=== PATIENT | female | born 1955 | race Caucasian/White ===

== ENCOUNTER 2019-02-07 12:50 | Emergency (ER) | payer OTHER, BC ==
--- OUTSIDE RECORDS SUMMARY | 2019-02-07 12:54 | XMS REPORT | Clinical Summary ---
:1955 Author Organization [facility] Address [address] [place] [address] Care Team Providers Name Role Phone Unavailable Primary Care Provider Unavailable Allergies No Known Allergies Medications Not on file Active Problems Not on file Social History Tobacco Use Types Packs/Day Years Used Date Never Assessed Sex Assigned at Date Recorded Not on file Job Start Date Occupation Industry Not on file Not on file Not on file Travel History Travel Start Travel End No recent travel history available. Last Filed Vital Signs Not on file Plan of Treatment Not on file Results Not on fileafter 02/06/2018 Insurance Payer Benefit Plan / Subscriber ID Type Phone Address Group BLUE CROSS/BLUE BCBS PPO POS EPO xxxxxxxxxxxx PPO [phone] [address] [place] [address]
--- OUTSIDE RECORDS SUMMARY | 2019-02-07 12:54 | XMS REPORT | Clinical Summary ---
:[address] 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 Last Filed Vital Signs Not on file Plan of Treatment Date Type Specialty Care Team Description 03/21/2019 Office Visit Orthopedic Surgery Davi Sharma PA [address] [place] [address] Health Maintenance Due Date Last Done Comments BREAST CANCER SCREENING 2003 COLONOSCOPY SCREENING 2003 SHINGLES VACCINES (#1) 2003 65+ PNEUMOCOCCAL VACCINE (1 of 2 - PCV13) 2018 INFLUENZA VACCINE 02/20/2019 Procedures Procedure Name Priority Date/Time Associated Diagnosis Comments ESTIMATED GFR Routine 10/28/2018 9:22 Results for this AM CDT procedure are in the results section. AMYLASE LEVEL Routine 10/28/2018 9:22 Diarrhea of presumed Results for this AM CDT infectious origin procedure are in Abdominal pain, the results generalized section. COMPREHENSIVE METABOLIC Routine 10/28/2018 9:22 Diarrhea of presumed Results for this PANEL AM CDT infectious origin procedure are in Abdominal pain, the results generalized section. HC COMPLETE BLD COUNT Routine 10/28/2018 9:22 Diarrhea of presumed Results for this W/AUTO DIFF AM CDT infectious origin procedure are in Abdominal pain, the results generalized section. LIPASE LEVEL Routine 10/28/2018 9:22 Diarrhea of presumed Results for this AM CDT infectious origin procedure are in Abdominal pain, the results generalized section. SURGICAL PATHOLOGY Routine 09/11/2018 5:06 Results for this REQUEST PM [employer] procedure are in the results section. GASTROINTESTINAL PANEL Routine 07/31/2018 1:19 Diarrhea, Results for this PM [employer] unspecified type procedure are in the results section. FECAL FAT, QUALITATIVE Routine 07/31/2018 1:18 Diarrhea, Results for this PM [employer] unspecified type procedure are in the results section. PANCREATIC ELASTASE, Routine 07/31/2018 1:18 Diarrhea, Results for this FECAL PM [employer] unspecified type procedure are in the results section. CALPROTECTIN, STOOL Routine 07/31/2018 1:18 Diarrhea, Results for this PM [employer] unspecified type procedure are in the results section. IMMUNOGLOBULIN A Routine 07/30/2018 4:35 Food protein induced Results for this PM [employer] enterocolitis procedure are in syndrome (FPIES) the results Frequent bowel section. movements Diarrhea of presumed infectious origin TISSUE TRANSGLUTAMINASE Routine 07/30/2018 4:35 Food protein induced Results for this AB, IGA PM [employer] enterocolitis procedure are in syndrome (FPIES) the results Frequent bowel section. movements Diarrhea of presumed infectious origin SEDIMENTATION RATE Routine 07/30/2018 4:35 Food protein induced Results for this PM [employer] enterocolitis procedure are in syndrome (FPIES) the results Frequent bowel section. movements Diarrhea of presumed infectious origin C-REACTIVE PROTEIN Routine 07/30/2018 4:35 Food protein induced Results for this PM [employer] enterocolitis procedure are in syndrome (FPIES) the results Frequent bowel section. movements Diarrhea of presumed infectious origin after 02/06/2018 Results Estimated GFR (10/28/2018 9:22 AM CDT) Estimated GFR 89 mL/min/1.73 [facility] Comment: m2 HOSPITAL CatergoryUnitsInterpretation G1 >=90 Normal or high G2 60-89Mildly decreased [id number] to moderately decreased G3y16-09Iyzotyokvh to severely decreased G4 15-29Severely decreased G5 <15Kidney failure The eGFR was calculated using the Chronic Kidney Disease Epidemiology Collaboration (CKD-EPI) equation. Interpretation is based on recommendations of the National Kidney Foundation-Kidney Disease Outcomes Quality Initiative (NKF-KDOQI) published in 2014. Specimen Plasma specimen Performing Organization Address City/State/Zipcode Phone Number [facility] DEPARTMENT OF PATHOLOGY AND [address] [place] [address] GENOMIC MEDICINE [facility] [address] [place] [address] CBC with platelet and differential (10/28/2018 9:22 AM CDT) WBC 4.21 (L) 4.50 - 11.00 [facility] k/uL [facility] RBC 4.36 4.20 - 5.50 [facility] m/[facility] HGB 12.8 12.0 - 16.0 [facility] HCT 40.1 37.0 - 47.0 % [facility] MCV 92.0 82.0 - 100.0 [facility] MCH 29.4 27.0 - 34.0 pg [facility] MCHC 31.9 31.0 - 37.0 [facility] RDW - SD 47.3 37.0 - 55.0 [facility] MPV 10.6 8.8 - 13.2 [facility] Platelet count 186 150 - 400 k/uL [facility] Nucleated RBC 0.00 /100 WBC [facility] Neutrophils 52.2 39.0 - 69.0 % [facility] Lymphocytes 34.7 25.0 - 45.0 % [facility] Monocytes 9.5 0.0 - 10.0 % [facility] Eosinophils 2.1 0.0 - 5.0 % [facility] Basophils 1.0 0.0 - 1.0 % [facility] Immature granulocytes 0.5Comment: 0.0 - 1.0 % [facility] "Immature HOSPITAL granulocytes" (promyelocytes , myelocytes, metamyelocytes ) Specimen Blood Performing Organization Address City/[facility] Phone Number [facility] DEPARTMENT OF PATHOLOGY AND [address] [place] [phone] [place] [phone] Lipase level (10/28/2018 9:22 AM CDT) Lipase 27 13 - 60 U/L [facility] Specimen Plasma specimen Performing Organization Address City/[facility] Phone Number [facility] DEPARTMENT OF PATHOLOGY AND [address] [place] [address] [address] Amylase level (10/28/2018 9:22 AM CDT) Amylase 44 28 - 100 U/L [facility] Specimen Plasma specimen Performing Organization Address [facility] Phone Number [facility] DEPARTMENT OF PATHOLOGY AND [address] [place] [phone] Comprehensive metabolic panel (10/28/2018 9:22 AM CDT) Sodium 140 135 - 148 [facility] mEq/L [facility] Potassium 4.2 3.5 - 5.0 [facility] mEq/L [facility] Chloride 102 98 - 112 mEq/L [facility] CO2 25 24 - 31 mEq/L [facility] Anion gap 13@ANIO 7 - 15 mEq/L [facility] BUN 16 8 - 23 mg/dL [facility] Creatinine 0.71 0.50 - 0.90 [facility] mg/dL HOSPITAL Glucose 94 65 - 99 mg/dL [facility] Calcium 9.4 8.8 - 10.2 [facility] mg/dL HOSPITAL Protein 7.3 6.3 - 8.3 g/dL [facility] Comment: HOSPITAL 4.6-7.0 g/dL 1 week 4.4-7.6 g/dL 7 months-1year5.1-7.3 g/dL 1-2 years5.6-7.5 g/dL >3 years6.0-8.0 g/dL 18-150 6.3-8.3 g/dL Albumin 4.2 3.5 - 5.0 g/dL [facility] A/G ratio 1.4 0.7 - 3.8 [facility] Alkaline phosphatase 60 35 - 104 U/L [facility] AST 24 10 - 35 U/L [facility] ALT 21 5 - 50 U/L [facility] Total bilirubin 0.6 0.0 - 1.2 [facility] mg/dL HOSPITAL Specimen Plasma specimen Performing Organization Address City/[facility] Phone Number [facility] DEPARTMENT OF PATHOLOGY AND [address] [place] [address] Surgical pathology request (09/11/2018 5:06 PM [employer]) [facility] DEPARTMENT OF PATHOLOGY AND GENOMIC MEDICINE Surgical pathology See link below [facility] DEPARTMENT OF report for PDF Lab PATHOLOGY AND Report GENOMIC MEDICINE Result status This is Final [facility] DEPARTMENT OF Report for PATHOLOGY AND [id number] GENOMIC MEDICINE Specimen Performing Organization Address [facility] Phone Number [facility] DEPARTMENT OF PATHOLOGY AND [address] [place] [address] MEDICINE Gastrointestinal panel (07/31/2018 1:19 PM [employer]) Gastrointestinal panel Negative for all pathogens tested: [facility] Negative for Salmonella [facility] Negative for Campylobacter [facility] Negative for Diarrheagenic E coli/Shigella Negative for Shiga-like toxin-producing E coli Negative for Plesiomonas shigelloides Negative for Yersinia enterocolitica Negative for Vibrio species Negative for Clostridium difficile (Toxin A/B) Negative for Cryptosporidium Negative for Giardia lamblia Negative for Cyclospora cayeteanensis Negative for Entamoeba histolytica Negative for Adenovirus F 40/41 Negative for Astrovirus Negative for Norovirus GI/GII Negative for Rotavirus A Negative for Sapovirus Negative for Clostridium difficile toxin Negative for E coli 0157 This real-time PCR assay detects the presence of nucleic acids (RNA or DNA) for the gastrointestinal pathogens listed. A result of "Not-detected" does not exclude the possibility of the presence of one or more pathogens at concentrations less than the detectable limits of the assay. Comment: Specimen Information Specimen Source: Stool Specimen Site: Nonpreserved Specimen Stool - Nonpreserved Performing Organization Address City/[facility] Phone Number [facility] DEPARTMENT OF PATHOLOGY AND [address] [place] [address] [address] [place] [address] Pancreatic elastase, fecal (07/31/2018 1:18 PM [employer]) Pancreatic >500 >=201 ug/g [facility] elastase Comment: REFERENCE INTERVAL: Pancreatic Elastase, Fecal by KATERINE Greater than 200 ug/g ........ Normal 100-200 ug/g ................. Moderate to mild pancreatic insufficiency Less than 100 ug/g ........... Severe exocrine pancreatic insufficiency Reference range does not apply for infants less than one month old. Performed by Wil[facility] Axon, [address] [place] [id number] www.[email or web address], Julio César Bose MD - Lab. Director Specimen Serum Performing Organization Address [facility] Phone Number [facility] [address] [place] [address] [facility] [address] [place] [address] Calprotectin, stool (07/31/2018 1:18 PM [employer]) Pathologist [facility] Calprotectin, <16 <=50 ug/g [facility] stool Comment: INTERPRETIVE INFORMATION: Calprotectin, Fecal 50 ug/g or less: Normal 51-120 ug/g: Borderline elevated, test should be re-evaluated in 4-6 weeks. 121 ug/g or greater: Abnormal Performed by Wilshire Axon, [address] [place] [address] [id number] [email or web address], Julio César Bose MD - Lab. Director Specimen Serum Performing Organization Address City/[facility] Phone Number [facility] [address] [place] [address] [facility] [address] [place] [address] Fecal fat, qualitative (07/31/2018 1:18 PM [employer]) Pathologist [facility] Fecal fat, neutral Normal Normal [facility] Fecal fat, split Normal Normal [facility] Comment: INTERPRETIVE INFORMATION: Fecal Fat Qualitative Neutral fats include the monoglycerides, diglycerides, and triglycerides while split fats are the free fatty acids that are liberated from them. Impaired synthesis or secretion of pancreatic enzymes or bile may cause an increase in neutral fats while an increase in split fats suggests impaired absorption of nutrients. Performed by Wilshire Axon, [address] [place] [phone] www[email or web address], Julio César Bose MD - Lab. Director Specimen Serum Performing Organization Address [facility] Phone Number [facility] [address] [place] [address] [facility] [address] [place] [phone] Tissue transglutaminase Ab, IgA (07/30/2018 4:35 PM [employer]) Tissue 1 0 - 3 U/mL [facility] transglutaminase Ab, Comment: LAB IgA INTERPRETIVE INFORMATION: Tissue Transglutaminase (tTG) Antibody, IgA 3 U/mL or less: Negative 4-10 U/mL: Weak Positive 11 U/mL or greater: Positive Presence of the tissue transglutaminase (tTG) IgA antibody is associated with glutensensitive enteropathies such as celiac disease and dermatitis herpetiformis. tTG IgA antibody concentrations greater than 40 U/mL usually correlate with results of duodenal biopsies consistent with a diagnosis of celiac disease. For antibody concentrations greater or equal to 4 U/mL but less than or equal to 40 U/mL, additional testing for endomysial (SHELBY) IgA concentrations may improve the positive predictive value for disease. Performed by Wilshire Axon, [address] [place] [phone] www[email or web address], Julio César Bose MD - Lab. Director Specimen Serum Performing Organization Address [facility] Phone Number [facility] [address] [place] [address] [facility] [address] [place] [address] Sedimentation rate (07/30/2018 4:35 PM [employer]) Sedimentation rate 7 0 - 20 mm/hr [facility] Specimen Blood Performing Organization Address City/[facility]/Zipcode Phone Number [facility] DEPARTMENT OF PATHOLOGY AND [address] [place] [address] GENOMIC MEDICINE [address] [address] C-reactive protein (07/30/2018 4:35 PM [employer]) Pathologist [facility] CRP <0.30 0.00 - 0.50 mg/dL [facility] Specimen Plasma specimen Performing Organization Address City/State/Zipcode Phone Number [facility] DEPARTMENT OF PATHOLOGY AND [address] [place] [address] [address] Immunoglobulin A (07/30/2018 4:35 PM [employer]) IgA 112 70 - 400 mg/dL [facility] Specimen Plasma specimen Performing Organization Address City/[facility] Phone Number [facility] DEPARTMENT OF PATHOLOGY AND [address] [place] [address] [address] after 02/06/2018 Insurance Payer Benefit Plan / Subscriber ID Effective Dates Phone Address Type Group MEDICARE MEDICARE PART A xxxxxxxxxxx 2018-Present [place], [place] Medicare AND B BCBS BCBS CHOICE xxxxxxxxxxxx 2018-Present PPO PPO/[employer] PPO Advance Directives Patient has advance care planning documents on file. For more information, please contact:[address] [address]
[2019-02-07] MEDS ORDERED: NA CHLORIDE 0.9% 1,000 ML ONE (13:50)
[2019-02-07] MEDS ORDERED: DICYCLOMINE HCL 10 MG CAP ONE (13:50)
[2019-02-07] MEDS ORDERED: ONDANSETRON 4 MG/2 ML VIAL ONE (13:50)
[2019-02-07] MEDS ORDERED: ACETAMINOPHEN 500 MG TAB ONE (13:50)
[2019-02-07 13:59] LABS: Absolute Lymphocytes (CBC) 0.6 K/uL (0.7-4.9); Basophils % 0.2 % (0-1.3); Eosinophils % 0.6 % (0-4.4); Hematocrit 37.8 % (36.0-45.0); Lymphocytes % 11.6 % (15.3-44.8); MPV 8.9 fL (7.6-11.3); Monocytes % 7.1 % (3.3-12.3); RBC Red Blood Cell Count 4.22 M/uL (3.86-4.86)
[2019-02-07 14:17] LABS: Albumin 4.1 g/dL (3.4-5.0); Bilirubin Direct 0.3 mg/dL (0-0.2); Bilirubin Total 1.6 mg/dL (0.2-1.0); Potassium 3.6 mmol/L (3.5-5.1); Protein, Total 7.5 g/dL (6.4-8.2)
--- NOTE | 2019-02-07 15:24 | ER ---
Nurse's Notes [facility] Name: Marina Castro Age: 63 yrs Sex: Female : 1955 Arrival Date: 02/07/2019 Time: 12:53 Bed 27 Private MD: Cooper Friedman C Diagnosis: Nausea and vomiting;Diarrhea, unspecified Presentation: 02/07 13:15 Presenting complaint: Patient states: headache, nausea, vomiting that began yesterday. aa5 Reports diarrhea today. Transition of care: patient was not received from another setting of care. Onset of symptoms was January 2019. Risk Assessment: Do you want to hurt yourself or someone else? Patient reports no desire to harm self or others. Initial Sepsis Screen: Does the patient meet any 2 criteria? No. Patient's initial sepsis screen is negative. Does the patient have a suspected source of infection? No. Patient's initial sepsis screen is negative. Care prior to arrival: None. 13:15 Method Of Arrival: Ambulatory aa5 13:15 Acuity: LUIS 3 aa5 Historical: - Allergies: 13:16 No Known Allergies; aa5 - PMHx: 13:16 Hypertension; aa5 - PSHx: 13:16 aortic valve replacement; Knee surgery; aa5 - Immunization history:: Adult Immunizations unknown. - Social history:: Smoking status: Patient/guardian denies using tobacco. - Ebola Screening: : No symptoms or risks identified at this time. Screenin:25 Abuse screen: Denies threats or abuse. Denies injuries from another. Nutritional ca1 screening: No deficits noted. Tuberculosis screening: No symptoms or risk factors identified. Fall Risk IV access (20 points). Assessment: 13:25 General: Appears in no apparent distress. comfortable, Behavior is calm, cooperative, ca1 appropriate for age. Pain: Complains of pain in left upper quadrant Pain does not radiate. Pain currently is 6 out of 10 on a pain scale. Neuro: Level of Consciousness is awake, alert, obeys commands, Oriented to person, place, time, situation, Appropriate for age Reports headache. Cardiovascular: Heart tones S1 S2 present Capillary refill < 3 seconds Patient's skin is warm and dry. Respiratory: Airway is patent Respiratory effort is even, unlabored, Respiratory pattern is regular, symmetrical, Breath sounds are clear bilaterally. GI: Abdomen is round non-distended, Bowel sounds present X 4 quads. Abd is soft and non tender X 4 quads. Reports nausea, vomiting, since yesterday. : No deficits noted. No signs and/or symptoms were reported regarding the genitourinary system. EENT: No deficits noted. No signs and/or symptoms were reported regarding the EENT system. Derm: Skin is intact, is healthy with good turgor, Skin is pink, warm \T\ dry. Musculoskeletal: Circulation, motion, and sensation intact. Capillary refill < 3 seconds, Range of motion: intact in all extremities. 14:31 Reassessment: Patient appears in no apparent distress at this time. Patient and/or ca1 family updated on plan of care and expected duration. Pain level reassessed. Patient is alert, oriented x 3, equal unlabored respirations, skin warm/dry/pink. 15:35 Reassessment: Patient appears in no apparent distress at this time. Patient is alert, ca1 oriented x 3, equal unlabored respirations, skin warm/dry/pink. Patient states feeling better. Vital Signs: 13:16 BP 138 / 73; Pulse 80; Resp 16 S; Temp 98.4(TE); Pulse Ox 97% on R/A; Weight 86.18 kg aa5 (R); Height 5 ft. 7 in. (170.18 cm) (R); Pain 8/10; 14:09 BP 129 / 66; Pulse 64; Resp 18 S; Pulse Ox 99% on R/A; ca1 14:31 BP 120 / 66; Pulse 61; Resp 17 S; Temp 98(O); Pulse Ox 96% on R/A; Pain 2/10; ca1 15:35 BP 124 / 67; Pulse 68; Resp 17 S; Temp 98.4(O); Pulse Ox 100% on R/A; ca1 13:16 Body Mass Index 29.76 (86.18 kg, 170.18 cm) aa5 ED Course: 12:53 Patient arrived in ED. dp 12:53 Cooper Friedman MD is Private Physician. dp 13:16 Triage completed. aa5 13:16 Arm band placed on. aa5 13:22 Maryam Melchor FNP-C [facility]. kb 13:22 Maciel Leung MD is Attending Physician. kb 13:25 Agustina Ryan, RN is Primary Nurse. ca1 13:25 Patient has correct armband on for positive identification. Placed in gown. Bed in low ca1 position. Call light in reach. Side rails up X 1. Pulse ox on. NIBP on. Warm blanket given. 13:47 No provider procedures requiring assistance completed. Inserted saline lock: 22 gauge ca1 in right antecubital area, using aseptic technique. Blood collected. 15:36 IV discontinued, intact, bleeding controlled, No redness/swelling at site. Pressure ca1 dressing applied. Administered Medications: 13:40 Drug: Bentyl 20 mg Route: PO; ca1 14:34 Follow up: Response: No adverse reaction; Pain is decreased ca1 13:40 Drug: Tylenol 1000 mg Route: PO; ca1 14:34 Follow up: Response: No adverse reaction; Pain is decreased ca1 13:47 Drug: NS 0.9% 1000 ml Route: IV; Rate: 1000 ml; Site: right antecubital; ca1 14:34 Follow up: IV Status: Completed infusion ca1 13:50 Drug: Zofran 4 mg Route: IVP; Site: right antecubital; ca1 14:34 Follow up: Response: No adverse reaction; Nausea is decreased ca1 Outcome: 15:24 Discharge ordered by . carina 15:36 Discharged to home ambulatory, with family. ca1 15:36 Condition: stable 15:36 Discharge instructions given to patient, Instructed on discharge instructions, follow up and referral plans. medication usage, Demonstrated understanding of instructions, follow-up care, medications, Prescriptions given X 2. 15:41 Patient left the ED. ca1 Signatures: Maryam Melchor FNP-C FNP-Vale Ely RN RN aa5 Agustina Ryan, RN RN ca1 Tuan Galicia
--- NOTE | 2019-02-07 15:25 | EDPHYS ---
Physician Documentation [facility] Name: Marina Castro Age: 63 yrs Sex: Female : 1955 Arrival Date: 02/07/2019 Time: 12:53 Bed 27 Private MD: Cooper Friedman C ED Physician Maciel Leung HPI: 02/07 15:19 This 63 yrs old Female presents to ER via Ambulatory with complaints of kb Nausea/Vomiting, Headache. 15:19 The patient presents to the emergency department with nausea, vomiting, diarrhea, kb abdominal pain. Onset: The symptoms/episode began/occurred last night. Possible causes: unknown. The symptoms are aggravated by nothing. The symptoms are alleviated by nothing. Associated signs and symptoms: Pertinent positives: abdominal pain, diarrhea, nausea, vomiting. Severity of symptoms: At their worst the symptoms were moderate in the emergency department the symptoms are unchanged. The patient has not experienced similar symptoms in the past. The patient has not recently seen a physician. Pt reports she ate a salad yesterday with some chicken that didn't taste quite right, then was moving boxes in a hot warehouse where she got overheated. Was cooking dinner and started having abd pain so she put it away and went to bed. States she got up approx 6 times to vomit throughout the night then had diarrhea this morning. Has not been able to keep anything down since lunch yesterday.. Historical: - Allergies: 13:16 No Known Allergies; aa5 - PMHx: 13:16 Hypertension; aa5 - PSHx: 13:16 aortic valve replacement; Knee surgery; aa5 - Immunization history:: Adult Immunizations unknown. - Social history:: Smoking status: Patient/guardian denies using tobacco. - Ebola Screening: : No symptoms or risks identified at this time. ROS: 14:02 Constitutional: Negative for fever, chills, and weight loss, ENT: Negative for injury, kb pain, and discharge, Neck: Negative for injury, pain, and swelling, Cardiovascular: Negative for chest pain, palpitations, and edema, Respiratory: Negative for shortness of breath, cough, wheezing, and pleuritic chest pain, Back: Negative for injury and pain, : Negative for injury, bleeding, discharge, and swelling, MS/Extremity: Negative for injury and deformity, Skin: Negative for injury, rash, and discoloration. 14:02 Abdomen/GI: Positive for abdominal pain, nausea, vomiting, and diarrhea. 14:02 Neuro: Positive for headache. Exam: 14:02 Constitutional: This is a well developed, well nourished patient who is awake, alert, kb and in no acute distress. Head/Face: Normocephalic, atraumatic. Neck: Trachea midline, no thyromegaly or masses palpated, and no cervical lymphadenopathy. Supple, full range of motion without nuchal rigidity, or vertebral point tenderness. No Meningismus. Chest/axilla: Normal chest wall appearance and motion. Nontender with no deformity. No lesions are appreciated. Cardiovascular: Regular rate and rhythm with a normal S1 and S2. No gallops, murmurs, or rubs. Normal PMI, no JVD. No pulse deficits. Respiratory: Lungs have equal breath sounds bilaterally, clear to auscultation and percussion. No rales, rhonchi or wheezes noted. No increased work of breathing, no retractions or nasal flaring. Abdomen/GI: Soft, non-tender, with normal bowel sounds. No distension or tympany. No guarding or rebound. No evidence of tenderness throughout. Back: No spinal tenderness. No costovertebral tenderness. Full range of motion. Skin: Warm, dry with normal turgor. Normal color with no rashes, no lesions, and no evidence of cellulitis. MS/ Extremity: Pulses equal, no cyanosis. Neurovascular intact. Full, normal range of motion. Neuro: Awake and alert, GCS 15, oriented to person, place, time, and situation. Cranial nerves II-XII grossly intact. Motor strength 5/5 in all extremities. Sensory grossly intact. Cerebellar exam normal. Normal gait. Vital Signs: 13:16 BP 138 / 73; Pulse 80; Resp 16 S; Temp 98.4(TE); Pulse Ox 97% on R/A; Weight 86.18 kg aa5 (R); Height 5 ft. 7 in. (170.18 cm) (R); Pain 8/10; 14:09 BP 129 / 66; Pulse 64; Resp 18 S; Pulse Ox 99% on R/A; ca1 14:31 BP 120 / 66; Pulse 61; Resp 17 S; Temp 98(O); Pulse Ox 96% on R/A; Pain 2/10; ca1 15:35 BP 124 / 67; Pulse 68; Resp 17 S; Temp 98.4(O); Pulse Ox 100% on R/A; ca1 13:16 Body Mass Index 29.76 (86.18 kg, 170.18 cm) aa5 MDM: 13:23 Patient medically screened. kb 14:02 Data reviewed: vital signs, nurses notes. Data interpreted: Pulse oximetry: on room air kb is 97 %. Interpretation: normal. 15:18 Counseling: I had a detailed discussion with the patient and/or guardian regarding: the kb historical points, exam findings, and any diagnostic results supporting the discharge/admit diagnosis, lab results, the need for outpatient follow up, a family practitioner, to return to the emergency department if symptoms worsen or persist or if there are any questions or concerns that arise at home. ED course: Pt tolerating PO intake. States she feels better after treatment. 02/07 13:30 Order name: Basic Metabolic Panel; Complete Time: 14:22 kb 02/07 13:30 Order name: CBC with Diff; Complete Time: 14:22 kb 02/07 13:30 Order name: Hepatic Function; Complete Time: 14:22 kb 02/07 13:30 Order name: Lipase; Complete Time: 14:22 kb 02/07 13:30 Order name: IV Saline Lock; Complete Time: 13:53 kb 02/07 13:30 Order name: Labs collected and sent; Complete Time: 13:53 kb Administered Medications: 13:40 Drug: Bentyl 20 mg Route: PO; ca1 14:34 Follow up: Response: No adverse reaction; Pain is decreased ca1 13:40 Drug: Tylenol 1000 mg Route: PO; ca1 14:34 Follow up: Response: No adverse reaction; Pain is decreased ca1 13:47 Drug: NS 0.9% 1000 ml Route: IV; Rate: 1000 ml; Site: right antecubital; ca1 14:34 Follow up: IV Status: Completed infusion ca1 13:50 Drug: Zofran 4 mg Route: IVP; Site: right antecubital; ca1 14:34 Follow up: Response: No adverse reaction; Nausea is decreased ca1 Disposition: 02/07/19 15:24 Discharged to Home. Impression: Nausea and vomiting, Diarrhea, unspecified. - Condition is Stable. - Discharge Instructions: Food Choices to Help Relieve Diarrhea, Adult, Nausea and Vomiting, Adult, [id number], Diarrhea, Adult, [id number]. - Prescriptions for Bentyl 20 mg Oral Tablet - take 1 tablet by ORAL route every 6 hours As needed; 20 tablet. Zofran 4 mg Oral Tablet - take 1 tablet by ORAL route every 6 hours As needed; 20 tablet. - Medication Reconciliation Form, Thank You Letter, Antibiotic Education, Prescription Opioid Use form. - Follow up: Emergency Department; When: As needed; Reason: Worsening of condition. Follow up: Private Physician; When: 2 - 3 days; Reason: Recheck today's complaints, Continuance of care, Re-evaluation by your physician. Addendum: 02/08/2019 18:44 Co-signature as Attending Physician, Maciel Leung MD. g s Signatures: Dispatcher [employer] EDMS Maryam Melchor, SENIOR GIS ANALYST-C SENIOR GIS ANALYST-Vale Ely RN RN aa5 Maciel Leung MD MD [facility], Agustina RN RN ca1 Corrections: (The following items were deleted from the chart) 02/07 15:41 15:24 02/07/2019 15:24 Discharged to Home. Impression: Nausea and vomiting; Diarrhea, ca1 unspecified. Condition is Stable. Forms are Medication Reconciliation Form, Thank You Letter, Antibiotic Education, Prescription Opioid Use. Follow up: Emergency Department; When: As needed; Reason: Worsening of condition. Follow up: Private Physician; When: 2 - 3 days; Reason: Recheck today's complaints, Continuance of care, Re-evaluation by your physician. kb
[2019-02-07 16:44] VITALS: BP 124/67; TEMP 98.4; O2SAT 100
== END 2019-02-07 15:41 | disposition home or self-care (01) ==
LOC: ER 12:50
DX: R19.7 Diarrhea, unspecified (principal); I10 Essential (primary) hypertension; Z95.2 Presence of prosthetic heart valve
CPT/HCPCS: 96361; 85025; 80048; 36415; 80076; 83690; 96374; 99284; J7030; J2405

== ENCOUNTER 2020-01-28 05:58 | Emergency (ER) | payer OTHER, BC ==
--- OUTSIDE RECORDS SUMMARY | 2020-01-28 06:00 | XMS REPORT | Continuity of Care Document ---
:1955 Author Organization [facility] t Address [address] [place] [address] Care Team Providers Name Role Phone Fifi NAVA, Сергей Lopez Primary Care Physician DR DAV Attending Clinician Unavailable Zachary SYKES Attending Clinician DR DAV Admitting Clinician Unavailable Payers Payer Name Policy Policy Number Effective Expiration Source Type Date Date MEDICAREMEDICARE PART xxxxxxxxxxx 2018 Jack jenifer A AND 00:00:00 [place] [place] [place] xxxxxxxxxxxx 2018 [place] PPO/FEDERAL EMPL 00:00:00 Method[employer] t PPOxxxxxxxxxxxx/08/11 18-PresentPPO Problems This patient has no known problems. Allergies, Adverse Reactions, Alerts This patient has no known allergies or adverse reactions. Family History Family Member Diagnosis Comments Start Date Stop Date Source Natural brother Heart disease [place] [facility] Natural father Cancer [facility] Natural father Stroke [facility] Natural mother Blood Clots [facility] Natural mother Cancer [facility] Natural mother Heart disease Tristin Montesinos Social History Social Habit Start Date Stop Date Quantity Comments Source Sex Assigned At [facility] Cigarettes smoked 2019-03-21 2019-03-21 Tristin Montesinos current (pack per 00:00:00 00:00:00 day) - Reported Cigarette 2019-03-21 2019-03-21 Tristin De La Garza ist pack-years 00:00:00 00:00:00 Alcohol intake 2019-03-21 2019-03-21 Current drinker [place] [facility] 00:00:00 00:00:00 of alcohol (finding) History of tobacco 2004-07-23 Current smoker Jack burgess [facility]iness use 00:00:00 Smoking Status Start Date Stop Date Source Former smoker 2019-03-21 00:00:00 2019-03-21 00:00:00 [facility] Medications Ordered Filled Start Stop Current Ordering Indication Dosage Frequency Signature Comments Components Source Medication Medication Date Date Medication? Clinician (SIG) Name Name diclofenac 2018- Yes Apply 1-2 Jack burgess (VOLTAREN) 8-30 grams to Metho di 1 % gel 00:00: affected st 00 area 3-4 times daily. Procedures Procedure Date / Time Performed Performing Clinician Sourc e XR FOOT 3+ VW LEFT 2019-03-21 11:23:52 Davi Sharma ethjeanne Plan of Care Planned Activity Planned Date Details Comments Source Future Scheduled 2020-02-21 INFLUENZA VACCINE [facility] Test 00:00:00 [code = INFLUENZA VACCINE] Future Scheduled 2018 65+ PNEUMOCOCCAL [facility] Test 00:00:00 VACCINE (1 of 2 - PCV13) [code = 65+ PNEUMOCOCCAL VACCINE (1 of 2 - PCV13)] Future Scheduled 2003 BREAST CANCER [facility] thodist Test 00:00:00 SCREENING [code = BREAST CANCER SCREENING] Future Scheduled 2003 COLONOSCOPY SCREENING Jack burgess [facility] Test 00:00:00 [code = COLONOSCOPY SCREENING] Future Scheduled 2003 SHINGLES VACCINES (#1) [facility] Test 00:00:00 [code = SHINGLES VACCINES (#1)] Results Test Description Test Time Test Comments Results Result Sourc e Comments XR FOREARM 2 VIEWS 2020-01-03 Exam: Right XR ELBOW 09:41:05 MIN 3 VIEWS, XR FOREARM 2 VIEWSHISTORY: PainCOMPARISON: None available.FINDINGS:Christ renny:No acute displaced fracture.Osseous alignment is within normal limits.Joints:The joint spaces are well-maintained.Soft tissues:The soft tissues appear unremarkable.IMPRESSI ON:No acute radiographic abnormality.This final report was electronically signed by Dr Blank Schaefer MD01/03/2020 9:34 AMDictated By: Merle SKINNER: 01/03/2020 09:34 XR ELBOW MIN 3 2020-01-03 Exam: Right XR ELBOW VIEWS 09:40:57 MIN 3 VIEWS, XR FOREARM 2 VIEWSHISTORY: PainCOMPARISON: None available.FINDINGS:Christ renny:No acute displaced fracture.Osseous alignment is within normal limits.Joints:The joint spaces are well-maintained.Soft tissues:The soft tissues appear unremarkable.IMPRESSI ON:No acute radiographic abnormality.This final report was electronically signed by Dr Blank Schaefer MD01/03/2020 9:34 AMDictated By: Merle SKINNER: 01/03/2020 09:34
--- OUTSIDE RECORDS SUMMARY | 2020-01-28 06:00 | XMS REPORT | Clinical Summary ---
:1955 Author Organization [facility] Address [address] [place] [address] Care Team Providers Name Role Phone Unavailable [...] Not on file Results Not on fileafter 01/27/2019 Insurance Payer Benefit Plan / Subscriber ID Type Phone Address Group BLUE CROSS/BLUE BCBS PPO POS EPO xxxxxxxxxxxx PPO [phone] [id number] [place] [address]
--- OUTSIDE RECORDS SUMMARY | 2020-01-28 06:00 | XMS REPORT | Clinical Summary ---
:1955 Author Organization [facility] Address [address] [place] [id number] Care Team Providers Name Role Phone Jessica Calix MD Primary Care Provider Allergies No Known Allergies Medications Medication Sig Dispensed Refills Start Date End Date Status diclofenac (VOLTAREN) Apply 1-2 grams to 500 g 0 9 Active 1 % gel affected area 3-4 times daily. Active Problems Not on file Encounters Date Type Specialty Care Team Description 03/21/2019 Office Visit Orthopedic Surgery Davi Sharma PA Left foot pain (Primary Dx); Arthritis of fo ot, left; Strain of left foot, sequela after 01/27/2019 Family History Medical History Relation Name Comments Heart disease Brother Santhosh Castro Cancer Father Shell Castro Stroke Father Shell Castro Blood Clots Mother Sandra Castro Cancer Mother Sandra Castro Heart disease Mother Sandra Castro Relation Name Status Comments Brother Santhosh Castro Father Shell Castro Mother Sandra Castro Social History Tobacco Use Types Packs/Day Years Used Date Former Smoker Cigarettes 1 20 Quit: 07/23/19 05 Smokeless Tobacco: Never Used Alcohol Use Drinks/Week oz/Week Comments Yes 6 Standard drinks or equivalent 6.0 Sex Assigned at Date Recorded Not on file Job Start Date Occupation Industry Not on file Not on file Not on file Travel History Travel Start Travel End No recent travel history available. Last Filed Vital Signs Not on file Plan of Treatment Health Maintenance Due Date Last Done Comments BREAST CANCER SCREENING 2003 COLONOSCOPY SCREENING 2003 SHINGLES VACCINES (#1) 2003 65+ PNEUMOCOCCAL VACCINE (1 of 2 - PCV13) 2018 INFLUENZA VACCINE 02/21/2020 Procedures Procedure Name Priority Date/Time Associated Diagnosis Comme nts XR FOOT 3+ VW LEFT Routine 03/21/2019 11:23 AM Left foot pain Results for this CDT procedure are i n the results section. after 01/27/2019 Results XR Foot 3+ Vw Left (03/21/2019 11:23 AM CDT) Specimen Narrative Performed At This result has an attachment that is no t available. 3 views of the left foot done weightbearing today shows previous hindfoot [facility] fusion. [address] along the lateral hin dfoot. There is some forefoot abduction more so present on the left and rig ht. There is arthritic joint changes noted along the navicular cune iform. There is a bit of flattening along the longitudinal arch but over all good preservation. Some mild flexion contracture of the l john toes 2 and 3 on the left with a little bit of arthritic joint change a long the interphalangeal joints. No acute bony change or frac ture is appreciated. Soft tissue appears unremarkable. Performing Organization Address City/State/Zipcode Phone Number [facility] [address] [place] [address] after 01/27/2019 Insurance Payer Benefit Plan / Subscriber ID Effective Dates Phone Addre ss Type Group MEDICARE MEDICARE PART A xxxxxxxxxxx 2018-Present [facility] [place] [place] Medicare AND B BCBS BCBS CHOICE xxxxxxxxxxxx 2018-Present PPO PPO/FEDERAL EMPL PPO Advance Directives For more information, please contact: [phone] Type Date Recorded Patient Shipping And Receiving Explanati on Advance Directives, Living Will and Medical Power of Physician Ophthalmologist
[2020-01-28] MEDS ORDERED: FENTANYL CITR 100 MCG/2 ML ONE ×2 (06:36→07:58)
[2020-01-28] MEDS ORDERED: NA CHLORIDE 0.9% 1,000 ML ONE (06:37)
--- NOTE | 2020-01-28 06:46 | ER ---
Nurse's Notes [facility] Name: Marina Castro Age: 64 yrs Sex: Female : 1955 Arrival Date: 01/28/2020 Time: 06:00 Bed 5 Private MD: Diagnosis: Fall on same level from slipping, tripping and stumbling with subsequent striking against other object;Anterior subluxation of right humerus;lateral humeral head fracture Presentation: 01/27 06:11 Chief complaint: Patient states: Patient had a fall from standing position. Patient ao report to be on blood thinner and denies LOC. Patient landed onto her right side and now C/O pain on the right side. Coronavirus screen: Proceed with normal triage. Ebola Screen: Patient negative for fever greater than or equal to 101.5 degrees Fahrenheit, and additional compatible Ebola Virus Disease symptoms Patient denies exposure to infectious person. Patient denies travel to an Ebola-affected area in the 21 days before illness onset. Initial Sepsis Screen: Does the patient meet any 2 criteria? No. Patient's initial sepsis screen is negative. Does the patient have a suspected source of infection? No. Patient's initial sepsis screen is negative. Risk Assessment: Do you want to hurt yourself or someone else? Patient reports no desire to harm self or others. Onset of symptoms was January 28, 2020 at 05:30. 06:11 Method Of Arrival: Ambulatory ao 06:11 Acuity: LUIS 3 ao 06:21 Care prior to arrival: Mechanism of Injury: Fall from standing position. Trauma event ao details: Injury occurred in the [facility]. Trauma Activation: Physician: ED Physician; Name: Samuel; Notified At: ; Arrived At: Physician: General Surgeon; Name: ; Notified At: ; Arrived At: Physician: Radiology; Name: ; Notified At: ; Arrived At: Physician: Respiratory; Name: ; Notified At: ; Arrived At: Physician: Lab; Name: ; Notified At: ; Arrived At: Historical: - Allergies: 06:15 No Known Allergies; ao - Home Meds: 06:15 carvedilol Oral [Active]; Coumadin Oral [Active]; escitalopram oxalate Oral [Active]; ao Celebrex Oral [Active]; - PMHx: 06:15 Hypertension; ao - PSHx: 06:15 None; ao - Immunization history:: Adult Immunizations unknown. - Social history:: Smoking status: Patient denies any tobacco usage or history of. Patient uses alcohol, occasionally. Patient/guardian denies using street drugs, IV drugs. - Immunization history: Last tetanus immunization: unknown. Screenin:14 Abuse screen: Denies threats or abuse. Nutritional screening: No deficits noted. ea Tuberculosis screening: No symptoms or risk factors identified. 06:17 Fall Risk None identified. ao Primary Survey: 06:05 NO uncontrolled hemorrhage observed. A: The patient is alert. Airway: patent. ao Breathing/Chest: Respiratory pattern: regular, Respiratory effort: spontaneous, unlabored, Chest inspection: symmetrical rise and fall of the chest. Circulation: Cardiac rhythm: sinus rhythm Heart tones present. Disability Alert. Exposure/Environment:. 06:21 Reassessment Airway Airway Patent Breathing/Chest Respiratory pattern Regular ao Circulation Heart rhythm Sinus rhythm Disability Alert. Assessment: 06:19 General: Appears in no apparent distress. uncomfortable, Behavior is calm, cooperative, ao appropriate for age. Pain: Complains of pain in Right shoulder. Neuro: Level of Consciousness is awake, alert, obeys commands, Oriented to person, place, time, situation, Appropriate for age. Cardiovascular: Capillary refill < 3 seconds Patient's skin is warm and dry. Respiratory: Airway is patent Respiratory effort is even, unlabored, Respiratory pattern is regular, symmetrical. GI: Abdomen is non-distended. : No signs and/or symptoms were reported regarding the genitourinary system. EENT: No signs and/or symptoms were reported regarding the EENT system. Derm: Skin is pink, warm \T\ dry. normal, Skin temperature is warm. Derm: Bruising that is dark purple, on Right shoulder. Musculoskeletal: Circulation, motion, and sensation intact. Range of motion: intact in all extremities. 07:40 Reassessment: Patient appears in no apparent distress at this time. Patient and/or em family updated on plan of care and expected duration. Pain level reassessed. Patient is alert, oriented x 3, equal unlabored respirations, skin warm/dry/pink. Vital Signs: 06:14 BP 136 / 75; Pulse 87; Resp 16; Temp 98.6; Pulse Ox 99% ; ea Pia Coma Score: 06:17 Eye Response: spontaneous(4). Verbal Response: oriented(5). Motor Response: obeys ao commands(6). Total: 15. Trauma Score (Adult): 06:17 Eye Response: spontaneous(1); Verbal Response: oriented(1); Motor Response: obeys ao commands(2); Systolic BP: > 89 mm Hg(4); Respiratory Rate: 10 to 29 per min(4); Pia Score: 15; Trauma Score: 12 ED Course: 06:00 Patient arrived in ED. ds1 06:09 [facility] Morris [facility]C [facility] snw 06:09 Chris Baker MD is Attending Physician. snw 06:14 Triage completed. ao 06:15 Arm band placed on left wrist. Patient placed in an exam room, on a stretcher, on ao oxygen, on pulse oximetry, Patient notified of wait time. 06:18 Patient maintains SpO2 saturation greater than 95% on room air. Thermoregulation: warm ao blanket given to patient. 06:21 Patient has correct armband on for positive identification. shift boss on. Pulse ao ox on. NIBP on. 06:37 Shoulder Right (2 View) XRAY In Process Unspecified. EDMS 06:42 Nader Perez MD is Referral Physician. snw 06:46 Inserted saline lock: 20 gauge in left antecubital area, using aseptic technique. Blood ao collected. 07:00 Jc Charles, RN is Primary Nurse. ao 08:01 No provider procedures requiring assistance completed. IV discontinued, intact, em bleeding controlled, No redness/swelling at site. Pressure dressing applied. Administered Medications: 06:40 Drug: NS 0.9% 1000 ml Route: IV; Rate: 75 ml/hr; Site: left antecubital; ao 08:00 Follow up: IV Status: Order to discontinue infusion; IV Intake: 500ml em 06:45 Drug: fentaNYL (PF) 50 mcg Route: IVP; Site: left antecubital; ao 07:07 Follow up: Response: No adverse reaction; RASS: Alert and Calm (0) ao 07:55 Drug: fentaNYL (PF) 25 mcg Route: IVP; Site: left antecubital; em 08:00 Follow up: Response: Medication administered at discharge. em Intake: 08:00 IV: 500ml; Total: 500ml. em Output: 08:02 Urine: 0ml; Total: 0ml. em Outcome: 06:45 Discharge ordered by . mary jane 08:01 Discharged to home ambulatory. em 08:01 Condition: good 08:01 Discharge instructions given to patient, Instructed on discharge instructions, follow up and referral plans. no drinking with medication, no driving heavy equipment, medication usage, Demonstrated understanding of instructions, follow-up care, medications, Prescriptions given X 2. 08:02 Patient's length of stay was not longer than 2 hours. em 08:02 Patient left the ED. em Signatures: Dispatcher [employer] EDMS Jessica Morris, MANAGER POOL-C MANAGER POOL-Csnw Ke Deluca, RN RN Dora Karimi ds1 Jc Charles, RN Silke Arroyo RN RN adenike
--- NOTE | 2020-01-28 06:46 | EDPHYS ---
Physician Documentation [facility] Name: Marina Castro Age: 64 yrs Sex: Female : 1955 Arrival Date: 01/28/2020 Time: 06:00 Bed 5 Private MD: ED Physician Chris Baker HPI: 01/27 06:39 This 64 yrs old Female presents to ER via Ambulatory with complaints of Fall snw Injury, Arm Pain. 06:39 Details of fall: The patient fell from an upright position, while walking. Onset: The snw symptoms/episode began/occurred suddenly, just prior to arrival. Associated injuries: The patient sustained right shoulder, contusion, decreased range of motion, painful injury. Severity of symptoms: At their worst the symptoms were moderate, severe. The patient has not experienced similar symptoms in the past. It is unknown whether or not the patient has recently seen a physician. 06:41 no LOC. snw Historical: - Allergies: 06:15 No Known Allergies; ao - Home Meds: 06:15 carvedilol Oral [Active]; Coumadin Oral [Active]; escitalopram oxalate Oral [Active]; ao Celebrex Oral [Active]; - PMHx: 06:15 Hypertension; ao - PSHx: 06:15 None; ao - Immunization history:: Adult Immunizations unknown. - Social history:: Smoking status: Patient denies any tobacco usage or history of. Patient uses alcohol, occasionally. Patient/guardian denies using street drugs, IV drugs. - Immunization history: Last tetanus immunization: unknown. ROS: 06:37 Constitutional: Negative for fever, chills, and weight loss, Eyes: Negative for injury, snw pain, redness, and discharge, ENT: Negative for injury, pain, and discharge, Neck: Negative for injury, pain, and swelling, Cardiovascular: Negative for chest pain, palpitations, and edema, Respiratory: Negative for shortness of breath, cough, wheezing, and pleuritic chest pain, Abdomen/GI: Negative for abdominal pain, nausea, vomiting, diarrhea, and constipation, Back: Negative for injury and pain, : Negative for injury, bleeding, discharge, and swelling, Skin: Negative for injury, rash, and discoloration, Neuro: Negative for headache, weakness, numbness, tingling, and seizure, Psych: Negative for depression, anxiety, suicide ideation, homicidal ideation, and hallucinations. 06:37 MS/extremity: Positive for injury or acute deformity, decreased range of motion, pain, tenderness, of the right shoulder. Exam: 06:35 Constitutional: This is a well developed, well nourished patient who is awake, alert, snw and in no acute distress. Head/Face: Normocephalic, atraumatic. Eyes: Pupils equal round and reactive to light, extra-ocular motions intact. Lids and lashes normal. Conjunctiva and sclera are non-icteric and not injected. Cornea within normal limits. Periorbital areas with no swelling, redness, or edema. ENT: Nares patent. No nasal discharge, no septal abnormalities noted. Tympanic membranes are normal and external auditory canals are clear. Oropharynx with no redness, swelling, or masses, exudates, or evidence of obstruction, uvula midline. Mucous membranes moist. Neck: Trachea midline, no thyromegaly or masses palpated, and no cervical lymphadenopathy. Supple, full range of motion without nuchal rigidity, or vertebral point tenderness. No Meningismus. Chest/axilla: Normal chest wall appearance and motion. Nontender with no deformity. No lesions are appreciated. 06:35 Respiratory: Lungs have equal breath sounds bilaterally, clear to auscultation and percussion. No rales, rhonchi or wheezes noted. No increased work of breathing, no retractions or nasal flaring. Abdomen/GI: Soft, non-tender, with normal bowel sounds. No distension or tympany. No guarding or rebound. No evidence of tenderness throughout. Back: No spinal tenderness. No costovertebral tenderness. Full range of motion. Skin: Warm, dry with normal turgor. Normal color with no rashes, no lesions, and no evidence of cellulitis. Neuro: Awake and alert, GCS 15, oriented to person, place, time, and situation. Cranial nerves II-XII grossly intact. Motor strength 5/5 in all extremities. Sensory grossly intact. Cerebellar exam normal. Normal gait. Psych: Awake, alert, with orientation to person, place and time. Behavior, mood, and affect are within normal limits. 06:35 Cardiovascular: Rate: normal, Rhythm: regular, Pulses: Pulses are 4+ in right brachial artery, left brachial artery, left carotid pulse and right carotid pulse. Heart sounds: murmur, Edema: is not appreciated, artificial heart valve. 06:35 Musculoskeletal/extremity: ROM: limited active range of motion, in the right shoulder, limited passive range of motion, in the anterior aspect of right shoulder, Circulation is intact in all extremities. Sensation intact. Vital Signs: 06:14 BP 136 / 75; Pulse 87; Resp 16; Temp 98.6; Pulse Ox 99% ; ea Capron Coma Score: 06:17 Eye Response: spontaneous(4). Verbal Response: oriented(5). Motor Response: obeys ao commands(6). Total: 15. Trauma Score (Adult): 06:17 Eye Response: spontaneous(1); Verbal Response: oriented(1); Motor Response: obeys ao commands(2); Systolic BP: > 89 mm Hg(4); Respiratory Rate: 10 to 29 per min(4); Capron Score: 15; Trauma Score: 12 MDM: 06:10 Patient medically screened. snw 07:11 Data reviewed: vital signs, nurses notes. Data interpreted: Pulse oximetry: on room air snw is 99 %. Interpretation: normal. Counseling: I had a detailed discussion with the patient and/or guardian regarding: the historical points, exam findings, and any diagnostic results supporting the discharge/admit diagnosis, lab results, radiology results, the need for outpatient follow up, to return to the emergency department if symptoms worsen or persist or if there are any questions or concerns that arise at home. Response to treatment: the patient's symptoms have markedly improved after treatment. Special discussion: I have referred the patient to see his PCP for further evaluation of high blood pressure. Based on the history and exam findings, there is no indication for further emergent testing or inpatient evaluation. I discussed with the patient/guardian the need to see the orthopedic surgeon for further evaluation of the symptoms. I discussed with the patient/guardian the need to see the primary care provider for further evaluation of the symptoms. ED course: pt able to range right shoulder. 01/27 06:14 Order name: PT-INR snw 01/27 06:14 Order name: Ptt, Activated; Complete Time: 07:11 snw 01/27 06:13 Order name: Shoulder Right (2 View) XRAY snw 01/27 06:14 Order name: CBC with Diff; Complete Time: 07:11 snw 01/27 06:14 Order name: Chem 7; Complete Time: 07:11 snw 01/27 06:15 Order name: Protime (+INR); Complete Time: 07:11 EDMS 01/27 06:22 Order name: NPO; Complete Time: 06:23 snw 01/27 06:45 Order name: Sling; Complete Time: 07:59 snw 01/27 06:45 Order name: Ice pack; Complete Time: 07:07 snw Administered Medications: 06:40 Drug: NS 0.9% 1000 ml Route: IV; Rate: 75 ml/hr; Site: left antecubital; ao 08:00 Follow up: IV Status: Order to discontinue infusion; IV Intake: 500ml em 06:45 Drug: fentaNYL (PF) 50 mcg Route: IVP; Site: left antecubital; ao 07:07 Follow up: Response: No adverse reaction; RASS: Alert and Calm (0) ao 07:55 Drug: fentaNYL (PF) 25 mcg Route: IVP; Site: left antecubital; em 08:00 Follow up: Response: Medication administered at discharge. em Disposition: 01/28/20 06:45 Discharged to Home. Impression: Fall on same level from slipping, tripping and stumbling with subsequent striking against other object, Anterior subluxation of right humerus, lateral humeral head fracture. - Condition is Stable. - Discharge Instructions: Fall Prevention in the Home, Humerus Fracture Treated With Immobilization, RICE for Routine Care of Injuries, Shoulder Sprain, How to Use a Sling. - Prescriptions for Ultram 50 mg Oral Tablet - take 1 tablet by ORAL route every 6 hours As needed; 12 tablet. orphenadrine citrate 100 mg Oral Tablet Sustained Release - take 1 tablet by ORAL route 2 times per day As needed; 20 tablet. - Medication Reconciliation Form, Thank You Letter, Antibiotic Education, Prescription Opioid Use form. - Follow up: Emergency Department; When: As needed; Reason: Worsening of condition. Follow up: Nader Perez MD; When: 2 - 3 days; Reason: If symptoms return, Recheck today's complaints, Continuance of care. Addendum: 02/02/2020 16:39 Co-signature as Attending Physician, Chris Baker MD I agree with the assessment and t w4 plan of care. Signatures: Dispatcher [employer] EDJessica Feliz, MACHINE CARTON MARKER-C MACHINE CARTON MARKER-Csnw Ke Deluca, RN RN Jc Cui RN RN Chris Fletcher MD MD tw4 Corrections: (The following items were deleted from the chart) 01/27 06:39 06:35 Musculoskeletal/extremity: ROM: limited active range of motion, limited passive snw range of motion, in the anterior aspect of left shoulder, Circulation is intact in all extremities. Sensation intact. snw 08:02 06:45 01/28/2020 06:45 Discharged to Home. Impression: Fall on same level from em slipping, tripping and stumbling with subsequent striking against other object; Anterior subluxation of right humerus; lateral humeral head fracture. Condition is Stable. Forms are Medication Reconciliation Form, Thank You Letter, Antibiotic Education, Prescription Opioid Use. Follow up: Emergency Department; When: As needed; Reason: Worsening of condition. Follow up: Nader Perez; When: 2 - 3 days; Reason: If symptoms return, Recheck today's complaints, Continuance of care. snw
[2020-01-28 06:51] LABS: Absolute Lymphocytes (CBC) 1.4 K/uL (0.7-4.9); Basophils % 0.8 % (0-1.3); Hematocrit 40.7 % (36.0-45.0); Lymphocytes % 28.9 % (15.3-44.8); MPV 9.1 fL (7.6-11.3)
[2020-01-28 07:00] LABS: Protime INR 2.36
[2020-01-28 07:04] LABS: Potassium 4.1 mmol/L (3.5-5.1)
[2020-01-28 08:15] VITALS: BP 136/75; TEMP 98.6; O2SAT 99
--- NOTE | 2020-01-28 08:21 | RAD REPORT ---
EXAM DESCRIPTION: RAD - Shoulder Right 2 View - 01/28/2020 6:37 am CLINICAL HISTORY: Right shoulder pain FINDINGS: Avulsion fracture greater tubercle right humerus. No dislocation seen.
== END 2020-01-28 08:02 | disposition home or self-care (01) ==
LOC: ER 05:58
DX: S42.301A Unspecified fracture of shaft of humerus, right arm, initial encounter for closed fracture (principal); W01.10XA Fall on same level from slipping, tripping and stumbling with subsequent striking against unspecified object, initial encounter; Y93.01 Activity, walking, marching and hiking; Y92.9 Unspecified place or not applicable; I10 Essential (primary) hypertension
CPT/HCPCS: 96361; 85025; 80048; 36415; 85610; 85730; 73030; 96374; 99285; J3010 ×2; J7030; G0390

== ENCOUNTER 2021-11-06 10:03 | Emergency (ER) | payer OTHER, BC ==
--- OUTSIDE RECORDS SUMMARY | 2021-11-06 10:07 | XMS REPORT | Continuity of Care Document ---
:1955 Author Organization [facility] t Address [address] [place] [address] Care Team Providers Name Role Phone Sebastian Friedman Primary Care Physician SERA Attending Clinician Unavailable Litzy Kirby Attending Clinician Unavailable Charlie Nguyen Attending Clinician Unavailable Charlie Dominguez Attending Clinician Unavailable EBRAHIM Attending Clinician Unavailable Nurse, [facility] Attending Clinician Unavailable Only, Db Test Attending Clinician Unavailable Leanna POLL WATCHER Attending Clinician LEANNA Attending Clinician Unavailable Agustin RN, T Attending Clinician Unavailable Only, Test Attending Clinician Unavailable Humberto NAVA, Cooper Attending Clinician Cooper OSBORNE Attending Clinician Unavailable Doctor Unassigned, Name Attending Clinician Unavailable Tony Friedman Attending Clinician Unavailable Taba Attending Clinician Unavailable Francois Gonzalez DO Attending Clinician Lab, Fam Pob I Attending Clinician Unavailable Anene POLL WATCHER Attending Clinician ANENE Attending Clinician Unavailable Brianna OBRIEN Attending Clinician Unavailable Brianna Obrien MD Attending Clinician Nadeen RENEE S Attending Clinician Wendy SENIOR Attending Clinician Unavailable DR DAV Attending Clinician Unavailable Litzy Kirby Admitting Clin[facility] Admitting Clinician Unavailable Charlie Nguyen Admitting Clinician Unavailable Physician, Primary or Family Admitting Clinician UnavailTony Zelaya Admitting Clinician Unavailable DR DAV Admitting Clinician Unavailable Payers Payer Name Policy Type Policy Number Effective Date Expiration Date Wendy luke MEDICARE PART A AND [id number] 2018 B 00:00:00 MEDICARE PART A \T\ [id number] 2018 B 00:00:00 [employer] TRADITIONAL [id number] 2018 00:00:00 Problems This patient has no known problems. Allergies, Adverse Reactions, Alerts Allergy Allergy Status Severity Reaction(s) Onset Inactive Treating Comm ents Source Name Type Date Date Clinician No Known DA Active U [facility]02 Clear s 00:00: [place] 00 [facility] No Known DA Active U [facility] 3-18 [place] Allergie 00:00: d s 00 [facility] No Known DA Active U [facility] 3-18 [place] Allergie 00:00: d s 00 [facility] No Known DA Active [facility] 7[facility]11 [place] [facility] No Known DA Active [facility] 7[facility]11 [place] [facility] 00:[facility]: [facility] No Known DA Active [facility] (LUF/LI V/SA) NO KNOWN Drug Active Univers ALLERGIE Class ity of S [facility] Family History Family Member Diagnosis Comments Start Date Stop Date Source Natural brother Heart disease [facility] father Cancer [facility] Natural father Stroke [facility] mother Blood Clots [facility] mother Cancer [facility] Natural mother Heart disease [facility] Social History Social Habit Start Date Stop Date Quantity Comments Source Exposure to Not sure [facility] SARS-CoV-2 (event) Alcohol intake 2021-10-10 2021-10-10 Current drinker [facility] 00:00:00 00:00:00 of alcohol (finding) Tobacco use and 2021-10-10 2021-10-10 Smokeless tobacco [facility] exposure 00:00:00 00:00:00 non-user Cigarettes smoked 2019-03-21 2019-03-[address] current (pack per 00:00:00 00:00:00 Hospita l day) - Reported Cigarette 2019-03-21 2019-03-21 Religion pack-years 00:00:00 00:00:00 Hospital History of tobacco 2004-07-23 Cigarette Smoker Religion use 00:00:00 Hospital Sex Assigned At [birth year] [facility] 00:00:00 00:00:00 Smoking Status Start Date Stop Date Source Ex-smoker 2021-10-10 00:00:00 2021-10-10 [facility]:00 [facility] Medic[facility] Ordered Filled Start Stop Current Ordering Indication Dosage Frequency Signature Comments Components Source Medication Medication Date Date Medication? Clinician (SIG) Name Name lidocaine 2021- No [id number] 1mL U T (Xylocaine) 10-10 Health 1 % 21:07: 21:07 injection 1 45 :00 mL methylPREDN 2021- No [id number] 80mg [facility] ISolone 10-10 Health acetate 21:07: 21:07 (DEPO-Medro 45 :00 l) injection 80 mg methylPREDN 2021- No [id number] 80mg 80 mg, [facility] ISolone 10-10 Intra-zohreh Healt h acetate 21:07: 21:07 cular, (DEPO-Medro 45 :00 Once PRN l) Procedure, injection Starting 80 mg on Sun10/10/21 at 1607, For 1 dose lidocaine 2021- No [id number] 1mL 1 mL, UT (Xylocaine) 10-10 Injection, H ealth 1 % 21:07: 21:07 Once PRN injection 1 45 :00 Procedure, mL Starting on Sun10/10/21 at 1607, For 1 dose warfarin Yes QD 1 (one) [facility] (Coumadin) 3-21 time each Heal th 10 MG 14:34: day. tablet 32 valACYclovi 0 Yes valacyclov UT r (Valtrex) 3- ir 500 mg Hea lth 500 MG 14:34: tablet tablet 32 rivaroxaban Yes Xarelto 20 UT (Xarelto) 3-21 mg tablet Healt h 20 MG 14:34: tablet 32 warfarin 2020-07 Yes [facility] (Coumadin) 2-27 Health 10 MG 00:00: tablet 00 rosuvastati 2020-07 Yes 10mg Take 10 mg UT n (Crestor) 0-01 by mouth 1 He alth 10 MG 00:00: (one) time tablet 00 each day in the evening. traMADol 50 2020-0 Yes 4647 1 by mouth Univers mg tablet 7-13 every 4-6 ity o f 00:00: hours as [place] 00 needed for Medical pain Branch Indication s: acute pain, humerus fracture traMADol 50 2020-0 Yes 4647 1 by mouth Univers mg tablet 7-13 every 4-6 ity o f 00:00: hours as [place] 00 needed for Medical pain Branch Indication s: acute pain, humerus fracture traMADol 50 2020-0 Yes 4647 1 by mouth Univers mg tablet 7-13 every 4-6 ity o f 00:00: hours as [place] 00 needed for Medical pain Branch Indication s: acute pain, humerus fracture traMADol 50 2020-0 Yes 4647 1 by mouth Univers mg tablet 7-13 every 4-6 ity o f 00:00: hours as [place] 00 needed for Medical pain Branch Indication s: acute pain, humerus fracture traMADol 50 2020-0 Yes 4647 1 by mouth Univers mg tablet 7-13 every 4-6 ity o f 00:00: hours as [place] 00 needed for Medical pain Branch Indication s: acute pain, humerus fracture traMADol 50 2020-0 Yes 4647 1 by mouth Univers mg tablet 7-13 every 4-6 ity o f 00:00: hours as [place] 00 needed for Medical pain Branch Indication s: acute pain, humerus fracture traMADol 50 2020-0 Yes 4647 1 by mouth Univers mg tablet 7-13 every 4-6 ity o f 00:00: hours as [place] 00 needed for Medical pain Branch Indication s: acute pain, humerus fracture traMADol 50 2020-0 Yes 4647 1 by mouth Univers mg tablet 7-13 every 4-6 ity o f 00:00: hours as [place] 00 needed for Medical pain Branch Indication s: acute pain, humerus fracture traMADol 50 2020-0 Yes 4647 1 by mouth Univers mg tablet 7-13 every 4-6 ity o f 00:00: hours as [place] 00 needed for Medical pain Branch Indication s: acute pain, humerus fracture traMADol 50 2020-0 Yes 4647 1 by mouth Univers mg tablet 7-13 every 4-6 ity o f 00:00: hours as needed for Medical pain Branch Indication s: acute pain, humerus fracture traMADol 50 2020-0 Yes 4647 1 by mouth Univers mg tablet 7-13 every 4-6 ity o f 00:00: hours as needed for Medical pain Branch Indication s: acute pain, humerus fracture traMADol 50 2020-0 Yes 4647 1 by mouth Univers mg tablet 7-13 every 4-6 ity o f 00:00: hours as needed for Medical pain Branch Indication s: acute pain, humerus fracture traMADol 50 2020-0 Yes 4647 1 by mouth Univers mg tablet 7-13 every 4-6 ity o f 00:00: hours as needed for Medical pain Branch Indication s: acute pain, humerus fracture predniSONE 2020-0 Yes Univers 10 mg 7-07 ity of tablet 00:00: [place] [facility] predniSONE 2020-0 Yes Univers 10 mg 7-07 ity of tablet 00:00: [place] [facility] predniSONE 2020-0 Yes Univers 10 mg 7-07 ity of tablet 00:00: [place] [facility] predniSONE 2020-0 Yes Univers 10 mg 7-07 ity of tablet 00:00: [place] [facility] predniSONE 2020-0 Yes Univers 10 mg 7-07 ity of tablet 00:00: [place] [facility] predniSONE 2020-0 Yes Univers 10 mg 7-07 ity of tablet 00:00: [place] [facility] predniSONE 2020-0 Yes Univers 10 mg 7-07 ity of tablet 00:00: Medical Branch predniSONE 2020-0 Yes Univers 10 mg 7-07 ity of tablet 00:00: [place] [facility] predniSONE 2020-0 Yes Univers 10 mg 7-07 ity of tablet 00:00: [place] [facility] predniSONE 2020-0 Yes Univers 10 mg 7-07 ity of tablet 00:00: [place] 00 Medical Branch predniSONE 2020-0 Yes Univers 10 mg 7-07 ity of tablet 00:00: 00 Medical Branch predniSONE 2020-0 Yes Univers 10 mg 7-07 ity of tablet 00:00: Medical Branch predniSONE 2020-0 Yes Univers 10 mg 7-07 ity of tablet 00:00: [place] 00 Medical Branch predniSONE 2020-0 Yes Univers 10 mg 7-07 ity of tablet 00:00: [place] 00 Medical Branch predniSONE 2020-0 Yes Univers 10 mg 7-07 ity of tablet 00:00: [place] 00 Medical Branch celecoxib 2020-0 Yes 200mg Take 200 Uni vers 200 mg 6-30 mg by ity of capsule 00:00: mouth [place] 00 daily. Medical Branch rosuvastati 2020-0 Yes 10mg Take 10 mg Univers n 10 mg 6-30 by mouth ity of tablet 00:00: every [place] 00 evening. Medical Branch celecoxib 2020-0 Yes 200mg Take 200 Uni vers 200 mg 6-30 mg by ity of capsule 00:00: mouth [place] 00 daily. Medical Branch rosuvastati 2020-0 Yes 10mg Take 10 mg Univers n 10 mg 6-30 by mouth ity of tablet 00:00: every 00 evening. Medical Branch celecoxib 2020-0 Yes 200mg Take 200 Uni vers 200 mg 6-30 mg by ity of capsule 00:00: mouth 00 daily. Medical Branch rosuvastati 2020-0 Yes 10mg Take 10 mg Univers n 10 mg 6-30 by mouth ity of tablet 00:00: every 00 evening. Medical Branch celecoxib 2020-0 Yes 200mg Take 200 Uni vers 200 mg 6-30 mg by ity of capsule 00:00: mouth 00 daily. Medical Branch rosuvastati 2020-0 Yes 10mg Take 10 mg Univers n 10 mg 6-30 by mouth ity of tablet 00:00: every 00 evening. Medical Branch celecoxib 2020-0 Yes 200mg Take 200 Uni vers 200 mg 6-30 mg by ity of capsule 00:00: mouth 00 daily. Medical Branch rosuvastati 2020-0 Yes 10mg Take 10 mg Univers n 10 mg 6-30 by mouth ity of tablet 00:00: every [place] 00 evening. Medical Branch celecoxib 2020-0 Yes 200mg Take 200 Uni vers 200 mg 6-30 mg by ity of capsule 00:00: mouth [place] 00 daily. Medical Branch rosuvastati 2020-0 Yes 10mg Take 10 mg Univers n 10 mg 6-30 by mouth ity of tablet 00:00: every [place] 00 evening. Medical Branch celecoxib 2020-0 Yes 200mg Take 200 Uni vers 200 mg 6-30 mg by ity of capsule 00:00: mouth [place] 00 daily. Medical Branch rosuvastati 2020-0 Yes 10mg Take 10 mg Univers n 10 mg 6-30 by mouth ity of tablet 00:00: every [place] 00 evening. Medical Branch celecoxib 2020-0 Yes 200mg Take 200 Uni vers 200 mg 6-30 mg by ity of capsule 00:00: mouth [place] 00 daily. Medical Branch rosuvastati 2020-0 Yes 10mg Take 10 mg Univers n 10 mg 6-30 by mouth ity of tablet 00:00: every [place] 00 evening. Medical Branch celecoxib 2020-0 Yes 200mg Take 200 Uni vers 200 mg 6-30 mg by ity of capsule 00:00: mouth [place] 00 daily. Medical Branch rosuvastati 2020-0 Yes 10mg Take 10 mg Univers n 10 mg 6-30 by mouth ity of tablet 00:00: every 00 evening. Medical Branch celecoxib 2020-0 Yes 200mg Take 200 Uni vers 200 mg 6-30 mg by ity of capsule 00:00: mouth [place] 00 daily. Medical Branch rosuvastati 2020-0 Yes 10mg Take 10 mg Univers n 10 mg 6-30 by mouth ity of tablet 00:00: every [place] 00 evening. Medical Branch celecoxib 2020-0 Yes 200mg Take 200 Uni vers 200 mg 6-30 mg by ity of capsule 00:00: mouth [place] 00 daily. Medical Branch rosuvastati 2020-0 Yes 10mg Take 10 mg Univers n 10 mg 6-30 by mouth ity of tablet 00:00: every [place] 00 evening. Medical Branch celecoxib 2020-0 Yes 200mg Take 200 Uni vers 200 mg 6-30 mg by ity of capsule 00:00: mouth [place] 00 daily. Medical Branch rosuvastati 2020-0 Yes 10mg Take 10 mg Univers n 10 mg 6-30 by mouth ity of tablet 00:00: every [place] 00 evening. Medical Branch celecoxib 2020-0 Yes 200mg Take 200 Uni vers 200 mg 6-30 mg by ity of capsule 00:00: mouth [place] 00 daily. Medical Branch celecoxib 2020-0 Yes 200mg Take 200 Uni vers 200 mg 6-30 mg by ity of capsule 00:00: mouth [place] 00 daily. Medical Branch rosuvastati 2020-0 Yes 10mg Take 10 mg Univers n 10 mg 6-30 by mouth ity of tablet 00:00: every [place] 00 evening. Medical Branch celecoxib 2020-0 Yes 200mg Take 200 Uni vers 200 mg 6-30 mg by ity of capsule 00:00: mouth [place] 00 daily. Medical Branch rosuvastati 2020-0 Yes 10mg Take 10 mg Univers n 10 mg 6-30 by mouth ity of tablet 00:00: every [place] evening. Medical Branch rosuvastati 2020-0 Yes 10mg Take 10 mg Univers n 10 mg 6-30 by mouth ity of tablet 00:00: every [place] evening. Medical Branch acetaminoph 2020-0 Yes TAKE 1 OR U nivers en-codeine 6-21 2 TABLETS ity of 300-30 mg 00:00: BY [place]OUTH [place] tablet 00 EVERY 4 6 Medical HOURS Branch NEEDED FOR PAIN acetaminoph 2020-0 Yes TAKE 1 OR U nivers en-codeine 6-21 2 TABLETS ity of 300-30 mg 00:00: [place]TH [place] tablet 00 EVERY 4 6 Medical HOURS Branch NEEDED FOR PAIN acetaminoph 2020-0 Yes TAKE 1 OR U nivers en-codeine 6-21 2 TABLETS ity of 300-30 mg 00:00: [place]TH [place] tablet 00 EVERY 4 6 Medical HOURS Branch NEEDED FOR PAIN acetaminoph 2020-0 Yes TAKE 1 OR U nivers en-codeine 6-21 2 TABLETS ity of 300-30 mg 00:00: [place]TH [place] tablet 00 EVERY 4 6 Medical HOURS Branch NEEDED FOR PAIN acetaminoph 2020-0 Yes TAKE 1 OR U nivers en-codeine 6-21 2 TABLETS ity of 300-30 mg 00:00: [place]TH [place] tablet 00 EVERY 4 6 Medical HOURS Branch NEEDED FOR PAIN acetaminoph 2020-0 Yes TAKE 1 OR U nivers en-codeine 6-21 2 TABLETS ity of 300-30 mg 00:00: [place]TH [place] tablet 00 EVERY 4 6 Medical HOURS Branch NEEDED FOR PAIN acetaminoph 2020-0 Yes TAKE 1 OR U nivers en-codeine 6-21 2 TABLETS ity of 300-30 mg 00:00: BY [place]OUTH [place] tablet 00 EVERY 4 6 Medical HOURS Branch NEEDED FOR PAIN acetaminoph 2020-0 Yes TAKE 1 OR U nivers en-codeine 6-21 2 TABLETS ity of 300-30 mg 00:00: BY [place]OUTH [place] tablet 00 EVERY 4 6 Medical HOURS Branch NEEDED FOR PAIN acetaminoph 2020-0 Yes TAKE 1 OR U nivers en-codeine 6-21 2 TABLETS ity of 300-30 mg 00:00: BY [place]OUTH [place] tablet 00 EVERY 4 6 Medical HOURS Branch NEEDED FOR PAIN acetaminoph 2020-0 Yes TAKE 1 OR U nivers en-codeine 6-21 2 TABLETS ity of 300-30 mg 00:00: BY [place]OUTH [place] tablet 00 EVERY 4 6 Medical HOURS Branch NEEDED FOR PAIN acetaminoph 2020-0 Yes TAKE 1 OR U nivers en-codeine 6-21 2 TABLETS ity of 300-30 mg 00:00: BY [place]OUTH [place] tablet 00 EVERY 4 6 Medical HOURS Branch NEEDED FOR PAIN acetaminoph 2020-0 Yes TAKE 1 OR U nivers en-codeine 6-21 2 TABLETS ity of 300-30 mg 00:00: BY MOUTH [place] tablet 00 EVERY 4 6 Medical HOURS Branch NEEDED FOR PAIN acetaminoph 2020-0 Yes TAKE 1 OR U nivers en-codeine 6-21 2 TABLETS ity of 300-30 mg 00:00: BY [place]OUTH [place] tablet 00 EVERY 4 6 Medical HOURS Branch NEEDED FOR PAIN acetaminoph 2020-0 Yes TAKE 1 OR U nivers en-codeine 6-21 2 TABLETS ity of 300-30 mg 00:00: BY [place]OUTH [place] tablet 00 EVERY 4 6 Medical HOURS Branch NEEDED FOR PAIN acetaminoph 2020-0 Yes TAKE 1 OR U nivers en-codeine 6-21 2 TABLETS ity of 300-30 mg 00:00: BY MOUTH [place] tablet 00 EVERY 4 6 Medical HOURS Branch NEEDED FOR PAIN warfarin 10 2020-0 Yes Univer s mg tablet 6-11 ity of 00:00: [place] [facility] warfarin 10 2020-0 Yes Univer s mg tablet 6- ity of 00:00: [place] [facility] warfarin 10 2020-0 Yes Univer s mg tablet 6-11 ity of 00:00: [place] [facility] warfarin 10 2020-0 Yes Univer s mg tablet 6- ity of 00:00: [place] [facility] warfarin 10 2020-0 Yes Univer s mg tablet 6-11 ity of 00:00: [place] [facility] warfarin 10 2020-0 Yes Univer s mg tablet 6- ity of 00:00: [place] [facility] warfarin 10 2020-0 Yes Univer s mg tablet 6- ity of 00:00: [place] 00 Medical Branch warfarin 10 2020-0 Yes Univer s mg tablet 6-11 ity of 00:00: [place] [facility] warfarin 10 2020-0 Yes Univer s mg tablet 6-11 ity of 00:00: [place] 00 Medical Branch warfarin 10 2020-0 Yes Univer s mg tablet 6-11 ity of 00:00: [place] [facility] warfarin 10 2020-0 Yes Univer s mg tablet 6-11 ity of 00:00: [place] [facility] warfarin 10 2020-0 Yes Univer s mg tablet 6-11 ity of 00:00: [place] 00 Medical Branch warfarin 10 2020-0 Yes Univer s mg tablet 6-11 ity of 00:00: [place] [facility] warfarin 10 2020-0 Yes Univer s mg tablet 6-11 ity of 00:00: [place] 00 Medical Branch warfarin 10 2020-0 Yes Univer s mg tablet 6-11 ity of 00:00: [place] [facility] diclofenac 2019-0 Yes Apply 1-2 Me thodi (VOLTAREN) 8-[address] 1 % gel 00:00: affected Hospit a 00 area 3-4 l times daily. Vital Signs Vital Name Observation Time Observation Value Comments Source Body height 2021-10-10 19:33:00 170.2 cm [facility] Body weight 2021-10-10 19:33:00 83.915 kg [facility] BMI 2021-10-10 19:33:00 28.98 kg/m2 [facility] Systolic blood 2020-01-28 20:07:00 141 mm[Hg] [facility] [place] Diastolic blood 2020-01-28 20:07:00 85 [facility]Hg[facility] 2020-01-28 20:07:00 62 /min [facility] Body height 2020-01-28 20:02:00 170.2 cm [facility] Body weight 2020-01-28 20:02:00 77.111 kg [facility] BMI 2020-01-28 20:02:00 26.63 kg/m2 [facility] Systolic blood 2020-01-28 20:07:00 141 mm[Hg] Univer [facility] Diastolic blood 2020-01-28 20:07:00 85 mm[Hg] [facility] Heart rate 2020-01-28 20:07:00 62 /min [facility] Body height 2020-01-28 20:02:00 170.2 cm [facility] Body weight 2020-01-28 20:02:00 77.111 kg [facility] BMI 2020-01-28 20:02:00 26.63 kg/m2 [facility] Procedures Procedure Date / Time Performing Clinician Source Performed [place] ARTHROCENTESIS 2021-10-10 21:07:45 Andrés Bautista [facility] ASPIR&/INJ MAJOR JT/BURSA W/O US ASSIGNMENT OF BENEFITS 2021-07-24 15:16:00 Doctor Unassigned, Un [facility] Plan of Care Planned Activity Planned Date Details Comments Source Future Scheduled 2021-07-13 COVID-19 VACCINE (1) Met [facility] Test 16:26:45 [code = COVID-19 VACCINE (1)] Future Scheduled 2021-07-13 Hepatitis C screening [facility] Test 16:26:45 (procedure) [code = [id number]] Future Scheduled 2021-07-13 BREAST CANCER [facility] Test 16:26:45 SCREENING [code = BREAST CANCER SCREENING] Future Scheduled 2021-07-13 COLONOSCOPY SCREENING [facility] Test 16:26:45 [code = COLONOSCOPY SCREENING] Future Scheduled 2021-07-13 [facility] 16:26:45 [code = SHINGLES VACCINES (#1)] Future Scheduled 2021-07-13 65+ [facility]AL [facility] Test 16:26:45 VACCINE (1 of 1 - PPSV23) [code = 65+ PNEUMOCOCCAL VACCINE (1 of 1 - PPSV23)] Future Scheduled 2021-07-13 INFLUENZA VACCINE [facility] Test 16:26:45 [code = INFLUENZA VACCINE] Encounters Start End Encounter Admission Attending Care Care Encounter Source Date/Time Date/Time Type Type Clinicians Facility Department ID 2021-09-22 Outpatient SERA [facility] [id number] [place] 09:07:57 [facility] 2021-09-19 Inpatient HERI Ramos SURG [id number] [facility] 15:00:00 Maciel [id number] [facility] 2021-08-24 Inpatient MILLY Kirby [facility] [id number] [facility] 09:30:00 Maciel [id number] [facility] 2021-08-19 Outpatient Wendy [facility] [id number] [facility] 14:04:35 Cl 93 [place] [facility] 2021-06-29 Outpatient Wendy [facility] [id number] [facility] 16:17:15 Cl 94 [place] [facility] 2021-06-27 Inpatient MILLY Kirby [facility] [id number] [facility] 07:30:00 Maciel [id number] [facility] 2021-05-25 Inpatient MILLY Kirby [facility] [id number] [facility] 10:00:00 Maciel [id number] [facility] 2020-10-07 Inpatient MILLY Dominguez [facility]G [id number] [facility] 14:30:00 Mufaddal [id number] [facility] 2020-10-06 Inpatient MILLY Dominguez [facility] SURG [id number] [facility] 14:00:00 Mufaddal [id number] [facility] 2020-09-16 Inpatient MILLY Dominguez [facility] RADI [id number] [facility] 11:30:00 Mufaddal [id number] [facility] 2021-11-06 2021-11-06 Outpatient R [facility] [id number] Univers 12:00:00 12:00:[id number] [facility] 2021-11-06 2021-11-06 Outpatient R [facility] [id number] Univers 12:00:00 12:00:00 ity [facility] 2021-11-05 2021-11-05 Outpatient R [facility] [id number] Univers 20:45:00 20:45:00 [id number] ity [facility] 2021-11-05 2021-11-05 Outpatient R SLOANE [facility] [id number] Univers 20:45:00 20:45:[address] [facility] 2021-10-10 2021-10-10 Office VICKY Escalona ORTHO [id number] [place] 14:30:00 16:07:20 Visit Newton SUGAR [id number] He eunice [place] [id number] 2021-09-02 2021-09-02 Telephone Nurse, Shakeel [facility] [id number] Univers 00:00:00 00:00:00 Db Urgent HEALTH [id number] ity of [facility] [id number] Uziel as PADDY?BLEA [id number] [address] MEDICAL OFFICE [facility] 2021-08-24 2021-08-24 Outpatient IMTIAZ KirbyCL LABO [id number] [facility] 15:41:00 15:41:00 Maciel [id number] [facility] 2021-08-17 2021-08-17 Outpatient MILLY Nguyen HERI RADI [id number] [facility] 17:40:00 17:40:00 Cl [id number] [place] [facility] 2021-08-02 2021-08-02 Laboratory Only, Shakeel Db Test [facility] [id number] Univers 20:15:00 20:30:00 Only Mattoe Ram [id number] ity of [facility] [id number] Uziel as PADDY?BLEA [id number] [address] MEDICAL OFFICE [facility] 2021-08-02 2021-08-02 Outpatient R [facility] [id number] Univers 20:15:00 20:15:00 [id number] ity of [facility] 2021-08-02 2021-08-02 Outpatient R LEANNA [facility] [id number] Univers 20:15:00 20:15:00 MATTEO hill o f [facility] 2021-07-25 2021-07-25 Letter MARCOS Velez [id number] Univers 00:00:00 00:00:00 (Out) Alesia GOINS [id number] it y of [facility] [id number] Uziel as [id number] [facility] 019 Branch 2021-07-24 2021-07-24 Outpatient R [facility] [id number] Univers 19:45:00 19:45:00 [id number] ity of [facility] 2021-07-24 2021-07-24 Laboratory Only, Adc Test [facility] 1.2.840. [id number] Univers 08:45:00 09:00:00 Only Jose Rafael Osborne [id number] ity [facility] [id number] [facility] [id number] [facility] 353 Branch 2021-07-24 2021-07-24 Outpatient R HUMBERTO [facility] [id number] Univers 08:45:00 08:45:00 JOSE RAFAEL ity [facility] 2021-07-24 2021-07-24 Orders Doctor RODRÍGUEZ [id number] Univers 00:00:00 00:00:00 Only Unassigned, BRISEIDA [id number] [facility] [id number] Uziel as [id number] [facility] 009 Branch 2021-06-29 2021-06-29 Outpatient MILLY Nguyen, HCATO RADI [id number] [facility] 11:17:00 11:17:00 Cl [id number] [facility] 2021-05-18 2021-05-18 Outpatient Mirta, HCATO SURG [id number] [facility] 10:30:00 10:30:00 Maciel [id number] [facility] 2021-02-23 2021-02-23 Outpatient EL Idalia, HCAPM MERCEDES [id number] [facility] 12:00:00 12:00:00 Sebastian [id number] [facility] 2021-01-25 2021-01-25 Outpatient EL Friedman, HCAPM MERCEDES [id number] [facility] 12:00:00 12:00:00 Sebastian [id number] [facility] 2021-01-05 2021-01-05 Outpatient EL Doug, HCATO RADI [id number] [facility] 06:45:00 06:45:00 Gill [id number] [facility] 2020-12-31 2020-12-31 Travel 1.2.840.1 [id number] [facility] 00:00:00 00:00:00 [id number] 350.1.13.[address] 3.430.2.7 0.2.7.3.698 Ho spita .3.225146 084.8 l .8 2020-12-06 2020-12-06 Travel 1.2.840.1 1.2.339.210 0249 [id number] Methodi 00:00:00 00:00:[address] 3.430.2.7 0.2.7.3.698 Ho spita .3.965506 084.8 l .8 2020-10-12 2020-10-12 Outpatient [facility], [facility] [id number] 2-20 [facility] 09:30:00 09:30:00 Mufaddal [id number] [facility] 2020-10-07 2020-10-07 Outpatient [facility] [id number] 2-20 [facility] 18:13:00 18:13:00 Mufaddal [id number] [facility] 2020-09-27 2020-09-27 [facility] 1.2.840.114 [id number] Univers 00:00:00 00:00:00 Outreach [facility] 350.1.13.10 i ty of Francois CARE 4.2.7.2.686 Uziela s KATERINEON [phone] Wy dical [address] 2020-09-27 2020-09-27 Patient Carlos NDSAMUEL 1.2.840.114 [id number] 27 00:00:00 00:00:00 Outreach Jose A PRIMARY 350.1.13.10 Francois CARE 4.2.7.2.686 PAVILLION [id number] 388 2020-09-23 2020-09-23 Travel 1.2.840.1 1.2.438.813 8301 003307 Methodi 00:00:00 00:00:[address] 3.430.2.7 0.2.7.3.698 Ho spita .3.452796 084.8 l .8 2020-09-08 2020-09-08 Outpatient HERI Dominguez [id number] 2-20 [facility] 07:00:00 07:00:00 Mukassandraddinocencio [id number] [facility] 2020-03-20 2020-03-20 Laboratory Lab, [facility] Fam Pob I [facility] 1.2. 840.114 [id number] Univers 13:38:36 13:58:36 Only [facility] 350.1.13.10 ity of [place] 4.2.7.2.686 Uziel as Professio [phone] Wy dical [address] Office Building [facility] 2020-03-20 2020-03-20 Laboratory Lab, [facility] 1.2.840.114 77 [id number] 13:38:36 13:58:36 Only Fam Pob I Health 350.1.13.10 [place] 4.2.7.2.686 Professio [id number] [place] [address] Office Building [facility] 2020-03-20 2020-03-20 Outpatient [facility] [id number] -[id number] Univers 13:20:00 13:20:00 [id number] ity of [facility] 2020-03-20 2020-03-20 Outpatient R BELIA [facility] [id number] Univers 13:20:00 13:20:00 ESTEBAN ity of [facility] 2020-03-20 2020-03-20 Letter Doctor RODRÍGUEZ 1.2.840.114 [id number] Univers 00:00:00 00:00:00 (Out) Unassigned, BRISEIDA 350.1.13.10 ity of [facility] 4.2.7.2.686 Uziel as [phone] [address] 2020-03-20 2020-03-20 Letter Doctor MARCOS Luna.2.840.114 [id number] 00:00:00 00:00:00 (Out) Unassigned, BRISEIDA 350.1.13.10 [facility] 4.2.7.2.686 [id number] [facility] 2020-03-08 2020-03-08 Outpatient R MICAH [facility] [id number] 8A-20 Univers 16:00:00 16:00:00 LILIA [id number] [facility] 2020-03-08 2020-03-08 Outpatient R MICAH [facility] [id number] Univers 16:00:00 16:00:00 LILIA [facility] 2020-03-01 2020-03-01 [place] [facility] 1.2.840.114 77 [id number] 00:00:00 00:00:00 [facility] 350.1.13.10 Surgical 4.2.7.2.686 Specialti [phone] [address] [place] 2020-03-01 2020-03-01 [facility] 1.2.840.114 77 [id number] 00:00:00 00:00:00 [facility] 350.1.13.10 Surgical 4.2.7.2.686 Specialti [phone] es [address] [place] 2020-03-01 2020-03-01 [place] [facility] 1.2.840.114 77 [id number] [facility] 00:00:00 00:00:00 [facility] 350.1.13.10 it y of Surgical 4.2.7.2.686 Uziel as Specialti [phone] Wy dical es [address] [facility] 2020-03-01 2020-03-01 [place] [facility] 1.2.840.114 77 [id number] Univers 00:00:00 00:00:00 [facility] 350.1.13.10 it y of Surgical 4.2.7.2.686 Uziel as Specialti [id number] Me dical es [address] [facility] 2020-02-20 2020-02-20 [place] [facility] 1.2.840.114 77 [id number] 00:00:00 00:00:00 [facility] 350.1.13.10 Surgical 4.2.7.2.686 Specialti [phone] es [address] [place] 2020-02-20 2020-02-20 [place] [facility] 1.2.840.114 77 [id number] Univers 00:00:00 00:00:00 Lilia L [facility] 350.1.13.10 it y of Surgical 4.2.7.2.686 Uziel as Specialti [phone] Me dical es [address] [facility] 2020-02-04 2020-02-04 Telephone [facility] 1.2.840.114 76 [id number] 00:00:00 00:00:00 [facility] 350.1.13.10 Surgical 4.2.7.2.686 Specialti [phone] es [address] [place] 2020-02-04 2020-02-04 Telephone [facility] 1.2.840.114 76 [id number] [facility] 00:00:00 00:00:00 [facility] 350.1.13.10 it y of Surgical 4.2.7.2.686 Uziel as Specialti [phone] Wy dical es [address] [facility] 2020-02-02 2020-02-02 [place] [facility] 1.2.840.114 76 [id number] 00:00:00 00:00:00 [facility] 350.1.13.10 Surgical 4.2.7.2.686 Specialti [id number] es [address] [place] 2020-02-02 2020-02-02 [place] [facility] 1.2.840.114 76 [id number] [facility] 00:00:00 00:00:00 [facility] 350.1.13.10 it y of Surgical 4.2.7.2.686 Uziel as Specialti [phone] Wy dical es [address] [facility] 2020-01-28 2020-01-28 Office [facility] 1.2.840.114 [id number] 14:49:21 15:36:45 Visit [facility] Forter 350.1.13.10 Surgical 4.2.7.2.686 Specialti [phone] es [address] [place] 2020-01-28 2020-01-28 Office [facility] 1.2.840.[id number] [place] [address] 14:49:21 15:36:45 Visit [facility] 350.1.13.10 it y of Surgical 4.2.7.2.686 Uziel as Specialti [phone] Wy dical es [address] [facility] 2020-01-28 2020-01-28 Outpatient R NADEEN [facility] [id number] Univers 14:45:00 14:45:00 FRANCIS[place] [facility] Results Test Description Test Time Test Comments Results Result Comments Source PROTHROMBIN TIME 2021-08-24 12:51:00 Test Item Value Reference Range Interpretation Comme nts PROTHROMBIN TIME PATIENT (test 20.9 secs 9.7-12.5 H Please note new normal range. code = PTP) INTERNATIONAL NORMAL RATIO 1.87 <2.0 R ECOMMENDED THERAPEUTIC RANGE FOR (test code = INR) ORAL ANTIC OAGULANTTREATMENT: CONDITION INRProp hylaxis of venous thrombosis in 2.0 - 3.0 high-risk medi lisbeth or surgical patientsTreatme nt of venous thrombosis 2.0 - 3.0Prevention o f embolism 2 .0 - 3.0Prevention of recurrent em bolism, or 3.0 - 4.5 pat ients with mechanical pros thetic intravascular v george IS PATIENT ON ANTICOAGULANTS ? YLIST ANTICOAGULANT/ANTI PLT MEDICATION : OtherHas Lab been notified if Patient is on Heparin Drip? NOIf Yes, order CBC, OCCULT BLOOD, PT every other day NTHROMBOPLASTIN TIME [id number] 12:51:00 Test Item Value Reference Range Interpretation Comments PTT ACTIVATED (test 38.5 secs 26.6-34.6 H Please n ote new code = APTT) normal range. IS PATIENT ON ANTICOAGULANTS ? YLIST ANTICOAGULANT/ANTI PLT MEDICATION : OtherHas Lab been notified if Patient is on Heparin Drip? NOIf Yes, order CBC, OCCULT BLOOD, PT every other day N- XR FLUORO [id number] 13:34:00 [facility] Ivone : 1955 Sex: F Patient Name: NIKIA GARCIA Unit No: [id number] EXAMS: CPT CODE: [id number] XR FLUORO [id number] Fluoroscopically guided injection of the right plantar fascia with steroid FINDINGS: After informed consent was obtained a needle was placed in the right plantar fascia with fluoroscopic guidance. Its position was confirmed by obtaining a radiograph. Subsequently 2 mL of Kenalog 40 mg per cc and 2 mL of lidocaine was injected. No immediate complications were encountered. 32 seconds of fluoroscopy time was utilized. IMPRESSION: Technically successful steroid injection of the right plantar fascia at 1334 Reported and signed by: Erick Alcantar M.D. CC: Cl Nguyen MD Technologist: RT Karol.(R) Transcribed D/ (9959) t.OSEASR.[facility] NAME: NIKIA GARCIA [address] [facility] PHYS: Cl Sandra MD : 1955 AGE: 66 SEX: F [place] [address] LOC: Y.PRE PHONE #: [phone] EXAM DATE: 08/17/2021 STATUS: [facility] FAX #: [phone] RAD #: [id number] D/C DTPAGE 1 Signed Report Patient Name: NIKIA GARCIA Unit No: [id number] EXAMS: CPT CODE: [id number] XR FLUORO NDL [id number] <Continued> Orig Print D/T: S: 08/18/2021 (3612) [facility] NAME: NIKIA GARCIA [address] [facility] PHYS: Cl Sandra MD : 1955 AGE: 66 SEX: F [place] [address] LOC: Y.PRE PHONE #: [phone] EXAM DATE: 08/17/2021 STATUS: [facility] FAX #: [phone] RAD #: [id number] D/C DT PAGE 2 Signed Report- XR FLUORO [id number] 13:34:00 [facility] 1955 Sex: F Patient Name: NIKIA GARCIA Unit No: [id number] EXAMS: CPT CODE: [id number] XR FLUORO [id number] Fluoroscopically guided injection of the right plantar fascia with steroid FINDINGS: After informed consent was obtained a needle was placed in the right plantar fascia with fluoroscopic guidance. Its position was confirmed by obtaining a radiograph. Subsequently 2 mL of Kenalog 40 mg per cc and 2 mL of lidocaine was injected. No immediate complications were encountered. 32 seconds of fluoroscopy time was utilized. IMPRESSION: Technically successful steroid injection of the right plantar fascia at 1334 Reported and signed by: Erick Alcantar M.D. CC: Cl Nguyen MD Technologist: Kelley Aguiar, RT.(R) Transcribed D/ (5684) t.OSEASR.[facility] NAME: NIKIA GARCIA [address] [facility] PHYS: Cl Sandra MD : 1955 AGE: 66 SEX: F [place], [place] [address] LOC: Y.RAD PHONE #: [phone] EXAM DATE: 08/17/2021 STATUS: DEP CLI FAX #: [phone] RAD #: [id number] D/C DTPAGE 1 Signed Report Patient Name: NIKIA GARCIA Unit No: [id number] EXAMS: CPT CODE: [id number] XR FLUORO NDL [id number] <Continued> Orig Print D/T: S: 08/18/2021 (1337) [facility] NAME: NIKIA GARCIA [address] [facility] PHYS: Cl Sandra MD : 1955 AGE: 66 SEX: F [place], [place] [address] LOC: Y.RAD PHONE #: [phone] EXAM DATE: 08/17/2021 STATUS: DEP CLI FAX #: [phone] RAD #: [id number] D/C DT PAGE 2 Signed Report- MRI LOW EXT W/O CONT [id number] 16:13:00 [facility] 1955 Sex: F Patient Name: NIKIA GARCIA Unit No: [id number] EXAMS: CPT CODE: [id number] MRI LOW EXT W/O CONT [id number] MRI OF THE LEFT FOOT DIAGNOSIS: Degenerative changes are seen in the talonavicular, naviculocuneiform and 3rd tarsometatarsal joint with cystformation and spur formation. No fractures are seen. COMMENT: Scans were performed in the sagittal, axial and coronal planes utilizing T1, T2 and inversion recovery images. Bony abnormalities are present as noted. No tendon tears are seen. No ligamentous sprains or tears are identified. No masses or fluid collections are seen. at 1613 Reported and signed by: Chandan Duran MD CC: Cl Nguyen MD Technologist: 0 Transcribed D/ (0493) Yomaira.[facility] NAME: NIKIA GARCIA [address] [facility] PHYS: Cl Sandra MD : 1955 AGE: 66 SEX: F [place], [place] [address] LOC: Y.MRI PHONE #: [phone] EXAM DATE: 06/29/2021 STATUS: REG CLI FAX #: [phone] RAD #: [id number] D/C DT PAGE 1 Signed Report Patient Name: NIKIA GARCIA Unit No: [id number] EXAMS: CPT CODE: [id number] [place] L[place] EXT W/[place] [address] <Continued> Orig Print D/T: S: 06/29/2021 (1617) [facility] NAME: NIKIA GARCIA [address] [facility] PHYS: Cl Sandra MD : 1955 AGE: 66 SEX: F [place], [place] [address] LOC: Y.MRI PHONE #: [phone] EXAM DATE: 06/29/2021 STATUS: REG CLI FAX #: [phone] RAD #: [id number] D/C DT PAGE 2 Signed Report- MRI C-SPINE W/O [id number] 08:20:00 [facility] : 1955 Sex: F Patient Name: NIKIA GARCIA Unit No: [id number] EXAMS: CPT CODE: [id number] MRI C-SPINE W/O CONT 18449 MRI OF THE CERVICAL SPINE: DIAGNOSIS: 1.At C2-3, disc desiccation. No central canal or foraminal stenosis. 2. At C3-4, disc desiccation. No central canal stenosis. Moderate left foraminal stenosis right foramen is within normal limits. Mild facet arthropathy. 3. At C4-5, mild disc degeneration. No central canal stenosis. Mild bilateral foraminal stenosis. Moderate left facet arthropathy. 4. At C5-6,mild disc degeneration. Mild disc bulging. No central canal stenosis. Moderate left foraminal and mild to moderate right foraminal stenosis. Mild facet arthropathy. 5. At C6-7, moderate disc degeneration. No central canal stenosis. Moderate left foraminal and mild right foraminal stenosis. 6. At C7-T1, disc desiccation. No central canal or foraminal stenosis. COMMENT: COMPARISON: No prior exams available. Sagittal T1, T2 and STIR and axial T2 and gradient-echo sequences are obtained of the cervical spine. Cervical vertebrae are within normal limits in signal. The findings are as above. at 0820 Reported and signed by: Ivone Campos MD CC: Gill Ruiz Technologist: Kevon Gallardo(Amy) Transcribed D/ (0820) LizetteGVG [facility] NAME: NIKIA GARCIA [address] [place] [address] PHYS: Gill Slaughter MD : 1955 AGE: 65 SEX: F [place] [address] LOC: Y.MRI PHONE #: [phone] DATE: 01/05/2021 STATUS: REG CLI FAX #: [phone] RAD #: [id number] D/C DT PAGE 1 Signed Report Patient Name: NIKIA GARCIA Unit No: [id number] EXAMS: CPT CODE: [id number] MRI C-SPINE W/O CONT 63700 <Continued> Orig Print D/T: S: 01/05/2021 (0823) [facility] NAME: NIKIA GARCIA [address] [place] [address] PHYS: Gill Slaughter MD : 1955 AGE: 65 SEX: F [place], [place] [address] LOC: PRATIK PHONE #: [phone] EXAM DATE: 01/05/2021 STATUS: REG CLI FAX #: [phone] RAD #: [id number] D/C DT PAGE 2 Signed ReportNovel Coronavirus 2018 [id number] 13:05:00 Test Item Value Reference Range Interpretation Comments Novel Coronavirus Negative Negative Positive r esults are 2018 Inhouse (test indicativ e of the presence code = COVNONPUI) ofSARS-CoV -2 RNA, clinical correlation wit h patient historyand othe r diagnostic info rmation is necessary to determinepatien t infection status. Positiv e results do not rule out bacterial infection or co -infection with other viru ses. Negative result s do not preclude SARS-C oV-2 infection andsh ould not be used as the judith e basis for patient managementdecis ions. Negative result s must be combined with otherclinical observations, p atient history, and epidemiological information . Detection of SARS-CoV-2 RNA may be affe cted bysample collec tion methods, storag e conditions, and /or stageof infection. Michelle l RNA mutations, vacc inations, antiviraltherap eutics, antibiotics, chemotherapeuti c orimmunosuppres corinne drugs have not been e valuated for effectson d etection. Results are for the identification of SARS-CoV-2 RNA usingthe Alejandre M2000 Sy stem under the FDA Emergen cy UseAuthorizatio n. The testing is perf ormed by personneltraine d in the procedures for the Alejandre M2000 molecular diagnostic SARS-CoV-2 assa y in vitro. Novel Coronavirus 2018 [id number] 13:04:00 Test Item Value Reference Range Interpretation Comments Novel Coronavirus Negative Negative Positive r esults are 2018 Inhouse (test indicativ e of the presence code = COVNONPUI) ofSARS-CoV -2 RNA, clinical correlation wit h patient historyand othe r diagnostic info rmation is necessary to determinepatien t infection status. Positiv e results do not rule out bacterial infection or co -infection with other viru ses. Negative result s do not preclude SARS-C oV-2 infection andsh ould not be used as the judith e basis for patient managementdecis ions. Negative result s must be combined with otherclinical observations, p atient history, and epidemiological information . Detection of SARS-CoV-2 RNA may be affe cted bysample collec tion methods, storag e conditions, and /or stageof infection. Michelle l RNA mutations, vacc inations, antiviraltherap eutics, antibiotics, chemotherapeuti c orimmunosuppres corinne drugs have not been e valuated for effectson d etection. Results are for the identification of SARS-CoV-2 RNA usingthe [employer] M2000 Sy stem under the FDA Emergen cy UseAuthorizatio n. The testing is perf ormed by personneltraine d in the procedures for the [employer] M2000 molecular diagnostic SARS-CoV-2 assa y in vitro. PROTHROMBIN [id number] 17:05:00 Test Item Value Reference Range Interpretation Comments PROTHROMBIN TIME 34.5 secs 10.1-12.5 H PATIENT (test code = PTP) INTERNATIONAL NORMAL 3.06 <2.0 RECOMME NDED THERAPEUTIC RATIO (test code = RANGE FOR ORAL INR) ANTICOAGULANTTR EATMENT: CONDI TION INRProphylaxis of venous thrombos is in 2.0 - 3.0 high-risk medic al or surgical patientsTreatme nt of venous thrombos is 2.0 - 3.0Prevention o f embolism 2.0 - 3.0Prevention o f recurrent embol ism, or 3.0 - 4. 5 patients with mechanical pros thetic intravascular v george IS PATIENT ON ANTICOAGULANTS ? YLIST ANTICOAGULANT/ANTI PLT MEDICATION : CoumadinHas Lab been notified if Patient is on Heparin Drip? NOTHROMBOPLASTIN TIME [id number] 17:05:00 Test Item Value Reference Range Interpretation Comments PTT ACTIVATED (test 53.6 secs 24.9-37.0 HH VERIFIED BY REPEAT code = APTT) ANALYSIS.CRITIC AL VALUE CALLED TO ENRIQUETA MICHAUD BACK & CONFIRMED? YESB Y F.LAB.AEG 10/07 1705 IS PATIENT ON ANTICOAGULANTS ? YLIST ANTICOAGULANT/ANTI PLT MEDICATION : CoumadinHas Lab been notified if Patient is on Heparin Drip? NOCOMPREHENSIVE METABOLIC [id number] 16:53:00 Test Item Value Reference Range Interpretation Comments SODIUM (test code = 141 mmol/L 136-145 N NA) POTASSIUM (test code = 3.7 mmol/L 3.5-5.1 N K) CHLORIDE (test code = 102.0 mmol/L 98-107 N CL) CARBON DIOXIDE (test 29.5 mmol/L 21-32 N code = CO2) GLUCOSE (test code = 101 mg/dL 70-110 N GLU) BLOOD UREA NITROGEN 22 mg/dL 7-18 H (test code = BUN) GLOMERULAR FILTRATION 96.0 >60 Unit o f measure: RATE (test code = GFR) mL/mi n/1.73 [id number] Range:Healthy Adults >90 mL/min/1.73 m2 For Chronic Kidney Disease: St age II Mild Decrease in GFR 60-90 St age III Moderate Decrease in GFR 30-59 Stage IV Severe Decre ase in GFR 15- 29 Stage V Kidney Failure <15 CREATININE (test code 0.62 mg/dL 0.55-1.30 N = CREAT) TOTAL PROTEIN (test 6.9 g/dL 6.4-8.2 N code = PROT) ALBUMIN (test code = 4.2 g/dL 3.4-5.0 N ALB) GLOBULIN (test code = 2.7 g/dL 2.2-4.2 N GLOB) ALBUMIN/GLOBULIN RATIO 1.6 0.7-2.0 N (test code = A/G) CALCIUM (test code = 8.5 mg/dL 8.2-10.1 N CA) BILIRUBIN TOTAL (test 1.00 mg/dL 0.2-1.00 N code = BILT) SGOT/AST (test code = 25.0 U/L 15-37 N AST) SGPT/ALT (test code = 32.0 U/L 12-78 N Please note new ALT) normal range. ALKALINE PHOSPHATASE 69 U/L 46-116 N TOTAL (test code = ALKP) CBC W/AUTO [id number] 16:39:00 Test Item Value Reference Range Interpretation Comments WHITE BLOOD CELL (test code = WBC) 5.1 K/mm3 5.8-11.0 L RED BLOOD CELL (test code = RBC) 4.38 M/mm3 4.2-5.4 N HEMOGLOBIN (test code = HGB) 12.9 g/dL 12-16 N HEMATOCRIT (test code = HCT) 39.6 % 37-47 N MEAN CELL VOLUME (test code = MCV) 90 fL 80-98 N MEAN CELL HGB (test code = MCH) 29.5 pg 27-34 N MEAN CELL HGB CONCENTRATION (test 32.6 g/dL 30.8-34.1 N code = MCHC) RED CELL DISTRIBUTION WIDTH (test 14.0 % 11-16 N code = RDW) PLT (test code = PLT) 183 K/mm3 130-400 N MEAN PLATELET VOLUME (test code = 11.1 fL 8.9-12.1 N MPV) NEUTROPHIL % (test code = NT%) 53.5 % 45-70 N LYMPHOCYTE % (test code = LY%) 33.3 % 20-40 N MONOCYTE % (test code = MO%) 10.1 % 3-10 H EOSINOPHIL % (test code = EO%) 2.1 % 1-5 N BASOPHIL % (test code = BA%) 0.8 % 0.0-1.1 N NEUTROPHIL # (test code = NT#) 2.74 K/mm3 2.00-7.50 N LYMPHOCYTE # (test code = LY#) 1.71 K/mm3 1.50-4.00 N MONOCYTE # (test code = MO#) 0.52 K/mm3 0.2-0.8 N EOSINOPHIL # (test code = EO#) 0.11 K/mm3 0.04-0.4 N BASOPHIL # (test code = BA#) 0.04 K/mm3 0.02-0.10 N MANUAL DIFF REQUIRED (test code = NO MANUAL DIFF MDIFF) NUCLEATED RED BLOOD CELL (test 0 % 0-0 N code = NRBC) - MRI UP JNT W/O CONT [id number] 11:18:00 [facility] 1955 Sex: F Patient Name: NIKIA GARCIA Unit No: [id number] EXAMS: CPT CODE: [id number] MRI UP JNT W/[place] [address] MRI OF THE RIGHT SHOULDER DIAGNOSIS: 1.Full-thickness laminar longitudinal oblique tear of the posterior supraspinatus and anterior infraspinatus tendons with tendinosis. There is no evidence for tendon retraction or muscular at rophy. 2. Partial-thickness longitudinal split tear of the superior subscapularis tendon without retraction or atrophy. There is partial thickness tearing and medial subluxation of the biceps tendon. COMMENT: COMPARISON: No prior exams available. Scans were performed in the paracoronal, parasagittal and axial planes utilizing T1 , spin density with fat saturation and T2-weighting with and without fat saturation. The rotator cuff is as described. The acromion is horizontal with AC joint degenerative change. There is no evidence for a labral tear. Joint and bursal effusions are present. [id number] Reported and signed by: Chandan Duran MD CC: Yas Dominguez MD Technologist: NAVNEET SCHMIDT RT(R) Transcribed D/ (1118 t.SDR.[facility] NAME: NIKIA GARCIA [address] [facility] PHYS: GOMMU.01 - Yas Dominguez : 1955 AGE: 65 SEX: F [place], [place] [address] LOC: Y.MRI PHONE #:[phone] EXAM DATE: 09/16/2020 STATUS: REG CLI FAX #: [phone] RAD #: [id number] D/C DT PAGE 1 Signed Report Patient Name: NIKIA GARCIA Unit No: [id number] EXAMS: CPT CODE: [id number] MRI [place] JNT W/[place] [address] <Continued> Orig Print D/T: S: 09/16/2020 (1122) [facility] NAME: NIKIA GARCIA [address] [facility] PHYS: EMPERATRIZ - Yas Dominguez : 1955 AGE: 65 SEX: F [place], [place] [address] LOC: Y.MRI PHONE #: [phone] EXAM DATE: 09/16/2020 STATUS: REG CLI FAX #: [phone] RAD #: [id number] D/C DT PAGE 2 Signed ReportXR FOREARM 2 [id number] 09:41:05Exam: Right XR ELBOW MIN 3 VIEWS, XR FOREARM 2 VIEWSHISTORY: PainCOMPARISON: None available.FINDINGS:Bones:No acute displaced fracture.Osseous alignment is within normal limits.Joints:The joint spacesare well-maintained.Soft tissues:The soft tissues appear unremarkable.IMPRESSION:No acute radiographic abnormality.This final report was electronically signed by Dr Blank Schaefer MD:34 AMDictated By: Merle SKINNER: 01/03/2020 09:34XR ELBOW MIN 3 [id number] 09:40:57Exam: Right XR ELBOW MIN 3 VIEWS, XR FOREARM 2 VIEWSHISTORY: PainCOMPARISON: None available.FINDINGS:Bones:No acute displaced fracture.Osseous alignment is within normal limits.Joints:The joint spacesare well-maintained.Soft tissues:The soft tissues appear unremarkable.
--- NOTE | 2021-11-06 12:05 | RAD REPORT ---
EXAM DESCRIPTION: CT - Head Brain Wo Cont - 11/06/2021 11:53 am CLINICAL HISTORY: Headache COMPARISON: None. TECHNIQUE: Computed axial tomography of the head was obtained. IV contrast was not requested. All CT scans are performed using dose optimization technique as appropriate and may include automated exposure control or mA/KV adjustment according to patient size. FINDINGS: An intracranial bleed is not seen . The ventricles are normal in caliber. No significant hypodense areas within the brain No extra-axial fluid collection is noted. Fluid within the sinuses/ mastoids is not seen. IMPRESSION: No acute intracranial abnormality is seen. If patient's symptoms persist MRI of the bra in would be recommended.
--- NOTE | 2021-11-06 12:17 | RAD REPORT ---
EXAM DESCRIPTION: CT - Stone Protocol - 11/06/2021 11:53 am CLINICAL HISTORY: Hematuria COMPARISON: None. TECHNIQUE: Computed axial tomography of the abdomen pelvis was obtained without oral or IV contrast. Lack of IV and oral contrast limits evaluation of solid organs, bowel, and vessels. Coronal reformat daja images were obtained and reviewed. All CT scans are performed using dose optimization technique as appropriate and may include automated exposure control or mA/KV adjustment according to patient size. FINDINGS: A renal calculus is not seen. An ureteral calculus is not noted. A bladder calculus is not present. The liver, spleen, pancreas and adrenals appear grossly normal There is no evidence of diverticulitis. A 5 x 1 centimeter right paraspinal/pleural opacity involves the lower thorax. It is not completely i n the field of view. IMPRESSION: Negative for a genitourinary calculus A 5 x 1 centimeter right paraspinal/pleural opacity involves the lower thorax. This is favored to be a chronic process such as scarring. An acute inflammatory/ infectious/neoplastic process is considere d less likely. This should be correlated clinically and with appropriate lab values. If the patient h as symptoms to suggest spinal pathology then MRI with contrast would be recommended. If not then a fo llowup CT chest in 4 weeks would be recommended to assess stability
[2021-11-06 12:45] LABS: Absolute Lymphocytes (CBC) 0.9 K/uL (0.7-4.9); Hematocrit 38.6 % (36.0-45.0); Lymphocytes % 18.7 % (15.3-44.8); MPV 8.1 fL (7.6-11.3); RBC Red Blood Cell Count 4.31 M/uL (3.86-4.86)
[2021-11-06 12:58] LABS: Albumin 3.8 g/dL (3.4-5.0); Potassium 3.6 mmol/L (3.5-5.1); Protein, Total 7.8 g/dL (6.4-8.2); Troponin High Sensitivity 3.5 pg/mL (<58.9)
[2021-11-06 13:02] LABS: Protime INR 1.49
[2021-11-06 13:15] LABS: SARS-COV-2 RT PCR NEGATIVE (NEGATIVE)
--- NOTE | 2021-11-06 13:28 | RAD REPORT ---
EXAM DESCRIPTION: Thang Single View11/06/2021 1:16 pm CLINICAL HISTORY: Chest pain COMPARISON: none FINDINGS: The lungs appear clear of acute infiltrate. The heart is normal size. Postsurgical changes involve the chest. Lower medial opacity right chest is better seen on the CT scan of the same date. Please refer to that report for reference
--- NOTE | 2021-11-06 13:38 | ER ---
Nurse's Notes [facility] Name: Marina Castro Age: 66 yrs Sex: Female : 1955 Arrival Date: 11/06/2021 Time: 10:05 Bed 11 Private MD: Diagnosis: Hematuria, unspecified;Dysuria;half-way (current) use of anticoagulants-INR 1.49;Abnormal findings on diagnostic imaging of other specified body structures-5 X 1 CMRIGHT PARASPINAL/PLEURAL OPACITY, INVOLVES THE LOWER THORAX Presentation: 11/06 10:35 Chief complaint: Patient states: WAGNER, body aches x 3 days. jl7 10:35 Coronavirus screen: At this time, the client does not indicate any symptoms associated jl7 with coronavirus-19. Ebola Screen: No symptoms or risks identified at this time. Initial Sepsis Screen: Does the patient meet any 2 criteria? No. Patient's initial sepsis screen is negative. Does the patient have a suspected source of infection? No. Patient's initial sepsis screen is negative. Risk Assessment: Do you want to hurt yourself or someone else? Patient reports no desire to harm self or others. Onset of symptoms was November 04, 2021. 10:35 Method Of Arrival: Ambulatory jl7 10:35 Acuity: LUIS 3 jl7 Triage Assessment: 10:30 Headache History: The patient has had previous headaches. General: Appears in no jl7 apparent distress. uncomfortable, Behavior is calm, cooperative, appropriate for age. Pain: Denies pain. Pain currently is 0 out of 10 on a pain scale. Neuro: Level of Consciousness is awake, alert, obeys commands, Oriented to person, place, time, situation. Historical: - Allergies: 10:30 No Known Allergies; jl7 - Home Meds: 10:30 Coumadin Oral [Active]; Celebrex Oral [Active]; jl7 - PMHx: 10:30 Hypertension; Arthritis; jl7 - Immunization history:: Client reports receiving the 2nd dose of the Covid vaccine. - Social history:: Smoking status: Patient denies any tobacco usage or history of. Vital Signs: 10:35 BP 130 / 81; Pulse 85; Resp 17; Temp 97.7; Pulse Ox 98% on R/A; Weight 79.38 kg; Height jl7 5 ft. 7 in. (170.18 cm); Pain 0/10; 10:35 Body Mass Index 27.41 (79.38 kg, 170.18 cm) jl7 Pia Coma Score: 11:36 Eye Response: spontaneous(4). Verbal Response: oriented(5). Motor Response: obeys ellis commands(6). Total: 15. ED Course: 10:05 Patient arrived in ED. jj6 10:30 Arm band placed on right wrist. jl7 11:24 Triage completed. jl7 11:26 David Potter NP is PHCP. pm1 11:26 Ward Boyd MD is Attending Physician. pm1 11:55 CT Head Brain wo Cont In Process Unspecified. EDMS 11:55 Stone Protocol In Process Unspecified. EDMS 12:33 Inserted saline lock: 20 gauge in right antecubital area, using aseptic technique. zm 12:33 COVID-19/FLU A+B (Document "Date of Onset" if Symptomatic) Sent. zm 12:33 Strep Sent. zm 12:33 PT-INR Sent. zm 12:33 Lipase Sent. zm 12:33 Troponin High Sensitivity Sent. zm 12:33 Lactate Sent. zm 12:33 Comprehensive Metabolic Panel Sent. zm 12:34 CBC with Diff Sent. zm 13:17 Chest Single View XRAY In Process Unspecified. EDMS 14:02 Wilber Peacock, CARMEN is Primary Nurse. jl7 Administered Medications: 14:10 Drug: Rocephin (cefTRIAXone) 1 grams Route: IV; Rate: per protocol; Site: right jl7 antecubital; 14:10 Drug: Augmentin (Amoxicillin-Clavulanate) 875 mg Route: PO; jl7 Outcome: 13:38 Discharge ordered by MD. corral 15:03 Patient left the ED. em1 Addendum: 11/09/2021 11:02 Addendum: Culture Results: Other faxed chart to dr Harris office. pt was in drs office b d when chart was faxed. Signatures: Dispatcher [employer] EDMS Anne Dugan Corey, MD MD cha Martinez, Eric em1 David Potter, SPA SUPERVISOR SPA SUPERVISOR pm1 Wilber Peacock, CARMEN RN jl7 Tatiana Dow jj6 Nadja Chapman
--- NOTE | 2021-11-06 13:39 | EDPHYS ---
Physician Documentation [facility] Name: Marina Castro Age: 66 yrs Sex: Female : 1955 Arrival Date: 11/06/2021 Time: 10:05 Bed 11 Private MD: DANIEL Physician Ward Boyd HPI: 11/06 11:31 This 66 yrs old Female presents to ER via Ambulatory with complaints of ellis Headache, Body aches, hematuria for 3 days. 11:31 The patient complains of pain to the left occipital area, left base of the skull, right ellis occipital area and right base of the skull. The patient describes the headache as aching. Onset: The symptoms/episode began/occurred 2 day(s) ago. Historical: - Allergies: 10:30 No Known Allergies; jl7 - Home Meds: 10:30 Coumadin Oral [Active]; Celebrex Oral [Active]; jl7 - PMHx: 10:30 Hypertension; Arthritis; jl7 - Immunization history:: Client reports receiving the 2nd dose of the Covid vaccine. - Social history:: Smoking status: Patient denies any tobacco usage or history of. ROS: 11:33 Eyes: Negative for injury, pain, redness, and discharge, ENT: Negative for injury, ellis pain, and discharge, Neck: Negative for injury, pain, and swelling, Cardiovascular: Negative for chest pain, palpitations, and edema, Respiratory: Negative for shortness of breath, cough, wheezing, and pleuritic chest pain, Abdomen/GI: Negative for abdominal pain, nausea, vomiting, diarrhea, and constipation, MS/Extremity: Negative for injury and deformity, Skin: Negative for injury, rash, and discoloration, Psych: Negative for depression, anxiety, suicide ideation, homicidal ideation, and hallucinations, Allergy/Immunology: Negative for hives, rash, and allergies, Endocrine: Negative for neck swelling, polydipsia, polyuria, polyphagia, and marked weight changes, Hematologic/Lymphatic: Negative for swollen nodes, abnormal bleeding, and unusual bruising. 11:33 Constitutional: Positive for fever. 11:33 Back: Positive for decreased range of motion, pain at rest, of the lumbar area, left low back and right low back. 11:33 : Positive for urinary frequency, hematuria. Exam: 11:33 Constitutional: This is a well developed, well nourished patient who is awake, alert, ellis and in no acute distress. Head/Face: Normocephalic, atraumatic. Eyes: Pupils equal round and reactive to light, extra-ocular motions intact. Lids and lashes normal. Conjunctiva and sclera are non-icteric and not injected. Cornea within normal limits. Periorbital areas with no swelling, redness, or edema. ENT: Nares patent. No nasal discharge, no septal abnormalities noted. Tympanic membranes are normal and external auditory canals are clear. Oropharynx with no redness, swelling, or masses, exudates, or evidence of obstruction, uvula midline. Mucous membranes moist. Neck: Trachea midline, no thyromegaly or masses palpated, and no cervical lymphadenopathy. Supple, full range of motion without nuchal rigidity, or vertebral point tenderness. No Meningismus. Chest/axilla: Normal chest wall appearance and motion. Nontender with no deformity. No lesions are appreciated. Cardiovascular: Regular rate and rhythm with a normal S1 and S2. No gallops, murmurs, or rubs. Normal PMI, no JVD. No pulse deficits. Respiratory: Lungs have equal breath sounds bilaterally, clear to auscultation and percussion. No rales, rhonchi or wheezes noted. No increased work of breathing, no retractions or nasal flaring. Abdomen/GI: Soft, non-tender, with normal bowel sounds. No distension or tympany. No guarding or rebound. No evidence of tenderness throughout. Female : Normal external genitalia. Skin: Warm, dry with normal turgor. Normal color with no rashes, no lesions, and no evidence of cellulitis. MS/ Extremity: Pulses equal, no cyanosis. Neurovascular intact. Full, normal range of motion. Neuro: Awake and alert, GCS 15, oriented to person, place, time, and situation. Cranial nerves II-XII grossly intact. Motor strength 5/5 in all extremities. Sensory grossly intact. Cerebellar exam normal. Normal gait. Psych: Awake, alert, with orientation to person, place and time. Behavior, mood, and affect are within normal limits. 11:33 Back: pain, that is mild, ROM is normal, normal spinal alignment noted, CVA tenderness, is absent, vertebral tenderness, is not appreciated, muscle spasm, is not present. Vital Signs: 10:35 BP 130 / 81; Pulse 85; Resp 17; Temp 97.7; Pulse Ox 98% on R/A; Weight 79.38 kg; Height jl7 5 ft. 7 in. (170.18 cm); Pain 0/10; 10:35 Body Mass Index 27.41 (79.38 kg, 170.18 cm) jl7 Ipa Coma Score: 11:36 Eye Response: spontaneous(4). Verbal Response: oriented(5). Motor Response: obeys ellis commands(6). Total: 15. MDM: 11:34 Patient medically screened. pm1 11:36 Differential diagnosis: epidural hematoma, nonspecific abdominal pain, Basilar ellis Pneumonia Fatigue Pyelonephritis Ureterolithiasis hypertensive headache, subarachnoid bleed, temporal arteritis, tension headache, urinary tract infection. Data reviewed: vital signs, nurses notes, lab test result(s), EKG, radiologic studies, CT scan, plain films. Data interpreted: manager monitoring: rate is 85 beats/min, rhythm is atrial fibrillation, Pulse oximetry: on room air is 98 %. Test interpretation: by ED physician or midlevel provider: plain radiologic studies. Counseling: I had a detailed discussion with the patient and/or guardian regarding: the historical points, exam findings, and any diagnostic results supporting the discharge/admit diagnosis, lab results, radiology results. 11/06 11:31 Order name: CBC with Diff; Complete Time: 12:59 [facility] 11/06 11:31 Order name: Comprehensive Metabolic Panel; Complete Time: 12:59 [facility] 11/06 11:31 Order name: Lactate; Complete Time: 12:59 11/06 11:31 Order name: Blood Culture Adult (2) 11/06 11:31 Order name: Urine Culture 11/06 11:31 Order name: Troponin High Sensitivity; Complete Time: 12:59 [facility] 11/06 11:31 Order name: CT Head Brain wo Cont; Complete Time: 12:59 11/06 11:31 Order name: CT Stone Protocol 11/06 11:31 Order name: Lipase; Complete Time: 12:59 [facility] 11/06 11:32 Order name: PT-INR; Complete Time: 13:21 [facility] 11/06 11:33 Order name: Strep; Complete Time: 12:59 pm1 11/06 11:33 Order name: COVID-19/FLU A+B (Document "Date of Onset" if Symptomatic); Complete Time: [facility] 13:21 11/06 12:52 Order name: Throat Culture EDMS 11/06 13:59 Order name: Urine Dipstick-Ancillary EDMS 11/06 11:31 Order name: Urine Dipstick-Ancillary (obtain specimen); Complete Time: 14:02 [facility] 11/06 11:31 Order name: EKG - Nurse/Tech [facility] 11/06 11:36 Order name: Chest Single View XRAY; Complete Time: 13:32 em1 11/06 11:37 Order name: Stone Protocol; Complete Time: 12:59 EDMS Administered Medications: 14:10 Drug: Rocephin (cefTRIAXone) 1 grams Route: IV; Rate: per protocol; Site: right jl7 antecubital; 14:10 Drug: Augmentin (Amoxicillin-Clavulanate) 875 mg Route: PO; jl7 Disposition Summary: 11/06/21 13:38 Discharge Ordered Location: Home ellis Problem: new ellis Symptoms: have improved ellis Condition: Stable ellis Diagnosis - Hematuria, unspecified ellis - Dysuria ellis - half-way (current) use of anticoagulants - INR 1.49 ellis - Abnormal findings on diagnostic imaging of other specified body structures - 5 X 1 ellis CMRIGHT PARASPINAL/PLEURAL OPACITY, INVOLVES THE LOWER THORAX Followup: ellis - With: Private Physician - When: 2 - 3 days - Reason: Recheck today's complaints, Continuance of care, Re-evaluation by your physician Discharge Instructions: - Discharge Summary Sheet ellis - Dysuria ellis - Hematuria, Adult ellis - Warfarin Coagulopathy ellis Forms: - Medication Reconciliation Form ellis - Thank You Letter ellis - Antibiotic Education ellis - Prescription Opioid Use ellis Prescriptions: - Augmentin 875-125 mg Oral Tablet - take 1 tablet by ORAL route every 12 hours for 10 days; 20 tablet; Refills: 0, ellis Product Selection Permitted Signatures: Dispatcher [employer] EDMS Ward Boyd MD MD cha Marinas, Patrick, CLARIFICATION OPERATOR CLARIFICATION OPERATOR pm1 Wilber Peacock, RN RN jl7
[2021-11-06 13:58] LABS: Urine Blood 3+ (Negative); Urine Glucose Negative (Negative); Urine Protein 2+ (Negative); Urine Specific Gravity 1.025 (1.005-1.030)
[2021-11-06] MEDS ORDERED: CEFTRIAXONE 1000 MG/VIAL ONE (14:11)
[2021-11-06] MEDS ORDERED: AMOX/K CLAV 875 MG TAB ONE (14:11)
[2021-11-06 17:10] VITALS: BP 130/81; TEMP 97.7; O2SAT 98
== END 2021-11-06 15:03 | disposition home or self-care (01) ==
LOC: ER 10:03
DX: R31.9 Hematuria, unspecified (principal); R30.0 Dysuria; R93.89 Abnormal findings on diagnostic imaging of other specified body structures; R51.9 Headache, unspecified; Z79.01 Long term (current) use of anticoagulants; Z20.822 Contact with and (suspected) exposure to COVID-19; I10 Essential (primary) hypertension
CPT/HCPCS: 87040 ×2; 87070; 87088; 85025; 87086; 36415; 85610; 87081; 83605; 87077; 87186; 81003; 84484; 83690; 80053; 0240U; 70450; 76377; 74176; 71045; 96374; 99284

== ENCOUNTER 2022-06-27 17:34 | Inpatient (IN) | payer OTHER, BC ==
[2022-06-27 19:27] LABS: SARS-COV-2 RT PCR NEGATIVE (NEGATIVE)
--- OUTSIDE RECORDS SUMMARY | 2022-06-27 20:16 | XMS REPORT | Continuity of Care Document ---
:1955 Author Organization [facility] t Address [address] [place] [address] Care Team Providers Name Role Phone Sebastian Friedman Primary Care Physician FOREST ZAMORA Attending Clinician Unavailable Andrés Bautista APRN Attending Clinician Amy GARCIA Attending Clinician Unavailable FOREST ZAMORA Attending Clinician Unavailable Sebastian Friedman Attending Clinician Unavailable Yadi Desai MA Attending Clinician Unavailable Gregoria San MD Attending Clinician Cl Nguyen Attending Clinician Unavailable ADDIE ANTON Attending Clinician Unavailable [facility] Attending Clinician Unavailable Maciel Kirby Attending Clinician Unavailable Only, Ang Db Test Attending Clinician Unavailable Matteo Hager Attending Clinician MATTEO BROWN Attending Clinician Unavailable Alesia Velez RN Attending Clinician Unavailable Only, Adc Test Attending Clinician Unavailable Jose Rafael Osborne MD Attending Clinician JOSE RAFAEL OSBORNE Attending Clinician Unavailable Doctor Unassigned, [place] Attending Clinician Unavailable Gill Camacho Attending Clinician Unavailable Yas Dominguez Attending Clinician Unavailable Jose A Gonzalez DO Attending Clinician Lab, Adc Fam Pob I Attending Clinician Unavailable Luz MURRAY, Esteban Attending Clinician ESTEBAN ESCOBAR Attending Clinician Unavailable LILIA OBRIEN Attending Clinician Unavailable Lilia Obrien MD Attending Clinician Francisco Rodriguez Attending Clinician FRANCISCO SENIOR Attending Clinician Unavailable DR LV DEMARCO Attending Clinician Unavailable CHONG ERVIN Admitting Clinician Unavailable Sebastian Friedman Admitting Clinician Unavailable Forest Zamora Admitting Clinician KNOW, DOES_NOT Admitting Clinician Unavailable UNDEFINED Admitting Clinician Unavailable Cl Nguyen Admitting Clinician Unavailable Physician, No Primary or Family Admitting Clinician UnavailDR LV Faye Admitting Clinician Unavailable Payers Payer Name Policy Type Policy Number Effective Date Expiration Date S ource MEDICARE PART A AND [id number] 2018 B 00:00:00 MEDICARE PART A \T\ [id number] 2018 B 00:00:00 BCBS TRADITIONAL [id number] 2018 00:00:00 Problems Condition Condition Condition Status Onset Resolution Last Treating Co mments Source Name Details Category Date Date Treatment Clinician Date 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 [facility] 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 [facility] arthroplas arthroplas 00:00: ty, right ty, right 00 Chronic Chronic Disease Active 2021-07 [facility] pain of pain of 1-14 Health right knee right knee 00:00: 00 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 18 He alth itis of itis of 00:00: right knee right knee 00 Unilateral Unilatera Problem 2022-03-29 Memoria primary l primary 07:01:04 l osteoarthr osteoarthr He rmann itis, itis, right knee right knee 2 [facility] Allergies, Adverse Reactions, Alerts Allergy Allergy Status Severity Reaction(s) Onset Inactive Treating Comm ents Source Name Type Date Date Clinician No Known DA Active [facility] [place] [facility] No Known DA Active [facility] 3 [place] [facility]: d s 00 [facility] No Known DA Active [facility] 10-07 [place] Allergie 00:00: d s 00 [facility] No Known DA Active [facility] 01-30 [place] [facility]: [facility] No Known DA Active [facility] 01-30 [place] Allergie 00:[facility]: [facility]ope [facility] NO KNOWN Drug Active Univers ALLERGIE Class ity of S [facility] No Known DA Active [facility] Allerg[facility] (LUF/LI V/SA) Family History Family Member Diagnosis Comments Start Date Stop Date Source Natural brother Heart disease [facility] Natural father Cancer [facility] Natural father Stroke [facility] mother Blood Clots [facility] mother Cancer [facility] mother Heart disease [facility] Social History Social Habit Start Date Stop Date Quantity Comments Source History of tobacco [facility] use Exposure to 2022-06-12 2022-06-22 Yes [facility] SARS-CoV-2 (event) 00:00:00 09:40:00 Tobacco use and 2021-10-10 2021-10-10 Smokeless tobacco [facility] exposure 00:00:00 00:00:00 non-user Cigarettes smoked 2019-03-21 2019-03-21 [facility] current (pack per 00:00:00 00:00:00 Hospita l day) - Reported Cigarette 2019-03-21 2019-03-21 [facility] pack-[facility] 00:[facility]00 00:00:00 Hospital Alcohol intake 2019-03-21 2019-03-21 Current drinker [facility] 00:00:00 00:00:00 [facility] (finding) Sex [birth year] At [birth year] [facility] 00:00:00 00:00:00 Hospital Smoking Status Start Date Stop Date Source Ex-smoker 2021-10-10 00:00:00 2021-10-10 [facility]:00 [facility] Medic[facility] Ordered Filled Start Stop Current Ordering Indication Dosage Frequency Signature Comments Components Source Medication Medication Date Date Medication? Clinician (SIG) Name Name gabapentin 2021-07 Yes 300mg Take 1 [facility] (Neurontin) 1-14 capsule Healt h 300 MG 00:00: (300 mg capsule 00 total) by mouth every night for 14 days. Patient will start postop day #1 gabapentin 2021-07 Yes 300mg Take 1 [facility] (Neurontin) 1-14 capsule Healt h 300 MG 00:00: (300 mg capsule 00 total) by mouth every night for 14 days. Patient will start postop day #1 warfarin Yes QD 1 (one) [facility] (Coumadin) 3-21 time each Heal th 10 MG 14:34: day. tablet 32 valACYclovi Yes valacyclov UT r (Valtrex) 3-21 ir 500 mg Hea lth 500 MG [...] tablet 00 each day in the evening. rosuvastati 2020-07 Yes 10mg Take 10 mg UT n (Crestor) 0-01 by mouth 1 He alth 10 MG 00:00: (one) time tablet 00 each day in the evening. rosuvastati 2020-07 Yes 10mg Take 10 mg UT n (Crestor) 0-01 by mouth 1 He alth 10 MG 00:00: (one) time tablet 00 each day in the evening. traMADol 50 Yes 4647 1 by mouth [facility] mg [...] 4-6 ity o f 00:00: hours as [place] [id number] needed for Medical pain Branch Indication s: acute pain, humerus fracture traMADol 50 2020-0 Yes 4647 1 by mouth [facility] mg tablet 7-13 every 4-6 ity o f 00:00: hours as [place] needed for Medical pain Branch Indication s: acute pain, humerus fracture predniSONE 2020-0 Yes Univers 10 mg 7-07 ity of tablet 00:00: [place] [facility] predniSONE 2020-0 Yes Univers 10 mg 7-07 ity of tablet 00:00: [place] [facility] predniSONE 2020-0 Yes Univers 10 mg 7-07 ity of tablet 00:00: [place] [facility] predniSONE 2020-0 Yes Univers 10 mg 7-07 ity of tablet 00:00: [place] [facility] predniSONE 2020-0 Yes Univers 10 mg 7-07 ity of tablet 00:00: [place] [facility] predniSONE 2020-0 Yes Univers 10 mg 7-07 ity of tablet 00:00: [place] [facility] predniSONE 2020-0 Yes Univers 10 mg 7-07 ity of tablet 00:00: [place] [facility] predniSONE 2020-0 Yes Univers 10 mg 7-07 ity of tablet 00:00: [place] [facility] predniSONE 2020-0 Yes Univers 10 mg 7-07 ity of tablet 00:00: [place] [facility] predniSONE 2020-0 Yes Univers 10 mg 7-07 ity of tablet 00:00: [place] [facility] predniSONE 2020-0 Yes Univers 10 mg 7-07 ity of tablet 00:00: [place] [facility] predniSONE 2020-0 Yes Univers 10 mg 7-07 ity of tablet 00:00: [place] [facility] predniSONE 2020-0 Yes Univers 10 mg 7-07 ity of tablet 00:00: [place] [facility] predniSONE 2020-0 Yes Univers 10 mg 7-07 ity of tablet 00:00: [place] [facility] predniSONE 2020-0 Yes Univers 10 mg 7-07 ity of tablet 00:00: [place] 00 Medical Branch celecoxib 2020-0 Yes 200mg Take 200 Uni vers 200 mg 6-30 mg by ity of capsule 00:00: mouth [place] 00 daily. Medical Branch rosuvastati 2020-0 Yes 10mg Take 10 mg Univers n 10 mg 6-30 by mouth ity of tablet 00:00: every [place] evening. Medical Branch celecoxib 2020-0 Yes 200mg [...] capsule 00:00: mouth 00 daily. Medical Branch celecoxib 2020-0 Yes [...] tablet 00:00: every 00 evening. Medical Branch rosuvastati 2020-0 Yes 10mg Take 10 mg Univers n 10 mg 6-30 by mouth ity of tablet 00:00: every 00 evening. Medical Branch acetaminoph 2020-0 Yes TAKE [...] s mg tablet 6-11 ity of 00:00: [place] [facility] warfarin 10 2020-0 Yes Univer s mg tablet 6-11 ity of 00:00: [place] [facility] warfarin 10 2020-0 Yes Univer s mg tablet 6-11 ity of 00:00: [place] [facility] warfarin 10 2020-0 Yes Univer s mg tablet 6-11 ity of 00:00: [place] [facility] warfarin 10 2020-0 Yes Univer s mg tablet 6-11 ity of 00:00: [place] [facility] warfarin 10 2020-0 Yes Univer s mg tablet 6-11 ity of 00:00: [place] [facility] warfarin 10 2020-0 Yes Univer s mg tablet 6-11 ity of 00:00: [place] [facility] warfarin 10 2020-0 Yes Univer s mg tablet 6-11 ity of 00:00: [place] [facility] warfarin 10 2020-0 Yes Univer s mg tablet 6-11 ity of 00:00: [place] [facility] warfarin 10 2020-0 Yes Univer s mg tablet 6-11 ity of 00:00: [place] [facility] warfarin 10 2020-0 Yes Univer s mg tablet 6-11 ity of 00:00: Medical Branch warfarin 10 2020-0 Yes Univer s mg tablet 6-11 ity of 00:00: [place] [facility] warfarin 10 2020-0 Yes Univer s mg tablet 6-11 ity of 00:00: [place] [facility] warfarin 10 2020-0 Yes Univer s mg tablet 6-11 ity of 00:00: [place] [facility] warfarin 10 2020-0 Yes Univer s mg tablet 6-11 ity of 00:00: [place] [facility] diclofenac 2019-0 Yes Apply 1-2 Me thodi (VOLTAREN) 8-[address] 1 % gel 00:00: affected Hospit a 00 area 3-4 l times daily. diclofenac 2018-0 Yes Apply 1-2 Me thodi (VOLTAREN) 8-[address] 1 % gel 00:00: affected Hospit a 00 area 3-4 l times daily. diclofenac 2018- Yes Apply 1-2 Me thodi (VOLTAREN) 8-[address] 1 % gel 00:00: affected Hospit a 00 area 3-4 l times daily. diclofenac 2018-0 Yes Apply 1-2 Me thodi (VOLTAREN) 8-[address] 1 % gel 00:00: affected Hospit a 00 area 3-4 l times daily. diclofenac 2018-0 Yes Apply 1-2 Me thodi (VOLTAREN) 8-[address] 1 % gel 00:00: affected Hospit a 00 area 3-4 l times daily. diclofenac 2018-0 Yes Apply 1-2 Me thodi (VOLTAREN) 8-[address] 1 % gel 00:00: affected Hospit a 00 area 3-4 l times daily. diclofenac 2018-0 Yes Apply 1-2 Me thodi (VOLTAREN) 8-[address] 1 % gel 00:00: affected Hospit a 00 area 3-4 l times daily. diclofenac 2018-0 Yes Apply 1-2 Me thodi (VOLTAREN) 8-[address] 1 % gel 00:00: affected Hospit a 00 area 3-4 l times daily. diclofenac 2018-0 Yes Apply 1-2 Me thodi (VOLTAREN) 8-[address] 1 % gel 00:00: affected Hospit a 00 area 3-4 l times daily. diclofenac 2018-0 Yes Apply 1-2 Me thodi (VOLTAREN) 8-[address] 1 % gel 00:00: affected Hospit a 00 area 3-4 l times daily. diclofenac 0 Yes Apply 1-2 Me thodi (VOLTAREN) 8-[address] 1 % gel 00:00: affected Hospit a 00 area 3-4 l times daily. diclofenac Yes Apply 1-2 Me thodi (VOLTAREN) 8-[address] 1 % gel 00:00: affected Hospit a 00 area 3-4 l times daily. diclofenac Yes Apply 1-2 Me thodi (VOLTAREN) 8-[address] 1 % gel 00:00: affected Hospit a 00 area 3-4 l times daily. diclofenac Yes Apply 1-2 Me thodi (VOLTAREN) 8-[address] 1 % gel 00:00: affected Hospit a 00 area 3-4 l times daily. diclofenac Yes Apply 1-2 Me thodi (VOLTAREN) 8-[address] 1 % gel 00:00: affected Hospit a 00 area 3-4 l times daily. diclofenac Yes Apply 1-2 Me thodi (VOLTAREN) 8-[address] 1 % gel 00:00: affected Hospit a 00 area 3-4 l times daily. diclofenac 0 Yes Apply 1-2 Me thodi (VOLTAREN) 8-[address] 1 % gel 00:00: affected Hospit a 00 area 3-4 l times daily. Vital Signs Vital Name Observation Time Observation Value Comments Source Systolic blood 2020-01-28 20:07:00 141 mm[facility]Hg[facility] Diastolic blood 2020-01-28 20:07:00 85 mm[Hg] [facility] Heart rate 2020-01-28 20:07:00 62 /min [facility] Body height 2020-01-28 20:02:00 170.2 cm [facility] Body weight 2020-01-28 20:02:00 77.111 kg [facility] BMI 2020-01-28 20:02:00 26.63 kg/m2 [facility] Systolic blood 2020-01-28 20:07:00 141 mm[Hg] [facility] Diastolic blood 2020-01-28 20:07:00 85 mm[Hg] [facility] Heart rate 2020-01-28 20:07:00 62 /min [facility] Body height 2020-01-28 20:02:00 170.2 cm [facility] Body weight 2020-01-28 20:02:00 77.111 kg [facility] BMI 2020-01-28 20:02:00 26.63 kg/m2 [facility] Procedures Procedure Date / Time Performed Performing Clinician Sour e ASSIGNMENT OF BENEFITS 2021-07-24 15:16:00 Doctor Unassigned, No [facility] Plan of Care Planned Activity Planned Date Details Comments Source Future Scheduled 2022-05-30 HEPATITIS B VACCINES Met [facility] Test 17:04:15 (1 of 3 - 3-dose series) [code = HEPATITIS B VACCINES (1 of 3 - 3-dose series)] Future Scheduled 2022-05-30 COVID-19 VACCINE (#1) [facility] Test 17:04:15 [code = COVID-19 VACCINE (#1)] Future Scheduled 2022-05-30 BREAST CANCER [facility] Test 17:04:15 SCREENING [code = BREAST CANCER SCREENING] Future Scheduled 2022-05-30 COLONOSCOPY SCREENING [facility] Test 17:04:15 [code = COLONOSCOPY SCREENING] Future Scheduled 2022-05-30 SHINGLES VACCINES (1 Met [facility] Test 17:04:15 of 2) [code = SHINGLES VACCINES (1 of 2)] Future Scheduled 2022-05-30 65+ [facility]15 VACCINE (1 - PCV) [code = 65+ PNEUMOCOCCAL VACCINE (1 - PCV)] Future Scheduled 2022-05-30 INFLUENZA VACCINE [facility] Test 17:04:15 [code = INFLUENZA VACCINE] Future Scheduled 2022-05-30 HEPATITIS B VACCINES [facility] Test 17:04:15 (1 of 3 - 3-dose series) [code = HEPATITIS B VACCINES (1 of 3 - 3-dose series)] Future Scheduled 2022-05-30 [facility]:04:15 [code = COVID-19 VACCINE (#1)] Future Scheduled 2022-05-30 BREAST CANCER [facility] Test 17:04:15 SCREENING [code = BREAST CANCER SCREENING] Future Scheduled 2022-05-30 COLONOSCOPY SCREENING [facility] Test 17:04:15 [code = COLONOSCOPY SCREENING] Future Scheduled 2022-05-30 SHINGLES VACCINES (1 Met [facility] Test 17:04:15 of 2) [code = SHINGLES VACCINES (1 of 2)] Future Scheduled 2022-05-30 65+ PNEUMOCOCCAL [facility] Test 17:04:15 VACCINE (1 - PCV) [code = 65+ PNEUMOCOCCAL VACCINE (1 - PCV)] Future Scheduled 2022-05-30 INFLUENZA VACCINE Method [facility] Test 17:04:15 [code = INFLUENZA VACCINE] Future Scheduled 2022-05-30 HEPATITIS B VACCINES [facility] Test 17:04:15 (1 of 3 - 3-dose series) [code = HEPATITIS B VACCINES (1 of 3 - 3-dose series)] Future Scheduled 2022-05-30 COVID-19 VACCINE (#1) [facility] Test 17:04:15 [code = COVID-19 VACCINE (#1)] Future Scheduled 2022-05-30 BREAST CANCER [facility] Test 17:04:15 SCREENING [code = BREAST CANCER SCREENING] Future Scheduled 2022-05-30 COLONOSCOPY SCREENING [facility] Test 17:04:15 [code = COLONOSCOPY SCREENING] Future Scheduled 2022-05-30 SHINGLES VACCINES (1 Met [facility] Test 17:04:15 of 2) [code = SHINGLES VACCINES (1 of 2)] Future Scheduled 2022-05-30 65[facility] VACCINE (1 - PCV) [code = 65+ PNEUMOCOCCAL VACCINE (1 - PCV)] Future Scheduled 2022-05-30 INFLUENZA VACCINE [facility] Test 17:04:15 [code = INFLUENZA VACCINE] Future Scheduled 2022-05-30 HEPATITIS B VACCINES [facility] Test 17:04:15 (1 of 3 - 3-dose series) [code = HEPATITIS B VACCINES (1 of 3 - 3-dose series)] Future Scheduled 2022-05-30 COVID-19 VACCINE (#1) [facility] Test 17:04:15 [code = COVID-19 VACCINE (#1)] Future Scheduled 2022-05-30 BREAST CANCER [facility] Test 17:04:15 SCREENING [code = BREAST CANCER SCREENING] Future Scheduled 2022-05-30 COLONOSCOPY SCREENING [facility] Test 17:04:15 [code = COLONOSCOPY SCREENING] Future Scheduled 2022-05-30 SHINGLES VACCINES (1 Met [facility] Test 17:04:15 of 2) [code = SHINGLES VACCINES (1 of 2)] Future Scheduled 2022-05-30 65+ PNEUMOCOCCAL [facility] Test 17:04:15 VACCINE (1 - PCV) [code = 65+ PNEUMOCOCCAL VACCINE (1 - PCV)] Future Scheduled 2022-05-30 INFLUENZA VACCINE Method [facility] Test 17:04:15 [code = INFLUENZA VACCINE] Future Scheduled 2022-05-30 HEPATITIS B VACCINES [facility] Test 17:04:15 (1 of 3 - 3-dose series) [code = HEPATITIS B VACCINES (1 of 3 - 3-dose series)] Future Scheduled 2022-05-30 COVID-19 VACCINE (#1) [facility] Test 17:04:15 [code = COVID-19 VACCINE (#1)] Future Scheduled 2022-05-30 BREAST CANCER [facility] Test 17:04:15 SCREENING [code = BREAST CANCER SCREENING] Future Scheduled 2022-05-30 COLONOSCOPY SCREENING [facility] Test 17:04:15 [code = COLONOSCOPY SCREENING] Future Scheduled 2022-05-30 SHINGLES VACCINES (1 Met [facility] Test 17:04:15 of 2) [code = SHINGLES VACCINES (1 of 2)] Future Scheduled 2022-05-30 65+ [facility] 17:04:15 VACCINE (1 - PCV) [code = 65+ PNEUMOCOCCAL VACCINE (1 - PCV)] Future Scheduled 2022-05-30 INFLUENZA VACCINE Method [facility] Test 17:04:15 [code = INFLUENZA VACCINE] Future Scheduled 2022-05-30 HEPATITIS B VACCINES Met [facility] Test 17:04:15 (1 of 3 - 3-dose series) [code = HEPATITIS B VACCINES (1 of 3 - 3-dose series)] Future Scheduled 2022-05-30 COVID-19 VACCINE (#1) [facility] Test 17:04:15 [code = COVID-19 VACCINE (#1)] Future Scheduled 2022-05-30 BREAST CANCER [facility] Test 17:04:15 SCREENING [code = BREAST CANCER SCREENING] Future Scheduled 2022-05-30 COLONOSCOPY SCREENING [facility] Test 17:04:15 [code = COLONOSCOPY SCREENING] Future Scheduled 2022-05-30 SHINGLES VACCINES (1 Met [facility] Test 17:04:15 of 2) [code = SHINGLES VACCINES (1 of 2)] Future Scheduled 2022-05-30 65+ PNEUMOCOCCAL [facility] Test 17:04:15 VACCINE (1 - PCV) [code = 65+ PNEUMOCOCCAL VACCINE (1 - PCV)] Future Scheduled 2022-05-30 INFLUENZA VACCINE Method [facility] Test 17:04:15 [code = INFLUENZA VACCINE] Future Scheduled 2022-05-30 HEPATITIS B VACCINES [facility] Test 17:04:15 (1 of 3 - 3-dose series) [code = HEPATITIS B VACCINES (1 of 3 - 3-dose series)] Future Scheduled 2022-05-30 COVID-19 VACCINE (#1) [facility] Test 17:04:15 [code = COVID-19 VACCINE (#1)] Future Scheduled 2022-05-30 BREAST CANCER [facility] Test 17:04:15 SCREENING [code = BREAST CANCER SCREENING] Future Scheduled 2022-05-30 COLONOSCOPY SCREENING [facility] Test 17:04:15 [code = COLONOSCOPY SCREENING] Future Scheduled 2022-05-30 SHINGLES VACCINES (1 [facility] Test 17:04:15 of 2) [code = SHINGLES VACCINES (1 of 2)] Future Scheduled 2022-05-30 65+ [facility] 17:04:15 VACCINE (1 - PCV) [code = 65+ PNEUMOCOCCAL VACCINE (1 - PCV)] Future Scheduled 2022-05-30 INFLUENZA VACCINE Method [facility] Test 17:04:15 [code = INFLUENZA VACCINE] Future Scheduled 2022-05-30 HEPATITIS B VACCINES [facility] Test 17:04:15 (1 of 3 - 3-dose series) [code = HEPATITIS B VACCINES (1 of 3 - 3-dose series)] Future Scheduled 2022-05-30 COVID-19 VACCINE (#1) [facility] Test 17:04:15 [code = COVID-19 VACCINE (#1)] Future Scheduled 2022-05-30 BREAST CANCER [facility] Test 17:04:15 SCREENING [code = BREAST CANCER SCREENING] Future Scheduled 2022-05-30 COLONOSCOPY SCREENING [facility] Test 17:04:15 [code = COLONOSCOPY SCREENING] Future Scheduled 2022-05-30 SHINGLES VACCINES (1 [facility] Test 17:04:15 of 2) [code = SHINGLES VACCINES (1 of 2)] Future Scheduled 2022-05-30 65+ PNEUMOCOCCAL [facility] Test 17:04:15 VACCINE (1 - PCV) [code = 65+ PNEUMOCOCCAL VACCINE (1 - PCV)] Future Scheduled 2022-05-30 INFLUENZA VACCINE Method [facility] Test 17:04:15 [code = INFLUENZA VACCINE] Future Scheduled 2022-05-30 HEPATITIS B VACCINES [facility] Test 17:04:15 (1 of 3 - 3-dose series) [code = HEPATITIS B VACCINES (1 of 3 - 3-dose series)] Future Scheduled 2022-05-30 COVID-19 VACCINE (#1) [facility] Test 17:04:15 [code = COVID-19 VACCINE (#1)] Future Scheduled 2022-05-30 BREAST CANCER [facility] Test 17:04:15 SCREENING [code = BREAST CANCER SCREENING] Future Scheduled 2022-05-30 COLONOSCOPY SCREENING [facility] Test 17:04:15 [code = COLONOSCOPY SCREENING] Future Scheduled 2022-05-30 SHINGLES VACCINES (1 Met [facility] Test 17:04:15 of 2) [code = SHINGLES VACCINES (1 of 2)] Future Scheduled 2022-05-30 65+ [facility] 17:04:15 VACCINE (1 - PCV) [code = 65+ PNEUMOCOCCAL VACCINE (1 - PCV)] Future Scheduled 2022-05-30 INFLUENZA VACCINE Method [facility] Test 17:04:15 [code = INFLUENZA VACCINE] Future Scheduled 2022-05-30 HEPATITIS B VACCINES [facility] Test 17:04:15 (1 of 3 - 3-dose series) [code = HEPATITIS B VACCINES (1 of 3 - 3-dose series)] Future Scheduled 2022-05-30 COVID-19 VACCINE (#1) [facility] Test 17:04:15 [code = COVID-19 VACCINE (#1)] Future Scheduled 2022-05-30 BREAST CANCER [facility] Test 17:04:15 SCREENING [code = BREAST CANCER SCREENING] Future Scheduled 2022-05-30 COLONOSCOPY SCREENING [facility] Test 17:04:15 [code = COLONOSCOPY SCREENING] Future Scheduled 2022-05-30 SHINGLES VACCINES (1 Met [facility] Test 17:04:15 of 2) [code = SHINGLES VACCINES (1 of 2)] Future Scheduled 2022-05-30 65+ [facility] 17:04:15 VACCINE (1 - PCV) [code = 65+ PNEUMOCOCCAL VACCINE (1 - PCV)] Future Scheduled 2022-05-30 INFLUENZA VACCINE [facility] Test 17:04:15 [code = INFLUENZA VACCINE] Future Scheduled 2022-05-30 HEPATITIS B VACCINES [facility] Test 17:04:15 (1 of 3 - 3-dose series) [code = HEPATITIS B VACCINES (1 of 3 - 3-dose series)] Future Scheduled 2022-05-30 COVID-19 VACCINE (#1) [facility] Test 17:04:15 [code = COVID-19 VACCINE (#1)] Future Scheduled 2022-05-30 BREAST CANCER [facility] Test 17:04:15 SCREENING [code = BREAST CANCER SCREENING] Future Scheduled 2022-05-30 COLONOSCOPY SCREENING [facility] Test 17:04:15 [code = COLONOSCOPY SCREENING] Future Scheduled 2022-05-30 SHINGLES VACCINES (1 [facility] Test 17:04:15 of 2) [code = SHINGLES VACCINES (1 of 2)] Future Scheduled 2022-05-30 65+ [facility] 17:04:15 VACCINE (1 - PCV) [code = 65+ PNEUMOCOCCAL VACCINE (1 - PCV)] Future Scheduled 2022-05-30 INFLUENZA VACCINE Method [facility] Test 17:04:15 [code = INFLUENZA VACCINE] Future Scheduled 2022-05-30 HEPATITIS B VACCINES Met [facility] Test 17:04:15 (1 of 3 - 3-dose series) [code = HEPATITIS B VACCINES (1 of 3 - 3-dose series)] Future Scheduled 2022-05-30 COVID-19 VACCINE (#1) [facility] Test 17:04:15 [code = COVID-19 VACCINE (#1)] Future Scheduled 2022-05-30 BREAST CANCER [facility] Test 17:04:15 SCREENING [code = BREAST CANCER SCREENING] Future Scheduled 2022-05-30 COLONOSCOPY SCREENING [facility] Test 17:04:15 [code = COLONOSCOPY SCREENING] Future Scheduled 2022-05-30 SHINGLES VACCINES (1 Met [facility] Test 17:04:15 of 2) [code = SHINGLES VACCINES (1 of 2)] Future Scheduled 2022-05-30 65+ [facility] VACCINE (1 - PCV) [code = 65+ PNEUMOCOCCAL VACCINE (1 - PCV)] Future Scheduled 2022-05-30 INFLUENZA VACCINE Method [facility] Test 17:04:15 [code = INFLUENZA VACCINE] Future Scheduled 2022-05-30 HEPATITIS B VACCINES Met [facility] Test 17:04:15 (1 of 3 - 3-dose series) [code = HEPATITIS B VACCINES (1 of 3 - 3-dose series)] Future Scheduled 2022-05-30 COVID-19 VACCINE (#1) [facility] Test 17:04:15 [code = COVID-19 VACCINE (#1)] Future Scheduled 2022-05-30 BREAST CANCER [facility] Test 17:04:15 SCREENING [code = BREAST CANCER SCREENING] Future Scheduled 2022-05-30 COLONOSCOPY SCREENING [facility] Test 17:04:15 [code = COLONOSCOPY SCREENING] Future Scheduled 2022-05-30 SHINGLES VACCINES (1 Met [facility] Test 17:04:15 of 2) [code = SHINGLES VACCINES (1 of 2)] Future Scheduled 2022-05-30 65+ [facility]:04:15 VACCINE (1 - PCV) [code = 65+ PNEUMOCOCCAL VACCINE (1 - PCV)] Future Scheduled 2022-05-30 INFLUENZA VACCINE Method [facility] Test 17:04:15 [code = INFLUENZA VACCINE] Future Scheduled 2022-05-30 HEPATITIS B VACCINES Met [facility] Test 17:04:15 (1 of 3 - 3-dose series) [code = HEPATITIS B VACCINES (1 of 3 - 3-dose series)] Future Scheduled 2022-05-30 COVID-19 VACCINE (#1) [facility] Test 17:04:15 [code = COVID-19 VACCINE (#1)] Future Scheduled 2022-05-30 BREAST CANCER [facility] Test 17:04:15 SCREENING [code = BREAST CANCER SCREENING] Future Scheduled 2022-05-30 COLONOSCOPY SCREENING [facility] Test 17:04:15 [code = COLONOSCOPY SCREENING] Future Scheduled 2022-05-30 SHINGLES VACCINES (1 Met [facility] Test 17:04:15 of 2) [code = SHINGLES VACCINES (1 of 2)] Future Scheduled 2022-05-30 65+ [facility] 17:04:15 VACCINE (1 - PCV) [code = 65+ PNEUMOCOCCAL VACCINE (1 - PCV)] Future Scheduled 2022-05-30 INFLUENZA VACCINE [facility] Test 17:04:15 [code = INFLUENZA VACCINE] Future Scheduled 2022-03-30 HEPATITIS B VACCINES Met [facility] Test 23:57:10 (1 of 3 - 3-dose series) [code = HEPATITIS B VACCINES (1 of 3 - 3-dose series)] Future Scheduled 2022-03-30 COVID-19 VACCINE (#1) [facility] Test 23:57:10 [code = COVID-19 VACCINE (#1)] Future Scheduled 2022-03-30 BREAST CANCER [facility] Test 23:57:10 SCREENING [code = BREAST CANCER SCREENING] Future Scheduled 2022-03-30 COLONOSCOPY SCREENING [facility] Test 23:57:10 [code = COLONOSCOPY SCREENING] Future Scheduled 2022-03-30 SHINGLES VACCINES (1 Met [facility] Test 23:57:10 of 2) [code = SHINGLES VACCINES (1 of 2)] Future Scheduled 2022-03-30 65+ [facility] 23:57:10 VACCINE (1 - PCV) [code = 65+ PNEUMOCOCCAL VACCINE (1 - PCV)] Future Scheduled 2022-03-30 INFLUENZA VACCINE [facility] Test 23:57:10 [code = INFLUENZA VACCINE] Future Scheduled 2021-07-13 COVID-19 VACCINE (1) [facility] Test 16:26:45 [code = COVID-19 VACCINE (1)] Future Scheduled 2021-07-13 Hepatitis C screening [facility] Test 16:26:45 (procedure) [code = [id number]] Future Scheduled 2021-07-13 BREAST CANCER [facility] Test 16:26:45 SCREENING [code = BREAST CANCER SCREENING] Future Scheduled 2021-07-13 COLONOSCOPY SCREENING [facility] Test 16:26:45 [code = COLONOSCOPY SCREENING] Future Scheduled 2021-07-13 SHINGLES [facility]ACCINES (#[facility]) [facility] 16:26:45 [code = SHINGLES VACCINES (#1)] Future Scheduled 2021-07-13 65+ [facility] Test 16:26:45 VACCINE (1 of 1 - PPSV23) [code = 65+ PNEUMOCOCCAL VACCINE (1 of 1 - PPSV23)] Future Scheduled 2021-07-13 INFLUENZA VACCINE [facility] Test 16:26:45 [code = INFLUENZA VACCINE] Future Scheduled COVID-19 VACCINE (1) Met [facility] Test [code = COVID-19 VACCINE (1)] Future Scheduled Hepatitis C screening [facility] Test (procedure) [code = [id number]] Future Scheduled BREAST CANCER [facility] Test SCREENING [code = BREAST CANCER SCREENING] Future Scheduled COLONOSCOPY SCREENING [facility] Test [code = COLONOSCOPY SCREENING] Future Scheduled SHINGLES VACCINES (#1) [facility] Test [code = SHINGLES VACCINES (#1)] Future Scheduled 65+ [facility]UMOCOCCAL [facility] Test VACCINE (1 of 1 - PPSV23) [code = 65+ PNEUMOCOCCAL VACCINE (1 of 1 - PPSV23)] Future Scheduled INFLUENZA VACCINE [facility] Test [code = INFLUENZA VACCINE] Encounters Start End Encounter Admission Attending Care Care Encounter Source Date/Time Date/Time Type Type Clinicians Facility Department ID 2022-06-20 Outpatient [facility] [id number] [place] 15:02:02 [id number] [facility] 2022-06-13 Outpatient [facility] [id number] [place] 13:58:07 [id number] [facility] 2022-06-02 Outpatient [facility] [id number] [place] 14:25:50 [id number] [facility] 2022-05-29 Outpatient [facility] [id number] [place] 07:38:34 [id number] [facility] 2022-05-26 Outpatient [facility] [id number] [place] 09:09:03 [id number] [facility] 2021-09-22 Outpatient SERA [facility] [id number] [place] 09:07:57 [facility] 2022-07-31 2022-07-31 Outpatient ZAMORA, [facility] [id number] [place] 09:15:00 09:15:00 [facility] 2022-06-22 2022-06-22 Outpatient [facility] [id number] [place] 00:00:00 11:18:50 [facility] 2022-06-22 2022-06-22 Office VICKY Bautista ORTHO 1.2.840.114 1 [id number] [place] 10:45:00 11:15:05 Visit Andrés SUGAR 350.1.13.58 He alth [place] 9.2.7.2.686 [id number] 1 2022-06-16 2022-06-21 Inpatient E SOFIE [facility] [id number] [facility] 16:59:00 14:27:00 Amy ALMONTE 2022-06-19 2022-06-19 Outpatient LAKSHMI, [facility] [id number] [place] 10:00:00 10:00:00 [facility] 2022-06-12 2022-06-12 Outpatient SERA, FB [facility] [id number] [facility] 05:18:00 14:00:00 [facility] 2022-06-12 2022-06-12 Outpatient SERA, [facility] [id number] [place] 09:30:00 09:30:00 [facility] 2022-06-05 2022-06-05 Outpatient LAKSHMI, [facility] [id number] [place] 10:00:00 10:30:48 [facility] 2022-04-17 2022-04-17 Outpatient MILLY Friedman, [facility] [id number] [facility] 08:00:00 08:00:00 Sebastian Silva [facility] 2022-03-28 2022-03-29 [facility] [id number] Memoria 14:39:01 04:59:59 r [facility] 2022-03-28 2022-03-29 [facility]patient [facility] [id number] Memoria 14:39:01 04:59:59 r [facility] 2022-03-28 2022-03-28 Outpatient Sera, [id number] 09:39:01 23:59:59 [place] [id number] 2022-03-28 2022-03-28 Outpatient nullFlavo [facility] [id number] Memoria 09:39:01 09:39:01 r ta Wilkinson 2022-03-09 2022-03-09 Office VICKY Zamora [id number] [id number] [place] 14:00:00 14:57:30 Visit Forest SUGAR 350.1.13.58 He alth [place] 9.2.7.2.686 [id number] 1 2021-12-29 2021-12-29 Telephone Lloyd, 1.2.840.1 [id number] Methodi 00:00:00 00:00:[address] 3.430.2.7 Hospit a .3.926496 l .8 2021-12-29 2021-12-29 Telephone MenaGregoria gregorio 1.2.840.1 [id number] Methodi 00:00:00 00:00:[address] 3.430.2.7 Hospit a .3.777252 l .8 2021-12-29 2021-12-29 Telephone Desai, 1.2.840.1 [id number] Methodi 00:00:00 00:00:[address] 3.430.2.7 Hospit a .3.558746 l .8 2021-12-29 2021-12-29 Telephone MenaGregoria gregorio 1.2.840.1 [id number] Methodi 00:00:00 00:00:[address] 3.430.2.7 Hospit a .3.857075 l .8 2021-12-26 2021-12-26 Outpatient IMTIAZ HoTO RADI [id number] [facility] 08:53:00 08:53:00 Cl [facility] 2022-01-20 2021-12-26 Inpatient HERI Ho DAYS [id number] [facility] 13:15:00 08:00:00 Cl 26 [facility] 2021-11-06 2021-11-06 Outpatient R [facility] [id number] Univers 12:00:00 12:00:00 ity [facility] 2021-11-05 2021-11-05 Outpatient R SLOANE [facility] [id number] Univers 20:45:00 20:45:00 ADDIE ity [facility] 2021-10-10 2021-10-10 Office VICKY Zamora [id number] [id number] [place] 14:30:00 16:07:20 Visit Forest SUGAR 350.1.13.58 He alth [place] 9.2.7.2.686 [id number] 1 2021-09-02 2021-09-02 Telephone Nurse, Shakeel [facility] 1.2.840.114 [id number] Univers 00:00:00 00:00:00 Db Urgent HEALTH 350.1.13.10 ity of [facility] 4.2.7.2.686 Uziel as PADDY?BLEA [id number] [address] MEDICAL OFFICE [facility] 2021-08-24 2021-08-24 Outpatient Mirta HCACL LABO [id number] [facility] 15:41:00 15:41:00 Maciel 59 [facility] 2021-08-17 2021-08-17 Outpatient IMTIAZ HoTO RADI [id number] [facility] 17:40:00 17:40:00 Cl 93 [facility] 2021-08-02 2021-08-02 Laboratory Only, Shakeel Db Test [facility] 1.2.8 40.114 [id number] Univers 20:15:00 20:30:00 Only Matteo Brown [facility] 350.1.13.10 ity of [place] 4.2.7.2.686 Uziel as PADDY?BLEA [id number] [address] MEDICAL OFFICE BUILDING 2021-08-02 2021-08-02 Outpatient R KEVIN [facility] [id number] Univers 20:15:00 20:15:00 MATTEO malin f [facility] 2021-07-25 2021-07-25 Letter MARCOS Velez 1.2.840.114 [id number] Univers 00:00:00 00:00:00 (Out) Alesia Austin BRISEIDA 350.1.13.[address] [facility] 4.2.7.2.686 Uziel as [id number] [facility] [address] 2021-07-24 2021-07-24 Laboratory Only, Adc Test [facility] 1.2.840. 114 [id number] Univers 08:45:00 09:00:00 Only Jose Rafael Osborne 350.1.13.10 [place] [id number] [facility] [address] 2021-07-24 2021-07-24 Outpatient R HUMBERTO, [facility] [id number] Univers 08:45:00 08:45:00 JOSE RAFAEL itzoey [facility] 2021-07-24 2021-07-24 Orders Doctor RODRÍGUEZ 1.2.840.114 [id number] Univers 00:00:00 00:00:00 Only Unassigned, BRISEIDA 350.1.13.[address] [place] [facility] 4.2.7.2.686 Uziel as [id number] [facility] [address] 2021-06-29 2021-06-29 Outpatient EL Wendy, HCATO RADI [id number] [facility] 11:17:00 11:17:00 Cl 94 [facility] 2021-08-17 2021-05-18 Inpatient MILLY Kirby, [facility] SURG [id number] [facility] 15:00:00 10:30:00 Maciel 43 [facility] 2021-02-23 2021-02-23 Outpatient EL Idalia, [facility] [id number] [facility] 12:00:00 12:00:00 Sebastian 15 [facility] 2021-01-25 2021-01-25 Outpatient EL Friedman, [facility] [id number] [facility] 12:00:00 12:00:00 Sebastian 31 [facility] 2021-01-05 2021-01-05 Outpatient EL Doug, HCATO RADI [id number] [facility] 06:45:00 06:45:00 Gill 84 [facility] 2020-12-31 2020-12-31 Travel 1.2.840.1 1.2.920.709 [id number] Methodi 00:00:00 00:00:[address] 3.430.2.7 0.2.7.3.698 Ho spita .3.401486 084.8 l .8 2020-12-08 2020-12-08 Inpatient [facility] [id number] [facility] 05:48:58 05:48:58 Mufaddal 64 [facility] 2020-12-06 2020-12-06 Travel 1.2.840.1 1.2.204.413 [id number] Methodi 00:00:00 00:00:[address] 3.430.2.7 0.2.7.3.698 Ho spita .3.591722 084.8 l .8 2020-10-07 2020-10-07 [facility] [id number] [facility] 18:13:00 18:13:00 Mufaddal 57 [facility] 2020-09-27 2020-09-27 Patient Carlos VTSAMUEL 1.2.840.114 [id number] 00:00:00 00:00:00 Outreach Jose A PRIMARY 350.1.13.10 [place] [facility] 4.2.7.2.686 PAVILLION [id number] 388 2020-09-27 2020-09-27 Patient Carlos VTSAMUEL 1.2.840.114 [id number] Univers 00:00:00 00:00:00 Outreach Jose A PRIMARY 350.1.13.10 i ty of [place] [id number] Me dical [address] 2020-09-23 2020-09-23 Travel 1.2.840.1 1.2.016.484 [id number] Methodi 00:00:00 00:00:[address] 3.430.2.7 0.2.7.3.698 Ho spita .3.088684 084.8 l .8 2020-09-06 2020-09-06 Inpatient HERI Mirza HCATO [id number] [facility] 14:18:30 14:18:30 Mufaddal 66 [facility] 2020-03-20 2020-03-20 Laboratory Lab, [facility] 1.2.840.114 [id number] 13:38:36 13:58:36 Only Fam Pob I Health 350.1.13.10 [place] 4.2.7.2.686 Professio [phone] [place] [address] Office Building [facility] 2020-03-20 2020-03-20 Laboratory Lab, [facility] Fam Pob I [facility] 1.2. [id number] [facility] 13:38:36 13:58:36 Only Esteban Escobar Health 350.1.13.10 ity of [place] 4.2.7.2.686 Uziel as Professio [id number] Wy dical [address] Office [facility] 2020-03-20 2020-03-20 Outpatient Amy ESCOBAR [facility] [id number] Univers 13:20:00 13:20:00 ESTEBAN hill [facility] 2020-03-20 2020-03-20 Letter Doctor RODRÍGUEZ 1.2.840.114 [id number] 00:00:00 00:00:00 (Out) Unassigned, BRISEIDA 350.1.13.10 [place] [facility] 4.2.7.2.686 [id number] [facility] 2020-03-20 2020-03-20 Letter Doctor RODRÍGUEZ 1.2.840.114 [id number] Univers 00:00:00 00:00:00 (Out) Unassigned, BRISEIDA 350.1.13.10 ity of [place] [facility] 4.2.7.2.686 Uziel as [id number] [address] 2020-03-08 2020-03-08 [facility] [id number] Univers 16:00:00 16:00:00 LILIA hill [facility] 2020-03-01 2020-03-01 Telephone [facility] 1.2.840.114 [id number] 00:00:00 00:00:00 Lilia [facility] 350.1.13.10 Surgical 4.2.7.2.686 Specialti [id number] es [address] [place] 2020-03-01 2020-03-01 Winder Micah [facility] 1.2.840.114 77 [id number] 00:00:00 00:00:00 [facility] 350.1.13.10 Surgical 4.2.7.2.686 Specialti [id number] es [address] [place] 2020-03-01 2020-03-01 Winder [facility] 1.2.840.114 77 [id number] Univers 00:00:00 00:00:00 [facility] 350.1.13.10 it y of Surgical 4.2.7.2.686 Uziel as Specialti [id number] Wy dical es 198 [facility] 2020-03-01 2020-03-01 Winder [facility] 1.2.840.[id number] [facility] 00:00:00 00:00:00 [facility] 350.1.13.10 it y of Surgical 4.2.7.2.686 Uziel as Specialti [id number] Wy dical es 198 [facility] 2020-02-20 2020-02-20 Winder [facility] 1.2.840.114 77 [id number] 00:00:00 00:00:00 [facility] 350.1.13.10 Surgical 4.2.7.2.686 Specialti [id number] es [address] [place] 2020-02-20 2020-02-20 Winder [facility] 1.2.840.[id number] [facility] 00:00:00 00:00:00 [facility] 350.1.13.10 it y of Surgical 4.2.7.2.686 Uziel as Specialti [id number] Wy dical es 198 [facility] 2020-02-04 2020-02-04 Winder [facility] 1.2.840.114 76 [id number] 00:00:00 00:00:00 [facility] 350.1.13.10 Surgical 4.2.7.2.686 Specialti [phone] es [address] [place] 2020-02-04 2020-02-04 Telephone [facility] 1.2.840.114 [id number] Univers 00:00:00 00:00:00 [facility] 350.1.13.10 it y of Surgical 4.2.7.2.686 Uziel as Specialti [phone] Wy zan es 198 [facility] 2020-02-02 2020-02-02 Telephone [facility] 1.2.840.114 76 [id number] 00:00:00 00:00:00 [facility] 350.1.13.10 Surgical 4.2.7.2.686 Specialti [id number] es Lizette [place] 2020-02-02 2020-02-02 Telephone [facility] 1.2.840.114 76 [id number] Univers 00:00:00 00:00:00 Lilia [facility] 350.1.13.10 it y of Surgical 4.2.7.2.686 Uziel as Specialti [phone] Wy dical es 198 [facility] 2020-01-28 2020-01-28 Office [facility] 1.2.840.114 [id number] 14:49:21 15:36:45 Visit [facility] 350.1.13.10 Surgical 4.2.7.2.686 Specialti [phone] [address] 2020-01-28 2020-01-28 Office [facility] 1.2.840.[id number] [facility] 14:49:21 15:36:45 Visit [facility] 350.1.13.10 it y of Surgical 4.2.7.2.686 Uziel as Specialti [phone] Wy octaviami es 198 [facility] 2020-01-28 2020-01-28 Outpatient [facility] [id number] Univers 14:45:00 14:45:00 FRANCISCO hill [facility] Results Test Description Test Time Test Comments Results Result [facility] e Comments - XR FLUORO NDL 2021-12-26 16:08:00 [facility]: NIKIA GARCIA : 1955 Sex: F Patient Name: NIKIA GARCIA Unit No: [id number] EXAMS: CPT CODE: [id number] XR FLUORO NDL 99760 FLUOROSCOPICALLY GUIDED INJECTION OF THE LEFT NAVICULOCUNEIFORM JOINT WITH STEROID AND LIDOCAINE COMMENT: COMPARISON: No prior exams available. After informed consent was obtained a needle was placed in the naviculocuneiform joint with fluoroscopic guidance. Its position was confirmed by injecting Isovue 300 and obtaining an AP radiograph. 15 seconds of fluoroscopy time was utilized. Subsequently 1mL of Kenalog 40 mg per cc and 0.5mL of 1 percent lidocaine was injected. No immediate complications were encountered. FLUOROSCOPICALLY GUIDED INJECTION OF THE LEFT 3RD TARSAL METATARSAL JOINT WITH STEROID AND LIDOCAINE COMMENT: COMPARISON: No prior exams available. After informed consent was obtained a needle was placed in the tarsal metatarsal joint with fluoroscopic guidance. Its position was confirmed by injecting Isovue 300 and obtaining an AP radiograph. 15 seconds of fluoroscopy time was utilized. Subsequently 1mL of Kenalog 40 mg per cc and 0.5mL of 1 percent lidocaine was injected. No immediate complications were encountered. FLUOROSCOPICALLY GUIDED INJECTION OF THE RIGHT KNEE WITH STEROID AND LIDOCAINE COMMENT: COMPARISON: No prior exams available. After informed consent was obtained a needle was placed in the knee joint with fluoroscopic guidance. Its position was confirmed by injecting Isovue 300 and obtaining an AP radiograph. 20 seconds of fluoroscopy time was utilized. Subsequently 2mL of Kenalog 40 mg per cc and 2mL of 1 percent lidocaine was injected. No immediate complications were encountered. at 1608 Reported and signed by: Chandan Duran MD [facility] NAME: NIKIA GARCIA [id number] [facility] PHYS: Cl Sandra MD : 1955 AGE: 66 SEX: F [place], [place] [address] LOC: Y.RAD PHONE #: [phone] EXAM DATE: 12/26/2021 STATUS: REG CLI FAX #: [phone] RAD #: [id number] D/C DT PAGE 1 Signed Report (CONTINUED) Patient Name: NIKIA GARCIA Unit No: [id number] EXAMS: CPT CODE: [id number] XR FLUORO NDL 55830 (Continued) CC: Cl Nguyen MD Technologist: Kelley Aguiar RT.(R) Transcribed D/ (1608) [email or web address] [facility] NAME: NIKIA GARCIA [address] [facility] PHYS: Cl Sandra MD : 1955 AGE: 66 SEX: F [place] [address] LOC: Y.RAD PHONE #: [phone] EXAM DATE: 12/26/2021 STATUS: REG CLI FAX #: [phone] RAD #: [id number] D/C DT PAGE 2 Signed Report Patient Name: NIKIA GARCIA Unit No: [id number] EXAMS: CPT CODE: [id number] XR FLUORO NDL 24436 (Continued) Orig Print D/T: S: 12/26/2021 (1611) [facility] NAME: NIKIA GARCIA [address] [facility] PHYS: Cl Sandra MD : 1955 AGE: 66 SEX: F [place] [address] LOC: Y.RAD PHONE #: [phone] EXAM DATE: 12/26/2021 STATUS: REG CLI FAX #: [phone] RAD #: [id number] D/C DT PAGE 3 Signed Report PROTHROMBIN TIME 2021-08-24 12:51:00 Test Item Value Reference Range Interpretation Comme nts PROTHROMBIN TIME PATIENT (test 20.9 secs 9.7-12.5 H Please note new normal range. code = PTP) INTERNATIONAL NORMAL RATIO 1.87 <2.0 R ECOMMENDED THERAPEUTIC RANGE FOR (test code = INR) ORAL ANTIC OAGULANTTREATMENT: CONDITION INRPr ophylaxis of venous thrombosis in 2 .0 - 3.0 high-risk medical or surg ical patientsTreatme nt of venous thrombosis 2.0 - 3.0Prevention of embolism 2.0 - 3.0Prevention of recurrent embol ism, or 3.0 - 4.5 patients with m echanical prosthetic intr avascular valves IS PATIENT ON ANTICOAGULANTS ? YLIST ANTICOAGULANT/ANTI PLT MEDICATION : OtherHas Lab been notified if Patient is on Heparin Drip? NOIf Yes, order CBC, OCCULT BLOOD, PT every other day NTHROMBOPLASTIN TIME [id number] 12:51:00 Test Item Value Reference Range Interpretation Comments PTT ACTIVATED (test 38.5 secs 26.6-34.6 H Please n ote new code = APTT) normal range. IS PATIENT ON ANTICOAGULANTS ? YLIST ANTICOAGULANT/ANTI PLT MEDICATION : OtherHas Lab been notified if Patient is on Heparin Drip? NOIf Yes, order CBC, OCCULT BLOOD, PT every other day N- XR FLUORO [id number] 13:34:00 [facility] 1955 Sex: F Patient Name: NIKIA GARCIA Unit No: [id number] EXAMS: CPT CODE: [id number] XR FLUORO NDL 32535 Fluoroscopically guided injection of the right plantar fascia with steroid FINDINGS: After informed consent was obtained a needle was placed in the right plantar fascia with fluoroscopic guidance. Its positionwas confirmed by obtaining a radiograph. Subsequently 2 mL of Kenalog 40 mg per cc and 2 mL of lidocaine was injected. No immediate complications were encountered. 32 seconds of fluoroscopy time was utilized. IMPRESSION: Technically successful steroid injection of the right plantar fascia at 1334 Reported and signed by: Erick Alcantar M.D. CC: Cl Nguyen MD Technologist: RT Karol.(R) Transcribed D/ (0064) LizetteSLJ [facility] NAME: NIKIA GARCIA [address] [facility] PHYS: Cl Sandra MD : 1955 AGE: 66 SEX: F [place] [id number] LOC: Y.PRE PHONE #: [phone] EXAM DATE: 08/17/2021 STATUS: [facility] FAX #: [phone] RAD #: [id number] D/C DT PAGE 1 Signed Report Patient Name: NIKIA GARCIA Unit No: [id number] EXAMS: CPT CODE: [id number] XR FLUORO NDL 75606 (Continued) Orig Print D/T: S: 08/18/2021 (1337) [facility] NAME: NIKIA GARCIA [address] [facility] PHYS: Cl Sandra MD : 1955 AGE: 66 SEX: F [place] [id number] LOC: Y.PRE PHONE #: [phone] EXAM DATE: 08/17/2021 STATUS: [facility] FAX #: [phone] RAD #: [id number] D/C DT PAGE 2 Signed Report- XR FLUORO [id number] 13:34:00 [facility] 1955 Sex: F Patient Name: NIKIA GARCIA Unit No: [id number] EXAMS: CPT CODE: [id number] XR FLUORO NDL 15165 Fluoroscopically guided injection of the right plantar fascia with steroid FINDINGS: After informed consent was obtained a needle was placed in the right plantar fascia with fluoroscopic guidance. Its positionwas confirmed by obtaining a radiograph. Subsequently 2 mL of Kenalog 40 mg per cc and 2 mL of lidocaine was injected. No immediate complications were encountered. 32 seconds of fluoroscopy time was utilized. IMPRESSION: Technically successful steroid injection of the right plantar fascia at 1334 Reported and signed by: Erick Marrero M.D. CC: Cl Nguyen MD Technologist: RT Karol.(R) Transcribed D/ (6079) tDEISIDell [facility] [place] NAME: NIKIA GARCIA [address] [facility] PHYS: Cl Sadnra MD : 1955 AGE: 66 SEX: F [place] [address] LOC: Y.RADPHONE #: [phone] EXAM DATE: 08/17/2021 STATUS: DEP CLI FAX #: [phone] RAD #: [id number] D/C DT PAGE 1 Signed Report Patient Name: NIKIA GARCIA Unit No: [id number] EXAMS: CPT CODE: [id number] FLUORO NDL 36614 (Continued) Orig Print D/T: S: 08/18/2021 (0464) [facility] NAME: NIKIA GARCIA [address] [facility] PHYS: Cl Sandra MD : 1955 AGE: 66 SEX: F [place] [address] LOC: Y.RAD PHONE #: [phone] EXAM DATE: 08/17/2021 STATUS: DEP CLI FAX #: [phone] RAD #: [id number] D/C DT PAGE 2 Signed Report- MRI LOW EXT W/O CONT [id number] 16:13:00 [facility] : 1955 Sex: F Patient Name: NIKIA GARCIA Unit No: [id number] EXAMS: CPT CODE: [id number] MRI L[place] EXT W/[place] [address] MRI OF THE LEFT FOOT DIAGNOSIS: Degenerative changes are seen in the talonavicular, naviculocuneiform and 3rd tarsometatarsal joint with cyst formation and spur formation. No fractures are seen. COMMENT: Scans were performed in the sagittal, axial and coronal planes utilizing T1, T2 and inversion recovery images. Bony abnormalities are present as noted. No tendon tears are seen. No ligamentous sprains or tears are identified. No masses or fluid collections are seen. at 1613 Reported and signed by: Chandan Duran MD CC: Will Nguyen MD Technologist: 0 Transcribed D/ (1613) t.SDR.L [facility] NAME: NIKIA GARCIA [address] PHYS: Cl Sandra MD : 1955 AGE: 66 SEX: F [place], [place] [address] LOC: Y.MRI PHONE #: [phone] EXAM DATE: 06/29/2021 STATUS: REG CLI FAX #: [phone] RAD #: [id number] D/C DT PAGE 1 Signed Report Patient Name: NIKIA GARCIA Unit No: [id number] EXAMS: CPT CODE: [id number] MRI LOW EXT W/[place] [address] (Continued) Orig Print D/T: S: 06/29/2021 (1617) [facility] NAME: NIKIA GARCIA G [address] [facility] [address] PHYS: Cl Sandra MD : 1955 AGE: 66 SEX: F [place], [place] [address] LOC: Y.MRI PHONE #: [phone] EXAM DATE: 06/29/2021 STATUS: REG CLI FAX #: [phone] RAD #: [id number] D/C DT PAGE 2 Signed Report- MRI C-SPINE W/O [id number] 08:20:00 [facility] 1955 Sex: F Patient Name: NIKIA GARCIA Unit No: [id number] EXAMS: CPT CODE: [id number] MRI C-SPINE W/O CONT 22306 MRIOF THE CERVICAL SPINE: DIAGNOSIS: 1. At C2-3, disc desiccation. No central canal or [...] signed by: Ivone Campos MD CC: Gill Camahco MD Technologist: Kevon Gallardo(R) Transcribed D/ (08) LizetteGVG [facility] NAME: NIKIA GARCIA [address] [place] [address] PHYS: Gill Slaughter MD : 1955 AGE: 65 SEX: F [place] [address] LOC: Y.MRI PHONE #: [phone] EXAM DATE: 01/05/2021 STATUS: REG CLI FAX #: [phone] RAD #: [id number] D/C DT PAGE 1 Signed Report Patient Name: NIKIA GARCIA Unit No: [id number] EXAMS: CPT CODE: [id number] MRI C-SPINE W/O CONT 92043 (Continued) Orig Print D/T: S: 01/05/2021 (0823) [facility] NAME: NIKIA GARCIA [address] [place] [address] PHYS: Gill Slaughter MD : 1955 AGE: 65 SEX: F [place] [address] LOC: Y.MRI PHONE #: [phone] EXAM DATE: 01/05/2021 STATUS: REG CLI FAX #: [phone] #: [id number] D/C DT PAGE 2 Signed ReportNovel Coronavirus 2019 [id number] 13:05:00 Test Item Value Reference Range Interpretation Comments Novel Coronavirus Negative Negative Positive r esults are 2019 Inhouse (test indicativ e of the presence [...] n. The testing is perf ormed by camille rudd in the procedures for the Alejandre M2000 molecular diagnostic SARS-CoV-2 assa y in vitro. Novel Coronavirus 2018 [id number] 13:04:00 Test Item Value Reference Range Interpretation Comments Novel Coronavirus Negative Negative Positive r esults are 2019 Inhouse (test indicativ e of the presence [...] for the identification of SARS-CoV-2 RNA usingthe [employer] M2000 Sy stem under the FDA Emergen cy UseAuthorizatio n. The testing is perf ormed by camille rudd in the procedures for the Alejandre M2000 molecular diagnostic SARS-CoV-2 assa y in vitro. PROTHROMBIN [id number] 17:05:00 Test Item Value Reference Range Interpretation Comments PROTHROMBIN TIME 34.5 secs 10.1-12.5 H PATIENT (test code = PTP) INTERNATIONAL NORMAL 3.06 <2.0 RECOMME NDED THERAPEUTIC RATIO (test code = RANGE FOR ORAL INR) ANTICOAGULANTTR EATMENT: CONDITION INRPr ophylaxis of venous throm bosis in 2.0 - 3.0 high- risk medical or surg ical patientsTreatme nt of venous thrombos is 2.0 - 3.0Prevention o f embolism 2.0 - 3.0Prevention o f recurrent embol ism, or 3.0 - 4.5 patie nts with mechanical pros thetic intravascular v george IS PATIENT ON ANTICOAGULANTS ? YLIST ANTICOAGULANT/ANTI PLT MEDICATION : CoumadinHas Lab been notified if Patient is on Heparin Drip? NOTHROMBOPLASTIN TIME [id number] 17:05:00 Test Item Value Reference Range Interpretation Comments PTT ACTIVATED (test 53.6 secs 24.9-37.0 HH VERIFIED BY REPEAT code = APTT) ANALYSIS.CRITIC AL VALUE CALLED TO ENRIQUETA MICHAUD BACK & CONFIRMED? YESB Y F.LAB.AEG 10/07 1705 IS PATIENT ON ANTICOAGULANTS ? YLIST ANTICOAGULANT/ANTI PLT MEDICATION : CoumadinHas Lab been notified if Patient is on Heparin Drip? NOCOMPREHENSIVE METABOLIC [id number] 16:53:00 Test Item Value Reference Range Interpretation [...] RATE (test code = GFR) mL/mi n/1.73 [id number] Range:Healthy Adults >90 mL/min/1.73 m2 For Chronic Kidney Disease: Stage II Mild Decrease i n GFR 60-90 Stage III Moderate Decrea se in GFR 30-59 S tage IV Severe Decre ase in GFR 15-29 St age V Kidney Failur e <15 CREATININE (test code 0.62 mg/dL 0.55-1.30 [...] TOTAL (test code = ALKP) CBC W/AUTO [id number] 16:39:00 Test Item Value Reference Range Interpretation [...] N code = NRBC) - MRI UP [facility] W/O CONT [id number] 11:18:00 [facility] : 1955 Sex: F PatientName: NIKIA GARCIA Unit No: [id number] EXAMS: CPT CODE: [id number] MRI UP [facility] W/[place] [address] MRI OF THE RIGHT SHOULDER DIAGNOSIS: 1. Full-thickness laminar longitudinal oblique tear of the posterior supraspinatus and anterior infraspinatus tendons with tendinosis. There is no evidence for tendon r etraction or muscular atrophy. 2. Partial-thickness longitudinal split tear of the superior subscapularis tendon without retraction or atrophy. There is partial thickness tearing and medial subluxationof the biceps tendon. COMMENT: COMPARISON: No prior exams available. Scans were performed in the paracoronal, parasagittal and axial planes utilizing T1 , spin density with fat saturation and T2-weighting with and without fat saturation. The rotator cuff is as described. The acromion is horizontal with AC joint degenerative change. There is no evidence for a labral tear. Joint and bursal effusions are present. at 1118 Reported and signed by: Chandan Duran MD CC: Yas Dominguez MD Technologist: NAVNEET SCHMIDT RT(R) Transcribed D/ (1118) tDEISIJCL [facility] NAME: NIKIA GARCIA [address] [place] [address] PHYS: GOMMU. - Yas Dominguez : 1955 AGE: 65 SEX: F [place] [address] LOC: Y.MRI PHONE #: [phone] EXAM DATE: 09/16/2020 STATUS: REG CLI FAX #: [phone] RAD #: [id number] D/C DT PAGE 1 Signed Report Patient Name: NIKIA GARCIA Unit No: [id number] EXAMS: CPT CODE: [id number] MRI UP JNT W/[place] [address] (Continued) Orig Print D/T: S: 09/16/2020 (1122) [facility] NAME: NIKIA GARCIA [address] [place] [address] PHYS: GOMMU. - Yas Dominguez : 1955 AGE: 65 SEX: F [place] [address] LOC: Y.MRI PHONE #: [phone] EXAM DATE: 09/16/2020 STATUS: REG CLI FAX #: [phone] RAD #: [id number] D/C DT PAGE 2 Signed ReportXR FOREARM 2 [id number] 09:41:05Exam: Right XR ELBOW MIN 3 VIEWS, XR FOREARM 2 VIEWSHISTORY: PainCOMPARISON: None available.FINDINGS: Bones:No acute displaced fracture.Osseous alignment is within normal limits.Joints:The joint spaces are well-maintained.Soft tissues:The soft tissues appear unremarkable.IMPRESSION:No acute radiographic abnormality.This final report was electronically signed by Dr Blank Schaefer MD01/03/2020 9:34 AMDictated By: Merle SKINNER: 01/03/2020 09:34[facility] TULSAXR ELBOW MIN 3 [id number] 09:40:57Exam: Right XR ELBOW MIN 3 VIEWS, XR FOREARM 2 VIEWSHISTORY: PainCOMPARISON: None available.FINDINGS:Bones:No acute displaced fracture.Osseous alignment is within normal limits.Joints:The joint spaces are well-maintained.Soft tissues:The soft tissues appear unremarkable.
[2022-06-27 21:25] LABS: Absolute Lymphocytes (CBC) 0.7 K/uL (0.7-4.9); Hematocrit 25.4 % (36.0-45.0); Lymphocytes % 18.6 % (15.3-44.8); MCV 86.7 fL (80-100); RBC Red Blood Cell Count 2.93 M/uL (3.86-4.86)
[2022-06-27 21:28] LABS: Protime INR 3.27
[2022-06-27 21:40] VITALS: BMI 26.4
[2022-06-27 21:43] LABS: Albumin 3.6 g/dL (3.4-5.0); Bilirubin Total 1.1 mg/dL (0.2-1.0); Magnesium 1.8 mg/dL (1.8-2.4); Potassium 3.6 mmol/L (3.5-5.1)
[2022-06-27] MEDS ORDERED: POTASSIUM CL SA 10 MEQ TAB PO ONE (21:45)
--- NOTE | 2022-06-27 21:58 | RAD REPORT ---
EXAM DESCRIPTION: Thang Single View06/27/2022 9:49 pm CLINICAL HISTORY: Chest pain COMPARISON: May 2022 FINDINGS: The lungs appear clear of acute infiltrate. The heart is mildly enlarged. Postsurgical changes involve the chest. IMPRESSION: No acute abnormalities displayed
[2022-06-27] MEDS: PIPER TAZO 3.375 GM in NA CHLORIDE 0.9% 100 ML IV SCH (22:12)
[2022-06-27] MEDS: ALBUTEROL 2.5 MG/3 ML NEB SOL NEB SCH (22:15)
[2022-06-27] MEDS ORDERED: OSELTAMIVIR 75 MG CAP PO ONE (22:31)
[2022-06-27] MEDS: HYDROCODONE/APAP 10/325 TAB PO PRN (22:49)
[2022-06-28] MEDS: PIPER TAZO 3.375 GM in NA CHLORIDE 0.9% 100 ML IV SCH ×3 (00:25→16:34)
[2022-06-28] MEDS: HYDROCODONE/APAP 10/325 TAB PO PRN ×3 (04:11→14:00)
[2022-06-28 04:37] LABS: Specific Gravity 1.028 (1.005-1.030); Urine Bilirubin NEGATIVE (Negative); Urine Blood Negative (Negative); Urine Clarity Clear (Clear); Urine Color Yellow (Yellow); Urine Glucose NEGATIVE (Negative); Urine Mucus Slight /HPF (None Seen); Urine Protein TRACE (Negative); Urine RBC <5 /HPF (None Seen); Urine Urobilinogen Normal (Normal)
--- NOTE | 2022-06-28 07:05 | HP ---
Date of Admission: 06/27/2022 Chief Complaint: Fever, cough, congestion. History Of Present Illness: This is a 67-year-old pleasant female patient who had right knee replace ment surgery in [place] on 06/12/2022. Two days later, the patient came home. She started to have f ever after she came home and she was admitted back to hospital in [place] from 06/16/2022 to 06/21/20 because of her fever and anemia. Her hemoglobin was between 6 to 7 and she received 3 units of pa cked red blood transfusion. The patient says that multiple testing were done while she was in the spital to find out why she had fever and some discharge instruction she brought from [facility] shows she had enteritis of terminal ileum. She was given antibiotics while she was in the hospital, but upon discharge, she was not given any antibiotics. The patient was told that she did not have a ny evidence of infection in her right knee where she had recent surgery. She has significant bruisin g in her right leg and swelling of the right knee, but reports that it is getting better over period of time. She denies any blood in the urine. Denies any blood in stool. The patient says that ever since she came home on 06/21/2022, she has been having fever and she takes 2 Tylenol 3 times a day an d still as of this morning, she had low-grade fever between 99 and 100 degree Fahrenheit. She is als o complaining of having some cough, chest congestion, and coughing up yellowish-colored mucus in last few days. She feels tired and short of breath with daily activities. The patient came into office with all these complaints and after she was evaluated, she was admitted to the hospital with concerns about pneumonia after her office evaluation was done today. Arrangements were made for her to be ad mitted to the hospital. Allergies: NO KNOWN ALLERGIES. Medications: Her usual medications at home include losartan/HCTZ 50/12.5 mg 1 tab daily, oxybutynin 10 mg daily, rosuvastatin 10 mg daily in the evening, warfarin 10 mg daily. This is being managed by her face boss. Gabapentin daily. Hydrocodone 10 mg q.6 p.r.n. for pain and methocarbamol and ga bapentin, hydrocodone, methocarbamol, these are new medications upon discharge. Review of Systems: Respiratory: As mentioned above. Constitutional: As mentioned above. Musculoskeletal: As mentioned above. All other systems reviewed and negative. Past Surgical History: Recent right knee replacement surgery on June 12, 2022. Otherwise, she h ad surgery for heart valve replacement in 2013. She had appendectomy in the past, shoulder surgery, knee surgery, foot surgery, breast augmentation, abdominoplasty. Family History: Father , had cerebral aneurysm and colon cancer. Mother had breast cancer, atri al fibrillation, and stroke. Brother with atrial fibrillation. Social History: Prior history of smoking not at present time. Use of alcohol occasional. Past Medical History: Significant for peripheral neuropathy, obstructive sleep apnea, hyperlipidemia , hypertension, overactive bladder, osteoporosis. Physical Examination: Vital Signs: At office, blood pressure 117/66, pulse 71, temperature 97.8, respiratory rate 16, weig ht 169.8 pounds, height 67 inches. General: Awake, alert, oriented, not in distress. HEENT: Head atraumatic, normocephalic. Conjunctivae nonerythematous. Sclerae white. Mouth, no thr ush or edema noted. Ears/Nose, no mass, lesion, discharge noted. Neck: Supple. No JVD, lymph nodes, bruit, thyromegaly noted. Lungs: Presence of rales noted in right lower half of the lung mas. Left side is clear. Not usi ng any accessory muscles of respiration. Heart: Normal heart sounds, no murmur or gallop. Abdomen: Soft, bowel sounds normal. No guarding, rigidity, tenderness, mass, hepatosplenomegaly, dis tention, or bruit noted. Extremities: Patient has ielc-hb-wnvdqbtt swelling of the right knee with contusion around right kne e. Surgical scar is well healed. No evidence of any gapping, discharge, bleeding, or any redness ar ound the surgical site. Skin: No rash, ulcer, cellulitis. Lymphatics: No lymph node enlargement in neck, supraclavicular, infraclavicular region. Neuro: No focal neurological deficit. Chest: Unremarkable. External Genitalia: Deferred. Rectal: Deferred. Laboratory Data: White count 3.9, hemoglobin 8.7, platelets 359. INR 3.27. Sodium 134, potassium 3 .6, chloride 97, bicarb 30, BUN 20, creatinine 0.81, glucose 103, AST 40. Rest of the liver function tests unremarkable. INR 3.27. COVID-19 test negative. RSV negative. Influenza A positive. Influ vianney B negative. Chest x-ray reported as no acute cardiopulmonary changes. Impression: 1.Pneumonia. 2.Influenza A with respiratory manifestation. 3.Anemia due to acute blood loss. 4.Hypertension. 5.Mixed hyperlipidemia. 6.Chronic anticoagulation therapy. 7.Prosthetic heart valve. 8.Peripheral neuropathy. 9.Overactive bladder. 10.Obstructive sleep apnea. Plan: We will go ahead and admit the patient to hospital for further evaluation and management of th is problem. The patient is appropriate for inpatient and is expected to spend 2 midnights in [facility]. For her hypertension, we will continue her antihypertensive medication. For cholesterol, we will continue her statin therapy. She is on chronic anticoagulation with warfarin and we will give her w arfarin dose tomorrow per order. Monitor INR as it is likely to be affected with her illness and use of antibiotic therapy. We will adjust the warfarin dose as it becomes necessary. Even though chest x-ray has not shown any pneumonia clinically, I strongly suspect that she has pneumonia on basis of her symptoms, so empiric antibiotic therapy will be started, which will be Zosyn. Sputum culture and blood culture were ordered. We will follow up on that. I will also get a chest CT scan tomorrow fo r further evaluation. For influenza A, we will start her on Tamiflu 75 mg 2 times a day. Details an d plan of treatment discussed with the patient. I will see her tomorrow morning for followup. AGUILAR/PRAVEEN Voice ID: [id number]
[2022-06-28] MEDS: ALBUTEROL 2.5 MG/3 ML NEB SOL NEB SCH ×3 (08:25→21:10)
[2022-06-28] MEDS ORDERED: WARFARIN SODIUM 5 MG TAB PO SCH (09:00)
[2022-06-28] MEDS: LOSARTAN/HCTZ 50-12.5 PO SCH (09:21)
[2022-06-28] MEDS: OSELTAMIVIR 75 MG CAP PO SCH ×2 (09:22→20:01)
--- NOTE | 2022-06-28 11:49 | RAD REPORT ---
EXAM DESCRIPTION: CT - Thorax Wo Con - 06/28/2022 10:41 am CLINICAL HISTORY: sob COMPARISON: October 2021 TECHNIQUE: Computed axial tomography of the chest was obtained. Contrast was not requested. All CT scans are performed using dose optimization technique as appropriate and may include automated exposure control or mA/KV adjustment according to patient size. FINDINGS: The evaluation of mediastinum, zaynab and vessels is limited secondary to lack of IV contras t administration. Calcified granuloma right lung. Right lung opacities have mostly resolved. A few areas of subsegmenta l atelectasis within the right lower lobe. Left lung is clear No mediastinal or hilar lymphadenopathy is seen. A pleural effusion is not present. No pericardial effusion Transverse diameter proximal aortic arch 3.9 centimeters. Postsurgical changes involve the chest IMPRESSION: A few areas of subsegmental atelectasis right lower lobe
[2022-06-28] MEDS ORDERED: ACETAMINOPHEN 500 MG TAB ONE (17:44)
[2022-06-28] MEDS ORDERED: ACETAMINOPHEN 500 MG TAB PO PRN (17:47)
[2022-06-28] MEDS: ACETAMINOPHEN 500 MG TAB PO PRN (21:40)
[2022-06-28 23:06] VITALS: O2SAT 98
[2022-06-29] MEDS: PIPER TAZO 3.375 GM in NA CHLORIDE 0.9% 100 ML IV SCH ×2 (00:37→08:07)
[2022-06-29] MEDS: ACETAMINOPHEN 500 MG TAB PO PRN ×2 (01:10→06:01)
[2022-06-29 04:47] VITALS: TEMP 98.1
[2022-06-29 05:42] LABS: Absolute Lymphocytes (CBC) 0.7 K/uL (0.7-4.9); Hematocrit 25.3 % (36.0-45.0); Lymphocytes % 33.1 % (15.3-44.8); MCV 86.7 fL (80-100); RBC Red Blood Cell Count 2.92 M/uL (3.86-4.86)
[2022-06-29 05:47] LABS: Protime INR 3.75
[2022-06-29 06:05] LABS: Potassium 4.1 mmol/L (3.5-5.1)
--- NOTE | 2022-06-29 06:56 | PN ---
Date of Progress Note: 06/28/2022 Subjective: The patient was seen this morning for followup. No new complaints or problems reported by the patient except she was complaining of pain in her knee. Objective: Vital Signs: Reviewed. HEENT: Unremarkable. Lungs: Clear to auscultation on the left side and presence of rales in lower half of the right lung, unchanged from yesterday and not using any accessory muscles of respiration. Heart: Sounds normal. Abdomen: Soft. Bowel sounds normal. No guarding, rigidity, or tenderness, distention. Extremities: Right knee exam remains unchanged. Laboratory Data: CAT scan of the chest done today without contrast shows changes of atelectasis in t he right lung base. Impression: 1.Pneumonia. 2.Anemia. 3.Hypertension. 4.Hyperlipidemia. 5.Influenza A. Plan: We will go ahead and continue current antiviral therapy, which is Tamiflu. Continue current a ntibiotic, Zosyn. Even though chest x-ray and CAT scan of the chest have not convincingly showed dorita dence of pneumonia, but clinically the patient's lung findings are consistent with pneumonia and we w ill treat her as if she has pneumonia with current antibiotic therapy. Sputum culture is pending, bl ood culture negative so far. We will see her tomorrow for followup. Depending on her condition tomorrow, we will decide if we can possibly discharge her to go home tomorrow or not. AGUILAR/MODL Voice ID: [id number] Report ID: [id number]
[2022-06-29] MEDS: LOSARTAN/HCTZ 50-12.5 PO SCH (08:05)
[2022-06-29] MEDS: OSELTAMIVIR 75 MG CAP PO SCH (08:07)
[2022-06-29] MEDS: HYDROCODONE/APAP 10/325 TAB PO PRN (08:11)
[2022-06-29 08:12] VITALS: BP 159/75
--- NOTE | 2022-06-30 02:45 | DS ---
Date of Discharge: 06/29/2022 Disposition: Discharged to go home. Physical Examination: HEENT: Unremarkable. Lungs: Bilateral good equal air entry. Clear to auscultation except minimal rales noted in the left lung base, significantly better than before, not using any accessory muscles of respiration. Right lung is clear. Heart: Sounds normal. Abdomen: Soft. Bowel sounds normal. No guarding, rigidity, tenderness, distention. Extremities: No edema on the left leg. Right leg and right knee swelling has remained unchanged. Laboratory Data: Upon admission white count 3.9, hemoglobin 8.7, platelets 359. Today, white count 2.3, hemoglobin 8.5, platelets 307. Upon admission, sodium 134, potassium 3.6, chloride 97, bicarb 3 0, BUN 20, creatinine 0.81, glucose 103. Liver function tests unremarkable. This morning sodium 133 , potassium 4.1, chloride 99, bicarb 30, BUN 11, creatinine 0.61, glucose 109, magnesium . Hospital Course: This is a 67-year-old female patient admitted to hospital with cough, congestion, a nd fever. Please see dictated H and P for more information. The patient was evaluated at office and was admitted to the hospital with pneumonia problem. Chest x-ray did not reveal any definite eviden ce of pneumonia. CAT scan of the chest was done, which showed some right lung atelectasis. The moises ent's clinical picture including physical exam was consistent with pneumonia. She was admitted to [facility], was treated with IV Zosyn. Sputum culture was ordered. Blood culture was done, which wa s negative. Sputum culture is pending. She was also tested positive for influenza A. She was start ed on Tamiflu and IV Zosyn and nebulizer treatment and overall her condition has improved. Today, hector jerry was discharged to go home in stable condition following discharge medication instructions. Final Diagnoses: 1.Pneumonia. 2.Influenza A with respiratory manifestation. 3.Anemia due to acute blood loss. 4.Hypertension. 5.Mixed hyperlipidemia. 6.Chronic anticoagulation therapy. 7.Prosthetic heart valve. 8.Peripheral neuropathy. 9.Overactive bladder. 10.Obstructive sleep apnea. Discharge Medications And Instructions: 1.Continue all prior home medication. 2.New medication includes Tamiflu 75 mg 2 times a day for 3 days and Augmentin 875 mg 2 times a day for 1 week. 3.Follow up at office next week. 4.The patient was advised to follow up with her orthopedic physician for her ongoing complaints of k nee pain and knee swelling since her surgery and she will do so. AGUILAR/MODL Voice ID: [id number] Report ID: [id number]
== END 2022-06-29 09:03 | disposition home or self-care (01) | DRG 194 ==
LOC: 4TH 20:11
PROVIDERS: ADMIT Internal Medicine; ATTEND Internal Medicine
DX: J10.00 Influenza due to other identified influenza virus with unspecified type of pneumonia (principal); D62 Acute posthemorrhagic anemia; I10 Essential (primary) hypertension; E78.2 Mixed hyperlipidemia; G47.33 Obstructive sleep apnea (adult) (pediatric); N32.81 Overactive bladder; G62.9 Polyneuropathy, unspecified; M25.561 Pain in right knee; M79.89 Other specified soft tissue disorders; M81.0 Age-related osteoporosis without current pathological fracture; Z96.651 Presence of right artificial knee joint; Z95.2 Presence of prosthetic heart valve; Z79.01 Long term (current) use of anticoagulants; Z87.891 Personal history of nicotine dependence; Z20.822 Contact with and (suspected) exposure to COVID-19; Z80.0 Family history of malignant neoplasm of digestive organs; Z80.3 Family history of malignant neoplasm of breast; Z82.3 Family history of stroke
CPT/HCPCS: 0241U; 36415; 71045; 71250; 80048; 80053; 81001; 83735; 85025; 85610; 87040; 87070; 87086; 87088; 87205; 94640; J2543; J7613

== ENCOUNTER 2023-06-06 16:37 | Emergency (ER) | payer OTHER, BC ==
--- OUTSIDE RECORDS SUMMARY | 2023-06-06 16:43 | XMS REPORT | Continuity of Care Document ---
:1955 Author Organization [facility] t Address [address] [place] [id number] [place] [id number] Care Team Providers Name Role Phone Sebastian Friedman MD Primary Care Physician FOREST ESCALONA Attending Clinician Unavailable Sebastian Friedman Attending Clinician Unavailable Fifi NAVA, Сергей Lopez Attending Clinician Cl Nguyen Attending Clinician Unavailable Homero Attending Clinician Unavailable ANDRÉS BAUTISTA Attending Clinician Unavailable Amy GARCIA Attending Clinician Unavailable FOREST ESCALONA Attending Clinician Unavailable Yadi Desai MA Attending Clinician Unavailable Gregoria San MD Attending Clinician ADDIE ANTNO Attending Clinician Unavailable Nurse, [facility] Attending Clinician Unavailable Maciel Kirby Attending Clinician Unavailable Only, Shakeel [facility]osta Test Attending Clinician Unavailable Matteo Hager Attending Clinician MATTEO BROWN Attending Clinician Unavailable Agustin MORALES, Alesia Austin Attending Clinician Unavailable Only, Adc Test Attending Clinician Unavailable Jose Rafael Osborne MD Attending Clinician JOSE RAFAEL OSBORNE Attending Clinician Unavailable Doctor Unassigned, [place] Attending Clinician Unavailable Gill Camacho Attending Clinician Unavailable Yas Dominguez Attending Clinician Unavailable Jose A Gonzalez DO Attending Clinician Lab, Adc Fam Pob I Attending Clinician Unavailable Anene DUMPMAN, Esteban Attending Clinician ESTEBAN ESCOBAR Attending Clinician Unavailable LILIA OBRIEN Attending Clinician Unavailable Lilia Obrien MD Attending Clinician Francisco Rodriguez Attending Clinician FRANCISCO SENIOR Attending Clinician Unavailable DR LV DEMARCO Attending Clinician Unavailable Sebastian Friedman Admitting Clinician Unavailable Cl Nguyen Admitting Clinician Unavailable DEBBIE_Eric Admitting Clinician Unavailable CHONG ERVIN Admitting Clinician Unavailable Forest Escalona Admitting Clinician KNOW, DOES_NOT Admitting Clinician Unavailable UNDEFINED Admitting Clinician Unavailable Physician, No Primary or Family Admitting Clinician UnavailDR LV Faye Admitting Clinician Unavailable Payers Payer Name Policy Type Policy Number Effective Date Expiration Date S marly MEDICARE PART A AND [id number] 2013 B 00:00:00 [place] [id number] 2018 [employer] 00:[place]:00 [place] [id number] 2018 (MEDICARE 00:00:00 SUPPLEMENT) MEDICARE PART A \\T\\ [id number] 2018 B 00:00:00 BCBS TRADITIONAL [id number] 2018 00:00:00 Problems Condition Condition Condition Status Onset Resolution Last Treating Co mments Source Name Details Category Date Date Treatment Clinician Date Erosive Erosive Problem Active Sveta osteoarthr Osteoarthr 3 Or ope osis osis 00:00: dic 00 Sports Medicin e Edema of Edema of Disease Active [facility] thigh thigh 3-07 [facility] 00:00: 00 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 [facility] 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 Health arthroplas arthroplas 00:00: ty, right ty, right 00 Chronic Chronic Disease Active 2021-07 [facility] pain of pain of 1-14 Health right knee right knee 00:00: 00 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 8-18 He alth itis of itis of 00:00: right knee right knee 00 Arthritis Arthritis Problem Active Aza bertha of knee of Knee 5-27 Orthope 00:00: dic 00 Sports Medicin e Inflammato Inflammato Problem Active A virgil ry ry 2-21 Orthope polyarthro Polyarthro 00:00: di c aleksandra aleksandra 00 Sports Medicin e Osteoarthr Osteoarthr Problem Active A virgil osis of osis of 2-21 Orthope the the 00:00: dic carpometac Carpometac 00 Sp orts arpal arpal Medicin joint of Joint of e the thumb the Thumb Hypermobil Hypermobil Problem Active A virgil sandovaly ity 2-21 Orth[facility] syndrome Syndrome 00:00: dic 00 Sports Medicin e Vitamin D Vitamin D Problem Active Aza bertha deficiency Deficiency 08-17 Or thope 00:00: dic 00 Sports Medicin e Hyperchole Hyperchole Problem Active A virgil sterolemia sterolemia 1 Or thope 00:00: dic 00 Sports Medicin e Hypertensi Hypertensi Problem Active A virgil ve ve 1-05 Orthope disorder Disorder 00:00: dic 00 Sports Medicin e Osteopenia Osteopenia Problem Active A zalea 1-05 Orthope 00:00: dic 00 Sports Medicin e Postmenopa Postmenopa Problem Active A virgil usal state usal State 1-05 Or thope 00:00: dic 00 Sports Medicin e Arthritis Arthritis Problem Active 2020-07 Aza bertha of left of Left 2-07 Orthope foot Foot 00:00: dic 00 Sports Medicin e Pain in Pain in Problem Active 2020-07 Sveta left foot Left Foot 2-07 Orth ope 00:00: dic 00 Sports Medicin e Plantar Plantar Problem Active 2020-07 Sveta fasciitis Fasciitis 2-07 Orth ope of right of Right 00:00: dic foot Foot 00 Sports Medicin e Localized, Localized, Problem Active 2020-07 A zasumeeta primary Primary 2-06 Orthope osteoarthr Osteoarthr 00:00: di c itis itis 00 Sports Medicin e Finger Finger Problem Active 2020-07 Sveta joint Joint 2-06 Orth[facility] stiff Stiff 00:00: dic 00 Sports Medicin e Mallet Mallet Problem Active 2020-07 Sveta finger Finger 2-06 Orthope 00:00: dic 00 Sports Medicin e Patellofem Patellofem Problem Active A huya oral oral 8- Orthope osteoarthr Osteoarthr 00:00: di c itis itis 00 Sports Medicin e Replacemen Replacemen Problem Active A virgil t of total t of Total 8 Or thope knee joint Knee Joint 00:00: di c 00 Sports Medicin e Impingemen Impingemen Problem Active A virgil t syndrome t Syndrome 3 Or thope of of 00:00: dic shoulder Shoulder 00 Sports region Region Medicin e Glenoid Glenoid Problem Active Sveta labrum Labrum 3-23 Orthope tear Tear 00:00: dic 00 Sports Medicin e Biceps Biceps Problem Active Sveta tendinitis Tendinitis 3-10 Or thope 00:00: dic 00 Sports Medicin e Cervical Cervical Problem Active Azale a radiculopa Radiculopa 2-03 Or thope thy thy 00:00: dic 00 Sports Medicin e Sprain of Sprain of Problem Active Aza bertha shoulder Shoulder 2-03 Orthop e and upper and Upper 00:00: dic arm Arm 00 Sports Medicin e Closed Closed Problem Active Sveta fracture Fracture 8-13 Orthop e of greater of Greater 00:00: di c tuberosity Tuberosity 00 Sp orts of of Medicin proximal Proximal e right Right humerus Humerus Pain of Pain of Problem Active Sveta right Right 8-13 Orthope shoulder Shoulder 00:00: dic joint Joint 00 Sports Medicin e Knee pain Knee Pain Problem Active Dev bertha 5-02 Orthope 00:00: dic 00 Sports Medicin e Peripheral Peripheral Problem Active A virgil vascular Vascular 6-03 Orthop e disease Disease 00:00: dic 00 Sports Medicin e Arthropath Arthropath Problem Active A virgil y y 6-03 Orthope 00:00: dic 00 Sports Medicin e Osteoarthr Osteoarthr Problem Active A virgil itis of itis of 4-16 Orthope knee Knee 00:00: dic 00 Sports Medicin e Total knee Total Knee Problem Active A virgil replacemen Replacemen 7-22 Or thope t t 00:00: dic 00 Sports Medicin e Sleep Sleep Problem Active Sveta apnea Apnea 5-22 Orthope 00:00: dic 00 Sports Medicin e Unilateral Unilatera Problem 2022-03-29 Memoria primary l primary 07:01:04 l osteoarthr osteoarthr He rmann itis, itis, right knee right knee 2 [facility] Allergies, Adverse Reactions, Alerts Allergy Allergy Status Severity Reaction(s) Onset Inactive Treating Comm ents Source Name Type Date Date Clinician No Known DA Active [facility] [place] [facility] No [facility] [place] [facility] No Known DA Active [facility] 10-07 [place] [facility] 00:00: d s 00 [facility] No Known DA Active [facility] 10-07 [place] [facility] 00:[facility]: d s 00 [facility] No Known DA Active [facility] 01-30 [place] [facility]: [facility] No Known DA Active [facility] 01-30 [place] [facility]ie 00:[facility]: [facility] s 00 dic [facility] No Known DA Active [facility] [place] Allergie Memoria s l (LUF/LI V/SA) NO KNOWN Drug Active [facility] ALLERGIE Class ity of [facility] Family History Family Member Diagnosis Comments Start Date Stop Date Source Natural brother Heart disease Method t [facility] Natural father Cancer [facility] Natural father Stroke [facility] Natural mother Blood Clots [facility] Natural mother Cancer [facility] Natural mother Heart disease [facility] Social History Social Habit Start Date Stop Date Quantity Comments Source Gender identity [facility] History of tobacco Current sm[facility] use Sexual orientation [facility] Exposure to 2022-12-01 2022-12-11 Not sure [facility] SARS-CoV-2 (event) 00:00:00 07:47:00 Tobacco use and 2022-07-31 2022-07-31 Smokeless [facility] exposure 00:00:00 00:00:00 tobacco non-user Alcohol Comment 2022-07-31 2022-07-31 When [facility] get off [facility] alth 00:00:00 00:00:00 work, I usually come home and have a drink or Cigarettes smoked 2019-03-21 2019-03-[address] current (pack per 00:00:00 00:00:00 [facility] day) - Reported Cigarette 2019-03-21 2019-03-21 [facility] pack-years 00:00:00 00:00:00 Hospital Alcohol intake 2019-03-21 2019-03-21 Current drinker [facility] 00:00:00 00:00:00 of [facility] (finding) History of Social 2019-03-21 2019-03-[address] function 00:00:00 00:00:00 [facility] Sex Assigned At [birth year] [facility] 00:00:00 [facility]00 [facility] Smoking Status Start Date Stop Date Source Ex-smoker 2022-07-31 00:00:00 2022-07-31 [facility]:00:00 [facility] Medic[facility] Ordered Filled Start Stop Current Ordering Indication Dosage Frequency Signature Comments Components Source Medication Medication Date Date Medication? Clinician (SIG) Name Name traMADol 2022- No [id number] 50mg Q6H Take 1 [facility] (Ultram) 50 5-22 05-30 tablet (50 H ealth MG tablet 00:00: 04:59 mg total) 00 :00 by mouth every 6 (six) hours if needed for moderate pain or severe pain for up to 7 days. warfarin 2023-0 Yes 10mg Take 10 mg UT (Coumadin) 3-07 by mouth. Heal th 10 MG 08:34: Take as tablet 35 directed per After Visit Summary. oxybutynin 2023-0 Yes 10mg QD Take 10 mg U T XL 3-07 by mouth 1 Health (Ditropan-X 08:34: (one) time L) 10 MG 24 35 each day. hr tablet Do not crush, chew, or split. warfarin 2023-0 Yes 10mg Take 10 mg UT (Coumadin) 3-07 by mouth. Heal th 10 MG 08:34: Take as tablet 35 directed per After Visit Summary. oxybutynin 2023-0 Yes 10mg QD Take 10 mg U T XL 3-07 by mouth 1 Health (Ditropan-X 08:34: (one) time L) 10 MG 24 35 each day. hr tablet Do not crush, chew, or split. losartan-hy 2023-0 Yes 1{tbl} QD Take 1 UT droCHLOROth 3-07 tablet by [facility] iazide 08:33: mouth 1 (Hyzaar) 27 (one) time 50-12.5 MG each day. tablet celecoxib 2023-0 Yes 200mg Q.5D Take 200 UT (CeleBREX) 3-07 mg by Health 200 MG 08:33: mouth in capsule 27 the morning and 200 mg in the evening. losartan-hy 2023-0 Yes 1{tbl} QD Take 1 UT droCHLOROth 3-07 tablet by [facility] iazide 08:33: mouth 1 (Hyzaar) 27 (one) time 50-12.5 MG each day. tablet celecoxib 2023-0 Yes 200mg Q.5D Take 200 UT (CeleBREX) 3-07 mg by Health 200 MG 08:33: mouth in capsule 27 the morning and 200 mg in the evening. gabapentin 2023-0 Yes 300mg Take 1 UT (Neurontin) 1-19 capsule Healt h 300 MG 00:00: (300 mg capsule 00 total) by mouth every night for 14 days. gabapentin 2023-0 Yes 300mg Take 1 UT (Neurontin) 1-19 capsule Healt h 300 MG 00:00: (300 mg capsule 00 total) by mouth every night for 14 days. gabapentin Yes 300mg Take 1 UT (Neurontin) 1-19 capsule Healt h 300 MG 00:00: (300 mg capsule 00 total) by mouth every night for 14 days. traMADol 2021-07 No [id number] 50mg Q6H Take 1 U T (Ultram) 50 09-18- tablet (50 H ealth MG tablet 00:00: 05:59 mg total) 00 :00 by mouth every 6 (six) hours if needed for moderate pain or severe pain for up to 7 days. gabapentin 2021-07 Yes 300mg Take 1 UT (Neurontin) 2-06 capsule Healt h 300 MG 00:00: (300 mg capsule 00 total) by mouth every night for 14 days. Patient will start postop day #1 gabapentin 2021-07 Yes 300mg Take 1 UT (Neurontin) 2-06 capsule Healt h 300 MG 00:00: (300 mg capsule 00 total) by mouth every night for 14 days. Patient will start postop day #1 gabapentin 2021-07 Yes 300mg Take 1 UT (Neurontin) 2-06 capsule Healt h 300 MG 00:00: (300 mg capsule 00 total) by mouth every night for 14 days. Patient will start postop day #1 gabapentin 2021-07 Yes 300mg Take 1 UT (Neurontin) 2-06 capsule Healt h 300 MG 00:00: (300 mg capsule 00 total) by mouth every night for 14 days. Patient will start postop day #1 gabapentin 2021-07 Yes 300mg Take 1 UT (Neurontin) 2-06 capsule Healt h 300 MG 00:00: (300 mg capsule 00 total) by mouth every night for 14 days. Patient will start postop day #1 gabapentin 2021-07- No 300mg Take 1 UT (Neurontin) 2-06 -21 capsule Heal th 300 MG 00:00: 05:59 (300 mg capsule 00 :00 total) by mouth every night for 14 [...] Patient will start postop day #1 warfarin 2021-0 Yes QD 1 (one) UT (Coumadin) 3-21 time each Heal th 10 MG 14:34: day. tablet 32 valACYclovi 0 Yes valacyclov UT r (Valtrex) 3-21 ir 500 mg Hea lth 500 MG 14:34: tablet tablet 32 rivaroxaban 0 Yes Xarelto 20 UT (Xarelto) 3-21 mg tablet Healt h 20 MG 14:34: tablet 32 BD BD No BD Sveta Ultra-Fine Ultra-Fine 2-06 Ultra-Fine Orthope Tonja Pen Tonja Pen 00:00: Tonja Pen d ic Needle 32 Needle 32 00 Needle 32 Sports gauge x gauge x gauge x Medici n " Use " Use " Use e needle needle 1 needle subcutaneou subcutaneou subcutaneo sly once a sly once a usly once day with day with a day with Tymlos Tymlos Tymlos BD BD No BD Sveta Ultra-Fine Ultra-Fine 2-06 Ultra-Fine Orthope Tonja Pen Tonja Pen 00:00: Tonja Pen d ic Needle 32 Needle 32 00 Needle 32 Sports gauge x gauge x gauge x Medici n " Use " Use " Use e needle needle 1 needle subcutaneou subcutaneou subcutaneo sly once a sly once a usly once day with day with a day with Tymlos Tymlos Tymlos BD BD No BD Sveta Ultra-Fine Ultra-Fine 2-06 Ultra-Fine Orthope Tonja Pen Tonja Pen 00:00: Tonja Pen d ic Needle 32 Needle 32 00 Needle 32 Sports gauge x gauge x gauge x Medici n " Use " Use " Use e needle needle 1 needle subcutaneou subcutaneou subcutaneo sly once a sly once a usly once day with day with a day with Tymlos Tymlos Tymlos cholecalcif cholecalcif No cholecalci Sveta moises moises 08-17 ferol Orthope (vitamin (vitamin 00:00: (vitamin d ic D3) 1,250 D3) 1,250 00 D3) 1,250 Sports mcg (50,000 mcg (50,000 mcg M edicin unit) unit) (50,000 e capsule capsule unit) Take 1 Take 1 capsule capsule capsule Take 1 once a week once a week capsule for 4 weeks for 4 weeks once a then take then take week for 4 once a once a weeks then month month take once a month cholecalcif cholecalcif No cholecalci Sveta moises moises 08-17 ferol Orthope (vitamin (vitamin 00:00: (vitamin d ic D3) 1,250 D3) 1,250 00 D3) 1,250 Sports mcg (50,000 mcg (50,000 mcg M edicin unit) unit) (50,000 e capsule capsule unit) Take 1 Take 1 capsule capsule capsule Take 1 once a week once a week capsule for 4 weeks for 4 weeks once a then take then take week for 4 once a once a weeks then month month take once a month cholecalcif cholecalcif No cholecalci Sveta moises moises 08-17 ferol Orth[facility] (vitamin (vitamin 00:00: (vitamin d ic D3) 1,250 D3) 1,250 00 D3) 1,250 Sports mcg (50,000 mcg (50,000 mcg M edicin unit) unit) (50,000 e capsule capsule unit) Take 1 Take 1 capsule capsule capsule Take 1 once a week once a week capsule for 4 weeks for 4 weeks once a then take then take week for 4 once a once a weeks then month month take once a month warfarin 2020-07 Yes [facility] (Coumadin) 2-27 Health [...] 10 mg 7-07 ity of tablet 00:00: [place] [facility] predniSONE 2020-0 Yes Univers 10 mg 7-07 ity of tablet 00:00: [place] [facility] predniSONE 2020-0 Yes Univers 10 mg 7-07 ity of tablet 00:00: [place] [facility] predniSONE 2020-0 Yes Univers 10 mg 7-07 ity of tablet 00:00: [place] [facility] predniSONE 2020-0 Yes Univers 10 mg 7-07 ity of tablet 00:00: [place] [facility] predniSONE 2020-0 Yes Univers 10 mg 7-07 ity of tablet 00:00: [place] [facility] predniSONE 2020-0 Yes Univers 10 mg 7-07 ity of tablet 00:00: [place] [facility] predniSONE 2020-0 Yes Univers 10 mg 7-07 ity of tablet 00:00: [place] [facility] predniSONE 2020-0 Yes Univers 10 mg 7-07 ity of tablet 00:00: [place] [facility] predniSONE 2020-0 Yes Univers 10 mg 7-07 ity of tablet 00:00: [place] [facility] predniSONE 2020-0 Yes Univers 10 mg 7-07 ity of tablet 00:00: [place] [facility] predniSONE 2020-0 Yes Univers 10 mg 7-07 ity of tablet 00:00: [place] [facility] predniSONE 2020-0 Yes Univers 10 mg 7-07 ity of tablet 00:00: [place] [facility] predniSONE 2020-0 Yes Univers 10 mg 7-07 ity of tablet 00:00: [place] [facility] predniSONE 2020-0 Yes Univers 10 mg 7-07 ity of tablet 00:00: [place] [facility] celecoxib 2020-0 Yes 200mg Take 200 Uni vers 200 mg 6-30 mg by ity of capsule 00:00: mouth [place] 00 daily. [facility] rosuvastati 2020-0 Yes 10mg Take 10 mg Univers n 10 mg 6-30 by mouth ity of tablet 00:00: every [place] 00 evening. [facility] celecoxib 2020-0 Yes 200mg Take 200 Uni vers 200 mg 6-30 mg by ity of capsule 00:00: mouth [place] 00 daily. [facility] rosuvastati 2020-0 Yes 10mg Take 10 mg Univers n 10 mg 6-30 by mouth ity of tablet 00:00: every [place] 00 evening. [facility] celecoxib 2020-0 Yes [...] mg by ity of capsule 00:00: mouth daily. [facility] Branch rosuvastati 2020-0 Yes 10mg Take 10 mg Univers n 10 mg 6-30 by mouth ity of tablet 00:00: every evening. Medical Branch celecoxib 2020-0 Yes 200mg Take 200 Uni vers 200 mg 6-30 mg by ity of capsule 00:00: mouth daily. Medical Branch celecoxib 2020-0 Yes 200mg Take 200 Uni vers 200 mg 6-30 mg by ity of capsule 00:00: mouth daily. Medical Branch rosuvastati 2020-0 Yes 10mg Take 10 mg Univers n 10 mg 6-30 by mouth ity of tablet 00:00: every evening. Medical Branch celecoxib 2020-0 Yes 200mg Take 200 Uni vers 200 mg 6-30 mg by ity of capsule 00:00: mouth daily. Medical Branch rosuvastati 2020-0 Yes 10mg [...] s mg tablet 6-11 ity of 00:00: [place] [facility] warfarin 10 2020-0 Yes Univer s mg tablet 6-11 ity of 00:00: [place] [facility] warfarin 10 2020-0 Yes Univer s mg tablet 6-11 ity of 00:00: [place] [facility] warfarin 10 2020-0 Yes Univer s mg tablet 6-11 ity of 00:00: [place] [facility] warfarin 10 2020-0 Yes Univer s mg tablet 6-11 ity of 00:00: [place] [facility] warfarin 10 2020-0 Yes Univer s mg tablet 6-11 ity of 00:00: [place] [facility] warfarin 10 2020-0 Yes Univer s mg tablet 6-11 ity of 00:00: [place] [facility] warfarin 10 2020-0 Yes Univer s mg tablet 6-11 ity of 00:00: [place] [facility] warfarin 10 2020-0 Yes Univer s mg tablet 6-11 ity of 00:00: [place] [facility] warfarin 10 2020-0 Yes Univer s mg tablet 6-11 ity of 00:00: [place] [facility] warfarin 10 2020-0 Yes Univer s mg tablet 6-11 ity of 00:00: [place] [facility] warfarin 10 2020-0 Yes Univer s mg tablet 6-11 ity of 00:00: [place] [facility] warfarin 10 2020-0 Yes Univer s mg tablet 6-11 ity of 00:00: [place] [facility] warfarin 10 2020-0 Yes Univer s mg tablet 6-11 ity of 00:00: [place] [facility] warfarin 10 2020-0 Yes Univer s mg tablet 6-11 ity of 00:00: [place] [facility] warfarin 10 2020-0 Yes Univer s mg tablet 6-11 ity of 00:00: [place] [facility] diclofenac 2019-0 Yes Apply 1-2 [...] 00 area 3-4 l times daily. diclofenac 2019-0 Yes Apply 1-2 Me thodi [...] 00 area 3-4 l times daily. diclofenac 2019-0 Yes Apply 1-2 Me thodi (VOLTAREN) 8-[address] 1 % gel 00:00: affected Hospit a 00 area 3-4 l times daily. Relafen 750 Relafen 750 No Relafen Sveta mg tablet mg tablet 3-18 750 mg [facility] hope 00:00: tablet dic 00 Sports Medicin e Relafen 750 Relafen 750 No Relafen Sveta mg tablet mg tablet 3-18 750 mg [facility] 00:00: tablet dic 00 Sports Medicin e Relafen 750 Relafen 750 No Relafen Sveta mg tablet mg tablet 3-18 750 mg [facility] hope 00:00: tablet dic 00 Sports Medicin e methocarbam methocarbam 2013-07 No methocarba Sveta ol 500 mg ol 500 mg 0-13 mol 500 mg Orthope tablet tablet 00:00: tablet dic 00 Sports Medicin e Ambien 10 Ambien 2013-07 No Ambien 10 Sveta mg tablet mg tablet 0-13 mg tablet Orthope 00:00: dic 00 Sports Medicin e methocarbam methocarbam 2013-07 No methocarba Sveta ol 500 mg ol 500 mg 0-13 mol 500 mg Orthope tablet tablet 00:00: tablet dic 00 Sports Medicin e Ambien 10 Ambien 2013-07 No Ambien 10 Sveta mg tablet mg tablet 0-13 mg tablet Orthope 00:00: dic 00 Sports Medicin e methocarbam methocarbam 2013-07 No methocarba Sveta ol 500 mg ol 500 mg 0-13 mol 500 mg Orthope tablet tablet 00:00: tablet dic 00 Sports Medicin e Ambien 10 Ambien 2013-07 No Ambien 10 Sveta mg tablet mg tablet 0-13 mg tablet Orthope 00:00: dic 00 Sports Medicin e duloxetine duloxetine No duloxetine Sveta 30 mg 30 mg 30 mg Orthope capsule,del capsule,del capsule,de dic ayed ayed layed Sports release release release Medici n e enoxaparin enoxaparin No enoxaparin Sveta 80 mg/0.8 80 mg/0.8 80 mg/0.8 Orthope mL mL mL dic subcutaneou subcutaneou subcutaneo Sports s syringe s syringe us syringe Medicin e Forteo 20 Forteo 20 No Forteo 20 Sveta mcg/dose mcg/dose mcg/dose [facility] hope (600 (600 (600 dic mcg/2.4 mL) mcg/2.4 mL) mcg/2.4 Sports subcutaneou subcutaneou mL) M edicin s pen s pen subcutaneo e injector injector us pen Inject 20 Inject 20 injector mcg mcg Inject 20 subcutaneou subcutaneou mcg sly once a sly once a subcutaneo day as day as usly once needed needed a day as needed furosemide furosemide No furosemide Sveta 20 mg 20 mg 20 mg Orthope tablet TAKE tablet TAKE tablet dic 2 TABLETS 2 TABLETS TAKE 2 Spo rts BY MOUTH BY MOUTH TABLETS BY Charlie esposito EVERY DAY X EVERY DAY X MOUTH e 2 DAYS 2 DAYS EVERY DAY X 2 DAYS gabapentin gabapentin No gabapentin Sveta 300 mg 300 mg 300 mg Orthope capsule capsule capsule dic Sports Medicin e hydrocodone hydrocodone No hydrocodon Sveta 10 10 e 10 Orthope mg-acetamin mg-acetamin mg-acetami dic ophen 325 ophen 325 nophen 325 Sports mg tablet mg tablet mg tablet Medicin e hydrocodone hydrocodone No hydrocodon Sveta 5 5 e 5 Orthope mg-acetamin mg-acetamin mg-acetami dic ophen 325 ophen 325 nophen 325 Sports mg tablet mg tablet mg tablet Medicin e losartan 50 losartan 50 No losartan Sveta mg-hydrochl mg-hydrochl 50 O rthope orothiazide orothiazide mg-hydroch dic 12.5 mg 12.5 mg lorothiazi Spo rts tablet TAKE tablet TAKE de 12.5 mg Medicin 1 TABLET 1 TABLET tablet e EVERY DAY EVERY DAY TAKE 1 TABLET EVERY DAY methylpredn methylpredn No methylpred Sveta isolone 4 isolone 4 nisolone 4 Orthope mg tablets mg tablets mg tablets dic in a dose in a dose in a dose Sports pack pack pack Medicin e mirtazapine mirtazapine No mirtazapin Sveta 7.5 mg 7.5 mg e 7.5 mg Orthope tablet tablet tablet dic Sports Medicin e nitrofurant nitrofurant No nitrofuran Sveta oin oin toin Orthope monohydrate monohydrate monohydrat dic /macrocryst /macrocryst e/macrocry Sports als 100 mg als 100 mg stals 100 Medicin capsule capsule mg capsule e omeprazole omeprazole No omeprazole Sveta 20 mg 20 mg 20 mg Orthope capsule,del capsule,del capsule,de dic ayed ayed layed Sports release release release Medici n e oseltamivir oseltamivir No oseltamivi Sveta 75 mg 75 mg r 75 mg Orthope capsule capsule capsule dic Sports Medicin e oxybutynin oxybutynin No oxybutynin Sveta chloride ER chloride ER chloride Orthope 10 mg 10 mg ER 10 mg dic tablet,exte tablet,exte tablet,ext Sports nded nded ended Medicin release 24 release 24 release 24 e hr hr hr Plaquenil Plaquenil No 1 BID Plaquenil Sveta 200 mg 200 mg 200 mg Orthope tablet Take tablet Take tablet dic 1 tablet 1 tablet Take 1 Sport s twice a day twice a day tablet Medicin by oral by oral twice a e route as route as day by directed directed oral route for 90 for 90 as days. days. directed for 90 days. potassium potassium No potassium Sveta chloride ER chloride ER chloride Orthope 20 mEq 20 mEq ER 20 mEq dic tablet,exte tablet,exte tablet,ext Sports nded nded ended Medicin release release release e TAKE 1 TAKE 1 TAKE 1 TABLET BY TABLET BY TABLET BY MOUTH EVERY MOUTH EVERY MOUTH DAY X 4 DAY X 4 EVERY DAY DAYS DAYS X 4 DAYS prednisone prednisone No prednisone Sveta 5 mg tablet 5 mg tablet 5 mg O rthope TAKE 4 TABS TAKE 4 TABS tablet dic X 4 DAYS IN X 4 DAYS IN TAKE 4 Sports THE AM, THE AM, TABS X 4 Medic in TAKE 3 TABS TAKE 3 TABS DAYS IN e X 4 DAYS, X 4 DAYS, THE AM, TAKE 2 TABS TAKE 2 TABS TAKE 3 X 4 DAYS, 1 X 4 DAYS, 1 TABS X 4 TAB X 4 DAY TAB X 4 DAY DAYS, TAKE 2 TABS X 4 DAYS, 1 TAB X 4 DAY rosuvastati rosuvastati No rosuvastat Sveta n 10 mg n 10 mg in 10 mg Ortho pe tablet 1 tablet 1 tablet 1 dic tablet by tablet by tablet by Sports mouth once mouth once mouth once Medicin a day a day a day e sertraline sertraline No sertraline Sveta 25 mg 25 mg 25 mg [facility] tablet tablet tablet dic Sports Medicin e tobramycin tobramycin No tobramycin Sveta 0.3 % eye 0.3 % eye 0.3 % eye [facility] drops drops drops dic Sports Medicin e tramadol 50 tramadol 50 No tramadol Sveta mg tablet mg tablet 50 mg Orth ope tablet dic Sports Medicin e Vitamin C Vitamin C No Vitamin C [facility]eta [facility] dic Sports Medicin e Vitamin D3 Vitamin D3 No Vitamin D3 [facility] Sports Medicin e warfarin 10 warfarin 10 No warfarin Sveta mg tablet 1 mg tablet 1 10 mg [facility] tablet by tablet by tablet 1 d ic mouth once mouth once tablet by Sports a day RX by a day RX by mouth once Medicin other MD other MD a day RX e by other MD zinc 50 mg zinc 50 mg No zinc 50 mg Sveta tablet tablet tablet [facility] dic Sports Medicin e amoxicillin amoxicillin No amoxicilli Sveta [phone] [phone] 875 [facility] mg-potassiu mg-potassiu mg-potassi dic m m Sports clavulanate clavulanate clavulanat Medicin 125 mg 125 mg e 125 mg e tablet TAKE tablet TAKE tablet 1 TABLET BY 1 TABLET BY TAKE 1 MOUTH EVERY MOUTH EVERY TABLET BY 12 HOURS 12 HOURS MOUTH FOR 10 DAYS FOR 10 DAYS EVERY 12 HOURS FOR 10 DAYS azithromyci azithromyci No azithromyc Sveta n 250 mg n 250 mg in 250 mg Or thope tablet tablet tablet dic Sports Medicin e B-12 B-12 No B-12 [facility] Sports Medicin e celecoxib celecoxib No celecoxib Sveta 200 mg 200 mg 200 mg [facility] capsule capsule capsule dic Take 2 by Take 2 by Take 2 by Sports mouth once mouth once mouth once Medicin a day a day a day e ciprofloxac ciprofloxac No ciprofloxa Sveta in 500 mg in 500 mg tad 500 mg [facility] tablet tablet tablet dic Sports Medicin e duloxetine duloxetine No duloxetine Sveta 30 mg 30 mg 30 mg [facility] capsule,del capsule,del capsule,de dic ayed ayed layed Sports release release release Medici n e enoxaparin enoxaparin No enoxaparin Sveta 80 mg/0.8 80 mg/0.8 80 mg/0.8 [facility] mL mL mL dic subcutaneou subcutaneou subcutaneo Sports s syringe s syringe us syringe Medicin e Forteo 20 Forteo 20 No Forteo 20 Sveta mcg/dose mcg/dose mcg/dose Ort hope (600 (600 (600 dic mcg/2.4 mL) mcg/2.4 mL) mcg/2.4 Sports subcutaneou subcutaneou mL) M edicin s pen s pen subcutaneo e injector injector us pen Inject 20 Inject 20 injector mcg mcg Inject 20 subcutaneou subcutaneou mcg sly once a sly once a subcutaneo day as day as usly once needed needed a day as needed furosemide furosemide No furosemide Sveta 20 mg 20 mg 20 mg [facility] tablet TAKE tablet TAKE tablet dic 2 TABLETS 2 TABLETS TAKE 2 Spo rts BY MOUTH BY MOUTH TABLETS BY M edicin EVERY DAY X EVERY DAY X MOUTH e 2 DAYS 2 DAYS EVERY DAY X 2 DAYS gabapentin gabapentin No gabapentin Sveta 300 mg 300 mg 300 mg [facility] capsule capsule capsule dic Sports Medicin e hydrocodone hydrocodone No hydrocodon Sveta 10 10 e 10 [facility] mg-acetamin mg-acetamin mg-acetami dic ophen 325 ophen 325 nophen 325 Sports mg tablet mg tablet mg tablet Medicin e hydrocodone hydrocodone No hydrocodon Sveta 5 5 e 5 [facility] mg-acetamin mg-acetamin mg-acetami dic ophen 325 ophen 325 nophen 325 Sports mg tablet mg tablet mg tablet Medicin e losartan 50 losartan 50 No losartan Sveta mg-hydrochl mg-hydrochl 50 O rthope orothiazide orothiazide mg-hydroch dic 12.5 mg 12.5 mg lorothiazi Spo rts tablet TAKE tablet TAKE de 12.5 mg Medicin 1 TABLET 1 TABLET tablet e EVERY DAY EVERY DAY TAKE 1 TABLET EVERY DAY methylpredn methylpredn No methylpred Sveta isolone 4 isolone 4 nisolone 4 [facility] mg tablets mg tablets mg tablets dic in a dose in a dose in a dose Sports pack pack pack Medicin e mirtazapine mirtazapine No mirtazapin Sveta 7.5 mg 7.5 mg e 7.5 mg [facility] tablet tablet tablet dic Sports Medicin e nitrofurant nitrofurant No nitrofuran Sveta oin oin toin [facility] monohydrate monohydrate monohydrat dic /macrocryst /macrocryst e/macrocry Sports als 100 mg als 100 mg stals 100 Medicin capsule capsule mg capsule e omeprazole omeprazole No omeprazole Sveta 20 mg 20 mg 20 mg [facility] capsule,del capsule,del capsule,de dic ayed ayed layed Sports release release release Medici n e oseltamivir oseltamivir No oseltamivi Sveta 75 mg 75 mg r 75 mg [facility] capsule capsule capsule dic Sports Medicin e oxybutynin oxybutynin No oxybutynin Sveta chloride ER chloride ER chloride [facility] 10 mg 10 mg ER 10 mg dic tablet,exte tablet,exte tablet,ext Sports nded nded ended Medicin release 24 release 24 release 24 e hr hr hr Plaquenil Plaquenil No 1 BID Plaquenil Sveta 200 mg 200 mg 200 mg [facility] tablet Take tablet Take tablet dic 1 tablet 1 tablet Take 1 Sport s twice a day twice a day tablet Medicin by oral by oral twice a e route as route as day by directed directed oral route for 90 for 90 as days. days. directed for 90 days. potassium potassium No potassium Sveta chloride ER chloride ER chloride [facility] 20 mEq 20 mEq ER 20 mEq dic tablet,exte tablet,exte tablet,ext Sports nded nded ended Medicin release release release e TAKE 1 TAKE 1 TAKE 1 TABLET BY TABLET BY TABLET BY MOUTH EVERY MOUTH EVERY MOUTH DAY X 4 DAY X 4 EVERY DAY DAYS DAYS X 4 DAYS prednisone prednisone No prednisone Sveta 5 mg tablet 5 mg tablet 5 mg O rthope TAKE 4 TABS TAKE 4 TABS tablet dic X 4 DAYS IN X 4 DAYS IN TAKE 4 Sports THE AM, THE AM, TABS X 4 Medic in TAKE 3 TABS TAKE 3 TABS DAYS IN e X 4 DAYS, X 4 DAYS, THE AM, TAKE 2 TABS TAKE 2 TABS TAKE 3 X 4 DAYS, 1 X 4 DAYS, 1 TABS X 4 TAB X 4 DAY TAB X 4 DAY DAYS, TAKE 2 TABS X 4 DAYS, 1 TAB X 4 DAY rosuvastati rosuvastati No rosuvastat Sveta n 10 mg n 10 mg in 10 mg Ortho pe tablet 1 tablet 1 tablet 1 dic tablet by tablet by tablet by Sports mouth once mouth once mouth once Medicin a day a day a day e sertraline sertraline No sertraline Sveta 25 mg 25 mg 25 mg [facility] tablet tablet tablet dic Sports Medicin e tobramycin tobramycin No tobramycin Sveta 0.3 % eye 0.3 % eye 0.3 % eye [facility] drops drops drops dic Sports Medicin e tramadol 50 tramadol 50 No tramadol Sveta mg tablet mg tablet 50 mg Orth ope tablet dic Sports Medicin e Vitamin C Vitamin C No Vitamin C [facility] dic Sports Medicin e Vitamin D3 Vitamin D3 No Vitamin D3 [facility]eta [facility] dic Sports Medicin e warfarin 10 warfarin 10 No warfarin Sveta mg tablet 1 mg tablet 1 10 mg [facility] tablet by tablet by tablet 1 d ic mouth once mouth once tablet by Sports a day RX by a day RX by mouth once Medicin other MD other MD a day RX e by other MD zinc 50 mg zinc 50 mg No zinc 50 mg Sveta tablet tablet tablet [facility] dic Sports Medicin e amoxicillin amoxicillin No amoxicilli Sveta [phone] n 875 [facility] mg-potassiu mg-potassiu mg-potassi dic m m Sports clavulanate clavulanate clavulanat Medicin 125 mg 125 mg e 125 mg e tablet TAKE tablet TAKE tablet 1 TABLET BY 1 TABLET BY TAKE 1 MOUTH EVERY MOUTH EVERY TABLET BY 12 HOURS 12 HOURS MOUTH FOR 10 DAYS FOR 10 DAYS EVERY 12 HOURS FOR 10 DAYS azithromyci azithromyci No azithromyc Sveta n 250 mg n 250 mg in 250 mg Or thope tablet tablet tablet dic Sports Medicin e B-12 B-12 No B-12 [facility]eta [facility] dic Sports Medicin e celecoxib celecoxib No celecoxib Sveta 200 mg 200 mg 200 mg [facility] capsule capsule capsule dic Take 2 by Take 2 by Take 2 by Sports mouth once mouth once mouth once Medicin a day a day a day e ciprofloxac ciprofloxac No ciprofloxa Sveta in 500 mg in 500 mg tad 500 mg [facility] tablet tablet tablet dic Sports Medicin e duloxetine duloxetine No duloxetine Sveta 30 mg 30 mg 30 mg [facility] capsule,del capsule,del capsule,de dic ayed ayed layed Sports release release release Medici n e enoxaparin enoxaparin No enoxaparin Sveta 80 mg/0.8 80 mg/0.8 80 mg/0.8 [facility] mL mL mL dic subcutaneou subcutaneou subcutaneo Sports s syringe s syringe us syringe Medicin e Forteo 20 Forteo 20 No Forteo 20 Sveta mcg/dose mcg/dose mcg/dose Ort hope (600 (600 (600 dic mcg/2.4 mL) mcg/2.4 mL) mcg/2.4 Sports subcutaneou subcutaneou mL) M edicin s pen s pen subcutaneo e injector injector us pen Inject 20 Inject 20 injector mcg mcg Inject 20 subcutaneou subcutaneou mcg sly once a sly once a subcutaneo day as day as usly once needed needed a day as needed furosemide furosemide No furosemide Sveta 20 mg 20 mg 20 mg [facility] tablet TAKE tablet TAKE tablet dic 2 TABLETS 2 TABLETS TAKE 2 Spo rts BY MOUTH BY MOUTH TABLETS BY [facility] EVERY DAY X EVERY DAY X MOUTH e 2 DAYS 2 DAYS EVERY DAY X 2 DAYS gabapentin gabapentin No gabapentin Sveta 300 mg 300 mg 300 mg [facility] capsule capsule capsule dic Sports Medicin e hydrocodone hydrocodone No hydrocodon Sveta 10 10 e 10 [facility] mg-acetamin mg-acetamin mg-acetami dic ophen 325 ophen 325 nophen 325 Sports mg tablet mg tablet mg tablet Medicin e hydrocodone hydrocodone No hydrocodon Sveta 5 5 e 5 [facility] mg-acetamin mg-acetamin mg-acetami dic ophen 325 ophen 325 nophen 325 Sports mg tablet mg tablet mg tablet Medicin e losartan 50 losartan 50 No losartan Sveta mg-hydrochl mg-hydrochl 50 O rthope orothiazide orothiazide mg-hydroch dic 12.5 mg 12.5 mg lorothiazi Spo rts tablet TAKE tablet TAKE de 12.5 mg Medicin 1 TABLET 1 TABLET tablet e EVERY DAY EVERY DAY TAKE 1 TABLET EVERY DAY methylpredn methylpredn No methylpred Sveta isolone 4 isolone 4 nisolone 4 [facility] mg tablets mg tablets mg tablets dic in a dose in a dose in a dose Sports pack pack pack Medicin e mirtazapine mirtazapine No mirtazapin Sveta 7.5 mg 7.5 mg e 7.5 mg [facility] tablet tablet tablet dic Sports Medicin e nitrofurant nitrofurant No nitrofuran Sveta oin oin toin [facility] monohydrate monohydrate monohydrat dic /macrocryst /macrocryst e/macrocry Sports als 100 mg als 100 mg stals 100 Medicin capsule capsule mg capsule e omeprazole omeprazole No omeprazole Sveta 20 mg 20 mg 20 mg [facility] capsule,del capsule,del capsule,de dic ayed ayed layed Sports release release release Medici n e oseltamivir oseltamivir No oseltamivi Sveta 75 mg 75 mg r 75 mg [facility] capsule capsule capsule dic Sports Medicin e oxybutynin oxybutynin No oxybutynin Sveta chloride ER chloride ER chloride [facility] 10 mg 10 mg ER 10 mg dic tablet,exte tablet,exte tablet,ext Sports nded nded ended Medicin release 24 release 24 release 24 e hr hr hr Plaquenil Plaquenil No 1 BID Plaquenil Sveta 200 mg 200 mg 200 mg [facility] tablet Take tablet Take tablet dic 1 tablet 1 tablet Take 1 Sport s twice a day twice a day tablet Medicin by oral by oral twice a e route as route as day by directed directed oral route for 90 for 90 as days. days. directed for 90 days. potassium potassium No potassium Sveta chloride ER chloride ER chloride [facility] 20 mEq 20 mEq ER 20 mEq dic tablet,exte tablet,exte tablet,ext Sports nded nded ended Medicin release release release e TAKE 1 TAKE 1 TAKE 1 TABLET BY TABLET BY TABLET BY MOUTH EVERY MOUTH EVERY MOUTH DAY X 4 DAY X 4 EVERY DAY DAYS DAYS X 4 DAYS prednisone prednisone No prednisone Sveta 5 mg tablet 5 mg tablet 5 mg O rthope TAKE 4 TABS TAKE 4 TABS tablet dic X 4 DAYS IN X 4 DAYS IN TAKE 4 Sports THE AM, THE AM, TABS X 4 Medic in TAKE 3 TABS TAKE 3 TABS DAYS IN e X 4 DAYS, X 4 DAYS, THE AM, TAKE 2 TABS TAKE 2 TABS TAKE 3 X 4 DAYS, 1 X 4 DAYS, 1 TABS X 4 TAB X 4 DAY TAB X 4 DAY DAYS, TAKE 2 TABS X 4 DAYS, 1 TAB X 4 DAY rosuvastati rosuvastati No rosuvastat Sveta n 10 mg n 10 mg in 10 mg Ortho pe tablet 1 tablet 1 tablet 1 dic tablet by tablet by tablet by Sports mouth once mouth once mouth once Medicin a day a day a day e sertraline sertraline No sertraline Sveta 25 mg 25 mg 25 mg [facility] tablet tablet tablet dic Sports Medicin e tobramycin tobramycin No tobramycin Sveta 0.3 % eye 0.3 % eye 0.3 % eye [facility] drops drops drops dic Sports Medicin e tramadol 50 tramadol 50 No tramadol Sveta mg tablet mg tablet 50 mg Orth ope tablet dic Sports Medicin e Vitamin C Vitamin C No Vitamin C S[facility] dic Sports Medicin e Vitamin D3 Vitamin D3 No Vitamin D3 S[facility]eta [facility] dic Sports Medicin e warfarin 10 warfarin 10 No warfarin Sveta mg tablet 1 mg tablet 1 10 mg [facility] tablet by tablet by tablet 1 d ic mouth once mouth once tablet by Sports a day RX by a day RX by mouth once Medicin other MD other MD a day RX e by other MD zinc 50 mg zinc 50 mg No zinc 50 mg Sveta tablet tablet tablet [facility] dic Sports Medicin e amoxicillin amoxicillin No amoxicilli Sveta [id number] n 875 [facility] mg-potassiu mg-potassiu mg-potassi dic m m Sports clavulanate clavulanate clavulanat Medicin 125 mg 125 mg e 125 mg e tablet TAKE tablet TAKE tablet 1 TABLET BY 1 TABLET BY TAKE 1 MOUTH EVERY MOUTH EVERY TABLET BY 12 HOURS 12 HOURS MOUTH FOR 10 DAYS FOR 10 DAYS EVERY 12 HOURS FOR 10 DAYS azithromyci azithromyci No azithromyc Sveta n 250 mg n 250 mg in 250 mg Or thope tablet tablet tablet dic Sports Medicin e B-12 B-12 No B-12 Sveta [facility] dic Sports Medicin e celecoxib celecoxib No celecoxib Sveta 200 mg 200 mg 200 mg [facility] capsule capsule capsule dic Take 2 by Take 2 by Take 2 by Sports mouth once mouth once mouth once Medicin a day a day a day e ciprofloxac ciprofloxac No ciprofloxa Sveta in 500 mg in 500 mg tad 500 mg [facility] tablet tablet tablet dic Sports Medicin e Vital Signs Vital Name Observation Time Observation Value Comments Source Height 2022-09-27 00:00:00 67 [in_i] [facility] BMI (Body Mass 2022-09-27 00:00:00 26.8 kg/m2 [facility] Index) Sports Medicine Body Weight 2022-09-27 00:00:00 171.2 [lb_av] [facility] Body height 2022-09-26 14:26:00 [facility] weight 2022-09-26 14:26:00 [facility]576 [facility] BMI 2022-09-26 14:26:00 25.06 kg[facility]m2 [facility] BP Diastolic 2022-09-26 00:00:00 77 mm[Hg] [facility] Height 2022-09-26 00:00:00 67 [in_i] [facility] BMI (Body Mass 2022-09-26 00:00:00 26.8 kg/m2 [facility] Index) Sports Medicine BP Systolic 2022-09-26 00:00:00 137 mm[Hg] [facility] Body Weight 2022-09-26 00:00:00 171.2 [lb_av] [facility] Body height 2022-07-31 15:43:00 [facility] Body weight 2022-07-31 15:43:00 [facility]576 [facility] BMI 2022-07-31 15:43:00 25.06 kg[facility] Systolic blood 2020-01-28 20:07:00 141 mm[Hg] Univer sity [facility] pressure [facility] Diastolic blood 2020-01-28 20:07:00 85 mm[Hg] Unive [facility] pressure [facility] Heart rate 2020-01-28 20:07:00 62 /min [facility] Body height 2020-01-28 20:02:00 170.2 cm [facility] Body weight 2020-01-28 20:02:00 77.111 kg [facility] BMI 2020-01-28 20:02:00 26.63 kg/m2 [facility] Systolic blood 2020-01-28 20:07:00 141 mm[Hg] Rainerer sity [facility] Diastolic blood 2020-01-28 20:07:00 85 mm[Hg] Lois rssergio [facility] Heart rate 2020-01-28 20:07:00 62 /min [facility] Body height 2020-01-28 20:02:00 170.2 cm [facility] Body weight 2020-01-28 20:02:00 77.111 kg [facility] BMI 2020-01-28 20:02:00 26.63 kg/m2 [facility] Procedures Procedure Date / Time Performing Clinician Source Performed CBC WITH PLATELET AND 2023-03-06 21:27:00 Сергей Calix [facility] DIFFERENTIAL COMPREHENSIVE METABOLIC 2023-03-06 21:27:00 FifiСергей flores [facility] PANEL AMYLASE LEVEL 2023-03-06 21:27:00 FifiСергей gibbons [facility] LIPASE LEVEL 2023-03-06 21:27:00 FifiСергей gibbons [facility] ESTIMATED GFR 2023-03-06 21:27:00 [facility] 2 or more 2022-09-27 00:00:00 Kareem jeong [facility] ASSIGNMENT OF BENEFITS 2021-07-24 15:16:00 Doctor Unassigned, No [facility] Plan of Care Planned Activity Planned Date Details Comments Source Future Scheduled 2023-06-04 Screening for [facility] Test 23:25:43 malignant neoplasm of colon (procedure) [code = 284248748] Future Scheduled 2023-06-04 Screening for [facility] Test 23:25:43 malignant neoplasm of colon (procedure) [code = 009840612] Future Scheduled 2023-06-04 Screening for [facility] Test 23:25:43 malignant neoplasm of colon (procedure) [code = [id number]] Future Scheduled 2023-06-04 BREAST CANCER [facility] Test 23:25:43 SCREENING [code = BREAST CANCER SCREENING] Future Scheduled 2023-06-04 Screening for [facility] Test 23:25:43 malignant neoplasm of colon (procedure) [code = [id number]] Future Scheduled 2023-06-04 Screening for [facility] Test 23:25:43 malignant neoplasm of colon (procedure) [code = 213053065] Future Scheduled 2023-06-04 SHINGLES VACCINES (1 [facility] Test 23:25:43 of 2) [code = SHINGLES VACCINES (1 of 2)] Future Scheduled 2023-06-04 65+ PNEUMOCOCCAL [facility] Hospital Test 23:25:43 VACCINE (1 - PCV) [code = 65+ PNEUMOCOCCAL VACCINE (1 - PCV)] Future Scheduled 2023-06-04 COVID-19 VACCINE (4 - [facility] Hospital Test 23:25:43 season) [code = COVID-19 VACCINE (4 - season)] Future Scheduled 2023-06-04 INFLUENZA VACCINE (#1) [facility] Hospital Test 23:25:43 [code = INFLUENZA VACCINE (#1)] Future Scheduled 2023-04-24 Screening for [facility] Test 11:52:00 malignant neoplasm of colon (procedure) [code = [id number]] Future Scheduled 2023-04-24 Screening for [facility] Test 11:52:00 malignant neoplasm of colon (procedure) [code = [id number]] Future Scheduled 2023-04-24 Screening for [facility] Test 11:52:00 malignant neoplasm of colon (procedure) [code = [id number]] Future Scheduled 2023-04-24 BREAST CANCER [facility] Test 11:52:00 SCREENING [code = BREAST CANCER SCREENING] Future Scheduled 2023-04-24 Screening for [facility] Test 11:52:00 malignant neoplasm of colon (procedure) [code = 208440269] Future Scheduled 2023-04-24 Screening for [facility] Test 11:52:00 malignant neoplasm of colon (procedure) [code = [id number]] Future Scheduled 2023-04-24 SHINGLES VACCINES (1 [facility] Test 11:52:00 of 2) [code = SHINGLES VACCINES (1 of 2)] Future Scheduled 2023-04-24 65+ [facility]CCAL [facility] Test 11:52:00 VACCINE (1 - PCV) [code = 65+ PNEUMOCOCCAL VACCINE (1 - PCV)] Future Scheduled 2023-04-24 COVID-19 VACCINE (4 - [facility] Test 11:52:00 Moderna series) [code = COVID-19 VACCINE (4 - Moderna series)] Future Scheduled 2023-04-24 INFLUENZA VACCINE (#1) [facility] Test 11:52:00 [code = INFLUENZA VACCINE (#1)] Future Scheduled 2023-02-22 Screening for [facility] Test 22:30:27 malignant neoplasm of colon (procedure) [code = [id number]] Future Scheduled 2023-02-22 Screening for [facility] Test 22:30:27 malignant neoplasm of colon (procedure) [code = 553537627] Future Scheduled 2023-02-22 Screening for [facility] Test 22:30:27 malignant neoplasm of colon (procedure) [code = 294847499] Future Scheduled 2023-02-22 COVID-19 VACCINE (#1) [facility] Test 22:30:27 [code = COVID-19 VACCINE (#1)] Future Scheduled 2023-02-22 BREAST CANCER [facility] Test 22:30:27 SCREENING [code = BREAST CANCER SCREENING] Future Scheduled 2023-02-22 Screening for [facility] Test 22:30:27 malignant neoplasm of colon (procedure) [code = 205606781] Future Scheduled 2023-02-22 Screening for [facility] Test 22:30:27 malignant neoplasm of colon (procedure) [code = 750530996] Future Scheduled 2023-02-22 SHINGLES VACCINES (1 [facility] Test 22:30:27 of 2) [code = SHINGLES VACCINES (1 of 2)] Future Scheduled 2023-02-22 65+ [facility] Test 22:30:27 VACCINE (1 - PCV) [code = 65+ PNEUMOCOCCAL VACCINE (1 - PCV)] Future Scheduled 2023-02-22 INFLUENZA VACCINE [facility] Hospital Test 22:30:27 [code = INFLUENZA VACCINE] Future Scheduled 2022-07-07 COVID-19 VACCINE (#1) [facility] Test 01:41:06 [code = COVID-19 VACCINE (#1)] Future Scheduled 2022-07-07 BREAST CANCER [facility] Test 01:41:06 SCREENING [code = BREAST CANCER SCREENING] Future Scheduled 2022-07-07 COLONOSCOPY SCREENING [facility] Test 01:41:06 [code = COLONOSCOPY SCREENING] Future Scheduled 2022-07-07 SHINGLES VACCINES (1 [facility] Test 01:41:06 of 2) [code = SHINGLES VACCINES (1 of 2)] Future Scheduled 2022-07-07 65+ [facility]AL [facility] Test 01:41:06 VACCINE (1 - PCV) [code = 65+ PNEUMOCOCCAL VACCINE (1 - PCV)] Future Scheduled 2022-07-07 INFLUENZA VACCINE [facility] Test 01:41:06 [code = INFLUENZA VACCINE] Future Scheduled 2022-05-30 HEPATITIS B VACCINES Met [facility] Test 17:04:15 (1 of 3 - 3-dose series) [code = HEPATITIS B VACCINES (1 of 3 - 3-dose series)] Future Scheduled 2022-05-30 COVID-19 VACCINE (#1) [facility] Test 17:04:15 [code = COVID-19 VACCINE (#1)] Future Scheduled 2022-05-30 BREAST CANCER [facility] Test 17:04:15 SCREENING [code = BREAST CANCER SCREENING] Future Scheduled 2022-05-30 COLONOSCOPY SCREENING [facility] Test 17:04:15 [code = COLONOSCOPY SCREENING] Future Scheduled 2022-05-30 SHINGLES VACCINES (1 [facility] Test 17:04:15 of 2) [code = SHINGLES VACCINES (1 of 2)] Future Scheduled 2022-05-30 65+ [facility]CCAL [facility] Test 17:04:15 VACCINE (1 - PCV) [code = 65+ PNEUMOCOCCAL VACCINE (1 - PCV)] Future Scheduled 2022-05-30 INFLUENZA VACCINE [facility] Test 17:04:15 [code = INFLUENZA VACCINE] Future Scheduled 2022-05-30 HEPATITIS B VACCINES [facility] Test 17:04:15 (1 of 3 - 3-dose series) [code = HEPATITIS B VACCINES (1 of 3 - 3-dose series)] Future Scheduled 2022-05-30 COVID-19 VACCINE (#1) [facility] Test 17:04:15 [code = COVID-19 VACCINE (#1)] Future Scheduled 2022-05-30 BREAST CANCER [facility] Test 17:04:15 SCREENING [code = BREAST CANCER SCREENING] Future Scheduled 2022-05-30 COLONOSCOPY SCREENING [facility] Test 17:04:15 [code = COLONOSCOPY SCREENING] Future Scheduled 2022-05-30 SHINGLES VACCINES (1 [facility] Test 17:04:15 of 2) [code = SHINGLES VACCINES (1 of 2)] Future Scheduled 2022-05-30 65+ [facility]OCCAL [facility] Test 17:04:15 VACCINE (1 - PCV) [code = 65+ PNEUMOCOCCAL VACCINE (1 - PCV)] Future Scheduled 2022-05-30 INFLUENZA VACCINE [facility] Test 17:04:15 [code = INFLUENZA VACCINE] Future Scheduled 2022-05-30 HEPATITIS B VACCINES [facility] Test 17:04:15 (1 of 3 - 3-dose series) [code = HEPATITIS B VACCINES (1 of 3 - 3-dose series)] Future Scheduled 2022-05-30 COVID-19 VACCINE (#1) [facility] Test 17:04:15 [code = COVID-19 VACCINE (#1)] Future Scheduled 2022-05-30 BREAST CANCER [facility] Test 17:04:15 SCREENING [code = BREAST CANCER SCREENING] Future Scheduled 2022-05-30 COLONOSCOPY SCREENING [facility] Test 17:04:15 [code = COLONOSCOPY SCREENING] Future Scheduled 2022-05-30 SHINGLES VACCINES (1 [facility] Test 17:04:15 of 2) [code = SHINGLES VACCINES (1 of 2)] Future Scheduled 2022-05-30 65+ [facility]OCCAL [facility] Test 17:04:15 VACCINE (1 - PCV) [code = 65+ PNEUMOCOCCAL VACCINE (1 - PCV)] Future Scheduled 2022-05-30 INFLUENZA VACCINE Method [facility] Test 17:04:15 [code = INFLUENZA VACCINE] Future Scheduled 2022-05-30 HEPATITIS B VACCINES [facility] Test 17:04:15 (1 of 3 - 3-dose series) [code = HEPATITIS B VACCINES (1 of 3 - 3-dose series)] Future Scheduled 2022-05-30 COVID-19 VACCINE (#1) [facility] Test 17:04:15 [code = COVID-19 VACCINE (#1)] Future Scheduled 2022-05-30 BREAST CANCER [facility] Test 17:04:15 SCREENING [code = BREAST CANCER SCREENING] Future Scheduled 2022-05-30 COLONOSCOPY SCREENING [facility] Test 17:04:15 [code = COLONOSCOPY SCREENING] Future Scheduled 2022-05-30 SHINGLES VACCINES (1 [facility] Test 17:04:15 of 2) [code = SHINGLES VACCINES (1 of 2)] Future Scheduled 2022-05-30 65+ [facility] Test 17:04:15 VACCINE (1 - PCV) [code = 65+ PNEUMOCOCCAL VACCINE (1 - PCV)] Future Scheduled 2022-05-30 INFLUENZA VACCINE Method [facility] Hospital Test 17:04:15 [code = INFLUENZA VACCINE] Future Scheduled 2022-05-30 HEPATITIS B VACCINES [facility] Test 17:04:15 (1 of 3 - 3-dose series) [code = HEPATITIS B VACCINES (1 of 3 - 3-dose series)] Future Scheduled 2022-05-30 COVID-19 VACCINE (#1) [facility] Test 17:04:15 [code = COVID-19 VACCINE (#1)] Future Scheduled 2022-05-30 BREAST CANCER [facility] Test 17:04:15 SCREENING [code = BREAST CANCER SCREENING] Future Scheduled 2022-05-30 COLONOSCOPY SCREENING [facility] Test 17:04:15 [code = COLONOSCOPY SCREENING] Future Scheduled 2022-05-30 SHINGLES VACCINES (1 [facility] Test 17:04:15 of 2) [code = SHINGLES VACCINES (1 of 2)] Future Scheduled 2022-05-30 65+ [facility] Test 17:04:15 VACCINE (1 - PCV) [code = 65+ PNEUMOCOCCAL VACCINE (1 - PCV)] Future Scheduled 2022-05-30 INFLUENZA VACCINE Method [facility] Hospital Test 17:04:15 [code = INFLUENZA VACCINE] Future Scheduled 2022-05-30 HEPATITIS B VACCINES [facility] Test 17:04:15 (1 of 3 - 3-dose series) [code = HEPATITIS B VACCINES (1 of 3 - 3-dose series)] Future Scheduled 2022-05-30 COVID-19 VACCINE (#1) [facility] Test 17:04:15 [code = COVID-19 VACCINE (#1)] Future Scheduled 2022-05-30 BREAST CANCER [facility] Test 17:04:15 SCREENING [code = BREAST CANCER SCREENING] Future Scheduled 2022-05-30 COLONOSCOPY SCREENING [facility] Test 17:04:15 [code = COLONOSCOPY SCREENING] Future Scheduled 2022-05-30 SHINGLES VACCINES (1 [facility] Test 17:04:15 of 2) [code = SHINGLES VACCINES (1 of 2)] Future Scheduled 2022-05-30 65+ [facility]AL [facility] Test 17:04:15 VACCINE (1 - PCV) [code = 65+ PNEUMOCOCCAL VACCINE (1 - PCV)] Future Scheduled 2022-05-30 INFLUENZA VACCINE Method [facility] Test 17:04:15 [code = INFLUENZA VACCINE] Future Scheduled 2022-05-30 HEPATITIS B VACCINES [facility] Test 17:04:15 (1 of 3 - 3-dose series) [code = HEPATITIS B VACCINES (1 of 3 - 3-dose series)] Future Scheduled 2022-05-30 COVID-19 VACCINE (#1) [facility] Test 17:04:15 [code = COVID-19 VACCINE (#1)] Future Scheduled 2022-05-30 BREAST CANCER [facility] Test 17:04:15 SCREENING [code = BREAST CANCER SCREENING] Future Scheduled 2022-05-30 COLONOSCOPY SCREENING [facility] Test 17:04:15 [code = COLONOSCOPY SCREENING] Future Scheduled 2022-05-30 SHINGLES VACCINES (1 [facility] Test 17:04:15 of 2) [code = SHINGLES VACCINES (1 of 2)] Future Scheduled 2022-05-30 65+ [facility]AL [facility] Test 17:04:15 VACCINE (1 - PCV) [code = 65+ PNEUMOCOCCAL VACCINE (1 - PCV)] Future Scheduled 2022-05-30 INFLUENZA VACCINE Method [facility] Test 17:04:15 [code = INFLUENZA VACCINE] Future Scheduled 2022-05-30 HEPATITIS B VACCINES [facility] Test 17:04:15 (1 of 3 - 3-dose series) [code = HEPATITIS B VACCINES (1 of 3 - 3-dose series)] Future Scheduled 2022-05-30 COVID-19 VACCINE (#1) [facility] Test 17:04:15 [code = COVID-19 VACCINE (#1)] Future Scheduled 2022-05-30 BREAST CANCER [facility] Test 17:04:15 SCREENING [code = BREAST CANCER SCREENING] Future Scheduled 2022-05-30 COLONOSCOPY SCREENING [facility] Test 17:04:15 [code = COLONOSCOPY SCREENING] Future Scheduled 2022-05-30 SHINGLES VACCINES (1 [facility] Test 17:04:15 of 2) [code = SHINGLES VACCINES (1 of 2)] Future Scheduled 2022-05-30 65+ [facility]AL [facility] Test 17:04:15 VACCINE (1 - PCV) [code = 65+ PNEUMOCOCCAL VACCINE (1 - PCV)] Future Scheduled 2022-05-30 INFLUENZA VACCINE Method [facility] Hospital Test 17:04:15 [code = INFLUENZA VACCINE] Future Scheduled 2022-05-30 HEPATITIS B VACCINES [facility] Test 17:04:15 (1 of 3 - 3-dose series) [code = HEPATITIS B VACCINES (1 of 3 - 3-dose series)] Future Scheduled 2022-05-30 COVID-19 VACCINE (#1) [facility] Test 17:04:15 [code = COVID-19 VACCINE (#1)] Future Scheduled 2022-05-30 BREAST CANCER [facility] Test 17:04:15 SCREENING [code = BREAST CANCER SCREENING] Future Scheduled 2022-05-30 COLONOSCOPY SCREENING [facility] Test 17:04:15 [code = COLONOSCOPY SCREENING] Future Scheduled 2022-05-30 SHINGLES VACCINES (1 [facility] Test 17:04:15 of 2) [code = SHINGLES VACCINES (1 of 2)] Future Scheduled 2022-05-30 65+ [facility]AL [facility] Test 17:04:15 VACCINE (1 - PCV) [code = 65+ PNEUMOCOCCAL VACCINE (1 - PCV)] Future Scheduled 2022-05-30 INFLUENZA VACCINE Method [facility] Test 17:04:15 [code = INFLUENZA VACCINE] Future Scheduled 2022-05-30 HEPATITIS B VACCINES [facility] Test 17:04:15 (1 of 3 - 3-dose series) [code = HEPATITIS B VACCINES (1 of 3 - 3-dose series)] Future Scheduled 2022-05-30 COVID-19 VACCINE (#1) [facility] Test 17:04:15 [code = COVID-19 VACCINE (#1)] Future Scheduled 2022-05-30 BREAST CANCER [facility] Test 17:04:15 SCREENING [code = BREAST CANCER SCREENING] Future Scheduled 2022-05-30 COLONOSCOPY SCREENING [facility] Test 17:04:15 [code = COLONOSCOPY SCREENING] Future Scheduled 2022-05-30 SHINGLES VACCINES (1 [facility] Test 17:04:15 of 2) [code = SHINGLES VACCINES (1 of 2)] Future Scheduled 2022-05-30 65+ PNEUMOCOCCAL [facility] Test 17:04:15 VACCINE (1 - PCV) [code = 65+ PNEUMOCOCCAL VACCINE (1 - PCV)] Future Scheduled 2022-05-30 INFLUENZA VACCINE Method [facility] Hospital Test 17:04:15 [code = INFLUENZA VACCINE] Future Scheduled 2022-05-30 HEPATITIS B VACCINES [facility] Test 17:04:15 (1 of 3 - 3-dose series) [code = HEPATITIS B VACCINES (1 of 3 - 3-dose series)] Future Scheduled 2022-05-30 COVID-19 VACCINE (#1) [facility] Test 17:04:15 [code = COVID-19 VACCINE (#1)] Future Scheduled 2022-05-30 BREAST CANCER [facility] Test 17:04:15 SCREENING [code = BREAST CANCER SCREENING] Future Scheduled 2022-05-30 COLONOSCOPY SCREENING [facility] Test 17:04:15 [code = COLONOSCOPY SCREENING] Future Scheduled 2022-05-30 SHINGLES VACCINES (1 [facility] Test 17:04:15 of 2) [code = SHINGLES VACCINES (1 of 2)] Future Scheduled 2022-05-30 65+ [facility]AL [facility] Test 17:04:15 VACCINE (1 - PCV) [code = 65+ PNEUMOCOCCAL VACCINE (1 - PCV)] Future Scheduled 2022-05-30 INFLUENZA VACCINE Method [facility] Test 17:04:15 [code = INFLUENZA VACCINE] Future Scheduled 2022-05-30 HEPATITIS B VACCINES [facility] Test 17:04:15 (1 of 3 - 3-dose series) [code = HEPATITIS B VACCINES (1 of 3 - 3-dose series)] Future Scheduled 2022-05-30 COVID-19 VACCINE (#1) [facility] Test 17:04:15 [code = COVID-19 VACCINE (#1)] Future Scheduled 2022-05-30 BREAST CANCER [facility] Test 17:04:15 SCREENING [code = BREAST CANCER SCREENING] Future Scheduled 2022-05-30 COLONOSCOPY SCREENING [facility] Test 17:04:15 [code = COLONOSCOPY SCREENING] Future Scheduled 2022-05-30 SHINGLES VACCINES (1 [facility] Test 17:04:15 of 2) [code = SHINGLES VACCINES (1 of 2)] Future Scheduled 2022-05-30 65+ PNEUMOCOCCAL [facility] Test 17:04:15 VACCINE (1 - PCV) [code = 65+ PNEUMOCOCCAL VACCINE (1 - PCV)] Future Scheduled 2022-05-30 INFLUENZA VACCINE Method [facility] Test 17:04:15 [code = INFLUENZA VACCINE] Future Scheduled 2022-05-30 HEPATITIS B VACCINES [facility] Test 17:04:15 (1 of 3 - 3-dose series) [code = HEPATITIS B VACCINES (1 of 3 - 3-dose series)] Future Scheduled 2022-05-30 COVID-19 VACCINE (#1) [facility] Test 17:04:15 [code = COVID-19 VACCINE (#1)] Future Scheduled 2022-05-30 BREAST CANCER [facility] Test 17:04:15 SCREENING [code = BREAST CANCER SCREENING] Future Scheduled 2022-05-30 COLONOSCOPY SCREENING [facility] Test 17:04:15 [code = COLONOSCOPY SCREENING] Future Scheduled 2022-05-30 SHINGLES VACCINES (1 [facility] Test 17:04:15 of 2) [code = SHINGLES VACCINES (1 of 2)] Future Scheduled 2022-05-30 65+ [facility]AL [facility] Test 17:04:15 VACCINE (1 - PCV) [code = 65+ PNEUMOCOCCAL VACCINE (1 - PCV)] Future Scheduled 2022-05-30 INFLUENZA VACCINE Method [facility] Test 17:04:15 [code = INFLUENZA VACCINE] Future Scheduled 2022-05-30 HEPATITIS B VACCINES [facility] Test 17:04:15 (1 of 3 - 3-dose series) [code = HEPATITIS B VACCINES (1 of 3 - 3-dose series)] Future Scheduled 2022-05-30 COVID-19 VACCINE (#1) [facility] Test 17:04:15 [code = COVID-19 VACCINE (#1)] Future Scheduled 2022-05-30 BREAST CANCER [facility] Test 17:04:15 SCREENING [code = BREAST CANCER SCREENING] Future Scheduled 2022-05-30 COLONOSCOPY SCREENING [facility] Test 17:04:15 [code = COLONOSCOPY SCREENING] Future Scheduled 2022-05-30 SHINGLES VACCINES (1 [facility] Test 17:04:15 of 2) [code = SHINGLES VACCINES (1 of 2)] Future Scheduled 2022-05-30 65+ [facility]OCOCCAL [facility] Test 17:04:15 VACCINE (1 - PCV) [code = 65+ PNEUMOCOCCAL VACCINE (1 - PCV)] Future Scheduled 2022-05-30 INFLUENZA VACCINE Method [facility] Hospital Test 17:04:15 [code = INFLUENZA VACCINE] Future Scheduled 2022-03-30 HEPATITIS B VACCINES [facility] Test 23:57:10 (1 of 3 - 3-dose series) [code = HEPATITIS B VACCINES (1 of 3 - 3-dose series)] Future Scheduled 2022-03-30 COVID-19 VACCINE (#1) [facility] Test 23:57:10 [code = COVID-19 VACCINE (#1)] Future Scheduled 2022-03-30 BREAST CANCER [facility] Test 23:57:10 SCREENING [code = BREAST CANCER SCREENING] Future Scheduled 2022-03-30 COLONOSCOPY SCREENING [facility] Test 23:57:10 [code = COLONOSCOPY SCREENING] Future Scheduled 2022-03-30 SHINGLES VACCINES (1 [facility] Test 23:57:10 of 2) [code = SHINGLES VACCINES (1 of 2)] Future Scheduled 2022-03-30 65+ [facility]CCAL [facility] Test 23:57:10 VACCINE (1 - PCV) [code = 65+ PNEUMOCOCCAL VACCINE (1 - PCV)] Future Scheduled 2022-03-30 INFLUENZA VACCINE Method [facility] Hospital Test 23:57:10 [code = INFLUENZA VACCINE] Future Scheduled 2021-07-13 COVID-19 VACCINE (1) [facility] Test 16:26:45 [code = COVID-19 VACCINE (1)] Future Scheduled 2021-07-13 Hepatitis C screening [facility] Test 16:26:45 (procedure) [code = [id number]] Future Scheduled 2021-07-13 BREAST CANCER [facility] Test 16:26:45 SCREENING [code = BREAST CANCER SCREENING] Future Scheduled 2021-07-13 COLONOSCOPY SCREENING [facility] Test 16:26:45 [code = COLONOSCOPY SCREENING] Future Scheduled 2021-07-13 SHINGLES VACCINES (#1) [facility] Hospital Test 16:26:45 [code = SHINGLES VACCINES (#1)] Future Scheduled 2021-07-13 65+ PNEUMOCOCCAL [facility] Test 16:26:45 VACCINE (1 of 1 - PPSV23) [code = 65+ PNEUMOCOCCAL VACCINE (1 of 1 - PPSV23)] Future Scheduled 2021-07-13 INFLUENZA VACCINE [facility] Test 16:26:45 [code = INFLUENZA VACCINE] Future Scheduled COVID-19 VACCINE (1) [facility] Hospital Test [code = COVID-19 VACCINE (1)] Future Scheduled Hepatitis C screening [facility] Hospital Test (procedure) [code = [id number]] Future Scheduled BREAST CANCER [facility] Test SCREENING [code = BREAST CANCER SCREENING] Future Scheduled COLONOSCOPY SCREENING [facility] Hospital Test [code = COLONOSCOPY SCREENING] Future Scheduled SHINGLES VACCINES (#1) [facility] Test [code = SHINGLES VACCINES (#1)] Future Scheduled 65+ PNEUMOCOCCAL [facility] Test VACCINE (1 of 1 - PPSV23) [code = 65+ PNEUMOCOCCAL VACCINE (1 of 1 - PPSV23)] Future Scheduled INFLUENZA VACCINE [facility] Test [code = INFLUENZA VACCINE] Encounters Start End Encounter Admission Attending Care Care Encounter Source Date/Time Date/Time Type Type Clinicians Facility Department ID 2022-12-11 Outpatient [facility] [id number] [place] 07:49:11 [id number] [facility] 2022-12-10 Outpatient [facility] [id number] [place] 17:26:01 [id number] [facility] 2022-11-28 Outpatient [facility] [id number] [place] 08:17:51 [id number] [facility] 2022-11-15 Outpatient [facility] [id number] [place] 11:43:35 [id number] [facility] 2022-10-27 Outpatient [facility] [id number] [place] 14:13:00 [id number] [facility] 2022-09-22 Outpatient [facility] [id number] [place] 10:15:52 [id number] Health 2022-08-17 Outpatient [facility] [id number] [place] 14:13:07 [id number] [facility] 2022-07-03 Outpatient [facility] [id number] [place] 09:03:40 [id number] [facility] 2022-06-20 Outpatient [facility] [id number] [place] 15:02:02 [id number] [facility] 2022-06-13 Outpatient [facility] [id number] [place] 13:58:07 [id number] [facility] 2022-06-02 Outpatient [facility] [id number] [place] 14:25:50 [id number] [facility] 2022-05-29 Outpatient [facility] [id number] [place] 07:38:34 [id number] [facility] 2022-05-26 Outpatient [facility] [id number] [place] 09:09:[id number] [place] [address] 2021-09-22 Outpatient SERA, [facility] [id number] [place] 09:07:57 [facility] 2023-04-23 2023-04-23 Outpatient MILLY Friedman, [facility] [id number] [facility] 12:00:00 12:00:[address] [place] [address] 2023-03-06 2023-03-06 Lab Fifi, 1.2.840.1 [id number] [facility] 16:10:00 16:15:00 Сергей Lopez [address] 3.430.2.7 Hospit a .3.710711 l .8 2023-03-06 2023-03-06 Lab Fifi, 1.2.840.1 [id number] [facility] 16:10:00 16:15:00 Сергей Lopez [address] 3.430.2.7 Hospit a .3.166675 l .8 2023-03-06 2023-03-06 [facility] Fifi, 1.2.840.1 [id number] 937 [id number] Methodi 00:00:00 00:00:00 Orders Сергей Shay50.1.[address] 3.430.2.7 Hospit a .3.961253 l .8 2023-03-06 2023-03-06 [facility] Fifi, 1.2.840.1 [id number] 964 [id number] Methodi 00:00:00 00:00:00 Orders Сергей Lopez [address]22.1.[address] 3.430.2.7 Hospit a .3.386389 l .8 2023-02-26 2023-02-26 Outpatient HERI Ho [id number] [facility] 09:59:00 09:59:00 Cl [facility] 2023-02-23 2023-02-23 Outpatient FOG_McCann_ AOSM AOSM 546 9122- Sveta 00:00:00 00:00:00 Francy [id number] [facility] 2023-02-23 2023-02-23 Outpatient FOG_McCann_ AOSM AOSM 546 22- Sveta 00:00:00 00:00:00 Francy [id number] [facility] 2022-12-24 2022-12-24 Outpatient FOG_McCann_ AOSM AOSM 546 9122- Sveta 00:00:00 00:00:00 Francy [id number] [facility] 2022-12-24 2022-12-24 Outpatient FOG_McCann_ AOSM AOSM 546 22- Sveta 00:00:00 00:00:00 Francy [id number] [facility] 2022-12-24 2022-12-24 Outpatient FOG_McCann_ AOSM AOSM 546 22- Sveta 00:00:00 00:00:00 Francy [id number] [facility] 2022-12-11 2022-12-11 Outpatient [facility] [id number] [place] 00:00:00 17:26:33 Health 2022-12-11 2022-12-11 Outpatient LAKSHMI [facility] [id number] [place] 10:00:00 10:00:00 ANDRÉS Health 2022-12-11 2022-12-11 Office Lakshmi [facility] ORTHO 1.2.840.114 1 [id number] [place] 08:00:00 08:20:47 Visit Andrés SUGAR 350.1.13.58 He alth [place]AND 9.2.7.2.686 [id number] 1 2022-10-16 2022-10-16 Outpatient SERA [facility] [id number] [place] 08:45:00 08:45:00 [facility] 2022-10-03 2022-10-03 Outpatient FOG_McCann_ AOSM AOSM 546 9122-20 Sveta 00:00:00 00:00:00 Francy [id number] [facility] 2022-09-27 2022-09-27 Samkassandraronaldinocencio Guerra AOSM [place] - Ortho 2022 0308 Sveta 00:00:00 00:00:00 Christine Dominguez MD: [id number] FOG_Ofc dic [facility] Spo rts [facility] e [id number] , Ph. [phone] 2022-09-26 2022-09-26 Office [place], [facility] ORTHO 1.2.919.808 [id number] [place] 08:00:00 09:03:03 Visit Forest SUGAR 350.1.13.58 He alth LAND 9.2.7.2.686 [id number] 1 2022-09-26 2022-09-26 Outpatient FOG_McCann_ AOSM AOSM 546 22-20 Sveta 00:00:00 00:00:00 Francy [id number] [facility] 2022-09-26 2022-09-26 Outpatient FOG_McCann_ AOSM AOSM 546 9122-20 Sveta 00:00:00 00:00:00 Francy [id number] [facility] 2022-09-26 2022-09-26 Haritha James AO [place] - Ortho [id number] 7 Sveta 00:00:00 00:00:00 MD Ortiz: Christine Morillo [address] FOG_Ofc dic [facility] [place] [address] , Ph. [phone] 2022-09-24 2022-09-24 Outpatient FOG_McCann_ AOSM AOSM 546 9122-20 Sveta 00:00:00 00:00:00 Francy [id number] [facility] 2022-09-24 2022-09-24 Outpatient FOG_McCann_ AOSM AOSM 546 9122-20 Sveta 00:00:00 00:00:00 Francy [id number] [facility] 2022-09-18 2022-09-18 Outpatient FOG_McCann_ AOSM AOSM 546 22- Sveta 00:00:00 00:00:00 Francy [id number] [facility] 2022-09-18 2022-09-18 Outpatient FOG_McCann_ AOSM AOSM 546 22 Sveta 00:00:00 00:00:00 Francy [id number] [facility] 2022-09-13 2022-09-13 Outpatient [facility] [id number] [place] 00:00:00 16:02:56 Health 2022-09-13 2022-09-13 Office VICKY [place] ORTHO [id number] [id number] [place] 13:45:00 16:02:29 Visit Forest SUGAR 350.1.13.58 He alth LAND 9.2.7.2.686 [id number] 1 2022-07-31 2022-07-31 Office VICKY [place] ORTHO 1.2.932.653 [id number] [place] 09:45:00 11:33:53 Visit Forest SUGAR 350.1.13.58 He alth LAND 9.2.7.2.686 [id number] 1 2022-07-18 2022-07-18 Office VICKY Bautista ORTHO 1.2.840.114 1 [id number] [place] 15:15:00 15:29:06 Visit Andrés SUGAR 350.1.13.58 He alth LAND 9.2.7.2.686 [id number] 1 2022-07-05 2022-07-05 Outpatient [facility] [id number] [place] 00:00:00 14:26:13 Health 2022-07-05 2022-07-05 Office VICKY Bautista ORTHO 1.2.840.114 1 [id number] [place] 13:30:00 13:35:04 Visit Andrés SUGAR 350.1.13.58 He alth LAND 9.2.7.2.686 [id number] 1 2022-06-22 2022-06-22 Outpatient [facility] [id number] [place] 00:00:00 11:18:50 Health 2022-06-222022-06-22 Office VICKY Bautista 1.2.840.114 1 [id number] [place] 10:45:00 11:15:05 Visit Andrés SUGAR 350.1.13.58 alth LAND 9.2.7.2.686 [id number] 1 2022-06-16 2022-06-21 Inpatient Castillo SOFIE [facility] 7502 [facility] 16:59:00 14:27:00 Amy ALMONTE 2022-06-19 2022-06-19 Outpatient LAKSHMI, [facility] [id number] [place] 10:00:00 10:00:00 [facility] 2022-06-12 2022-06-12 Outpatient ESCALONA, FB FB 7501 FB 05:18:00 14:00:00 [facility] 2022-06-12 2022-06-12 Outpatient SERA, [facility] [id number] [place] 09:30:00 09:30:00 [facility] 2022-06-12 2022-06-12 Outpatient SERA, [facility] [id number] [place] 07:30:00 07:30:00 [facility] 2022-06-05 2022-06-05 Outpatient LAKSHMI, [facility] [id number] [place] 10:00:00 10:30:48 [facility] 2022-04-17 2022-04-17 Outpatient MILLY Friedman, [facility] [id number] [facility] 08:00:00 08:00:[address] [place] [address] 2022-03-28 2022-03-29 [facility] [id number] Memoria 14:39:01 04:59:59 amy Wilkinson [facility] 2022-03-28 2022-03-29 Outpatient nullFlavo [facility] [id number] Memoria 14:39:01 04:59:59 [facility] 2022-03-28 2022-03-28 Outpatient Sera, [id number] 09:39:01 23:59:59 [facility] 8 2022-03-28 2022-03-[address] [facility] [id number] Memoria 09:39:01 09:39:01 amy Wilkinson 2022-03-09 2022-03-09 Office Sera VICKY ORTHO [id number] [id number] [place] 14:00:00 14:57:30 Visit Forest SUGAR 350.1.13.58 He alth LAND 9.2.7.2.686 [id number] 1 2021-12-29 2021-12-29 Telephone Desai 1.2.840.1 [id number] Methodi 00:00:00 00:00:[address] 3.430.2.7 Hospit a .3.250476 l .8 2021-12-29 2021-12-29 Telephone Gregoria San 1.2.840.1 [id number] Methodi 00:00:00 00:00:[address] 3.430.2.7 Hospit a .3.201402 l .8 2021-12-26 2021-12-26 Outpatient HERI Ho RADI [id number] [facility] 08:53:00 08:53:00 Cl [facility] 2022-01-20 2021-12-26 Inpatient HERI Ho DAYS [id number] [facility] 13:15:00 08:00:00 Cl 26 [facility] 2021-11-06 2021-11-06 Outpatient R [facility] [id number] [facility] 12:00:00 12:00:00 [facility] 2021-11-05 2021-11-05 Outpatient R SLOANE [facility] [id number] [facility] 20:45:00 20:45:00 ADDIE [facility] 2021-10-10 2021-10-10 Office Sera VICKY ORTHO [id number] [id number] [place] 14:30:00 16:07:20 Visit [place] 350.1.13.58 He alth [place] 9.2.7.2.686 [id number] 1 2021-09-02 2021-09-[address] [facility] 1.2.840.114 [id number] [facility] 00:00:00 00:00:00 Db [facility] HEALTH 350.1.13.10 [facility] 4.2.7.2.686 Uziel as PADDY?BLEA [id number] Nm [address] MEDICAL OFFICE BUILDING 2021-08-24 2021-08-24 Outpatient LORI KirbyO [id number] [facility] 15:41:00 15:41:00 Maciel [facility] 2021-08-17 2021-08-17 Outpatient HERI Ho RADI [id number] [facility] 17:40:00 17:40:00 Cl 93 [facility] 2021-08-02 2021-08-02 Laboratory Only, Ang Db Test [facility] 1.2.8 40.114 [id number] [facility] 20:15:00 20:30:00 Only Leanna [facility] 350.1.13.10 ity of [place] 4.2.7.2.686 Uziel as PADDY?BLEA [id number] [address] MEDICAL OFFICE [facility] 2021-08-02 2021-08-02 Outpatient R [facility] [id number] Univers 20:15:00 20:15:00 MATTEO hill o [facility] 2021-07-25 2021-07-25 Letter MARCOS Velez 1.2.840.114 [id number] Univers 00:00:00 00:00:00 (Out) Alesia GOINS 350.1.13.10 it y of [facility] 4.2.7.2.686 Uziel as [phone] [facility] [address] 2021-07-24 2021-07-24 Laboratory Only, Adc Test [facility] 1.2.840. 114 [id number] Univers 08:45:00 09:00:00 Only Jose Rafael Osborne 350.1.13.10 ity of [place].2.[place] [id number] [facility] [address] 2021-07-24 2021-07-24 Outpatient R [facility] [id number] Univers 08:45:00 08:45:00 JOSE RAFAEL itzoey of [facility] 2021-07-24 2021-07-24 Orders Doctor MARCOS 1.2.840.114 [id number] Univers 00:00:00 00:00:00 Only Unassigned, BRISEIDA 350.1.13.10 ity of [place] [facility] 4.2.7.2.686 Uziel as [phone] [place] [address] [address] 2021-06-29 2021-06-29 Outpatient MILLY Nguyen, HCATO RADI [id number] [facility] 11:17:00 11:17:00 Cl 94 [place] [facility] 2021-08-17 2021-05-18 Inpatient MILLY Kirby, HCATO SURG [id number] [facility] 15:00:00 10:30:00 Maciel 43 [place] [facility] 2021-02-23 2021-02-23 Outpatient MILLY Friedman, H[facility] [id number] [facility] 12:00:00 12:00:00 Sebastian 15 [facility] 2021-01-25 2021-01-25 Outpatient MILLY Friedman, HCAPM MERCEDES [id number] 618 [facility] 12:00:00 12:00:00 Sebastian 31 [facility] 2021-01-05 2021-01-05 Outpatient EL Doug, HCATO RADI [id number] [facility] 06:45:00 06:45:00 Gill 84 [place] [facility] 2020-12-31 2020-12-31 Travel 1.2.840.1 1.2.380.585 2482 001997 Methodi 00:00:00 00:00:[address] 3.430.2.7 0.2.7.3.698 spita .3.353184 084.8 l .8 2020-12-08 2020-12-08 Inpatient EL Alberto, IMTIAZTO HCATO [id number] [facility] 05:48:58 05:48:58 Yas 64 [place] [facility] 2020-12-06 2020-12-06 Travel 1.2.840.1 1.2.597.043 2341 007055 Methodi 00:00:00 00:00:[address] 3.430.2.7 0.2.7.3.698 Ho spita .3.571352 084.8 l .8 2020-10-07 2020-10-07 Outpatient LORI Dominguez [id number] [facility] 18:13:00 18:13:00 Mufaddal 57 [facility] 2020-09-27 2020-09-27 Patient Carlos NESAMUEL 1.2.840.114 [id number] 00:00:00 00:00:[address] [facility] 350.1.13.10 Francois [facility] 4.2.7.2.686 PAVILLION [id number] 388 2020-09-27 2020-09-[address] [facility] 1.2.840.114 [id number] Univers 00:00:00 00:00:[address] [facility] 350.1.13.10 i ty of [facility] [place]2.7.2.[place]AV[place] [phone] Nm dical [address] 2020-09-23 2020-09-23 Travel 1.2.840.1 1.2.104.123 5590 233531 Methodi 00:00:00 00:00:[address] 3.430.2.7 0.2.7.3.698 Ho spita .3.901548 084.8 l .8 2020-09-06 2020-09-06 Inpatient HERI MirzaTO [id number] [facility] 14:18:30 14:18:30 Mufaddal 66 [facility] 2020-03-21 2020-03-21 Patient Doctor MARCOS 1.2.840.114 [id number] Univers 00:00:00 00:00:00 Secure Msg Unassigned, BRISEIDA 350.1.13.10 ity of [place] [facility] 4.2.7.2.686 Uziel as [phone] [facility] [address] 2020-03-20 2020-03-20 Laboratory Lab, [facility] 1.2.840.114 77 [id number] 13:38:36 13:58:36 Only Fam Pob I Health 350.1.13.10 [place] 4.2.7.2.686 Professio [id number] [place] [address] Office Building [facility] 2020-03-20 2020-03-20 Laboratory Lab, [facility] Fam Pob I [facility] 1.2. 840.114 [id number] Univers 13:38:36 13:58:36 Only Esteban Escobar 350.1.13.10 ity of [place] 4.2.7.2.686 Uziel as Professio [phone] Nm dical [address] Office [facility] 2020-03-20 2020-03-20 Outpatient R [facility]IA [facility] [id number] Univers 13:20:00 13:20:[address] [facility] 2020-03-20 2020-03-20 Letter Doctor MARCOS 1.2.840.114 [id number] 00:00:00 00:00:00 (Out) Unassigned, BRISEIDA 350.1.13.10 [place] [facility] 4.2.7.2.686 [id number] [facility] 2020-03-20 2020-03-20 Letter Doctor MARCOS 1.2.840.114 [id number] 26 Univers 00:00:00 00:00:00 (Out) Unassigned, BRISEIDA 350.1.13.10 ity of [place] [facility] 4.2.7.2.686 Uziel as [phone] [address] 2020-03-08 2020-03-08 [facility] 31807 27188 Univers 16:00:00 16:00:[address] [facility] 2020-03-01 2020-03-01 Telephone [facility] 1.2.840.114 77 [id number] 00:00:00 00:00:00 Lilia [facility] 350.1.13.10 Surgical 4.2.7.2.686 Specialti [id number] es 198 [place] 2020-03-01 2020-03-01 [facility] 1.2.840.114 77 [id number] 00:00:00 00:00:00 Lilia [facility] 350.1.13.10 Surgical 4.2.7.2.686 Specialti [id number] es 198 [place] 2020-03-01 2020-03-01 Telephone Micah, [facility] 1.2.840.114 77 [id number] Univers 00:00:00 00:00:00 Lilia [facility] 350.1.13.10 it y of Surgical 4.2.7.2.686 [place] Specialti [phone] Nm dical es 198 [facility] 2020-03-01 2020-03-01 Bruce Obrien, [facility] 1.2.840.114 77 [id number] Univers 00:00:00 00:00:00 Lilia [facility] 350.1.13.10 it y of Surgical 4.2.7.2.686 [place] as Specialti [id number] Nm dicinocencio es 198 [facility] 2020-02-20 2020-02-[address] [facility] 1.2.840.114 77 037123 00:00:00 00:00:00 Lilia [facility] 350.1.13.10 Surgical 4.2.7.2.686 Specialti [id number] es 198 [place] 2020-02-20 2020-02-[address] [facility] 1.2.840.114 77 [id number] Univers 00:00:00 00:00:00 Lilia [facility] 350.1.13.10 it y of Surgical 4.2.7.2.686 [place] as Specialti [id number] Nm dical es 198 [facility] 2020-02-04 2020-02-[address] [facility] 1.2.840.114 76 [id number] 00:00:00 00:00:00 Lilia [facility] 350.1.13.10 Surgical 4.2.7.2.686 Specialti [phone] es 198 [place] 2020-02-04 2020-02-[address] [facility] 1.2.840.114 76 [id number] Univers 00:00:00 00:00:00 Lilia [facility] 350.1.13.10 it y of Surgical 4.2.7.2.686 Uziel as Specialti [id number] Nm dical es 198 [facility] 2020-02-02 2020-02-[address] [facility] 1.2.840.114 76 397473 00:00:00 00:00:00 Lilia Reed [facility] 350.1.13.10 Surgical 4.2.7.2.686 Specialti [id number] es 198 [place] 2020-02-02 2020-02-[address] [facility] 1.2.840.114 76 177159 Univers 00:00:00 00:00:00 Lilia [facility] 350.1.13.10 it y of Surgical 4.2.7.2.686 Uziel as Specialti [id number] Nm dical es 198 [facility] 2020-01-28 2020-01-28 [facility] 1.2.840.114 [id number] 07 14:49:21 15:36:45 Visit Francisco Nguyen [facility] 350.1.13.10 Surgical 4.2.7.2.686 Specialti 105.1066726 es 198 [place] 2020-01-28 2020-01-28 [facility] 1.2.840.114 [id number] 07 [facility] 14:49:21 15:36:45 Visit Francisco [facility] [address] 350.1.13.10 it y of Surgical 4.2.7.2.686 Uziel as Specialti [id number] Nm dical es 198 [facility] 2020-01-28 2020-01-28 Outpatient [facility] [id number] [facility] 14:45:00 14:45:[address] [facility] Results Test Description Test Time Test Comments Results Result Sour e Comments - XR FLUORO NDL 2023-02-26 18:35:00 [facility] 1955 Sex: F Patient Name: NIKIA GARCIA Unit No: [id number] EXAMS: CPT CODE: [id number] XR FLUORO NDL 55387 Fluoroscopically guided injection of the left naviculocuneiform and 3rd TMT joints with steroid FINDINGS: After informed consent was obtained a needle was placed in the left naviculocuneiform and 3rd TMT joints with fluoroscopic guidance. Its position was confirmed by injecting Isovue 300 and obtaining a radiograph. Subsequently 2 mL of Kenalog 40 mg per cc and 2 mL of lidocaine was injected. No immediate complications were encountered. 10 seconds of fluoroscopy time was utilized. IMPRESSION: Technically successful steroid injection of the left naviculocuneiform and 3rd TMT joints at 1835 Reported and signed by: Erick Alcantar M.D. CC: Technologist: RT. Karol(R) Transcribed D/ (1834) LizetteJ [facility] NAME: NIKIA GARCIA [address] [facility] PHYS: Cl Sandra MD : 1955 AGE: 67 SEX: F [place] [address] LOC: Y.RAD PHONE #: [phone] EXAM DATE: 02/26/2023 STATUS: REG CLI FAX #: [phone] RAD #: [id number] D/C DT PAGE 1 Signed Report Patient Name: NIKIA GARCIA Unit No: [id number] EXAMS: CPT CODE: [id number] XR FLUORO NDL 50955 (Continued) Orig Print D/T: S: 02/26/2023 (183) [facility] NAME: NIKIA GARCIA [address] [facility] PHYS: Cl Sandra MD : 1955 AGE: 67 SEX: F [place] [address] LOC: Y.RAD PHONE #: [phone] EXAM DATE: 02/26/2023 STATUS: REG CLI FAX #: [phone] RAD #: [id number] D/C DT PAGE 2 Signed Report - XR FLUORO NDL 2021-12-26 16:08:00 [facility] 1955 Sex: F Patient Name: NIKIA GARCIA Unit No: [id number] EXAMS: CPT CODE: [id number] XR FLUORO NDL 71412 FLUOROSCOPICALLY GUIDED INJECTION OF THE LEFT NAVICULOCUNEIFORM [...] Reported and signed by: Chandan Duran MD [facility] NAME: NIKIA GARCIA [address] [facility] PHYS: Cl Sandra MD : 1955 AGE: 66 SEX: F [place] [address] LOC: Y.RAD PHONE #: [phone] EXAM DATE: 12/26/2021 STATUS: REG CLI FAX #: [phone] RAD #: [id number] D/C DT PAGE 1 Signed Report (CONTINUED) Patient Name: NIKIA GARCIA Unit No: [id number] EXAMS: CPT CODE: [id number] XR FLUORO NDL 04253 (Continued) CC: Cl Nguyen MD Technologist: Kelley Aguiar RT.(R) Transcribed D/ (1608) t.OSEASR.[facility] NAME: NIKIA GARCIA [address] [place] [address] PHYS: Cl Sandra MD : 1955 AGE: 66 SEX: F [place] [address] LOC: Y.RAD PHONE #: [phone] EXAM DATE: 12/26/2021 STATUS: REG CLI FAX #: [phone] RAD #: [id number] D/C DT PAGE 2 Signed Report Patient Name: NIKIA GARCIA Unit No: [id number] EXAMS: CPT CODE: [id number] XR FLUORO NDL 03532 (Continued) Orig Print D/T: S: 12/26/2021 (1611) [facility] NAME: NIKIA GARCIA [address] [facility] PHYS: Cl Sandra MD : 1955 AGE: 66 SEX: F [place] [address] LOC: Y.RAD PHONE #: [phone] EXAM DATE: 12/26/2021 STATUS: REG CLI FAX #: [phone] RAD #: [id number] D/C DT PAGE 3 Signed Report PROTHROMBIN [...] BLOOD, PT every other day NTHROMBOPLASTIN TIME [id number] 12:51:00 Test Item Value Reference Range Interpretation Comments PTT ACTIVATED (test 38.5 secs 26.6-34.6 H Please n ote new code = APTT) normal range. IS PATIENT ON ANTICOAGULANTS ? YLIST ANTICOAGULANT/ANTI PLT MEDICATION : OtherHas Lab been notified if Patient is on Heparin Drip? NOIf Yes, order CBC, OCCULT BLOOD, PT every other day N- XR FLUORO [id number] 13:34:00 [facility] 1955 Sex: F Patient Name: NIKIA GARCIA Unit No: [id number] EXAMS: CPT CODE: [id number] XR FLUORO NDL 27882 Fluoroscopically guided injection of the right plantar [...] M.D. CC: Cl Nguyen MD Technologist: Kelley Aguiar RT.(R) Transcribed D/ (0055) tDEISISLJ [facility] NAME: NIKIA GARCIA [address] [facility] PHYS: Cl Sandra MD : 1955 AGE: 66 SEX: F [place] [address] LOC: Y.PRE PHONE #: [phone] EXAM DATE: 08/17/2021 STATUS: DEP [facility] FAX #: [phone] RAD #: [id number] D/CDT PAGE 1 Signed Report Patient Name: NIKIA GARCIA Unit No: [id number] EXAMS: CPT CODE: [id number] XR FLUORO NDL 95855 (Continued) Orig Print D/T: S: 08/18/2021 (3198) [facility] NAME: NIKIA GARCIA [address] [facility] PHYS: Cl Sandra MD : 1955 AGE: 66 SEX: F [place] [address] LOC: Y.PRE PHONE #: [phone] EXAM DATE: 08/17/2021 STATUS: DEP [facility] FAX #: [phone] RAD #: [id number] D/C DT PAGE 2 Signed Report- XR FLUORO [id number] 13:34:00 [facility] 1955 Sex: F Patient Name: NIKIA GARCIA Unit No: [id number] EXAMS: CPT CODE: [id number] XR FLUORO NDL 92216 Fluoroscopically guided injection of the right plantar [...] Alcantar M.D. CC: Cl Nguyen MD Technologist: RT. Karol(R) Transcribed D/ (9554) LizetteJ [facility] NAME: NIKIA GARCIA [address] [facility] PHYS: Cl Sandra MD : 1955 AGE: 66 SEX: F [place] [address] LOC: Y.RAD PHONE #: [phone] EXAM DATE: 08/17/2021 STATUS: DEP CLI FAX #: [phone] RAD #: [id number] D/C DT PAGE 1 Signed Report Patient Name: NIKIA GARCIA Unit No: [id number] EXAMS: CPT CODE: [id number] FLUORO NDL 18411 (Continued) Orig Print D/T: S: 08/18/2021 (5735) [facility] NAME: NIKIA GARCIA [address] [facility] PHYS: Cl Sandra MD : 1955 AGE: 66 SEX: F [place] [address] LOC: Y.RAD PHONE #: [phone] EXAM DATE: 08/17/2021 STATUS: DEP CLI FAX #: [phone] RAD #: [id number] D/C DT PAGE 2 Signed Report- MRI LOW EXT W/O CONT [id number] 16:13:00 [facility] 1955 Sex: F Patient Name: NIKIA GARCIA Unit No: [id number] EXAMS: CPT CODE: [id number] MRI L[place] EXT W/[place] [address] MRI OF THE LEFT FOOT DIAGNOSIS: Degenerative [...] and signed by: Chandan Duran MD CC: Niyah Nguyen MD Technologist: 0 Transcribed D/ (1613) tRUELR.L [facility] NAME: NIKIA GARCIA [address] [facility] PHYS: Cl Sandra MD : 1955 AGE: 66SEX: F [place], [place] [address] LOC: Y.MRI PHONE #: [phone] EXAM DATE: 06/29/2021 STATUS: REG CLI FAX #: [phone] RAD #: [id number] D/C DT PAGE 1 Signed Report Patient Name: NIKIA GARCIA Unit No: [id number] EXAMS: CPT CODE: [id number] MRI LOW EXT W/[place] [address] (Continued) Orig Print D/T: S: 06/29/2021 (1617) [facility] NAME: NIKIA GARCIA [address] [facility] PHYS: Cl Sandra MD : 1955 AGE: 66 SEX: F [place], [place] [address] LOC: Y.MRI PHONE #: [phone] EXAM DATE: 06/29/2021 STATUS: REG CLI FAX #: [phone] #: [id number] D/C DT PAGE 2 Signed Report- MRI C-SPINE W/O [id number] 08:20:00 [facility] 1955 Sex: F PatientName: NIKIA GARCIA Unit No: [id number] EXAMS: CPT CODE: [id number] MRI C-SPINE W/O CONT 09093 MRI OF THE CERVICAL SPINE: DIAGNOSIS: 1. At C2-3, disc desiccation. No central canal or foraminal stenosis. 2. At C3-4, disc desiccation. No central canal stenosis. Moderate left foraminal stenosis right foramen is within normal limits. Mild facet arthropathy. 3. At C4-5, mild disc degeneration. No central canal stenosis. Mild bilateral foraminal stenosis. Moderate left facet arthropathy. 4. At C5-6,milddisc degeneration. Mild disc bulging. No central canal stenosis. Moderate left foraminal and mild tomoderate right foraminal stenosis. Mild facet arthropathy. 5. [...] signed by: Ivone Campos MD CC: Gill Camacho MD Technologist: Kevon Gallardo(R) Transcribed D/ (819) CookieG [facility] NAME: NIKIA GARCIA [address] [place] [address] PHYS: Gill Slaughter MD : 1955 AGE: 65 SEX: F [place] [address] LOC: Y.MRI PHONE #: [phone] EXAM DATE: 01/05/2021 STATUS: REG CLI FAX #: [phone] RAD #: [id number] D/C DT PAGE 1 Signed Report Patient Name: NIKIA GARCIA Unit No: [id number] EXAMS: CPT CODE: [id number] MRI C-SPINE W/O CONT 16792 (Con tinued) Orig Print D/T: S: 01/05/2021 (0823) [facility] NAME: NIKIA GARCIA [address] [place] [address] PHYS: Gill Slaughter MD : 1955 AGE: 65 SEX: F [place] [address] LOC: Y.MRI PHONE #: [phone] EXAM DATE: 01/05/2021 STATUS: REG CLI FAX #: [phone] #: [id number] D/C DT PAGE 2 Signed ReportNovel Coronavirus 2018 [id number] 13:05:00 Test Item Value Reference Range Interpretation [...] assa y in vitro. Novel Coronavirus 2018 [id number] 13:04:00 Test Item Value Reference Range Interpretation [...] for the identification of SARS-CoV-2 RNA usingthe Nexstim M2000 Sy stem under the FDA Emergen cy UseAuthorizatio n. The testing is perf ormed by personneltraine d in the procedures for the Nexstim M2000 molecular diagnostic SARS-CoV-2 assa y in vitro. PROTHROMBIN [id number] 17:05:00 Test Item Value Reference Range Interpretation [...] Patient is on Heparin Drip? NOTHROMBOPLASTIN TIME [id number] 17:05:00 Test Item Value Reference Range Interpretation Comments PTT ACTIVATED (test 53.6 secs 24.9-37.0 HH VERIFIED BY REPEAT code = APTT) ANALYSIS.CRITIC AL VALUE CALLED TO ENRIQUETA MICHAUD BACK & CONFIRMED? YESB Y F.LAB.AEG 10/07 1705 IS PATIENT ON ANTICOAGULANTS ? YLIST ANTICOAGULANT/ANTI PLT MEDICATION : CoumadinHas Lab been notified if Patient is on Heparin Drip? NOCOMPREHENSIVE METABOLIC [id number] 16:53:00 Test Item Value Reference Range Interpretation [...] RATE (test code = GFR) mL/mi n/1.73 y3Graymphmx Range:Healthy Adults >90 mL/min/1.73 m2 For Chronic Kidney Disease: Stage II Mild Decrease i n GFR 60-90 Stage III Moderate Decrea se in GFR 30-59 St age IV Severe Decre ase in GFR 15-29 St age V Kidney Failu re <15 CREATININE (test code 0.62 mg/dL 0.55-1.30 [...] TOTAL (test code = ALKP) CBC W/AUTO [id number] 16:39:00 Test Item Value Reference Range Interpretation [...] NRBC) - MRI UP JNT W/O CONT [id number] 11:18:00 [facility] 1955 Sex: F PatientName: NIKIA GARCIA Unit No: [id number] EXAMS: CPT CODE: [id number] MRI [place] JNT W/[place] [address] MRI OF THE RIGHT SHOULDER DIAGNOSIS: 1. [...] NAVNEET SCHMIDT RT(R) Transcribed D/ (1118) tDEISIJCL [facility]: [facility] [address] [place] [address] PHYS: [place] - Yas Dominguez : 1955 AGE: 65 SEX: F [place] [address] LOC: Y.MRI PHONE #: [phone] EXAM DATE: 09/16/2020 STATUS: REG CLI FAX #: [phone] RAD #: [id number] D/C DT PAGE 1 Signed Report Patient Name: NIKIA GARCIA Unit No: [id number] EXAMS: CPT CODE: [id number] MRI UP JNT W/[place] [address] (Continued) Orig Print D/T: S: 09/16/2020 (1122) [facility] NAME: NIKIA GARCIA [address] [place] [address] PHYS: GOMMU - Yas Dominguez : 1955 AGE: 65 SEX: F [place] [address] LOC: PRATIK PHONE #: [phone] EXAM DATE: 09/16/2020 STATUS: REG CLI FAX #: [phone] RAD #: [id number] D/C DT PAGE 2 Signed ReportXR FOREARM 2 [id number] 09:41:05Exam: Right XR ELBOW MIN 3 VIEWS, XR FOREARM 2 VIEWSHISTORY: PainCOMPARISON: None available.FINDINGS: Bones:No acute displaced fracture.Osseous alignment is within normal limits.Joints:The joint spaces are well-maintained.Soft tissues:The soft tissues appear unremarkable.IMPRESSION:No acute radiographic abnormality.This final report was electronically signed by Dr Blank Schaefer MD01/03/2020 9:34 AMDictated By: Merle SKINNER: 01/03/2020 09:34[facility]ITALDONTRELLXR ELBOW MIN 3 [id number] 09:40:57Exam: Right XR ELBOW MIN 3 VIEWS, XR FOREARM 2 VIEWSHISTORY: PainCOMPARISON: None available.FINDINGS:Bones:No acute displaced fracture.Osseous alignment is within normal limits.Joints:The joint spaces are well-maintained.Soft tissues:The soft tissues appear unremarkable.IMPRESSION:No acute radiographic abnormality.This final report was electronically signed by Dr Blank Schaefer MD01/03/2020 9:34 AMDictated By: Merle SKINNER: 01/03/2020 09:34[facility]
--- NOTE | 2023-06-06 17:33 | RAD REPORT ---
EXAM DESCRIPTION: RAD - Chest Single View - 06/06/2023 5:18 pm CLINICAL HISTORY: FEVER COMPARISON: Chest Single View dated 06/27/2022; Chest Pa And Lat (2 Views) dated 05/30/2022; Chest Sin gle View dated 11/06/2021; Chest Pa And Lat (2 Views) dated 06/09/2016 FINDINGS: Lines: None. Lungs: No evidence of edema or pneumonia. Pleural: No significant pleural effusions or pneumothorax. Cardiac: The heart size is within normal limits. Mediastinum: Within normal limits. Bones: No acute fractures. Sternotomy Other: None IMPRESSION: No acute cardiopulmonary disease.
[2023-06-06 18:31] LABS: Absolute Lymphocytes (CBC) 0.8 K/uL (0.7-4.9); Hematocrit 37.7 % (36.0-45.0); Lymphocytes % 18.1 % (15.3-44.8); MCV 93.7 fL (80-100); MPV 7.9 fL (7.6-11.3); Platelets 186 thou/uL (152-406); RBC Red Blood Cell Count 4.02 M/uL (3.86-4.86)
[2023-06-06 18:47] LABS: Albumin 3.6 g/dL (3.4-5.0); Bilirubin Total 0.7 mg/dL (0.2-1.0); Potassium 3.8 mEq/L (3.5-5.1); Protein, Total 6.8 g/dL (6.4-8.2)
[2023-06-06 18:55] LABS: Specific Gravity 1.025 (1.005-1.030); Urine Bacteria <20 /HPF (<20); Urine Bilirubin NEGATIVE (Negative); Urine Blood Trace (Negative); Urine Clarity Extremely Turbid (Clear); Urine Color Yellow (Yellow); Urine Glucose NEGATIVE (Negative); Urine Protein 1+ (Negative); Urine Urobilinogen Normal (Normal)
--- NOTE | 2023-06-06 19:57 | RAD REPORT ---
EXAM DESCRIPTION: CTStone Protocol - 06/06/2023 7:46 pm CLINICAL HISTORY: left flank pain COMPARISON: Stone Protocol dated 11/06/2021tone Protocol dated 11/06/2021tone Protocol dated 11/07/19 TECHNIQUE: CT of the abdomen and pelvis was performed. All CT scans are performed using dose optimization technique as appropriate and may include automated exposure control or mA/KV adjustment according to patient size. FINDINGS: Lower chest: No acute abnormality. Liver: Low-density lesion the inferior aspect of the right hepatic lobe is unchanged since 2021 and a lmost certainly benign. Biliary: No biliary ductal dilatation. Stomach: No significant focal abnormality. Duodenum: No significant focal abnormality. Pancreas: No significant abnormality. Spleen: No significant abnormality. Adrenal: No suspicious lesions. Kidney/ureter: No hydronephrosis. No renal calculi. Retroperitoneum: No retroperitoneal adenopathy. Vascular: No aneurysm. Atherosclerosis. Bowel: Diverticulosis without diverticulitis.. Moderate stool. No bowel obstruction. No appendicitis. Peritoneum: No ascites or free air. Bladder: Grossly unremarkable. Reproductive: No adnexal masses. Bones: No acute fracture. Other: n/a IMPRESSION: No acute intra-abdominal or pelvic finding. Incidental findings as noted above.
--- NOTE | 2023-06-06 20:22 | EDPHYS ---
Physician Documentation [facility] Name: Marina Castro Age: 68 yrs Sex: Female : 1955 Arrival Date: 06/06/2023 Time: 16:37 Bed 19 Private MD: ED Physician Ronnie Stafford HPI: 06/06 19:02 This 68 yrs old Female presents to ER via Ambulatory with complaints of Sent By Dr Friedman.kb 19:02 Patient is a 68-year-old female who presents for pain under her left rib cage and left kb flank as well as urinary frequency. States she was seen by Dr. Friedman's office, urinalysis completed and patient was put on Macrobid. States she was feeling bad today so she called to see what the culture showed and was told to come to the ER for evaluation. 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 - Social history:: Smoking status: unknown. ROS: 19:00 Cardiovascular: Negative for chest pain, palpitations, and edema, kb 19:00 Constitutional: Positive for fatigue, malaise, 19:00 Abdomen/GI: Positive for abdominal pain, of the posterior aspect of left lateral abdomen, anterior aspect of left lateral abdomen and left upper quadrant, 19:00 : Positive for urinary frequency, 19:00 Neuro: Positive for headache, 19:00 All other systems are negative, Exam: 19:00 Constitutional: This is a well developed, well nourished patient who is awake, alert, kb and in no acute distress. Head/Face: Normocephalic, atraumatic. ENT: Moist Mucous membranes Cardiovascular: Regular rate Respiratory: Respirations even and unlabored. No increased work of breathing. Talking in full sentences Skin: Warm, dry with normal turgor. Normal color. MS/ Extremity: Pulses equal, no cyanosis. Neurovascular intact. Full, normal range of motion. Neuro: Awake and alert, GCS 15, oriented to person, place, time, and situation. Moves all extremities. Normal gait. 19:00 Abdomen/GI: Inspection: abdomen appears normal, Bowel sounds: normal, Palpation: soft, in the left upper quadrant, 19:00 Back: CVA tenderness, that is mild, is noted on the left, Vital Signs: 17:00 BP 134 / 76; Pulse 87; Resp 18; Temp 97.9; Pulse Ox 99% on R/A; Weight 76.66 kg; Height mb9 5 ft. 7 in. ; 19:14 BP 127 / 65; Pulse 65; Resp 16; Pulse Ox 99% ; km8 20:00 BP 132 / 75; Pulse 69; Resp 16; Pulse Ox 97% on R/A; km8 20:30 BP 130 / 74; Pulse 66; Resp 16; Pulse Ox 98% on R/A; km8 17:00 Body Mass Index 26.47 (76.66 kg, 170.18 cm) mb9 [place] Coma Score: 19:14 Eye Response: spontaneous(4). Motor Response: obeys commands(6). Verbal Response: km8 oriented(5). Total: 15. MDM: 16:58 Patient medically screened. kb 19:01 Differential diagnosis: UTI, Pyelonephritis, kidney stone. Data reviewed: vital signs, kb nurses notes. Management of patient was discussed with the following: Primary Care Provider: Dr. Friedman, recommends CT stone protocol and call with results. Transition of care: After a detail discussion of the patient's case, care is transferred to [facility] SYKES. 20:19 ED course: spoke with DR Friedman wants patient to be given oral Levaquin 500 mg now and to cp stop Macrobid antibiotic. RX for new oral antibiotic will be called in to patient's pharmacy to be picked up tomorrow. 06/06 17:09 Order name: CBC with Diff; Complete Time: 18:35 kb 06/06 20:04 Interpretation: Normal except: RDW 15.6; MN% 15.4. cp 06/06 17:09 Order name: CMP; Complete Time: 18:50 kb 06/06 20:04 Interpretation: Normal except: BUN 22; GFR 80. cp 06/06 17:09 Order name: Lipase; Complete Time: 18:50 kb 06/06 17:09 Order name: Urinalysis w/ reflexes; Complete Time: 19:04 kb 06/06 20:04 Interpretation: Normal except: [facility] Extremely Turbid; UKET TRACE; UBLD Trace; UPROT 1+; cp UESTR 75; URBC 11-20. 06/06 17:09 Order name: Flu; Complete Time: 19:04 kb 06/06 17:09 Order name: COVID-19 SARS RT PCR; Complete Time: 20:03 kb 06/06 17:09 Order name: Chest Single View XRAY; Complete Time: 17:35 kb 06/06 18:56 Order name: CT Stone Protocol; Complete Time: 20:03 cp 06/06 17:09 Order name: IV Saline Lock; Complete Time: 19:04 kb 06/06 17:09 Order name: Labs collected and sent; Complete Time: 19:04 kb Administered Medications: 20:43 Drug: LevOfloxacin PO 500 mg PO once Route: PO; km8 20:45 Follow up: Response: Medication administered at discharge. km8 Disposition Summary: 06/06/23 20:21 Discharge Ordered Notes: Location: Home cp Problem: new cp Symptoms: have improved cp Condition: Stable cp Diagnosis - UTI/ Urinary tract infection, site not specified cp Followup: cp - With: Cooper Friedman MD - When: 2 - 3 days - Reason: Recheck today's complaints Discharge Instructions: - Discharge Summary Sheet cp - Urinary Tract Infection, Adult cp Forms: - Medication Reconciliation Form cp - Thank You Letter cp - Antibiotic Education cp - Prescription Opioid Use cp - Patient Portal Instructions cp - Leadership Thank You Letter cp Addendum: 06/08/2023 20:09 I was immediately available for consultation during this patient's visit. I did not e c2 personally see the patient or guide the patient's care.. Signatures: Dispatcher [employer] Maryam Anderson, CLINICAL ACADEMIC ALLERGIST-C CLINICAL ACADEMIC ALLERGIST-CkWard Suárez PA PA cp Benton, Danielle, RN RN Rivka Snider RN RN mb9 Ronnie Stafford MD MD ec2 Noemy Corral, CARMEN RN km8
--- NOTE | 2023-06-06 20:22 | ER ---
Nurse's Notes [facility] Name: Marina Castro Age: 68 yrs Sex: Female : 1955 Arrival Date: 06/06/2023 Time: 16:37 Bed 19 Private MD: Diagnosis: UTI/ Urinary tract infection, site not specified Presentation: 06/06 17:00 Chief complaint: Patient states: "Dr. Friedman told me to come to the ER. I'm being treated mb9 for a UTI and they sent the culture off for bacteria. They put me on a antibiotic and don't know the name of it. I have no energy, left rib cage pain, headache, and feel like I have a fever.". Coronavirus screen: At this time, the client does not indicate any symptoms associated with coronavirus-19. Ebola Screen: No symptoms or risks identified at this time. Initial Sepsis Screen: Does the patient meet any 2 criteria? No. Patient's initial sepsis screen is negative. Does the patient have a suspected source of infection? No. Patient's initial sepsis screen is negative. Risk Assessment: Do you want to hurt yourself or someone else? Patient reports no desire to harm self or others. Onset of symptoms was June 06, 2023. 17:00 Method Of Arrival: Ambulatory mb9 17:00 Acuity: LUIS 3 mb9 Triage Assessment: 17:50 General: Appears in no apparent distress. comfortable, Behavior is calm, cooperative. db Pain: Denies pain. 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 - Social history:: Smoking status: unknown. Screenin:50 [facility] ED Fall Risk Assessment (Adult) History of falling in the last 3 months, db including since admission No falls in past 3 months (0 pts) Confusion or Disorientation No (0 pts) Intoxicated or Sedated No (0 pts) Impaired Gait No (0 pts) Mobility Assist Device Used No (0 pt) Altered Elimination No (0 pt) Score/Fall Risk Level 0 - 2 = Low Risk Oriented to surroundings, Maintained a safe environment. Abuse screen: Denies threats or abuse. Denies injuries from another. Nutritional screening: No deficits noted. Tuberculosis screening: No symptoms or risk factors identified. Assessment: 17:50 Reassessment: Patient appears in no apparent distress at this time. Patient and/or db family updated on plan of care and expected duration. Pain level reassessed. Patient is alert, oriented x 3, equal unlabored respirations, skin warm/dry/pink. General: Appears in no apparent distress. comfortable, Behavior is calm, cooperative, drowsy. Neuro: Level of Consciousness is awake, alert, obeys commands, Oriented to person, place, time, situation. Respiratory: Airway is patent Respiratory effort is even, unlabored, Respiratory pattern is regular, symmetrical. 19:14 Reassessment: Patient appears in no apparent distress at this time. Patient and/or 8 family updated on plan of care and expected duration. Pain level reassessed. Patient is alert, oriented x 3, equal unlabored respirations, skin warm/dry/pink. General: Appears in no apparent distress. comfortable, Behavior is calm, cooperative. Pain: Denies pain. Neuro: Level of Consciousness is awake, alert, obeys commands, Oriented to person, place, time, situation. Cardiovascular: Capillary refill < 3 seconds Patient's skin is warm and dry. Respiratory: Airway is patent Respiratory effort is even, unlabored, Respiratory pattern is regular, symmetrical. Derm: Skin is intact, is healthy with good turgor, Skin is dry, Skin is pink, warm \\T\\ dry. normal, Skin temperature is warm. Musculoskeletal: Range of motion: intact in all extremities. 20:44 Reassessment: Patient appears in no apparent distress at this time. No changes from [facility] previously documented assessment. Patient and/or family updated on plan of care and expected duration. Pain level reassessed. Patient is alert, oriented x 3, equal unlabored respirations, skin warm/dry/pink. Vital Signs: 17:00 BP 134 / 76; Pulse 87; Resp 18; Temp 97.9; Pulse Ox 99% on R/A; Weight 76.66 kg; Height mb9 5 ft. 7 in. ; 19:14 BP 127 / 65; Pulse 65; Resp 16; Pulse Ox 99% ; km8 20:00 BP 132 / 75; Pulse 69; Resp 16; Pulse Ox 97% on R/A; km8 20:30 BP 130 / 74; Pulse 66; Resp 16; Pulse Ox 98% on R/A; km8 17:00 Body Mass Index 26.47 (76.66 kg, 170.18 cm) mb9 [place] Coma Score: 19:14 Eye Response: spontaneous(4). Motor Response: obeys commands(6). Verbal Response: km8 oriented(5). Total: 15. ED Course: 16:40 Patient arrived in ED. mg5 16:57 Maryam Melchor FNP-C is PHCP. kb 16:57 Ronnie Stafford MD is Attending Physician. kb 17:05 Triage completed. mb9 17:05 Arm band placed on. mb9 17:19 Chest Single View XRAY In Process Unspecified. EDMS 17:24 Patient placed in an exam room, on a stretcher. ll1 17:50 Patient has correct armband on for positive identification. Bed in low position. Call db light in reach. Side rails up X 1. Pulse ox on. NIBP on. Warm blanket given. 17:50 No provider procedures requiring assistance completed. Inserted saline lock: 22 gauge db in right antecubital area, using aseptic technique. Blood collected. 17:51 Caludette Purcell, RN is Primary Nurse. db 18:57 PHCP role handed off by Maryam Melchor FNP-C cp 18:57 Ward Mitchell PA is PHCP. cp 19:07 Primary Nurse role handed off by Claudette Purcell, RN km8 19:07 Noemy Corral, RN is Primary Nurse. km8 19:14 Patient maintains SpO2 saturation greater than 95% on room air. km8 19:48 CT Stone Protocol In Process Unspecified. EDMS 20:20 Cooper Friedman MD is Referral Physician. cp 20:45 Provided Education on: d/c teaching. km8 20:45 IV discontinued, intact, bleeding controlled, No redness/swelling at site. Pressure km8 dressing applied. Administered Medications: 20:43 Drug: LevOfloxacin PO 500 mg PO once Route: PO; km8 20:45 Follow up: Response: Medication administered at discharge. km8 Medication: 17:50 VIS not applicable for this client. db Outcome: 20:21 Discharge ordered by . cp 20:45 Discharged to home ambulatory, km8 20:45 Condition: good 20:45 Discharge instructions given to patient, Instructed on discharge instructions, follow up and referral plans. Demonstrated understanding of instructions, follow-up care, 20:46 Patient left the ED. km8 Signatures: Dispatcher [employer] EDMaryam Powers, TRUONG [employer] PLANT OPERATOR-Ward Wheatley PA PA cp Lewis, Lynsay, RN RN ll1 Claudette Purcell, RN RN db Rivka Eastman RN RN mb9 Alethea Archer [facility] Noemy Corral RN RN km8
[2023-06-06 20:52] VITALS: TEMP 97.9
[2023-06-06 20:55] VITALS: BP 130/74; O2SAT 98
== END 2023-06-06 20:46 | disposition home or self-care (01) ==
LOC: ER 16:37
DX: N39.0 Urinary tract infection, site not specified (principal); I10 Essential (primary) hypertension; Z11.52 Encounter for screening for COVID-19; Z95.4 Presence of other heart-valve replacement
CPT/HCPCS: 36415; 71045; 74176; 76377; 80053; 81001; 83690; 85025; 87635; 87804; 99284

== ENCOUNTER 2023-06-11 05:49 | Emergency (ER) | payer OTHER, BC ==
--- OUTSIDE RECORDS SUMMARY | 2023-06-11 05:55 | XMS REPORT | Continuity of Care Document ---
:1955 Author Organization [facility] t Address [address] [place] [address] [place] [id number] Care Team Providers Name Role Phone Sebastian Friedman MD Primary Care Physician FOREST ZAMORA Attending Clinician Unavailable Sebastian Friedman Attending Clinician Unavailable Fifi NAVA, Сергей Lopez Attending Clinician Cl Nguyen Attending Clinician Unavailable Homero Attending Clinician Unavailable ANDRÉS MARTINS Attending Clinician Unavailable Amy GARCIA Attending Clinician Unavailable FOREST ZAMORA Attending Clinician Unavailable Yadi Desai MA Attending Clinician Unavailable Gregoria San MD Attending Clinician ADDIE ANTON Attending Clinician Unavailable Nurse, [facility] Attending Clinician Unavailable Maciel Kirby Attending Clinician Unavailable Only, Shakeel Acosta Test Attending Clinician Unavailable Matteo Hager Attending Clinician MATTEO RAM Attending Clinician Unavailable Agustin MORALES, Alesia Austin Attending Clinician Unavailable Only, Adc Test Attending Clinician Unavailable Jose Rafael Paul MD Attending Clinician JOSE RAFAEL PAUL Attending Clinician Unavailable Doctor Unassigned, [facility] Attending Clinician Unavailable Gill Camacho Attending Clinician Unavailable Yas Dominguez Attending Clinician Unavailable Jose A Gonzalez DO Attending Clinician Lab, Adc Fam Pob I Attending Clinician Unavailable Anene PATCHING MACHINE OPERATOR, Esteban Attending Clinician ESTEBAN CELAYA Attending Clinician Unavailable LILIA OBRIEN Attending Clinician Unavailable Lilia Obrien MD Attending Clinician Francisco Rodriguez Attending Clinician FRANCISCO SENIOR Attending Clinician Unavailable DR LV DEMARCO Attending Clinician Unavailable Sebastian Friedman Admitting Clinician Unavailable Cl Nguyen Admitting Clinician Unavailable DEBBIE_Eric Admitting Clinician Unavailable CHONG ERVIN Admitting Clinician Unavailable Forest Zamora Admitting Clinician KNOW, DOES_NOT Admitting Clinician Unavailable UNDEFINED Admitting Clinician Unavailable Physician, No Primary or Family Admitting Clinician UnavailDR LV Faye Admitting Clinician Unavailable Payers Payer Name Policy Type Policy Number Effective Date Expiration Date S marly MEDICARE PART A AND [id number] 2013 B 00:00:00 [place] [id number] 2018 [employer] 00:00:00 [place] [id number] 2018 (MEDICARE 00:00:00 SUPPLEMENT) MEDICARE PART A \\T\\ [id number] 2018 B 00:00:00 BCBS TRADITIONAL [id number] 2018 00:00:00 Problems Condition Condition Condition Status [...] Sports Medicin e Biceps Biceps Problem Active Sveat tendinitis Tendinitis 3-10 Or thope 00:00: dic [...] rmann itis, itis, right knee right knee 03/29/2022 [facility] Allergies, Adverse Reactions, Alerts Allergy Allergy Status Severity Reaction(s) Onset Inactive Treating Comm ents Source Name Type Date Date Clinician No Known DA Active [facility] No Known DA [facility] 2 [place] [facility] No Known DA Active [facility] 3 [place] [facility]ie 00[facility]00: d s 00 [facility] No Known DA Active [facility] 10-07 [place] [facility] 00:[facility]: d s 00 [facility] No Known DA Active [facility] 01[facility]30 [place] [facility] No Known DA [facility] 01[facility]30 [place] [facility] 00:[facility]: [facility] No Known DA [facility] All[facility] Memoria s l (LUF/LI V/SA) NO KNOWN Drug Active [facility] ALLERGIE Class [facility] [place] [facility] Family History Family Member Diagnosis Comments Start Date Stop Date Source Natural brother Heart disease Method t [facility] Natural father Cancer [facility] Natural father Stroke [facility] Natural mother Blood Clots [facility] Natural mother Cancer [facility] Natural mother Heart disease [facility] Social History Social Habit Start Date Stop Date Quantity Comments Source Gender identity [facility] History of tobacco Current [facility] use Sexual orientation [facility] Exposure to 2022-12-01 2022-12-11 Not sure [facility] SARS-CoV-2 (event) 00:00:00 07:47:00 Tobacco use and 2022-07-31 2022-07-31 Smokeless [facility] exposure 00:00:00 00:00:00 tobacco non-user Alcohol Comment 2022-07-31 2022-07-31 When [facility] get off [facility]th 00:00:00 00:00:00 work, I usually come home and have a drink or Cigarettes smoked 2019-03-21 2019-03-[address] current (pack per 00:00:00 00:00:00 [facility] l day) - Reported Cigarette 2019-03-21 2019-03-21 [facility] 00:00:00 00:00:00 Hospital Alcohol intake 2019-03-21 2019-03-21 Current drinker [facility] 00:00:00 00:00:00 of [facility] (finding) History of Social 2019-03-21 2019-03-[address] function 00:00:00 00:00:00 [facility] Sex Ass[birth year] At [birth year] [facility] 00:00:00 [facility]:00 [facility] Center Smoking Status Start Date Stop Date Source Ex-smoker 2022-07-31 00:00:00 2022-07-31 [facility] Ordered Filled Start Stop Current Ordering Indication Dosage Frequency Signature Comments Components Source Medication Medication Date Date Medication? Clinician (SIG) Name Name traMADol 2022- No [id number] 50mg Q6H Take 1 UT (Ultram) 50 [...] UT droCHLOROth 3-07 tablet by [facility] iazide 08:33: mouth 1 (Hyzaar) 27 (one) time 50-12.5 MG each day. tablet celecoxib 2023-0 Yes 200mg Q.5D Take 200 UT (CeleBREX) 3-07 mg by Health 200 MG 08:33: mouth in capsule 27 the morning and 200 mg in the evening. losartan-hy 2023-0 Yes 1{tbl} QD Take 1 UT droCHLOROth 3-07 tablet by [facility] iazide 08:33: mouth 1 (Hyzaar) 27 [...] night for 14 days. traMADol 2021-07 No [id number] 50mg Q6H Take 1 U T (Ultram) [...] 10 mg 7-07 ity of tablet 00:00: [place] 00 [facility] predniSONE 2020-0 Yes Univers 10 mg 7-07 ity of tablet 00:00: [place] 00 [facility] predniSONE 2020-0 Yes Univers 10 mg 7-07 ity of tablet 00:00: [place] 00 [facility] predniSONE 2020-0 Yes Univers 10 mg 7-07 ity of tablet 00:00: [place] 00 [facility] predniSONE 2020-0 Yes Univers 10 mg 7-07 ity of tablet 00:00: [place] 00 [facility] predniSONE 2020-0 Yes Univers 10 mg 7-07 ity of tablet 00:00: [place] 00 [facility] predniSONE 2020-0 Yes Univers 10 mg 7-07 ity of tablet 00:00: [place] 00 [facility] predniSONE 2020-0 Yes Univers 10 mg 7-07 ity of tablet 00:00: [place] 00 [facility] predniSONE 2020-0 Yes Univers 10 mg 7-07 ity of tablet 00:00: [place] 00 [facility] predniSONE 2020-0 Yes Univers 10 mg 7-07 ity of tablet 00:00: [place] 00 [facility] predniSONE 2020-0 Yes Univers 10 mg 7-07 ity of tablet 00:00: [place] 00 [facility] predniSONE 2020-0 Yes Univers 10 mg 7-07 ity of tablet 00:00: [place] 00 [facility] predniSONE 2020-0 Yes Univers 10 mg 7-07 ity of tablet 00:00: [place] 00 [facility] predniSONE 2020-0 Yes Univers 10 mg 7-07 ity of tablet 00:00: [place] 00 [facility] predniSONE 2020-0 Yes Univers 10 mg 7-07 ity of tablet 00:00: [place] 00 [facility] celecoxib 2020-0 Yes 200mg Take 200 Uni vers 200 mg 6-30 mg by ity of capsule 00:00: mouth [place] 00 daily. [facility] rosuvastati 2020-0 Yes 10mg Take 10 mg Univers n 10 mg 6-30 by mouth ity of tablet 00:00: every [place] 00 evening. [facility] celecoxib 2020-0 Yes 200mg Take 200 Uni vers 200 mg 6-30 mg by ity of capsule 00:00: mouth [place] 00 daily. [facility] rosuvastati 2020-0 Yes 10mg Take 10 mg Univers n 10 mg 6-30 by mouth ity of tablet 00:00: every [place] 00 evening. [facility] celecoxib 2020-0 Yes [...] s mg tablet 6-11 ity of 00:00: [place] [facility] warfarin 10 2020-0 Yes Univer s mg tablet 6-11 ity of 00:00: [place] [facility] warfarin 10 2020-0 Yes Univer s mg tablet 6-11 ity of 00:00: [place] [facility] warfarin 10 2020-0 Yes Univer s mg tablet 6-11 ity of 00:00: [place] [facility] warfarin 10 2020-0 Yes Univer s mg tablet 6-11 ity of 00:00: [place] [facility] warfarin 10 2020-0 Yes Univer s mg tablet 6-11 ity of 00:00: [place] [facility] warfarin 10 2020-0 Yes Univer s mg tablet 6-11 ity of 00:00: [place] [facility] warfarin 10 2020-0 Yes Univer s mg tablet 6-11 ity of 00:00: [place] [facility] warfarin 10 2020-0 Yes Univer s mg tablet 6-11 ity of 00:00: [place] [facility] warfarin 10 2020-0 Yes Univer s mg tablet 6-11 ity of 00:00: [place] [facility] warfarin 10 2020-0 Yes Univer s mg tablet 6-11 ity of 00:00: [place] [facility] warfarin 10 2020-0 Yes Univer s mg tablet 6-11 ity of 00:00: [place] [facility] warfarin 10 2020-0 Yes Univer s mg tablet 6-11 ity of 00:00: [place] [facility] warfarin 10 2020-0 Yes Univer s mg tablet 6-11 ity of 00:00: [place] [facility] warfarin 10 2020-0 Yes Univer s mg tablet 6-11 ity of 00:00: [place] [facility] warfarin 10 2020-0 Yes Univer s mg tablet 6-11 ity of 00:00: [place] [facility] diclofenac 2019-0 Yes Apply 1-2 [...] tablet dic 00 Sports [facility] Ambien Ambien 2013-07 No Ambien 10 Sveta mg [...] mL) mcg/2.4 Sports subcutaneou subcutaneou mL) M jillicin s pen s pen subcutaneo e injector [...] BY MOUTH BY MOUTH TABLETS BY M jillicin EVERY DAY X EVERY DAY X MOUTH [...] h Systolic blood 2020-01-28 20:07:00 141 mm[Hg] Will osorio [facility] pressure Medical Branch Diastolic blood 2020-01-28 20:07:00 85 mm[Hg] Lois [facility] pressure Medical Branch Heart rate 2020-01-28 20:07:00 62 /min [facility] Body height 2020-01-28 20:02:[address] [facility] Body weight 2020-01-28 20:02:[address] [facility] BMI 2020-01-28 20:02:00 26.63 kg/m2 [facility] Systolic blood 2020-01-28 20:07:00 141 mm[Hg] Univer sity [facility] Diastolic blood 2020-01-28 20:07:00 85 mm[Hg] Unive rssergio [facility] Heart rate 2020-01-28 20:07:00 62 /min [facility] Body height 2020-01-28 20:02:[address] [facility] Body weight 2020-01-28 20:02:[address] [facility] BMI 2020-01-28 20:02:00 26.63 kg/m2 [facility] Procedures Procedure Date / Time Performing Clinician Source Performed CBC WITH PLATELET AND 2023-03-06 21:27:00 Сергей Calix [facility] DIFFERENTIAL COMPREHENSIVE METABOLIC 2023-03-06 21:27:00 Сергей Calix [facility] PANEL AMYLASE LEVEL 2023-03-06 [facility] LIP[facility] LEV[facility] 2023-03-06 21:27:00 FifiСергей gibbons [facility] ESTIMATED GFR 2023-03-06 21:27:00 [facility] XR, shoulder, 2 or more 2022-09-27 00:00:00 Kareem jeong [facility] ASSIGNMENT OF BENEFITS 2021-07-24 15:16:00 Doctor Unassigned, No [facility] Plan of Care Planned Activity Planned Date Details Comments Source Future Scheduled 2023-06-04 Screening for [facility] Test 23:25:43 malignant neoplasm of colon (procedure) [code = 473606839] Future Scheduled 2023-06-04 Screening for [facility] Test 23:25:43 malignant neoplasm of colon (procedure) [code = 761949924] Future Scheduled 2023-06-04 Screening for [facility] Test 23:25:43 malignant neoplasm of colon (procedure) [code = 460157468] Future Scheduled 2023-06-04 [facility] Test 23:25:43 SCREENING [code = BREAST CANCER SCREENING] Future Scheduled 2023-06-04 [facility] Test 23:25:43 malignant neoplasm of colon (procedure) [code = 933595531] Future Scheduled 2023-06-04 [facility] Test 23:25:43 malignant neoplasm of colon (procedure) [code = 324952569] Future Scheduled 2023-06-04 SHINGLES VACCINES (1 [facility] Test 23:25:43 of 2) [code = SHINGLES VACCINES (1 of 2)] Future Scheduled 2023-06-04 65+ [facility] Test 23:25:43 VACCINE (1 - PCV) [code = 65+ PNEUMOCOCCAL VACCINE (1 - PCV)] Future Scheduled 2023-06-04 COVID-19 VACCINE (4 - [facility] Test 23:25:43 ) [code = COVID-19 VACCINE ( - season)] Future Scheduled 2023-06-04 INFLUENZA VACCINE (#1) [facility] Test 23:25:43 [code = INFLUENZA VACCINE (#1)] Future Scheduled 2023-06-04 [facility] Test 23:25:43 malignant neoplasm of colon (procedure) [code = 664327590] Future Scheduled 2023-06-04 [facility] Test 23:25:43 malignant neoplasm of colon (procedure) [code = 355708158] Future Scheduled 2023-06-04 [facility] Test 23:25:43 malignant neoplasm of colon (procedure) [code = 500471402] Future Scheduled 2023-06-04 [facility] Test 23:25:43 SCREENING [code = BREAST CANCER SCREENING] Future Scheduled 2023-06-04 [facility] Test 23:25:43 malignant neoplasm of colon (procedure) [code = 431680951] Future Scheduled 2023-06-04 [facility] Test 23:25:43 malignant neoplasm of colon (procedure) [code = 568847700] Future Scheduled 2023-06-04 SHINGLES VACCINES (1 Met [facility] Test 23:25:43 of 2) [code = SHINGLES VACCINES (1 of 2)] Future Scheduled 2023-06-04 65+ [facility] Test 23:25:43 VACCINE (1 - PCV) [code = 65+ PNEUMOCOCCAL VACCINE (1 - PCV)] Future Scheduled 2023-06-04 COVID-19 VACCINE (4 - [facility] Test 23:25:43 season) [code = COVID-19 VACCINE (4 - season)] Future Scheduled 2023-06-04 INFLUENZA VACCINE (#1) [facility] Test 23:25:43 [code = INFLUENZA VACCINE (#1)] Future Scheduled 2023-04-24 Screening for [facility] Test 11:52:00 malignant neoplasm of colon (procedure) [code = 490582683] Future Scheduled 2023-04-24 [facility] Test 11:52:00 malignant neoplasm of colon (procedure) [code = 539495692] Future Scheduled 2023-04-24 Screening for [facility] Test 11:52:00 malignant neoplasm of colon (procedure) [code = 407014765] Future Scheduled 2023-04-24 BREAST CANCER [facility] Test 11:52:00 SCREENING [code = BREAST CANCER SCREENING] Future Scheduled 2023-04-24 Screening for [facility] Test 11:52:00 malignant neoplasm of colon (procedure) [code = 861701238] Future Scheduled 2023-04-24 Screening for [facility] Test 11:52:00 malignant neoplasm of colon (procedure) [code = 964032472] Future Scheduled 2023-04-24 SHINGLES VACCINES (1 Met [facility] Test 11:52:00 of 2) [code = SHINGLES VACCINES (1 of 2)] Future Scheduled 2023-04-24 65+ PNEUMOCOCCAL [facility] Test 11:52:00 VACCINE (1 - PCV) [code = 65+ PNEUMOCOCCAL VACCINE (1 - PCV)] Future Scheduled 2023-04-24 COVID-19 VACCINE (4 - [facility] Test 11:52:00 Moderna series) [code = COVID-19 VACCINE (4 - Moderna series)] Future Scheduled 2023-04-24 INFLUENZA VACCINE (#1) [facility] Test 11:52:00 [code = INFLUENZA VACCINE (#1)] Future Scheduled 2023-02-22 Screening for [facility] Test 22:30:27 malignant neoplasm of colon (procedure) [code = 131518660] Future Scheduled 2023-02-22 [facility] Test 22:30:27 malignant neoplasm of colon (procedure) [code = 027313275] Future Scheduled 2023-02-22 [facility] Test 22:30:27 malignant neoplasm of colon (procedure) [code = 340251652] Future Scheduled 2023-02-22 COVID-19 VACCINE (#1) [facility] Test 22:30:27 [code = COVID-19 VACCINE (#1)] Future Scheduled 2023-02-22 [facility]ER [facility] Test 22:30:27 SCREENING [code = BREAST CANCER SCREENING] Future Scheduled 2023-02-22 [facility] Test 22:30:27 malignant neoplasm of colon (procedure) [code = 042372963] Future Scheduled 2023-02-22 [facility] Test 22:30:27 malignant neoplasm of colon (procedure) [code = 816426362] Future Scheduled 2023-02-22 SHINGLES VACCINES (1 Met [facility] Test 22:30:27 of 2) [code = SHINGLES VACCINES (1 of 2)] Future Scheduled 2023-02-22 65+ [facility] Test 22:30:27 VACCINE (1 - PCV) [code = 65+ PNEUMOCOCCAL VACCINE (1 - PCV)] Future Scheduled 2023-02-22 INFLUENZA VACCINE [facility] Test 22:30:27 [code = INFLUENZA VACCINE] Future Scheduled 2022-07-07 COVID-19 VACCINE (#1) [facility] Test 01:41:06 [code = COVID-19 VACCINE (#1)] Future Scheduled 2022-07-07 [facility]ER [facility] Test 01:41:06 SCREENING [code = BREAST CANCER SCREENING] Future Scheduled 2022-07-07 COLONOSCOPY SCREENING [facility] Test 01:41:06 [code = COLONOSCOPY SCREENING] Future Scheduled 2022-07-07 SHINGLES VACCINES (1 Met [facility] Test 01:41:06 of 2) [code = SHINGLES VACCINES (1 of 2)] Future Scheduled 2022-07-07 65+ [facility]OCCAL [facility] Test 01:41:06 VACCINE (1 - PCV) [code = 65+ PNEUMOCOCCAL VACCINE (1 - PCV)] Future Scheduled 2022-07-07 [facility]ZA [facility]ACCINE [facility] Test 01:41:06 [code = INFLUENZA VACCINE] Future Scheduled 2022-05-30 HEPATITIS B VACCINES Met [facility] Test 17:04:15 (1 of 3 - 3-dose series) [code = HEPATITIS B VACCINES (1 of 3 - 3-dose series)] Future Scheduled 2022-05-30 COVID-19 VACCINE (#1) [facility] Test 17:04:15 [code = COVID-19 VACCINE (#1)] Future Scheduled 2022-05-30 BREAST CANCER [facility] Test 17:04:15 SCREENING [code = BREAST CANCER SCREENING] Future Scheduled 2022-05-30 COLONOSCOPY SCREENING [facility] Test 17:04:15 [code = COLONOSCOPY SCREENING] Future Scheduled 2022-05-30 SHINGLES VACCINES (1 Met [facility] Test 17:04:15 of 2) [code = SHINGLES VACCINES (1 of 2)] Future Scheduled 2022-05-30 65+ PNEUMOCOCCAL [facility] Test 17:04:15 VACCINE (1 - PCV) [code = 65+ PNEUMOCOCCAL VACCINE (1 - PCV)] Future Scheduled 2022-05-30 INFLUENZA VACCINE [facility] Test 17:04:15 [code = INFLUENZA VACCINE] Future Scheduled 2022-05-30 HEPATITIS B VACCINES Met [facility] Test 17:04:15 (1 of 3 - 3-dose series) [code = HEPATITIS B VACCINES (1 of 3 - 3-dose series)] Future Scheduled 2022-05-30 COVID-19 VACCINE (#1) [facility] Test 17:04:15 [code = COVID-19 VACCINE (#1)] Future Scheduled 2022-05-30 BREAST CANCER [facility] Test 17:04:15 SCREENING [code = BREAST CANCER SCREENING] Future Scheduled 2022-05-30 COLONOSCOPY SCREENING [facility] Test 17:04:15 [code = COLONOSCOPY SCREENING] Future Scheduled 2022-05-30 SHINGLES VACCINES (1 Met [facility] Test 17:04:15 of 2) [code = SHINGLES VACCINES (1 of 2)] Future Scheduled 2022-05-30 65+ [facility] 17:04:15 VACCINE (1 - PCV) [code = 65+ PNEUMOCOCCAL VACCINE (1 - PCV)] Future Scheduled 2022-05-30 INFLUENZA VACCINE [facility] Test 17:04:15 [code = INFLUENZA VACCINE] Future Scheduled 2022-05-30 HEPATITIS B VACCINES Met [facility] Test 17:04:15 (1 of 3 - 3-dose series) [code = HEPATITIS B VACCINES (1 of 3 - 3-dose series)] Future Scheduled 2022-05-30 COVID-19 VACCINE (#1) [facility] Test 17:04:15 [code = COVID-19 VACCINE (#1)] Future Scheduled 2022-05-30 BREAST CANCER [facility] Test 17:04:15 SCREENING [code = BREAST CANCER SCREENING] Future Scheduled 2022-05-30 COLONOSCOPY SCREENING [facility] Test 17:04:15 [code = COLONOSCOPY SCREENING] Future Scheduled 2022-05-30 SHINGLES VACCINES (1 Met [facility] Test 17:04:15 of 2) [code = SHINGLES VACCINES (1 of 2)] Future Scheduled 2022-05-30 65+ PNEUMOCOCCAL [facility] Test 17:04:15 VACCINE (1 - PCV) [code = 65+ PNEUMOCOCCAL VACCINE (1 - PCV)] Future Scheduled 2022-05-30 INFLUENZA VACCINE [facility] Test 17:04:15 [code = INFLUENZA VACCINE] Future Scheduled 2022-05-30 HEPATITIS B VACCINES Met [facility] Test 17:04:15 (1 of 3 - 3-dose series) [code = HEPATITIS B VACCINES (1 of 3 - 3-dose series)] Future Scheduled 2022-05-30 COVID-19 VACCINE (#1) [facility] Test 17:04:15 [code = COVID-19 VACCINE (#1)] Future Scheduled 2022-05-30 BREAST CANCER [facility] Test 17:04:15 SCREENING [code = BREAST CANCER SCREENING] Future Scheduled 2022-05-30 COLONOSCOPY SCREENING [facility] Test 17:04:15 [code = COLONOSCOPY SCREENING] Future Scheduled 2022-05-30 SHINGLES VACCINES (1 Met [facility] Test 17:04:15 of 2) [code = SHINGLES VACCINES (1 of 2)] Future Scheduled 2022-05-30 65+ [facility]CCAL [facility] 17:04:15 VACCINE (1 - PCV) [code = 65+ PNEUMOCOCCAL VACCINE (1 - PCV)] Future Scheduled 2022-05-30 INFLUENZA VACCINE [facility] Test 17:04:15 [code = INFLUENZA VACCINE] Future Scheduled 2022-05-30 HEPATITIS B VACCINES Met [facility] Test 17:04:15 (1 of 3 - 3-dose series) [code = HEPATITIS B VACCINES (1 of 3 - 3-dose series)] Future Scheduled 2022-05-30 COVID-19 VACCINE (#1) [facility] Test 17:04:15 [code = COVID-19 VACCINE (#1)] Future Scheduled 2022-05-30 BREAST CANCER [facility] Test 17:04:15 SCREENING [code = BREAST CANCER SCREENING] Future Scheduled 2022-05-30 COLONOSCOPY SCREENING [facility] Test 17:04:15 [code = COLONOSCOPY SCREENING] Future Scheduled 2022-05-30 SHINGLES VACCINES (1 Met [facility] Test 17:04:15 of 2) [code = SHINGLES VACCINES (1 of 2)] Future Scheduled 2022-05-30 65+ [facility]CCAL [facility] Test 17:04:15 VACCINE (1 - PCV) [code = 65+ PNEUMOCOCCAL VACCINE (1 - PCV)] Future Scheduled 2022-05-30 INFLUENZA VACCINE [facility] Test 17:04:15 [code = INFLUENZA VACCINE] Future Scheduled 2022-05-30 HEPATITIS B VACCINES Met [facility] Test 17:04:15 (1 of 3 - 3-dose series) [code = HEPATITIS B VACCINES (1 of 3 - 3-dose series)] Future Scheduled 2022-05-30 COVID-19 VACCINE (#1) [facility] Test 17:04:15 [code = COVID-19 VACCINE (#1)] Future Scheduled 2022-05-30 BREAST CANCER [facility] Test 17:04:15 SCREENING [code = BREAST CANCER SCREENING] Future Scheduled 2022-05-30 COLONOSCOPY SCREENING [facility] Test 17:04:15 [code = COLONOSCOPY SCREENING] Future Scheduled 2022-05-30 SHINGLES VACCINES (1 Met [facility] Test 17:04:15 of 2) [code = SHINGLES VACCINES (1 of 2)] Future Scheduled 2022-05-30 65+ [facility]OCCAL [facility] Test 17:04:15 VACCINE (1 - PCV) [code = 65+ PNEUMOCOCCAL VACCINE (1 - PCV)] Future Scheduled 2022-05-30 INFLUENZA VACCINE [facility] Test 17:04:15 [code = INFLUENZA VACCINE] Future Scheduled 2022-05-30 HEPATITIS B VACCINES Met [facility] Test 17:04:15 (1 of 3 - 3-dose series) [code = HEPATITIS B VACCINES (1 of 3 - 3-dose series)] Future Scheduled 2022-05-30 COVID-19 VACCINE (#1) [facility] Test 17:04:15 [code = COVID-19 VACCINE (#1)] Future Scheduled 2022-05-30 BREAST CANCER [facility] Test 17:04:15 SCREENING [code = BREAST CANCER SCREENING] Future Scheduled 2022-05-30 COLONOSCOPY SCREENING [facility] Test 17:04:15 [code = COLONOSCOPY SCREENING] Future Scheduled 2022-05-30 SHINGLES VACCINES (1 Met [facility] Test 17:04:15 of 2) [code = SHINGLES VACCINES (1 of 2)] Future Scheduled 2022-05-30 65+ [facility] 17:04:15 VACCINE (1 - PCV) [code = 65+ PNEUMOCOCCAL VACCINE (1 - PCV)] Future Scheduled 2022-05-30 INFLUENZA VACCINE [facility] Test 17:04:15 [code = INFLUENZA VACCINE] Future Scheduled 2022-05-30 HEPATITIS B VACCINES Met [facility] Test 17:04:15 (1 of 3 - 3-dose series) [code = HEPATITIS B VACCINES (1 of 3 - 3-dose series)] Future Scheduled 2022-05-30 COVID-19 VACCINE (#1) [facility] Test 17:04:15 [code = COVID-19 VACCINE (#1)] Future Scheduled 2022-05-30 BREAST CANCER [facility] Test 17:04:15 SCREENING [code = BREAST CANCER SCREENING] Future Scheduled 2022-05-30 COLONOSCOPY SCREENING [facility] Test 17:04:15 [code = COLONOSCOPY SCREENING] Future Scheduled 2022-05-30 SHINGLES VACCINES (1 Met [facility] Test 17:04:15 of 2) [code = SHINGLES VACCINES (1 of 2)] Future Scheduled 2022-05-30 65+ [facility]AL [facility] 17:04:15 VACCINE (1 - PCV) [code = 65+ PNEUMOCOCCAL VACCINE (1 - PCV)] Future Scheduled 2022-05-30 INFLUENZA VACCINE [facility] Test 17:04:15 [code = INFLUENZA VACCINE] Future Scheduled 2022-05-30 HEPATITIS B VACCINES Met [facility] Test 17:04:15 (1 of 3 - 3-dose series) [code = HEPATITIS B VACCINES (1 of 3 - 3-dose series)] Future Scheduled 2022-05-30 COVID-19 VACCINE (#1) [facility] Test 17:04:15 [code = COVID-19 VACCINE (#1)] Future Scheduled 2022-05-30 BREAST CANCER [facility] Test 17:04:15 SCREENING [code = BREAST CANCER SCREENING] Future Scheduled 2022-05-30 COLONOSCOPY SCREENING [facility] Test 17:04:15 [code = COLONOSCOPY SCREENING] Future Scheduled 2022-05-30 SHINGLES VACCINES (1 Met [facility] Test 17:04:15 of 2) [code = SHINGLES VACCINES (1 of 2)] Future Scheduled 2022-05-30 65+ PNEUMOCOCCAL [facility] Test 17:04:15 VACCINE (1 - PCV) [code = 65+ PNEUMOCOCCAL VACCINE (1 - PCV)] Future Scheduled 2022-05-30 INFLUENZA VACCINE Method [facility] Test 17:04:15 [code = INFLUENZA VACCINE] Future Scheduled 2022-05-30 HEPATITIS B VACCINES Met [facility] Test 17:04:15 (1 of 3 - 3-dose series) [code = HEPATITIS B VACCINES (1 of 3 - 3-dose series)] Future Scheduled 2022-05-30 COVID-19 VACCINE (#1) [facility] Test 17:04:15 [code = COVID-19 VACCINE (#1)] Future Scheduled 2022-05-30 BREAST CANCER [facility] Test 17:04:15 SCREENING [code = BREAST CANCER SCREENING] Future Scheduled 2022-05-30 COLONOSCOPY SCREENING [facility] Test 17:04:15 [code = COLONOSCOPY SCREENING] Future Scheduled 2022-05-30 SHINGLES VACCINES (1 Met [facility] Test 17:04:15 of 2) [code = SHINGLES VACCINES (1 of 2)] Future Scheduled 2022-05-30 65+ [facility]CCAL [facility] Test 17:04:15 VACCINE (1 - PCV) [code = 65+ PNEUMOCOCCAL VACCINE (1 - PCV)] Future Scheduled 2022-05-30 INFLUENZA VACCINE [facility] Test 17:04:15 [code = INFLUENZA VACCINE] Future Scheduled 2022-05-30 HEPATITIS B VACCINES Met [facility] Test 17:04:15 (1 of 3 - 3-dose series) [code = HEPATITIS B VACCINES (1 of 3 - 3-dose series)] Future Scheduled 2022-05-30 COVID-19 VACCINE (#1) [facility] Test 17:04:15 [code = COVID-19 VACCINE (#1)] Future Scheduled 2022-05-30 BREAST CANCER [facility] Test 17:04:15 SCREENING [code = BREAST CANCER SCREENING] Future Scheduled 2022-05-30 COLONOSCOPY SCREENING [facility] Test 17:04:15 [code = COLONOSCOPY SCREENING] Future Scheduled 2022-05-30 SHINGLES VACCINES (1 Met [facility] Test 17:04:15 of 2) [code = SHINGLES VACCINES (1 of 2)] Future Scheduled 2022-05-30 65+ PNEUMOCOCCAL [facility] Test 17:04:15 VACCINE (1 - PCV) [code = 65+ PNEUMOCOCCAL VACCINE (1 - PCV)] Future Scheduled 2022-05-30 INFLUENZA VACCINE Method [facility] Test 17:04:15 [code = INFLUENZA VACCINE] Future Scheduled 2022-05-30 HEPATITIS B VACCINES Met [facility] Test 17:04:15 (1 of 3 - 3-dose series) [code = HEPATITIS B VACCINES (1 of 3 - 3-dose series)] Future Scheduled 2022-05-30 COVID-19 VACCINE (#1) [facility] Test 17:04:15 [code = COVID-19 VACCINE (#1)] Future Scheduled 2022-05-30 BREAST CANCER [facility] Test 17:04:15 SCREENING [code = BREAST CANCER SCREENING] Future Scheduled 2022-05-30 COLONOSCOPY SCREENING [facility] Test 17:04:15 [code = COLONOSCOPY SCREENING] Future Scheduled 2022-05-30 SHINGLES VACCINES (1 Met [facility] Test 17:04:15 of 2) [code = SHINGLES VACCINES (1 of 2)] Future Scheduled 2022-05-30 65+ [facility]CCAL [facility] Test 17:04:15 VACCINE (1 - PCV) [code = 65+ PNEUMOCOCCAL VACCINE (1 - PCV)] Future Scheduled 2022-05-30 INFLUENZA VACCINE [facility] Test 17:04:15 [code = INFLUENZA VACCINE] Future Scheduled 2022-05-30 HEPATITIS B VACCINES Met [facility] Test 17:04:15 (1 of 3 - 3-dose series) [code = HEPATITIS B VACCINES (1 of 3 - 3-dose series)] Future Scheduled 2022-05-30 COVID-19 VACCINE (#1) [facility] Test 17:04:15 [code = COVID-19 VACCINE (#1)] Future Scheduled 2022-05-30 BREAST CANCER [facility] Test 17:04:15 SCREENING [code = BREAST CANCER SCREENING] Future Scheduled 2022-05-30 COLONOSCOPY SCREENING [facility] Test 17:04:15 [code = COLONOSCOPY SCREENING] Future Scheduled 2022-05-30 SHINGLES VACCINES (1 Met [facility] Test 17:04:15 of 2) [code = SHINGLES VACCINES (1 of 2)] Future Scheduled 2022-05-30 65+ PNEUMOCOCCAL [facility] Test 17:04:15 VACCINE (1 - PCV) [code = 65+ PNEUMOCOCCAL VACCINE (1 - PCV)] Future Scheduled 2022-05-30 INFLUENZA VACCINE Method [facility] Test 17:04:15 [code = INFLUENZA VACCINE] Future Scheduled 2022-05-30 HEPATITIS B VACCINES Met [facility] Test 17:04:15 (1 of 3 - 3-dose series) [code = HEPATITIS B VACCINES (1 of 3 - 3-dose series)] Future Scheduled 2022-05-30 COVID-19 VACCINE (#1) [facility] Test 17:04:15 [code = COVID-19 VACCINE (#1)] Future Scheduled 2022-05-30 BREAST CANCER [facility] Test 17:04:15 SCREENING [code = BREAST CANCER SCREENING] Future Scheduled 2022-05-30 COLONOSCOPY SCREENING [facility] Test 17:04:15 [code = COLONOSCOPY SCREENING] Future Scheduled 2022-05-30 SHINGLES VACCINES (1 Met [facility] Test 17:04:15 of 2) [code = SHINGLES VACCINES (1 of 2)] Future Scheduled 2022-05-30 65+ [facility]CCAL [facility] Test 17:04:15 VACCINE (1 - PCV) [code = 65+ PNEUMOCOCCAL VACCINE (1 - PCV)] Future Scheduled 2022-05-30 INFLUENZA VACCINE [facility] Test 17:04:15 [code = INFLUENZA VACCINE] Future Scheduled 2022-03-30 HEPATITIS B VACCINES Met [facility] Test 23:57:10 (1 of 3 - 3-dose series) [code = HEPATITIS B VACCINES (1 of 3 - 3-dose series)] Future Scheduled 2022-03-30 COVID-19 VACCINE (#1) [facility] Test 23:57:10 [code = COVID-19 VACCINE (#1)] Future Scheduled 2022-03-30 BREAST CANCER [facility] Test 23:57:10 SCREENING [code = BREAST CANCER SCREENING] Future Scheduled 2022-03-30 COLONOSCOPY SCREENING [facility] Test 23:57:10 [code = COLONOSCOPY SCREENING] Future Scheduled 2022-03-30 SHINGLES VACCINES (1 Met [facility] Test 23:57:10 of 2) [code = SHINGLES VACCINES (1 of 2)] Future Scheduled 2022-03-30 65+ [facility]AL [facility] 23:57:10 VACCINE (1 - PCV) [code = 65+ PNEUMOCOCCAL VACCINE (1 - PCV)] Future Scheduled 2022-03-30 INFLUENZA VACCINE [facility] Test 23:57:10 [code = INFLUENZA VACCINE] Future Scheduled 2021-07-13 COVID-19 VACCINE (1) Met [facility] Test 16:26:45 [code = COVID-19 VACCINE (1)] Future Scheduled 2021-07-13 Hepatitis C screening [facility] Test 16:26:45 (procedure) [code = 740803648] Future Scheduled 2021-07-13 BREAST CANCER [facility] Test 16:26:45 SCREENING [code = BREAST CANCER SCREENING] Future Scheduled 2021-07-13 COLONOSCOPY SCREENING [facility] Test 16:26:45 [code = COLONOSCOPY SCREENING] Future Scheduled 2021-07-13 [facility] 16:26:45 [code = SHINGLES VACCINES (#1)] Future Scheduled 2021-07-13 65+ [facility]OCCAL [facility] Test 16:26:45 VACCINE (1 of 1 - PPSV23) [code = 65+ PNEUMOCOCCAL VACCINE (1 of 1 - PPSV23)] Future Scheduled 2021-07-13 [facility] 16:26:45 [code = INFLUENZA VACCINE] Future Scheduled COVID-19 [facility]ACCINE (1[facility] [code = COVID-19 VACCINE (1)] Future [facility]uled [facility] (procedure) [code = [id number]] Future Scheduled BREAST CANCER [facility] Test SCREENING [code = BREAST CANCER SCREENING] Future Scheduled [facility]ING [facility] [code = COLONOSCOPY SCREENING] Future Scheduled SHINGLES VACCINES (#1) [facility] [code = SHINGLES VACCINES (#1)] Future Scheduled 65+ [facility] VACCINE (1 of 1 - PPSV23) [code = 65+ PNEUMOCOCCAL VACCINE (1 of 1 - PPSV23)] Future Scheduled [facility] [code = INFLUENZA VACCINE] Encounters Start End Encounter Admission Attending Care Care Encounter Source Date/Time Date/Time Type Type Clinicians Facility Department ID 2022-12-11 Outpatient [facility] [id number] [place] 07:49:11 [id number] [facility] 2022-12-10 Outpatient [facility] [id number] [place] 17:26:01 [id number] [facility] 2022-11-28 Outpatient [facility] [id number] [place] 08:17:51 [id number] [facility] 2022-11-15 Outpatient [facility] [id number] [place] 11:43:35 [id number] [facility] 2022-10-27 Outpatient [facility] [id number] [place] 14:13:00 [id number] [facility] 2022-09-22 Outpatient [facility] [id number] [place] 10:15:52 [id number] [facility] 2022-08-17 Outpatient [facility] [id number] [place] 14:13:07 [id number] [facility] 2022-07-03 Outpatient [facility] [id number] [place] 09:03:40 [id number] [facility] 2022-06-20 Outpatient [facility] [id number] [place] 15:02:02 [id number] [facility] 2022-06-13 Outpatient [facility] [id number] [place] 13:58:07 [id number] [facility] 2022-06-02 Outpatient [facility] [id number] [place] 14:25:50 [id number] [facility] 2022-05-29 Outpatient [facility] [id number] [place] 07:38:34 [id number] [facility] 2022-05-26 Outpatient [facility] [id number] [place] 09:09:03 [id number] [facility] 2021-09-22 Outpatient SERA [facility] [id number] [place] 09:07:57 [facility] 2023-04-23 2023-04-23 Outpatient SUMA Bernal [id number] [facility] 12:00:00 12:00:00 Sebastian 28 [facility] 2023-03-06 2023-03-06 Lab Fifi, 1.2.840.1 [id number] Methodi 16:10:00 16:15:00 Сергей Lopez [address]72.1.[address] 3.430.2.7 Hospit a .3.462803 l .8 2023-03-06 2023-03-06 Lab Fifi, 1.2.840.1 [id number] Methodi 16:10:00 16:15:00 Сергей Lopez [address]10.1.[address] 3.430.2.7 Hospit a .3.023100 l .8 2023-03-06 2023-03-06 [facility] Fifi, 1.2.840.1 [id number] Methodi 00:00:00 00:00:00 Orders Сергей Lopez [address]85.1.[address] 3.430.2.7 Hospit a .3.731530 l .8 2023-03-06 2023-03-06 [facility] Fifi, 1.2.840.1 [id number] Methodi 00:00:00 00:00:00 Orders Сергей Lopez [address]231.1.[address] 3.430.2.7 Hospit a .3.842929 l .8 2023-02-26 2023-02-26 Outpatient [facility]I [facility] [id number] [facility] 09:59:00 09:59:00 [facility] 2023-02-23 2023-02-23 Outpatient FOG_McCann_ AOSM AOSM 546 [id number] Sveta 00:00:00 00:00:00 Francy [id number] [facility] 2023-02-23 2023-02-23 Outpatient FOG_McCann_ AOSM AOSM 546 Sveta 00:00:00 00:00:00 Francy [id number] [facility] 2022-12-24 2022-12-24 Outpatient FOG_McCann_ AOSM AOSM 546 Sveta 00:00:00 00:00:00 Francy 696240 [facility] 2022-12-24 2022-12-24 Outpatient FOG_McCann_ AOSM AOSM 546 Sveta 00:00:00 00:00:00 Francy [id number] [facility] 2022-12-24 2022-12-24 Outpatient FOG_McCann_ AOSM AOSM 546 Sveta 00:00:00 00:00:00 Francy 043304 [facility] 2022-12-11 2022-12-11 Outpatient [facility] [id number] [place] 00:00:00 17:26:33 Health 2022-12-11 2022-12-11 [id number] [place] 10:00:00 10:00:00 [facility] 2022-12-11 2022-12-11 Office Lakshmi [facility] ORTHO 1.2.840.114 1 [id number] [place] 08:00:00 08:20:47 Visit Andrés SUGAR 350.1.13.58 [place] 9.2.7.2.686 [id number] 1 2022-10-16 2022-10-16 Outpatient [facility] [id number] [place] 08:45:00 08:45:00 [facility] 2022-10-03 2022-10-03 Outpatient FOG_McCann_ AOSM AOSM 546 Sveta 00:00:00 00:00:00 Francy [id number] [facility] 2022-09-27 2022-09-27 Yas M AOSM [place] - Ortho 2022 0308 Sveta 00:00:00 00:00:00 Christine Dominguez MD: [id number] FOG_Ofc dic Main [facility] Spo rts [facility] e [id number] , Ph. [phone] 2022-09-26 2022-09-26 Office VICKY Zamora ORTHO 1.2.459.738 [id number] [place] 08:00:00 09:03:03 Visit Forest SUGAR 350.1.13.58 He alth L[place] 9.2.7.2.686 [id number] 1 2022-09-26 2022-09-26 Outpatient FOG_McCann_ AOSM AOSM 546 9122-20 Sveta 00:00:00 00:00:00 Francy [id number] [facility] 2022-09-26 2022-09-26 Outpatient FOG_McCann_ AOSM AOSM 546 9122-20 Sveta 00:00:00 00:00:00 Francy 094450 [facility] 2022-09-26 2022-09-26 Haritha Ramirez [facility]OS[facility] [place] - Ortho [id number] Sveta 00:00:00 00:00:00 MD Ortiz: Christine Morillo [address] FOG_Ofc dic [facility] Spor ts [facility] e [phone] , Ph. [phone] 2022-09-24 2022-09-24 Outpatient FOG_McCann_ AOSM AOSM 546 9122-20 Sveta 00:00:00 00:00:00 Francy 874250 [facility] 2022-09-24 2022-09-24 Outpatient FOG_McCann_ AOSM AOSM 546 9122-20 Sveta 00:00:00 00:00:00 Francy [id number] [facility] 2022-09-18 2022-09-18 Outpatient FOG_McCann_ AOSM AOSM 546 9122-20 Sveta 00:00:00 00:00:00 Francy 132197 [facility] 2022-09-18 2022-09-18 Outpatient FOG_McCann_ AOSM AOSM 546 9122-20 Sveta 00:00:00 00:00:00 Francy 172009 [facility] 2022-09-13 2022-09-13 Outpatient [facility] ER [id number] [place] 00:00:00 16:02:56 Health 2022-09-13 2022-09-13 Office ZamoraVICKY ORTHO 1.2.259.501 [id number] [place] 13:45:00 16:02:29 Visit Forest SUGAR 350.1.13.58 He alth [place] 9.2.7.2.686 [id number] 1 2022-07-31 2022-07-31 Office VICKY Zamora ORTHO 1.2.599.896 [id number] [place] 09:45:00 11:33:53 Visit Forest SUGAR 350.1.13.58 He alth [place] 9.2.7.2.686 [id number] 1 2022-07-18 2022-07-18 Office VICKY Martins ORTHO 1.2.840.114 1 [id number] [place] 15:15:00 15:29:06 Visit Andrés SUGAR 350.1.13.58 He alth LAND 9.2.7.2.686 [id number] 1 2022-07-05 2022-07-05 Outpatient [facility] ER [id number] [place] 00:00:00 14:26:13 Health 2022-07-05 2022-07-05 Office VICKY Martins ORTHO 1.2.840.114 1 [id number] [place] 13:30:00 13:35:04 Visit Andrés SUGAR 350.1.13.58 He alth [place] 9.2.7.2.686 [id number] 1 2022-06-22 2022-06-22 Outpatient [facility] ER [id number] [place] 00:00:00 11:18:50 Health 2022-06-22 2022-06-22 Office VICKY Martins ORTHO 1.2.840.114 1 [id number] [place] 10:45:00 11:15:05 Visit Andrés SUGAR 350.1.13.58 He alth [place] 9.2.7.2.686 [id number] 1 2022-06-16 2022-06-21 Inpatient Castillo CARRIZALES [facility] MED [id number] [facility] 16:59:00 14:27:00 Amy ALMONTE 2022-06-19 2022-06-19 Outpatient LAKSHMI, [facility] [id number] [place] 10:00:00 10:00:00 [facility] 2022-06-12 2022-06-12 Outpatient ZAMORA, FB [facility] 7501 [facility] 05:18:00 14:00:00 [facility] 2022-06-12 2022-06-12 Outpatient SERA, [facility] ER [id number] [place] 09:30:00 09:30:00 [facility] 2022-06-12 2022-06-12 Outpatient SERA, [facility] ER [id number] [place] 07:30:00 07:30:00 [facility] 2022-06-05 2022-06-05 Outpatient LAKSHMI, [facility] [id number] [place] 10:00:00 10:30:48 [facility] 2022-04-17 2022-04-17 Outpatient MILLY Friedman, [facility] [id number] [facility] 08:00:00 08:00:[address] [place] [address] 2022-03-28 2022-03-29 [facility] [id number] Memoria 14:39:01 04:59:59 r [facility] 2022-03-28 2022-03-29 [facility]patient [facility] [id number] Memoria 14:39:01 04:59:59 r [facility] 2022-03-28 2022-03-28 Outpatient Sera, [id number] 09:39:01 23:59:59 Forest 8 2022-03-28 2022-03-28 [facility] [id number] Memoria 09:39:01 09:39:01 r ta Wilkinson 2022-03-09 2022-03-09 Office Sera, [facility] ORTHO 1.2.059.233 [id number] [place] 14:00:00 14:57:30 Visit Forest SUGAR 350.1.13.58 He alth [place] 9.2.7.2.686 [id number] 1 2021-12-29 2021-12-29 Telephone Lloyd 1.2.840.1 [id number] Methodi 00:00:00 00:00:[address] 3.430.2.7 Hospit a .3.019213 l .8 2021-12-29 2021-12-29 Telephone Gregoria San 1.2.840.1 [id number] 947 [id number] Methodi 00:00:00 00:00:[address] 3.430.2.7 Hospit a .3.091089 l .8 2021-12-26 2021-12-26 Outpatient IMTIAZ HoTO RADI [id number] [facility] 08:53:00 08:53:00 Cl [facility] 2022-01-20 2021-12-26 Inpatient HERI Ho DAYS [id number] [facility] 13:15:00 08:00:00 Cl 26 [facility] 2021-11-06 2021-11-06 Outpatient R [facility] [id number] Univers 12:00:00 12:00:00 [facility] 2021-11-05 2021-11-05 [facility] [id number] Univers 20:45:00 20:45:00 ADDIE [facility] 2021-10-10 2021-10-10 Office VICKY Zamora 1.2.985.710 [id number] [place] 14:30:00 16:07:20 Visit [place] SUGAR 350.1.13.58 He alth [place] 9.2.7.2.686 [id number] 1 2021-09-02 2021-09-02 Telephone Nurse, Shakeel [facility] 1.2.840.114 9 [id number] Univers 00:00:00 00:00:00 Db Urgent HEALTH 350.1.13.10 ity of [place] 4.2.7.2.686 Uziel as PADDY?BLEA [id number] Oh dical [address] MEDICAL OFFICE BUILDING 2021-08-24 2021-08-24 Outpatient Mirta, HCACL LABO [id number] [facility] 15:41:00 15:41:00 Maciel 59 [facility] 2021-08-17 2021-08-17 Outpatient HERI Ho RADI [id number] [facility] 17:40:00 17:40:00 Cl [facility] 2021-08-02 2021-08-02 Laboratory Only, Ang Db Test [facility] 1.2.8 40.114 [id number] Univers 20:15:00 20:30:00 Only Matteo Ram [facility] 350.1.13.10 ity of [place] 4.2.7.2.686 Uziel as PADDY?BLEA [id number] Oh dical [address] MEDICAL OFFICE BUILDING 2021-08-02 2021-08-02 Outpatient R KEVIN [facility] [id number] Univers 20:15:00 20:15:00 MATTEO sandovaly o f [facility] 2021-07-25 2021-07-25 Letter MARCOS Velez 1.2.840.114 [id number] Univers 00:00:00 00:00:00 (Out) Alesia GOINS 350.1.13.10 it y of [facility] 4.2.7.2.686 Uziel as [id number] [facility] [address] 2021-07-24 2021-07-24 Laboratory Only, Adc Test [facility] 1.2.840. 114 [id number] Univers 08:45:00 09:00:00 Only Jose Rafael Paul 350.1.13.10 ity of [place] [id number] [facility] [address] 2021-07-24 2021-07-24 Outpatient R HUMBERTO [facility] [id number] Univers 08:45:00 08:45:00 JOSE RAFAEL [place] of [facility] 2021-07-24 2021-07-24 Orders Doctor RODRÍGUEZ 1.2.840.114 [id number] Univers 00:00:00 00:00:00 Only GracielassBRISEIDA silva 350.1.13.10 [facility] 4.2.7.2.686 Uziel as [id number] [facility] [address] 2021-06-29 2021-06-29 Outpatient HERI Ho RADI [id number] [facility] 11:17:00 11:17:00 Cl [facility] 2021-08-17 2021-05-18 Inpatient IMTIAZ RamosTO SURG [id number] [facility] 15:00:00 10:30:00 Maciel 43 [facility] 2021-02-23 2021-02-23 Outpatient MILLY Friedman, [facility] [id number] [facility] 12:00:00 12:00:00 Sebastian 15 [facility] 2021-01-25 2021-01-25 Outpatient EL Idalia, [facility] [id number] [facility] 12:00:00 12:00:00 Sebastian 31 [facility] 2021-01-05 2021-01-05 Outpatient IMTIAZ MccoyTO RADI [id number] [facility] 06:45:00 06:45:00 Gill 84 [facility] 2020-12-31 2020-12-31 Travel 1.2.840.1 1.2.177.058 [id number] Methodi 00:00:00 00:00:[address] 3.430.2.7 0.2.7.3.698 Ho spita .3.285276 084.8 l .8 2020-12-08 2020-12-08 Inpatient HERI MirzaTO [id number] [facility] 05:48:58 05:48:58 Mufaddal 64 [facility] 2020-12-06 2020-12-06 Travel 1.2.840.1 1.2.757.656 [id number] Methodi 00:00:00 00:00:[address] 3.430.2.7 0.2.7.3.698 Ho spita .3.490608 084.8 l .8 2020-10-07 2020-10-07 Outpatient LORI Dominguez LABO [id number] [facility] 18:13:00 18:13:00 Mufaddal 57 [facility] 2020-09-27 2020-09-27 Patient FLORIN Gonzalez 1.2.840.114 [id number] 00:00:00 00:00:00 Outreach Jose A PRIMARY 350.1.13.10 [facility] CARE 4.2.7.2.686 PAVILLION [id number] 388 2020-09-27 2020-09-27 [facility] 1.2.840.114 [id number] Univers 00:00:00 00:00:00 Outreach Jose A PRIMARY 350.1.13.10 i ty of [place] 4[place]2.7.2.[place] [id number] Oh dical [address] 2020-09-23 2020-09-23 Travel 1.2.840.1 1.2.290.593 [id number] Methodi 00:00:00 00:00:[address] 3.430.2.7 0.2.7.3.698 Ho spita .3.910213 084.8 l .8 2020-09-06 2020-09-06 Inpatient EL Alberto, HCATO HCATO [id number] [facility] 14:18:30 14:18:30 Mufaddal 66 [facility] 2020-03-21 2020-03-21 Patient Doctor MARCOS 1.2.840.114 [id number] Univers 00:00:00 00:00:00 Secure Msg Unassigned, BRISEIDA 350.1.13.[address] [facility] 4.2.7.2.686 Uziel as [phone] [place] [address] [address] 2020-03-20 2020-03-20 Laboratory Lab, [facility] 1.2.840.114 [id number] 13:38:36 13:58:36 Only Fam Pob I Health 350.1.13.10 [place] 4.2.7.2.686 Professio [id number] nal [address] 2020-03-20 2020-03-20 Laboratory Lab, [facility] Fam Pob I [facility] 1.2. 840.114 [id number] [facility] 13:38:36 13:58:36 Only Anene, [facility] 350.1.13.10 ity of [place] 4.2.7.2.686 Uziel as Professio [phone] Me dical nal [address] [employer] 2020-03-20 2020-03-20 Outpatient R BELIA [facility] [id number] Univers 13:20:00 13:20:00 [place] [facility] 2020-03-20 2020-03-20 Letter Doctor MARCOS 1.2.840.114 [id number] 00:00:00 00:00:00 (Out) Unassigned, BRISEIDA 350.1.13.[address] [facility] 4.2.7.2.686 [phone] [facility] 2020-03-20 2020-03-20 Letter Doctor MARCOS 1.2.840.114 [id number] Univers 00:00:00 00:00:00 (Out) Unassigned, BRISEIDA 350.1.13.10 ity [address] [place] [facility] 4.2.7.2.686 Uziel as [phone] [address] 2020-03-08 2020-03-08 [facility] [id number] Univers 16:00:00 16:00:00 LILIA [facility] 2020-03-01 2020-03-01 Telephone [facility] 1.2.840.114 [id number] 00:00:00 00:00:[address] [facility] [employer] 350.1.13.10 Surgical 4.2.7.2.686 Specialti [phone] es [address] [place] [address] 2020-03-01 2020-03-01 [facility] 1.2.840.114 77 [id number] 00:00:00 00:00:[address] [facility] [employer] 350.1.13.10 Surgical 4.2.7.2.686 Specialti [phone] es [address] [place] 2020-03-01 2020-03-01 [facility] 1.2.840.114 77 [id number] Univers 00:00:00 00:00:[address] [facility] [employer] 350.1.13.10 it y of Surgical 4.2.7.2.686 Uziel as Specialti [phone] Oh dical es 198 [facility] 2020-03-01 2020-03-01 [facility]phone [facility] 1.2.840.114 [id number] [facility] 00:00:00 00:00:00 [facility] 350.1.13.10 it y of Surgical 4.2.7.2.686 Uziel as Specialti [phone] Oh zan es 198 [facility] 2020-02-20 2020-02-20 [place] [facility] 1.2.840.114 77 [id number] 00:00:00 00:00:00 [facility] 350.1.13.10 Surgical 4.2.7.2.686 Specialti [phone] es [address] [place] 2020-02-20 2020-02-20 [place] [facility] 1.2.840.114 77 [id number] Univers 00:00:00 00:00:00 [facility] 350.1.13.10 it y of Surgical 4.2.7.2.686 Uziel as Specialti [phone] Oh zan es 198 [facility] 2020-02-04 2020-02-04 [place] [facility] 1.2.840.114 76 [id number] 00:00:00 00:00:00 [facility] 350.1.13.10 Surgical 4.2.7.2.686 Specialti [phone] [address] [place] 2020-02-04 2020-02-04 [place] [facility] 1.2.840.114 76 [id number] Univers 00:00:00 00:00:00 [facility] 350.1.13.10 it y of Surgical 4.2.7.2.686 Uziel as Specialti [phone] Oh zan es 198 [facility] 2020-02-02 2020-02-02 [place] [facility] 1.2.840.114 76 [id number] 00:00:00 00:00:00 [facility] 350.1.13.10 Surgical 4.2.7.2.686 Specialti [phone] es [address] [place] 2020-02-02 2020-02-02 [place] [facility] 1.2.840.114 76 [id number] Univers 00:00:00 00:00:00 [facility] 350.1.13.10 it y of Surgical 4.2.7.2.686 Uziel as Specialti [phone] Me dical es [address] [place] 2020-01-28 2020-01-28 Office [facility] 1.2.840.114 [id number] 14:49:21 15:36:45 Visit [facility] 350.1.13.10 Surgical 4.2.7.2.686 Specialti [phone] es [address] [place] 2020-01-28 2020-01-28 Office [facility] 1.2.840.114 [id number] Univers 14:49:21 15:36:45 Visit [facility] 350.1.13.10 it y of Surgical 4.2.7.2.686 Uziel as Specialti [phone] Oh dical es [address] [place] 2020-01-28 2020-01-28 Outpatient R [facility] [id number] Univers 14:45:00 14:45:00 [facility] Results Test Description Test Time Test Comments Results Result [facility] e Comments - XR FLUORO NDL 2023-02-26 18:35:00 [facility] 1955 Sex: F Patient Name: NIKIA GARCIA Unit No: [id number] EXAMS: CPT CODE: [id number] XR FLUORO NDL 75478 Fluoroscopically guided injection of the left naviculocuneiform [...] signed by: Erick Alcantar M.D. CC: Technologist: RT Karol.(R) Transcribed D/ (1834) Chinedu [facility] NAME: NIKIA GARCIA [address] [facility] PHYS: Cl Sandra MD : 1955 AGE: 67 SEX: F [place] [address] LOC: Y.RAD PHONE #: [phone] EXAM DATE: 02/26/2023 STATUS: REG CLI FAX #: [phone] RAD #: [id number] D/C DT PAGE 1 Signed Report Patient Name: NIKIA GARCIA Unit No: [id number] EXAMS: CPT CODE: [id number] XR FLUORO NDL 14806 (Continued) Orig Print D/T: S: 02/26/2023 (183) [facility] NAME: NIKIA GARCIA [address] [facility] PHYS: Cl Sandra MD : 1955 AGE: 67 SEX: F [place] [address] LOC: Y.RAD PHONE #: [phone] EXAM DATE: 02/26/2023 STATUS: REG CLI FAX #: [phone] RAD #: [id number] D/C DT PAGE 2 Signed Report - XR FLUORO NDL 2021-12-26 16:08:00 [facility] 1955 Sex: F Patient Name: NIKIA GARCIA Unit No: [id number] EXAMS: CPT CODE: [id number] XR FLUORO NDL 55003 FLUOROSCOPICALLY GUIDED INJECTION OF THE LEFT NAVICULOCUNEIFORM [...] Reported and signed by: Chandan Duran MD [facility] NAME: NIKIA GARCIA [address] [facility] PHYS: Cl Sandra MD : 1955 AGE: 66 SEX: F [place], [place] [address] LOC: GENNARO PHONE #: [phone] EXAM DATE: 12/26/2021 STATUS: REG CLI FAX #: [phone] RAD #: [id number] D/C DT PAGE 1 Signed Report (CONTINUED) Patient Name: NIKIA GARCIA Unit No: [id number] EXAMS: CPT CODE: [id number] XR FLUORO NDL 12254 (Continued) CC: Cl Nguyen MD Technologist: Kelley Aguiar RT.(R) Transcribed D/ (1608) LizetteJCL [facility] NAME: NIKIA GARCIA [address] [place] [address] PHYS: Cl Sandra MD : 1955 AGE: 66 SEX: F [place] [address] LOC: Y.RAD PHONE #: [phone] EXAM DATE: 12/26/2021 STATUS: REG CLI FAX #: [phone] RAD #: [id number] D/C DT PAGE 2 Signed Report Patient Name: NIKIA GARCIA Unit No: [id number] EXAMS: CPT CODE: [id number] XR FLUORO NDL 43812 (Continued) Orig Print D/T: S: 12/26/2021 (1611) [facility] NAME: NIKIA GARCIA [address] [facility] PHYS: Cl Sandra MD : 1955 AGE: 66 SEX: F [place] [address] LOC: Y.RAD PHONE #: [phone] EXAM DATE: 12/26/2021 STATUS: REG CLI FAX #: [phone] RAD #: [id number] D/C DT PAGE 3 Signed Report PROTHROMBIN [...] BLOOD, PT every other day NTHROMBOPLASTIN TIME [id number] 12:51:00 Test Item Value Reference Range Interpretation Comments PTT ACTIVATED (test 38.5 secs 26.6-34.6 H Please n ote new code = APTT) normal range. IS PATIENT ON ANTICOAGULANTS ? YLIST ANTICOAGULANT/ANTI PLT MEDICATION : OtherHas Lab been notified if Patient is on Heparin Drip? NOIf Yes, order CBC, OCCULT BLOOD, PT every other day N- XR FLUORO [id number] 13:34:00 [facility] 1955 Sex: F Patient Name: NIKIA GARCIA Unit No: [id number] EXAMS: CPT CODE: [id number] XR FLUORO NDL 59494 Fluoroscopically guided injection of the right plantar [...] Nguyen MD Technologist: RT Karol.(R) Transcribed D/ (7775) Chinedu [facility] NAME: NIKIA GARCIA [address] [facility] PHYS: Cl Sandra MD : 1955 AGE: 66 SEX: F [place], [place] [address] LOC: Y.PREPHONE #: [phone] EXAM DATE: 08/17/2021 STATUS: [facility] FAX #: [phone] RAD #: [id number] D/C DT PAGE 1 Signed Report Patient Name: NIKIA GARCIA Unit No: [id number] EXAMS: CPT CODE: [id number] XR FLUORO NDL 70170 (Continued) Orig Print D/T: S: 08/18/2021 (5852) [facility] NAME: NIKIA GARCIA [address] [facility] PHYS: Cl Sandra MD : 1955 AGE: 66 SEX: F [place], [place] [address] LOC: Y.PRE PHONE #: [phone] EXAM DATE: 08/17/2021 STATUS: [facility] FAX #: [phone] RAD #: [id number] D/C DT PAGE 2 Signed Report- XR FLUORO [id number] 13:34:00 [facility] 1955 Sex: F Patient Name: NIKIA GARCIA Unit No: [id number] EXAMS: CPT CODE: [id number] XR FLUORO NDL 85936 Fluoroscopically guided injection of the right plantar [...] Nguyen MD Technologist: RT Karol.(R) Transcribed D/ (0983) Chinedu [facility] NAME: NIKIA GARCIA [address] [facility] PHYS: Cl Sandra MD : 1955 AGE: 66 SEX: F [place] [address] LOC: Y.RAD PHONE #: [phone] EXAM DATE: 08/17/2021 STATUS: DEP CLI FAX #: [phone] RAD #: [id number] D/C DT PAGE 1 Signed Report Patient Name: NIKIA GARCIA Unit No: [id number] EXAMS: CPT CODE: [id number] FLUORO NDL 15854 (Continued) Orig Print D/T: S: 08/18/2021 (7852) [facility] NAME: NIKIA GARCIA [address] [facility] PHYS: Cl Sandra MD : 1955 AGE: 66 SEX: F [place] [address] LOC: Y.RAD PHONE #: [phone] EXAM DATE: 08/17/2021 STATUS: DEP CLI FAX #: [phone] RAD #: [id number] D/C DT PAGE 2 Signed Report- MRI LOW EXT W/O CONT [id number] 16:13:00 [facility] 1955 Sex: F Patient Name: NIKIA GARCIA Unit No: [id number] EXAMS: CPT CODE: [id number] MRI L[place] EXT W/[place] [address] MRI OF THE LEFT FOOT DIAGNOSIS: Degenerative [...] Cl Nguyen MD Technologist: 0 Transcribed D/ (1613) t.SDR.JCL [facility] NAME: NIKIA GARCIA [address] [facility] PHYS: Cl Sandra MD : 1955 AGE: 66 SEX: F [place], [place] [address] LOC: Y.MRI PHONE #: [phone] EXAM DATE: 02/2021 STATUS: REG CLI FAX #: [phone] RAD #: [id number] D/C DT PAGE 1 Signed Report Patient Name: NIKIA GARCIA Unit No: [id number] EXAMS: CPT CODE: [id number] MRI [place] EXT W/[place] [address] (Continued) Orig Print D/T: S: 06/29/2021 (1617) [facility] NAME: NIKIA GARCIA [address] PHYS: Cl Sandra MD : 1955 AGE: 66 SEX: F [place] [address] LOC: Y.MRI PHONE #: [phone] EXAM DATE: 06/29/2021 STATUS: REG CLI FAX #: [phone] RAD #: [id number] D/C DT PAGE 2 Signed Report- MRI C-SPINE W/O [id number] 08:20:00 [facility] 1955 Sex: F PatientName: NIKIA GARCIA Unit No: [id number] EXAMS: CPT CODE: [id number] MRI C-SPINE W/O CONT 66612 MRI OF THE CERVICAL SPINE: DIAGNOSIS: 1. At C2-3, disc desiccation. No central canal or foraminal stenosis. 2. At C3-4, disc desiccation. No central canal stenosis. Moderate left foraminal stenosis right foramen is within normal limits. Mild facet arthropathy. 3. At C4-5, mild disc degeneration. No central c anal stenosis. Mild bilateral foraminal stenosis. Moderate left facet arthropathy. 4. At C5-6,mild disc degeneration. Mild disc bulging. No central canal stenosis. Moderate left foraminal and mild to moderate right foraminal stenosis. Mild facet arthropathy. 5. At C6-7, moderate disc degeneration. No c entral canal stenosis. Moderate left foraminal and mild right foraminal stenosis. 6. At C7-T1, disc desiccation. No central canal or foraminal stenosis. COMMENT: COMPARISON: No prior exams available. Sagittal T1, T2 and STIR and axial T2 and gradient-echo sequences are obtained of the cervical spine. C ervical vertebrae are within normal limits in signal. The findings are as above. at 0820 Reported and signed by: Ivone Campos MD CC: Gill Camacho MD Technologist: Kevon Gallardo(R) Transcribed D/ (08) LizetteGVG [facility] NAME: NIKIA GARCIA [address] [place] [address] PHYS: Gill Slaughter MD : 1955 AGE: 65 SEX: F [place] [address] LOC: Y.MRI PHONE #: [phone] EXAM DATE: 01/05/2021 STATUS: REG CLI FAX #: [phone] RAD #: [id number] D/C DT PAGE 1 Signed Report PatientName: NIKIA GARCIA Unit No: [id number] EXAMS: CPT CODE: [id number] MRI C-SPINE W/O CONT 69657 (Continued) Orig Print D/T: S: 01/05/2021 (0823) [facility] NAME: NIKIA GARCIA [address] [place] [address] PHYS: Gill Slaughter MD : 1955 AGE: 65 SEX: F [place] [address] LOC: Y.MRI PHONE #: [phone] EXAM DATE: 01/05/2021 STATUS: REG CLI FAX #: [phone] #: [id number] D/C DT PAGE 2 Signed ReportNovel Coronavirus 2018 [id number] 13:05:00 Test Item Value Reference Range Interpretation [...] for the identification of SARS-CoV-2 RNA usingthe [employer] M2000 Sy stem under the [facility] Emergen cy UseAuthorizatio n. The testing is perf ormed by camille rudd in the procedures for the [employer] M2000 molecular diagnostic SARS-CoV-2 assa y in vitro. Novel Coronavirus 2018 [id number] 13:04:00 Test Item Value Reference Range Interpretation [...] camille rudd in the procedures for the [employer] M2000 molecular diagnostic SARS-CoV-2 assa y in vitro. PROTHROMBIN [id number] 17:05:00 Test Item Value Reference Range Interpretation [...] Patient is on Heparin Drip? NOTHROMBOPLASTIN TIME [id number] 17:05:00 Test Item Value Reference Range Interpretation Comments PTT ACTIVATED (test 53.6 secs 24.9-37.0 HH VERIFIED BY REPEAT code = APTT) ANALYSIS.CRITIC AL VALUE CALLED TO ENRIQUETA IMCHAUD BACK & CONFIRMED? YESB Y F.LAB.AEG 10/07 1705 IS PATIENT ON ANTICOAGULANTS ? YLIST ANTICOAGULANT/ANTI PLT MEDICATION : CoumadinHas Lab been notified if Patient is on Heparin Drip? NOCOMPREHENSIVE METABOLIC [id number] 16:53:00 Test Item Value Reference Range Interpretation [...] RATE (test code = GFR) mL/mi n/1.73 t4Faotuynan Range:Healthy Adults >90 mL/min/1.73 m2 For Chronic [...] TOTAL (test code = ALKP) CBC W/AUTO [id number] 16:39:00 Test Item Value Reference Range Interpretation [...] NRBC) - MRI UP JNT W/O CONT [id number] 11:18:00 [facility] 1955 Sex: F PatientName: NIKIA GARCIA Unit No: [id number] EXAMS: CPT CODE: [id number] [place] JNT W/[place] [address] MRIOF THE RIGHT SHOULDER DIAGNOSIS: 1. Full-thickness laminar [...] NAVNEET SCHMIDT RT(R) Transcribed D/ (1118) tDEISIJCL [facility] NAME: NIKIA GARCIA [address] [place] [address] PHYS: GOMMUJax - Yas Dominguez : 1955 AGE: 65 SEX: F [place] [address] LOC: Y.MRI PHONE #: [phone] EXAM DATE: 09/16/2020 STATUS: REG CLI FAX #: [phone] RAD #: [id number] D/C DT PAGE 1 Signed Report Patient Name: NIKIA GARCIA Unit No: [id number] EXAMS: CPT CODE: [id number] MRI UP JNT W/[place] [address] (Continued) Orig Print D/T: S: 09/16/2020 (1122) [facility] NAME: NIKIA GARCIA [address] [place] [address] PHYS: GOMMU. - Brandan Dominguez : 1955 AGE: 65 SEX: F [place] [address] LOC: Y.MRI PHONE #: [phone] EXAM DATE: 09/16/2020 STATUS: REG CLI FAX #: [phone] RAD #: [id number] D/C DT PAGE 2 Signed ReportXR FOREARM 2 [id number] 09:41:05Exam: Right XR ELBOW MIN 3 VIEWS, XR FOREARM 2 VIEWSHISTORY: PainCOMPARISON: None available.FINDINGS: Bones:No acute displaced fracture.Osseous alignment is within normal limits.Joints:The joint spaces are well-maintained.Soft tissues:The soft tissues appear unremarkable.IMPRESSION:No acute radiographic abnormality.This final report was electronically signed by Dr Blank Schaefer MD01/03/2020 9:34 AMDictated By: MICHELE SKINNERADate: 01/03/2020 09:34MMC STRONGHURSTXR ELBOW MIN 3 [id number] 09:40:57Exam: Right XR ELBOW MIN 3 VIEWS, XR FOREARM 2 VIEWSHISTORY: PainCOMPARISON: None available.FINDINGS:Bones:No acute displaced fracture.Osseous alignment is within normal limits.Joints:The joint spaces are well-maintained.Soft tissues:The soft tissues appear unremarkable.IMPRESSION:No acute radiographic abnormality.This final report was electronically signed by Dr Blank Schaefer MD01/03/2020 9:34 AMDictated By: Merle SKINNER: 01/03/2020 09:34[facility] STRONGHURST
--- NOTE | 2023-06-11 06:56 | EDPHYS ---
Physician Documentation [facility] Name: Marina Castro Age: 68 yrs Sex: Female : 1955 Arrival Date: 06/11/2023 Time: 05:49 Bed 20 Private MD: ED Physician Ronnie Stafford HPI: 06/11 06:05 This 68 yrs old Female presents to ER via Unassigned with complaints of Hand ec2 Injury. 06:05 Patient arrives today for evaluation of a left hand injury. States that she ec2 subsequently fell and landed on her left hand. States that she is having pain and swelling over the fourth and fifth metacarpals. Patient reports no wrist injury or wrist pain, denies any head strike, neck pain, LOC.. Historical: - Allergies: 06:04 NKA; as6 - PMHx: 06:04 Arthritis; Hypertension; Hypercholesterolemia; as6 - PSHx: 06:04 Mechanical Heart Valve; knee; hand; ankle; as6 - Immunization history:: Adult Immunizations not up to date. - Social history:: Smoking status: Patient denies any tobacco usage or history of. ROS: 06:05 Constitutional: as per hpi ec2 Exam: 06:05 Constitutional: GEN: NAD Head: atraumatic Eyes: EOMI Ears: External ears are ec2 normal. CV: regular rate LUNGS: no respiratory distress ABD: non-distended SKIN: no evidence of rashes MSK: TTP to the fourth and fifth metacarpals, ecchymosis noted, intact distal neurovascular status. Of note patient with chronic pinky limitation in range of motion. NEURO: moves all extremities equally Vital Signs: 06:02 BP 136 / 82; Pulse 72; Resp 18 S; Temp 97.8(O); Pulse Ox 98% on R/A; Weight 74.84 kg as6 (R); Height 5 ft. 7 in. (R); Pain 2/10; 07:48 BP 130 / 83; Pulse 62; Resp 16; Pulse Ox 99% on R/A; ll1 06:02 Body Mass Index 25.84 (74.84 kg, 170.18 cm) as6 06:02 Pain Scale: Adult as6 MDM: 05:59 Patient medically screened. ec2 06:05 Data reviewed: vital signs. ED course: Patient arrives today for evaluation of left ec2 hand pain. Examination remarkable for MSK findings as noted above. Will obtain left hand x-ray and evaluate for injury. Currently considering fracture, soft tissue contusion. . 06:54 ED course: Hand x-ray independently reviewed and interpreted by me, shows fifth ec2 metacarpal fracture. We will place an ulnar gutter and have her follow-up with orthopedic surgery. Patient already has a hand surgeon that she will follow-up with. Return precautions given.. 06/11 06:05 Order name: Hand Left 3 View XRAY ec2 06/11 06:53 Order name: Ulnar Gutter splint; Complete Time: 07:28 ec2 Administered Medications: No medications were administered Disposition Summary: 06/11/23 06:55 Discharge Ordered Notes: Location: Home ec2 Condition: Stable ec2 Diagnosis - 5th Metacarpal Fracture ec2 Discharge Instructions: - Discharge Summary Sheet ec2 - Metacarpal Fracture ec2 Forms: - Medication Reconciliation Form ec2 - Thank You Letter ec2 - Antibiotic Education ec2 - Prescription Opioid Use ec2 - Patient Portal Instructions ec2 - Leadership Thank You Letter ec2 Signatures: Dispatcher [employer] Mariano Daniels RN RN as6 Ronnie Stafford MD MD ec2
--- NOTE | 2023-06-11 06:56 | ER ---
Nurse's Notes [facility] Name: Marina Castro Age: 68 yrs Sex: Female : 1955 Arrival Date: 06/11/2023 Time: 05:49 Bed 20 Private MD: Diagnosis: 5th Metacarpal Fracture Presentation: 06/11 06:04 Chief complaint: Patient states: "I was watering my plants last night and I slipped and as6 fell on my left hand". Coronavirus screen: At this time, the client does not indicate any symptoms associated with coronavirus-19. Ebola Screen: No symptoms or risks identified at this time. Initial Sepsis Screen: Does the patient meet any 2 criteria? No. Patient's initial sepsis screen is negative. Does the patient have a suspected source of infection? No. Patient's initial sepsis screen is negative. Risk Assessment: Do you want to hurt yourself or someone else? Patient reports no desire to harm self or others. Onset of symptoms was June 10, 2023. 06:04 Acuity: LUIS 4 as6 06:04 Method Of Arrival: Ambulatory as6 Triage Assessment: 06:00 General: Appears in no apparent distress. uncomfortable, Behavior is calm, cooperative. jw7 Pain: Complains of pain in left hand Pain does not radiate. Pain currently is 2 out of 10 on a pain scale. Quality of pain is described as aching, throbbing, Pain began 1 day ago. Is continuous, Alleviated by medications, Aggravated by increased activity. EENT: No deficits noted. No signs and/or symptoms were reported regarding the EENT system. Neuro: Jacobson Agitation-Sedation Scale (RASS): 0 - Alert and Calm Level of Consciousness is awake, alert, obeys commands, Oriented to person, place, time, situation. Cardiovascular: No deficits noted. Respiratory: No deficits noted. GI: No deficits noted. No signs and/or symptoms were reported involving the gastrointestinal system. : No deficits noted. No signs and/or symptoms were reported regarding the genitourinary system. Derm: No deficits noted. No signs and/or symptoms reported regarding the dermatologic system. Musculoskeletal: Circulation, motion, and sensation intact. Capillary refill < 3 seconds, Range of motion: limited in DIP of left ring finger, PIP of left ring finger and MCP of left ring finger Reports pain in left hand Pain is 2 out of 10 on a pain scale. Injury Description: fell on left hand. Historical: - Allergies: 06:04 NKA; as6 - PMHx: 06:04 Arthritis; Hypertension; Hypercholesterolemia; as6 - PSHx: 06:04 Mechanical Heart Valve; knee; hand; ankle; as6 - Immunization history:: Adult Immunizations not up to date. - Social history:: Smoking status: Patient denies any tobacco usage or history of. Screenin:00 [facility] ED Fall Risk Assessment (Adult) History of falling in the last 3 months, jw7 including since admission Yes- single mechanical fall (1 pt) Confusion or Disorientation No (0 pts) Intoxicated or Sedated No (0 pts) Impaired Gait No (0 pts) Mobility Assist Device Used No (0 pt) Altered Elimination No (0 pt) Score/Fall Risk Level 0 - 2 = Low Risk Oriented to surroundings, Maintained a safe environment. Abuse screen: Denies threats or abuse. Denies injuries from another. Nutritional screening: No deficits noted. Tuberculosis screening: No symptoms or risk factors identified. Assessment: 06:10 General: see triage assessment . jw7 06:56 Reassessment: Patient appears in no apparent distress at this time. No changes from jw7 previously documented assessment. Patient and/or family updated on plan of care and expected duration. Pain level reassessed. Patient is alert, oriented x 3, equal unlabored respirations, skin warm/dry/pink. 07:00 Reassessment: No changes from previously documented assessment. 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 07:15 Reassessment: No changes from previously documented assessment. Dr. Stafford at . 1 07:49 Reassessment: No changes from previously documented assessment. Patient and/or family ll1 updated on plan of care and expected duration. Pain level reassessed. Patient is alert, oriented x 3, equal unlabored respirations, skin warm/dry/pink. 07:49 Musculoskeletal: Circulation, motion, and sensation intact. Capillary refill < 3 ll1 seconds. Vital Signs: 06:02 BP 136 / 82; Pulse 72; Resp 18 S; Temp 97.8(O); Pulse Ox 98% on R/A; Weight 74.84 kg as6 (R); Height 5 ft. 7 in. (R); Pain 2/10; 07:48 BP 130 / 83; Pulse 62; Resp 16; Pulse Ox 99% on R/A; ll1 06:02 Body Mass Index 25.84 (74.84 kg, 170.18 cm) as6 06:02 Pain Scale: Adult as6 ED Course: 05:50 Patient arrived in ED. jj6 05:50 Ronnie Stafford MD is Attending Physician. ec2 06:00 Patient has correct armband on for positive identification. Bed in low position. Call jw7 light in reach. 06:02 Arm band placed on. as6 06:05 Triage completed. as6 06:19 Hand Left 3 View XRAY In Process Unspecified. EDMS 07:29 Orthoglass splint: Ulnar gutter/Boxer splint applied on left forearm. ds4 07:49 Provided Education on: n/a. ll1 07:49 No provider procedures requiring assistance completed. Patient did not have IV access ll1 during this emergency room visit. Administered Medications: No medications were administered Medication: 07:50 VIS not applicable for this client. ll1 Outcome: 06:55 Discharge ordered by . ec2 07:49 Discharged to home ambulatory, ll1 07:49 Condition: stable 07:49 Discharge instructions given to patient, Instructed on discharge instructions, follow up and referral plans. Demonstrated understanding of instructions, follow-up care, splint care, 07:50 Patient left the ED. ll1 Signatures: Dispatcher [employer] Arjun Thomas ds4 Vasiliy Maharaj RN RN ll1 Tatiana Dow jj6 Mariano Garcia RN RN as6 Madiha Elise RN RN jw7 Ronnie Stafford MD MD 2
[2023-06-11 07:54] VITALS: TEMP 97.8
[2023-06-11 07:55] VITALS: BP 130/83; O2SAT 99
--- NOTE | 2023-06-11 10:34 | RAD REPORT ---
EXAM DESCRIPTION: RAD - Hand Left 3 View - 06/11/2023 6:17 am CLINICAL HISTORY: The patient is 68 years old and is Female; DEFORMITY TECHNIQUE: Frontal, lateral and oblique views of the left hand. COMPARISON: No relevant prior studies available. FINDINGS: Bones/joints: Deformity of the head of the fifth metacarpal suggestive of a medially ang ulated/displaced indeterminate age fracture. Plate and screw fixation of proximal and middle phalanx. Joint space narrowing with deformity involving the third proximal interphalangeal joint. No dislocation. Soft tissues: Unremarkable. No radiopaque foreign body. IMPRESSION: Deformity of the head of the fifth metacarpal suggestive of a medially angulated/displac ed indeterminate age fracture. Electronically signed by: Jim Evans MD 06/11/2023 06:35 AM [employer] ORGANIST Due to temporary technical issues with the PACS/Fluency reporting system, reports are being signed by the in house radiologist without review as a courtesy to ensure prompt reporting. The interpreting r adiologist is fully responsible for the content of the report.
== END 2023-06-11 07:50 | disposition home or self-care (01) ==
LOC: ER 05:49
DX: S62.307A Unspecified fracture of fifth metacarpal bone, left hand, initial encounter for closed fracture (principal)
CPT/HCPCS: 99283

== ENCOUNTER 2023-11-23 07:32 | Emergency (ER) | payer OTHER, BC ==
--- NOTE | 2023-11-23 11:30 | ER ---
Nurse's Notes [facility] Name: Marina Castro Age: 68 yrs Sex: Female : 1955 Arrival Date: 11/23/2023 Time: 07:31 Bed 7 Private MD: Cooper Friedman C Diagnosis: Right ear canal bleeding, coagulopathy Presentation: 11/22 07:42 Chief complaint: Chief complaint: Bleeding from right ear after hearing aid exam hb yesterday. 07:43 Coronavirus screen: At this time, the client does not indicate any symptoms associated hb with coronavirus-19. Ebola Screen: No symptoms or risks identified at this time. Initial Sepsis Screen: Does the patient meet any 2 criteria? No. Patient's initial sepsis screen is negative. Does the patient have a suspected source of infection? No. Patient's initial sepsis screen is negative. Risk Assessment: Do you want to hurt yourself or someone else? Patient reports no desire to harm self or others. Onset of symptoms was November 22, 2023. 07:43 Method Of Arrival: Ambulatory 07:43 Acuity: LUIS 3 hb Triage Assessment: 07:43 General: Appears in no apparent distress. Behavior is calm, cooperative. Pain: Denies hb pain. EENT: Reports bleeding from right ear. Neuro: Level of Consciousness is awake, alert, obeys commands, Oriented to person, place, time, situation. Cardiovascular: Patient's skin is warm and dry. Respiratory: Respiratory effort is even, unlabored, Respiratory pattern is regular, symmetrical. Historical: - Allergies: 07:42 NKA; hb - Home Meds: 07:42 carvedilol Oral [Active]; Celebrex Oral [Active]; Coumadin Oral [Active]; escitalopram hb oxalate Oral [Active]; - PMHx: 07:42 Arthritis; Hypercholesterolemia; Hypertension; hb - PSHx: 07:42 Ankle; hand; knee; Mechanical Heart Valve; hb - Immunization history:: Adult Immunizations up to date. - Infectious Disease History:: Denies. - Social history:: Smoking status: Patient denies any tobacco usage or history of. Screenin:10 [facility] ED Fall Risk Assessment (Adult) History of falling in the last 3 months, ap3 including since admission No falls in past 3 months (0 pts) Confusion or Disorientation No (0 pts) Intoxicated or Sedated No (0 pts) Impaired Gait No (0 pts) Mobility Assist Device Used No (0 pt) Altered Elimination No (0 pt) Score/Fall Risk Level 0 - 2 = Low Risk Oriented to surroundings, Maintained a safe environment, Educated pt \T\ family on fall prevention, incl call for assistance when getting out of bed, Assessed \T\ reinforced patient's understanding of fall precautions, Provided non-skid footwear, Hourly rounding (assess needs \T\ fall precautionary measures) done, Used ambulatory aids as needed (educated on \T\ assisted with), Used gait belt as appropriate. Abuse screen: Denies threats or abuse. Nutritional screening: No deficits noted. Tuberculosis screening: No symptoms or risk factors identified. Assessment: 08:01 General: Appears in no apparent distress. Behavior is calm, cooperative, appropriate ap3 for age. Pain: Complains of pain in right ear. Neuro: Level of Consciousness is awake, alert, obeys commands, Oriented to person, place, time, situation. Cardiovascular: Patient's skin is warm and dry. Respiratory: Airway is patent Respiratory effort is even, unlabored, Respiratory pattern is regular, symmetrical. EENT: Reports pain in right ear. Vital Signs: 07:43 BP 162 / 87; Pulse 79; Resp 16; Temp 98.8(O); Pulse Ox 98% on R/A; Weight 77.11 kg; hb Height 5 ft. 7 in. ; Pain 0/10; 09:31 BP 146 / 75; Pulse 74; Resp 18; Temp 98.7; Pulse Ox 100% ; ap3 07:43 Body Mass Index 26.63 (77.11 kg, 170.18 cm) hb 07:43 Pain Scale: Adult hb ED Course: 07:31 Patient arrived in ED. rg4 07:31 Cooper Friedman MD is Private Physician. rg4 07:36 Ana Osborne MD is Attending Physician. sp3 07:42 Shari Polanco, CARMEN is Primary Nurse. ap3 07:43 Arm band placed on. hb 07:44 Triage completed. hb 07:58 Initial lab(s) drawn, by me, sent to lab. Inserted saline lock: 22 gauge in right ap3 antecubital area, using aseptic technique. Blood collected. 08:11 Patient has correct armband on for positive identification. Placed in gown. Bed in low ap3 position. Call light in reach. Pulse ox on. NIBP on. :31 Provided Education on: care of right ear. ap3 09:31 No provider procedures requiring assistance completed. IV discontinued, intact, ap3 bleeding controlled, No redness/swelling at site. Pressure dressing applied. Administered Medications: 08:44 Drug: tranexamic acid 1 amp Topical once; soak gauze and insert into right ear {Note: aa5 to right ear .} Route: Topical; Site: affected area; Medication: : VIS not applicable for this client. ap3 Outcome: :20 Discharge ordered by MD. sp3 :31 Discharged to home ambulatory, ap3 :31 Condition: good :31 Discharge instructions given to patient, Instructed on discharge instructions, follow up and referral plans. Demonstrated understanding of instructions, follow-up care, 09:32 Patient left the ED. ap3 Signatures: Vale Caceres RN RN aa5 Yoly Cintron RN RN Manisha Glover rg4 Shari Polanco RN RN ap3 Ana Osborne MD MD sp3 Corrections: (The following items were deleted from the chart) 07:44 07:42 Chief complaint: hb hb
--- NOTE | 2023-11-23 11:30 | EDPHYS ---
Physician Documentation [facility] Name: Marina Castro Age: 68 yrs Sex: Female : 1955 Arrival Date: 11/23/2023 Time: 07:31 Bed 7 Private MD: Cooper Friedman C ED Physician Ana Osborne HPI: 11/22 08:05 This 68 yrs old Female presents to ER via Ambulatory with complaints of Ear Bleeding. sp3 08:05 68-year-old female with history of hyperlipidemia, hypertension, mechanical heart valve sp3 normally on Coumadin now on Lovenox by her ingredient mixer for an upcoming elective cardiac procedure now presents with right ear canal bleeding. Patient states she went to a local hearing aid center with a did a mold of her ear and while they were removing the mold she started having bleeding of the right ear canal. She denies any change in her baseline hearing deficits. She has had off-and-on bleeding since yesterday. No other symptoms including bleeding anywhere else, chest pain, shortness breath, abdominal pain, melena, headache, dizziness, vertigo, or any other signs or symptoms on ROS at this time.. Historical: - Allergies: 07:42 NKA; hb - Home Meds: 07:42 carvedilol Oral [Active]; Celebrex Oral [Active]; Coumadin Oral [Active]; escitalopram hb oxalate Oral [Active]; - PMHx: 07:42 Arthritis; Hypercholesterolemia; Hypertension; hb - PSHx: 07:42 Ankle; hand; knee; Mechanical Heart Valve; hb - Immunization history:: Adult Immunizations up to date. - Infectious Disease History:: Denies. - Social history:: Smoking status: Patient denies any tobacco usage or history of. ROS: 08:06 Constitutional: Negative for fever, chills, and weight loss, Eyes: Negative for injury, sp3 pain, redness, and discharge, Neck: Negative for injury, pain, and swelling, Cardiovascular: Negative for chest pain, palpitations, and edema, Respiratory: Negative for shortness of breath, cough, wheezing, and pleuritic chest pain, Abdomen/GI: Negative for abdominal pain, nausea, vomiting, diarrhea, and constipation, Back: Negative for injury and pain, MS/Extremity: Negative for injury and deformity, Skin: Negative for injury, rash, and discoloration, Neuro: Negative for headache, weakness, numbness, tingling, and seizure, Psych: Negative for depression, anxiety, suicide ideation, homicidal ideation, and hallucinations, Allergy/Immunology: Negative for hives, rash, and allergies, Endocrine: Negative for neck swelling, polydipsia, polyuria, polyphagia, and marked weight changes, 08:06 All other systems are negative, Exam: 08:06 Constitutional: This is a well developed, well nourished patient who is awake, alert, sp3 and in no acute distress. Head/Face: Normocephalic, atraumatic. Eyes: Pupils equal round and reactive to light, extra-ocular motions intact. Lids and lashes normal. Conjunctiva and sclera are non-icteric and not injected. Cornea within normal limits. Periorbital areas with no swelling, redness, or edema. Neck: Trachea midline, no thyromegaly or masses palpated, and no cervical lymphadenopathy. Supple, full range of motion without nuchal rigidity, or vertebral point tenderness. No Meningismus. Chest/axilla: Normal chest wall appearance and motion. Nontender with no deformity. No lesions are appreciated. Cardiovascular: Regular rate and rhythm with a normal S1 and S2. No gallops, murmurs, or rubs. Normal PMI, no JVD. No pulse deficits. Respiratory: Lungs have equal breath sounds bilaterally, clear to auscultation and percussion. No rales, rhonchi or wheezes noted. No increased work of breathing, no retractions or nasal flaring. Abdomen/GI: Soft, non-tender, with normal bowel sounds. No distension or tympany. No guarding or rebound. No evidence of tenderness throughout. Back: No spinal tenderness. No costovertebral tenderness. Full range of motion. Skin: Warm, dry with normal turgor. Normal color with no rashes, no lesions, and no evidence of cellulitis. Neuro: Awake and alert, GCS 15, oriented to person, place, time, and situation. Cranial nerves II-XII grossly intact. Motor strength 5/5 in all extremities. Sensory grossly intact. Cerebellar exam normal. Normal gait. Psych: Awake, alert, with orientation to person, place and time. Behavior, mood, and affect are within normal limits. 08:06 ENT: Proximal right ear canal with multiple areas of abrasions with clotted blood present. Tympanic membrane is normal although partially covered with blood clot as well.. Vital Signs: 07:43 BP 162 / 87; Pulse 79; Resp 16; Temp 98.8(O); Pulse Ox 98% on R/A; Weight 77.11 kg; hb Height 5 ft. 7 in. ; Pain 0/10; 09:31 BP 146 / 75; Pulse 74; Resp 18; Temp 98.7; Pulse Ox 100% ; ap3 07:43 Body Mass Index 26.63 (77.11 kg, 170.18 cm) hb 07:43 Pain Scale: Adult hb MDM: 07:41 Patient medically screened. sp3 08:06 Data reviewed: vital signs, nurses notes, lab test result(s). ED course: 68-year-old sp3 female on Lovenox previously on Coumadin now with right ear canal abrasion. Symptoms are likely due to abrasions induced by the hearing aid mold. I am not suspecting significant coagulopathy, tympanic membrane rupture given physical exam, CVA/TIA spectrum, or any other concerning findings. There is no significant active bleeding. Consider topical TXA if needed. PT/INR and PTT are pending and will likely be done action events unless significantly abnormal. If workup is negative and patient continues to have current physical exam, we will safely discharge her home to follow-up with her PCP. I have told her to refrain from putting anything in her right canal at this time.. 09:18 ED course: Bleeding now stopped with topical TXA. INR 2.67. I told her to hold Lovenox sp3 both doses today and follow-up with her cardiology on when to resume. We will safely discharged home at this time.. 11/22 07:42 Order name: IV Saline Lock; Complete Time: 07:54 sp3 11/22 07:42 Order name: Labs collected and sent; Complete Time: 08:10 sp3 Administered Medications: 08:44 Drug: tranexamic acid 1 amp Topical once; soak gauze and insert into right ear {Note: aa5 to right ear .} Route: Topical; Site: affected area; Disposition Summary: 11/23/23 09:20 Discharge Ordered Notes: Location: Home sp3 Condition: Stable sp3 Diagnosis - Right ear canal bleeding, coagulopathy sp3 Followup: sp3 - With: Private Physician - When: Upon discharge from the Emergency Department - Reason: Continuance of care Discharge Instructions: - Discharge Summary Sheet sp3 - Warfarin Information sp3 Forms: - Medication Reconciliation Form sp3 - Antibiotic Education sp3 - Prescription Opioid Use sp3 - Patient Portal Instructions sp3 - Leadership Thank You Letter sp3 Signatures: Vale Caceres RN RN aa5 Yoly Cintron RN RN Ana Osborne MD MD sp3
[2023-11-23 12:10] LABS: Anion Gap 6.7 mEq/L (5.0-15.0); Potassium 3.7 mEq/L (3.5-5.1)
[2023-11-23 12:39] LABS: PT Prothrombin Time 29.3 SECONDS (9.5-12.5); PTT, Activated Partial Thromb 48.5 SECONDS (24.3-36.9); Protime INR 2.74
[2023-11-23 12:40] LABS: Absolute Lymphocytes (CBC) 1.6 K/uL (0.7-4.9); Absolute Monocytes 0.8 K/uL (0.1-1.3); Absolute Neutrophil 4.3 K/uL (1.8-8.0); Basophils % 0.3 % (0-1.3); Hematocrit 37.6 % (36.0-45.0); Hemoglobin 12.3 g/dL (12.0-15.0); Lymphocytes % 23.9 % (15.3-44.8); MCH 29.1 pg (27.0-35.0); MCHC 32.8 g/dL (32.0-36.0); MCV 88.8 fL (80-100); MPV 8.9 fL (7.6-11.3); Monocytes % 12.3 % (3.3-12.3); Neutrophils % 63.5 % (41.7-73.7); Platelets 213 thou/uL (152-406); RBC Red Blood Cell Count 4.23 M/uL (3.86-4.86)
[2023-11-24 14:39] VITALS: BP 146/75; TEMP 98.7; O2SAT 100
== END 2023-11-23 09:32 | disposition home or self-care (01) ==
LOC: ER 07:32
DX: H92.21 Otorrhagia, right ear (principal); D68.9 Coagulation defect, unspecified; I10 Essential (primary) hypertension; Z95.2 Presence of prosthetic heart valve
CPT/HCPCS: 36415; 80048; 85025; 85610; 85730; 99284

== ENCOUNTER 2023-11-29 09:42 | Emergency (ER) | payer OTHER, BC ==
--- NOTE | 2023-11-29 11:03 | RAD REPORT ---
EXAM DESCRIPTION: US - Transvaginal Study Probe - 11/29/2023 10:38 am CLINICAL HISTORY: Postmenopausal bleeding COMPARISON: none FINDINGS: The uterus measures 6 x 3 x 4 cm. A fibroid is not seen. The endometrial stripe measures 3 millimeters. A minimal amount of fluid is present within the endometrium. The ovaries are normal in size and echotexture. The right and left adnexa unremarkable No significant free fluid is seen. IMPRESSION: Minimal amount of fluid within the endometrium. The endometrial stripe is normal caliber
[2023-11-29 11:27] LABS: Absolute Eosinophils 0.1 K/uL (0-0.5); Absolute Lymphocytes (CBC) 1.4 K/uL (0.7-4.9); Absolute Monocytes 0.5 K/uL (0.1-1.3); Absolute Neutrophil 2.1 K/uL (1.8-8.0); Basophils % 0.8 % (0-1.3); Eosinophils % 2.1 % (0-4.4); Hematocrit 38.5 % (36.0-45.0); Hemoglobin 12.3 g/dL (12.0-15.0); Lymphocytes % 34.7 % (15.3-44.8); MCH 28.9 pg (27.0-35.0); MCV 90.1 fL (80-100); MPV 7.9 fL (7.6-11.3); Monocytes % 12.2 % (3.3-12.3); Neutrophils % 50.2 % (41.7-73.7); Platelets 199 thou/uL (152-406); RBC Red Blood Cell Count 4.27 M/uL (3.86-4.86); Red Cell Distribution Width 14.4 % (12.1-15.2)
[2023-11-29 11:33] LABS: Sqamous Epithelial None Seen /HPF (None Seen); Urine Bacteria None Seen /HPF (<20); Urine Culture Reflex Order NOT NEEDED; Urine Micro Reflex YN NO BILL MICROSCOPIC; Urine RBC >50 /HPF (None Seen); Urine WBC <5 /HPF (<5)
[2023-11-29 11:41] LABS: Anion Gap 5.1 mEq/L (5.0-15.0); Potassium 4.1 mEq/L (3.5-5.1)
--- NOTE | 2023-11-29 13:49 | RAD REPORT ---
EXAM DESCRIPTION: CT - Abdomen Pelvis W Contrast - 11/29/2023 12:47 pm CLINICAL HISTORY: HEMATURIA COMPARISON: [facility] Protocol dated 06/06/2023 TECHNIQUE: Thin cut axial CT imaging of the abdomen and pelvis was performed following intravenous a dministration of 100 mL Isovue 300. Multiplanar reformats were generated and reviewed. All CT scans are performed using dose optimization technique as appropriate and may include automated exposure control or mA/KV adjustment according to patient size. FINDINGS: No suspicious findings in the lung bases. Right breast implant in place. The liver shows a subcapsular lobulated fluid density 1.9 cm cyst along the inferior margin of the ri ght lobe, benign in appearance. Prominent main pancreatic duct, measuring 5 mm in caliber, with no di screte masses in the region of the ampulla on this CT. Adrenal glands, spleen, and pancreas show no o ther suspicious findings. Gallbladder and biliary tree are also without suspicious finding. Symmetric renal function is seen with no hydronephrosis or suspicious renal mass. No dilated bowel loops or bowel wall thickening. Distal colonic diverticulosis. No free air, free flu id or inflammatory stranding. No hernia, mass or bulky lymphadenopathy. The urinary bladder is decomp ressed limiting evaluation. No suspicious bony findings. IMPRESSION: Prominent main pancreatic duct up to 5 mm in caliber. This could be idiopathic although possibility of a distal stricture or small ampullary mass cannot be entirely excluded. Please correla te with pancreatic enzyme levels, and consider gastroenterology consultation at there is persistent c linical concern. Other incidental findings including benign-appearing inferior right liver lobe cyst and distal coloni c diverticulosis.
--- NOTE | 2023-11-29 14:00 | EDPHYS ---
Physician Documentation [facility] Name: Marina Castro Age: 68 yrs Sex: Female : 1955 Arrival Date: 11/29/2023 Time: 09:42 Bed 20 Private MD: Cooper Friedman C ED Physician Hemal Scott HPI: 11/28 10:13 This 68 yrs old Female presents to ER via Ambulatory with complaints of Vaginal ms3 Bleeding. 10:13 68-year-old female with past medical history of arthritis, hypertension, ms3 hypercholesterolemia, mechanical heart valve presents to the emergency department for vaginal bleeding that began last night. Patient states she is currently preparing for breast implant removal surgery and was taken off her Coumadin and placed on Lovenox injections twice daily. Patient states she awoke last night with vaginal bleeding as if she was having a period. Patient states that she awoke again at 4 AM with continued bleeding. Patient called her psychiatric technician assistant and he changed her Lovenox injections to once a day. She was then contacted by her psychiatric technician assistant office this morning and instructed to come to the emergency department because bleeding could be due to secondary cause. Patient denies abdominal pain, patient denies any alleviating or inciting factors.. Historical: - Allergies: 10:12 NKA; ph - PMHx: 10:12 Arthritis; Hypercholesterolemia; Hypertension; Mechanical heart valve (Hypertension); ph - PSHx: 10:12 Ankle; hand; knee; Mechanical Heart Valve; ph - Immunization history:: Adult Immunizations up to date. - Infectious Disease History:: Denies. - Social history:: Smoking status: Patient denies any tobacco usage or history of. ROS: 10:13 Constitutional: Negative for fever, and chills. Neck: Negative for injury, pain, and ms3 swelling, Cardiovascular: Negative for chest pain, and palpitations. Respiratory: Negative for shortness of breath, cough, wheezing, and pleuritic chest pain, Abdomen/GI: Negative for abdominal pain, nausea, vomiting, diarrhea, and constipation, 10:13 : Positive for vaginal bleeding, Exam: 10:13 Constitutional: This is a well developed, well nourished patient who is awake, alert, ms3 and in no acute distress. Head/Face: Normocephalic, atraumatic. Neck: Trachea midline, no cervical lymphadenopathy. Supple, full range of motion without nuchal rigidity, or vertebral point tenderness. No Meningismus. Chest/axilla: Normal chest wall appearance and motion. Nontender with no deformity. Cardiovascular: Regular rate and rhythm with a normal S1 and S2. No gallops, murmurs, or rubs. Normal PMI, no JVD. No pulse deficits. Respiratory: Lungs have equal breath sounds bilaterally, clear to auscultation and percussion. No rales, rhonchi or wheezes noted. No increased work of breathing, no retractions or nasal flaring. Abdomen/GI: Soft, non-tender, with normal bowel sounds. No distension or tympany. No guarding or rebound. No evidence of tenderness throughout. Vital Signs: 10:10 BP 139 / 74; Pulse 73; Resp 18; Temp 97.7; Pulse Ox 99% on R/A; Weight 76.2 kg; Height ph 5 ft. 7 in. ; 13:00 BP 116 / 67; Pulse 64; Resp 15; Pulse Ox 99% ; bp 14:00 BP 144 / 68; Pulse 71; Resp 16; Pulse Ox 100% ; bp 10:10 Body Mass Index 26.31 (76.20 kg, 170.18 cm) ph MDM: 10:10 Patient medically screened. ellis 10:13 Differential diagnosis: Neoplasm urinary tract infection, Dysfunctional uterine ms3 bleeding. 14:00 Data reviewed: vital signs, nurses notes, lab test result(s), radiologic studies, CT ms3 scan, ultrasound, and as a result, I will discharge patient. Counseling: I had a detailed discussion with the patient and/or guardian regarding the historical points, exam findings, and any diagnostic results supporting the discharge/admit diagnosis, lab results, radiology results, the need for outpatient follow up, to return to the emergency department if symptoms worsen or persist or if there are any questions or concerns that arise at home. Special discussion: I discussed with the patient/guardian in detail that at this point there is no indication for admission to the hospital. It is understood, however, that if the symptoms persist or worsen the patient needs to return immediately for re-evaluation. I discussed with the patient the need to follow-up with the PCP/specialist for the noted incidental finding on X-ray/CT scanning. ED course: Discussed dilated pancreatic duct with patient and necessity for her to follow-up with gastroenterology. Patient is without abdominal complaints at this time. All questions were answered. Return precautions discussed to include worsening symptoms, or any other concerns. Discussed insertion of Martinez catheter and irrigation until urine becomes clear and patient declines. On reevaluation patient is alert and oriented x 4, no apparent distress, nontoxic-appearing, ambulatory emerged primary, speaking full sentences.. 11/28 10:15 Order name: CBC with Diff; Complete Time: 11:53 ms3 11/28 10:15 Order name: BMP; Complete Time: 11:53 ms3 11/28 11:27 Order name: Urine Microscopic Only; Complete Time: 11:53 EDMS 11/28 10:40 Order name: Transvaginal Study Probe; Complete Time: 11:53 EDMS 11/28 12:14 Order name: CT Abd/Pelvis - IV Contrast Only; Complete Time: 13:52 ms3 Administered Medications: No medications were administered Disposition Summary: 11/29/23 14:00 Discharge Ordered Notes: Location: Home ms3 Condition: Stable ms3 Diagnosis - Gross hematuria ms3 Followup: ms3 - With: Cooper Friedman MD - When: 2 - 3 days - Reason: Recheck today's complaints Followup: ms3 - With: Enrique Green MD - When: 2 - 3 days - Reason: Recheck today's complaints Discharge Instructions: - Discharge Summary Sheet ms3 - Hematuria, Adult ms3 Forms: - Medication Reconciliation Form ms3 - Antibiotic Education ms3 - Prescription Opioid Use ms3 - Patient Portal Instructions ms3 - Leadership Thank You Letter ms3 Signatures: Dispatcher [employer] Ward Montilla MD MD cha Hall, Patricia, RN RN Jaden Loving RN RN Hemal Herrera DO DO ms3 Corrections: (The following items were deleted from the chart) 10:15 10:15 CBC+H.LAB.BRZ ordered. EDMS EDMS 10:15 10:15 BASIC METABOLIC PANEL+C.LAB.BRZ ordered. EDMS EDMS 10:40 10:13 Pelvis Complete+US.RAD.BRZ ordered. EDMS EDMS 11:27 10:13 Urinalysis+U.LAB.BRZ ordered. EDMS EDMS
--- NOTE | 2023-11-29 14:00 | ER ---
Nurse's Notes [facility] Name: Marina Castro Age: 68 yrs Sex: Female : 1955 Arrival Date: 11/29/2023 Time: 09:42 Bed 20 Private MD: Cooper Friedman C Diagnosis: Gross hematuria Presentation: 11/28 10:10 Chief complaint: Patient states: Recently switched from Coumadin to Lovenox BID for ph upcoming sx, woke up last night w/ vaginal bleeding, instructed by automobile parker to come to ED. Coronavirus screen: Vaccine status: Patient reports receiving the 2nd dose of the covid vaccine. Ebola Screen: No symptoms or risks identified at this time. Initial Sepsis Screen: Does the patient meet any 2 criteria? No. Patient's initial sepsis screen is negative. Does the patient have a suspected source of infection? No. Patient's initial sepsis screen is negative. Risk Assessment: Do you want to hurt yourself or someone else? Patient reports no desire to harm self or others. Onset of symptoms was November 29, 2023. 10:10 Method Of Arrival: Ambulatory ph 10:10 Acuity: LUIS 3 ph Triage Assessment: 10:15 General: Appears in no apparent distress. Behavior is cooperative, appropriate for age, bp anxious. Pain: Denies pain. EENT: No deficits noted. Neuro: Level of Consciousness is awake, alert, obeys commands, Oriented to Appropriate for age. Cardiovascular: Rhythm is sinus rhythm. Respiratory: No deficits noted. GI: No signs and/or symptoms were reported involving the gastrointestinal system. : Reports vaginal bleeding that is. Derm: No deficits noted. Historical: - Allergies: 10:12 NKA; ph - PMHx: 10:12 Arthritis; Hypercholesterolemia; Hypertension; Mechanical heart valve (Hypertension); ph - PSHx: 10:12 Ankle; hand; knee; Mechanical Heart Valve; ph - Immunization history:: Adult Immunizations up to date. - Infectious Disease History:: Denies. - Social history:: Smoking status: Patient denies any tobacco usage or history of. Screenin:00 [facility] ED Fall Risk Assessment (Adult) History of falling in the last 3 months, bp including since admission No falls in past 3 months (0 pts). Abuse screen: Denies threats or abuse. Denies injuries from another. Nutritional screening: No deficits noted. Tuberculosis screening: No symptoms or risk factors identified. Assessment: 10:15 General: SEE TRIAGE NOTE. bp 12:00 Reassessment: Patient appears in no apparent distress at this time. Patient is alert, bp oriented x 3, equal unlabored respirations, skin warm/dry/pink. 13:00 Reassessment: Patient appears in no apparent distress at this time. Patient is alert, bp oriented x 3, equal unlabored respirations, skin warm/dry/pink. 14:00 Reassessment: DC HOME AMBULATORY. bp Vital Signs: 10:10 BP 139 / 74; Pulse 73; Resp 18; Temp 97.7; Pulse Ox 99% on R/A; Weight 76.2 kg; Height ph 5 ft. 7 in. ; 13:00 BP 116 / 67; Pulse 64; Resp 15; Pulse Ox 99% ; bp 14:00 BP 144 / 68; Pulse 71; Resp 16; Pulse Ox 100% ; bp 10:10 Body Mass Index 26.31 (76.20 kg, 170.18 cm) ph ED Course: 09:45 Patient arrived in ED. mr 09:45 Cooper Friedman MD is Private Physician. mr 09:58 Hemal Scott DO is Attending Physician. ms3 10:12 Triage completed. ph 10:13 Arm band placed on Patient placed in waiting room, Patient notified of wait time. ph 10:30 Jaden Campbell, CARMEN is Primary Nurse. bp 10:40 Transvaginal Study Probe In Process Unspecified. EDMS 11:17 CBC with Diff Sent. bp 11:17 BMP Sent. bp 11:17 Inserted saline lock: 22 gauge in right antecubital area, using aseptic technique. bp Blood collected. 12:48 CT Abd/Pelvis - IV Contrast Only In Process Unspecified. EDMS 13:00 Patient has correct armband on for positive identification. bp 13:58 Cooper Friedman MD is Referral Physician. ms3 13:58 Enrique Green MD is Referral Physician. ms3 14:10 No provider procedures requiring assistance completed. IV discontinued, intact, bp bleeding controlled, No redness/swelling at site. Pressure dressing applied. Administered Medications: No medications were administered Medication: 13:00 VIS not applicable for this client. bp Outcome: 14:00 Discharge ordered by MD. ms3 14:11 Discharged to home ambulatory, bp 14:11 Condition: stable 14:11 Discharge instructions given to patient, Instructed on discharge instructions, follow up and referral plans. Demonstrated understanding of instructions, follow-up care, 14:12 Patient left the ED. bp Signatures: Dispatcher [employer] EDMS Rivka Leonardo, Reg Reg mr PhillipKaycee, RN RN ph Jaden Campbell, CARMEN RN bp Hemal Scott DO DO ms3 Corrections: (The following items were deleted from the chart) 11:27 11:17 Urinalysis+U.LAB.BRZ drawn and sent. bp EDMS
[2023-11-29 14:47] VITALS: BP 144/68; TEMP 97.7; O2SAT 100
== END 2023-11-29 14:12 | disposition home or self-care (01) ==
LOC: ER 09:42
DX: R31.0 Gross hematuria (principal); I10 Essential (primary) hypertension; E78.00 Pure hypercholesterolemia, unspecified; Z95.2 Presence of prosthetic heart valve
CPT/HCPCS: 85025; 80048; 36415; 81015; 74177; 76830; 99284; Q9967

== ENCOUNTER 2023-12-02 15:36 | Emergency (ER) | payer OTHER, BC ==
[2023-12-02] MEDS ORDERED: MORPHINE 4 MG/ML SYR ONE (16:40)
[2023-12-02] MEDS ORDERED: ONDANSETRON 4 MG/2 ML VIAL ONE (16:40)
[2023-12-02 16:50] LABS: Absolute Eosinophils 0.1 K/uL (0-0.5); Absolute Lymphocytes (CBC) 1.3 K/uL (0.7-4.9); Absolute Monocytes 0.5 K/uL (0.1-1.3); Absolute Neutrophil 2.5 K/uL (1.8-8.0); Basophils % 0.8 % (0-1.3); Eosinophils % 1.5 % (0-4.4); Hemoglobin 11.6 g/dL (12.0-15.0); Lymphocytes % 29.5 % (15.3-44.8); MCH 29.7 pg (27.0-35.0); MCHC 33.1 g/dL (32.0-36.0); MCV 89.7 fL (80-100); MPV 8.1 fL (7.6-11.3); Monocytes % 10.8 % (3.3-12.3); Neutrophils % 57.4 % (41.7-73.7); Nucleated Red Blood Cells % 0.1 % (0-0); Platelets 180 thou/uL (152-406); Red Cell Distribution Width 14.2 % (12.1-15.2)
[2023-12-02 16:58] LABS: PT Prothrombin Time 11.4 SECONDS (9.5-12.5); Protime INR 1.04
[2023-12-02 17:14] LABS: Albumin 3.6 g/dL (3.4-5.0); Albumin/Globulin Ratio 1.3 (1.1-1.8); Anion Gap 8.8 mEq/L (5.0-15.0); Bilirubin Total 0.4 mg/dL (0.2-1.0); Globulin 2.8 g/dL (2.3-3.5); Potassium 3.8 mEq/L (3.5-5.1); Protein, Total 6.4 g/dL (6.4-8.2)
[2023-12-02 17:37] LABS: Sqamous Epithelial <5 /HPF (None Seen); Urine Bacteria <20 /HPF (<20); Urine Bilirubin NEGATIVE (Negative); Urine Blood 3+ (OVER) (Negative); Urine Clarity Extremely Turbid (Clear); Urine Color Brown (Yellow); Urine Crystals Unidentified Few /HPF (None Seen); Urine Culture Reflex Order NOT NEEDED; Urine Glucose NEGATIVE (Negative); Urine Ketones TRACE (Negative); Urine Microscopic Reflex YN ORDER UMIC; Urine Mucus 4+ /HPF (None Seen); Urine Nitrite NEGATIVE (Negative); Urine Protein 2+ (Negative); Urine RBC >50 /HPF (None Seen); Urine Urobilinogen Normal (Normal); Urine WBC Clump Rare /HPF (None Seen); Urine pH 5.5 (5.0-7.0)
--- NOTE | 2023-12-02 17:44 | ER ---
Nurse's Notes [facility] Name: Marina Castro Age: 68 yrs Sex: Female : 1955 Arrival Date: 12/02/2023 Time: 15:36 Bed 2 Private MD: Diagnosis: Acute cystitis with hematuria Presentation: 12/01 16:04 Chief complaint: Patient states: R low back pain/ flank pain that radiates around to ss abd that began 1-2 hours ago. Pt reports she was seen in ER a few days ago for blood in urine, but they could not find a cause. Coronavirus screen: Client denies travel out of the [place] in the last 14 days. Ebola Screen: Patient denies exposure to infectious person. Patient denies travel to an Ebola-affected area in the 21 days before illness onset. Initial Sepsis Screen: Does the patient meet any 2 criteria? No. Patient's initial sepsis screen is negative. Does the patient have a suspected source of infection? No. Patient's initial sepsis screen is negative. Risk Assessment: Do you want to hurt yourself or someone else? Patient reports no desire to harm self or others. Onset of symptoms was December 02, 2023. 16:04 Method Of Arrival: Ambulatory ss 16:04 Acuity: LUIS 3 ss Historical: - Allergies: 16:06 NKA; ss - Home Meds: 16:06 warfarin 10 mg oral tablet 1 tabs daily [Active]; ss - PMHx: 16:06 Arthritis; Hypercholesterolemia; Hypertension; mechanical heart valve (Hypertension); ss - PSHx: 16:06 Ankle; hand; knee; Mechanical Heart Valve; ss - Immunization history:: Client reports receiving the 2nd dose of the Covid vaccine. - Infectious Disease History:: Denies. - Social history:: Smoking status: Patient denies any tobacco usage or history of. Screenin:45 [facility] ED Fall Risk Assessment (Adult) History of falling in the last 3 months, as6 including since admission No falls in past 3 months (0 pts) Confusion or Disorientation No (0 pts) Intoxicated or Sedated No (0 pts) Impaired Gait No (0 pts) Mobility Assist Device Used No (0 pt) Altered Elimination No (0 pt) Score/Fall Risk Level 0 - 2 = Low Risk Oriented to surroundings, Maintained a safe environment, Educated pt \T\ family on fall prevention, incl call for assistance when getting out of bed, Assessed \T\ reinforced patient's understanding of fall precautions. Abuse screen: Denies threats or abuse. Denies injuries from another. Nutritional screening: No deficits noted. Tuberculosis screening: No symptoms or risk factors identified. Assessment: 16:45 General: Appears in no apparent distress. uncomfortable, Behavior is calm, cooperative. as6 Pain: Complains of pain in right flank and right lower quadrant. Neuro: Level of Consciousness is awake, alert, obeys commands, Oriented to person, place, time, situation. Cardiovascular: Capillary refill < 3 seconds Patient's skin is warm and dry. Respiratory: Respiratory effort is even, unlabored, Respiratory pattern is regular, symmetrical. GI: Reports lower abdominal pain, diarrhea. : Urine is blood tinged, Reports pain in right flank(s). EENT: No deficits noted. No signs and/or symptoms were reported regarding the EENT system. Derm: Skin is intact, is healthy with good turgor. Musculoskeletal: Circulation, motion, and sensation intact. 18:15 Reassessment: Patient appears in no apparent distress at this time. Patient and/or as6 family updated on plan of care and expected duration. Pain level reassessed. Patient is alert, oriented x 3, equal unlabored respirations, skin warm/dry/pink. Patient states feeling better. Patient states symptoms have improved. 19:16 Reassessment: Patient appears in no apparent distress at this time. Patient and/or jb4 family updated on plan of care and expected duration. Pain level reassessed. Patient is alert, oriented x 3, equal unlabored respirations, skin warm/dry/pink. Vital Signs: 16:04 BP 162 / 74; Pulse 73; Resp 16; Temp 97.9(TE); Pulse Ox 99% on R/A; Weight 77.11 kg; ss Height 5 ft. 7 in. ; Pain 10/10; 17:00 BP 118 / 66; Pulse 68; Resp 18 S; Pulse Ox 95% on R/A; as6 18:15 BP 116 / 66; Pulse 68; Resp 16 S; Pulse Ox 97% on R/A; as6 19:17 BP 121 / 73; Pulse 73; Resp 16; Pulse Ox 96% on R/A; jb4 16:04 Body Mass Index 26.63 (77.11 kg, 170.18 cm) ss 16:04 Pain Scale: Adult ss ED Course: 15:37 Patient arrived in ED. im 15:38 Ronnie Stafford MD is Attending Physician. ec2 15:39 Ward Mitchell PA is PHCP. cp 15:39 Ronnie Stafford MD is Attending Physician. cp 16:06 Triage completed. ss 16:06 Arm band placed on right wrist. ss 16:08 Mariano Garcia, CARMEN is Primary Nurse. as6 16:40 PT-INR Sent. as6 16:40 CBC with Diff Sent. as6 16:40 CMP Sent. as6 16:40 Lipase Sent. as6 16:40 Urinalysis w/ reflexes Sent. as6 16:45 Placed in gown. Bed in low position. Call light in reach. Side rails up X2. Client as6 placed on continuous cardiac and pulse oximetry monitoring. NIBP monitoring applied. Warm blanket given. 16:45 Inserted saline lock: 20 gauge in right antecubital area, using aseptic technique. as6 Blood collected. 17:30 CT Stone Protocol In Process Unspecified. EDMS 17:43 Prince Hoyos MD is Hospitalizing Provider. cp 17:57 PHCP role handed off by Ward Mitchell PA sb4 17:57 Sarai Wright PA-C is PHCP. sb4 18:30 Enrique Green MD is Referral Physician. sb4 19:17 Provided Education on: Discharge instructions.. jb4 19:17 No provider procedures requiring assistance completed. IV discontinued, intact, jb4 bleeding controlled, No redness/swelling at site. Pressure dressing applied. Administered Medications: 16:45 Drug: morphine IVP or IV 4 mg IVP once over 4 mins Route: IVP; Infused Over: 4 mins; as6 Site: right antecubital; 16:45 Drug: Ondansetron IVP 4 mg IVP once; over 2 minutes Route: IVP; Site: right antecubital;as6 18:00 Drug: Rocephin IV 1 grams IV at calculated rate once; Given slow IV push per pharmacy as6 instructions Route: IV; Rate: calculated rate; Site: right antecubital; Medication: 16:45 VIS not applicable for this client. as6 Outcome: 17:44 Decision to Hospitalize by Provider. cp 18:30 Discharge ordered by . sbLexy 19:17 Discharged to home ambulatory, jb4 19:17 Condition: stable 19:17 Discharge instructions given to patient, Instructed on discharge instructions, follow up and referral plans. medication usage, Demonstrated understanding of instructions, follow-up care, medications, Prescriptions given X 1, 19:18 Patient left the ED. jb4 Signatures: Dispatcher [employer] EDMS Noemy Pak, RN RN Ward Mitchell PA PA cp Bryson, James, RN RN jb4 Mariano Garcia RN RN as6 Sarai Wright, PA-C PA-C sb4 Amanda Gonzalez Edwin, MD MD ec2
--- NOTE | 2023-12-02 17:44 | EDPHYS ---
Physician Documentation [facility] Name: Marina Castro Age: 68 yrs Sex: Female : 1955 Arrival Date: 12/02/2023 Time: 15:36 Bed 2 Private MD: ED Physician Ronnie Stafford HPI: 12/01 16:30 This 68 yrs old Female presents to ER via Ambulatory with complaints of Back Pain, cp Abdominal Pain. 16:30 The patient presents with pain that is acute, with no known mechanism of injury. The cp symptoms are located in the right mid/lower back. Onset: The symptoms/episode began/occurred 2 hour(s) ago. The pain radiates to the abdomen. Associated signs and symptoms: Pertinent positives: abdominal pain, Pertinent negatives: chest pain, constipation, dysuria, fever, incontinence, numbness, tingling, weakness. Severity of symptoms: in the emergency department the symptoms are unchanged, despite home interventions. Historical: - Allergies: 16:06 NKA; ss - Home Meds: 16:06 warfarin 10 mg oral tablet 1 tabs daily [Active]; ss - PMHx: 16:06 Arthritis; Hypercholesterolemia; Hypertension; mechanical heart valve (Hypertension); ss - PSHx: 16:06 Ankle; hand; knee; Mechanical Heart Valve; ss - Immunization history:: Client reports receiving the 2nd dose of the Covid vaccine. - Infectious Disease History:: Denies. - Social history:: Smoking status: Patient denies any tobacco usage or history of. ROS: 16:35 Constitutional: Negative for body aches, chills, fever, poor PO intake, cp 16:35 Eyes: Negative for injury, pain, redness, and discharge, cp 16:35 ENT: Negative for drainage from ear(s), ear pain, sore throat, difficulty swallowing, difficulty handling secretions, 16:35 Cardiovascular: Negative for chest pain, edema, palpitations, 16:35 Respiratory: Negative for cough, shortness of breath, wheezing, 16:35 Abdomen/GI: Positive for abdominal pain, Negative for vomiting, diarrhea, constipation, 16:35 Back: Positive for flank pain, on the right, Negative for injury or acute deformity, decreased range of motion, 16:35 : Positive for hematuria, Negative for difficulty urinating, 16:35 Neuro: Negative for altered mental status, dizziness, headache, syncope, weakness, 16:35 All other systems are negative, Exam: 16:40 Constitutional: The patient appears in no acute distress, alert, awake, non-toxic, well cp developed, well nourished, uncomfortable, 16:40 Head/Face: Normocephalic, atraumatic. cp 16:40 Eyes: Periorbital structures: appear normal, Conjunctiva: normal, no exudate, no injection, Sclera: no appreciated abnormality, Lids and lashes: appear normal, bilaterally, 16:40 ENT: External ear(s): are unremarkable, Nose: is normal, Mouth: Lips: moist, Oral mucosa: pink and intact, moist, Posterior pharynx: Airway: no evidence of obstruction, patent, 16:40 Chest/axilla: Inspection: normal, 16:40 Cardiovascular: Rate: normal, Rhythm: regular, 16:40 Respiratory: the patient does not display signs of respiratory distress, Respirations: normal, no use of accessory muscles, no retractions, labored breathing, is not present, Breath sounds: are clear throughout, no decreased breath sounds, no stridor, no wheezing, 16:40 Abdomen/GI: Inspection: abdomen appears normal, Bowel sounds: active, all quadrants, Palpation: soft, in all quadrants, moderate abdominal tenderness, in the right upper quadrant and right lower quadrant, 16:40 Back: pain, that is moderate, of the right mid back and right low back, 16:40 Neuro: Orientation: to person, place \T\ time. Mentation: lucid, Motor: moves all fours, strength is normal, Sensation: no obvious gross deficits, Vital Signs: 16:04 BP 162 / 74; Pulse 73; Resp 16; Temp 97.9(TE); Pulse Ox 99% on R/A; Weight 77.11 kg; ss Height 5 ft. 7 in. ; Pain 10/10; 17:00 BP 118 / 66; Pulse 68; Resp 18 S; Pulse Ox 95% on R/A; as6 18:15 BP 116 / 66; Pulse 68; Resp 16 S; Pulse Ox 97% on R/A; as6 19:17 BP 121 / 73; Pulse 73; Resp 16; Pulse Ox 96% on R/A; jb4 16:04 Body Mass Index 26.63 (77.11 kg, 170.18 cm) ss 16:04 Pain Scale: Adult ss MDM: 16:10 Patient medically screened. cp 16:45 Differential diagnosis: Cholelithiasis Neoplasm Pyelonephritis Ureterolithiasis. cp 18:07 Data reviewed: vital signs, nurses notes, lab test result(s), radiologic studies, and sb4 as a result, I will discharge patient. Counseling: I had a detailed discussion with the patient and/or guardian regarding the historical points, exam findings, and any diagnostic results supporting the discharge/admit diagnosis, lab results, radiology results, to return to the emergency department if symptoms worsen or persist or if there are any questions or concerns that arise at home. 12/01 16:19 Order name: Urinalysis w/ reflexes; Complete Time: 17:38 eb 12/01 17:39 Interpretation: Normal except: [facility] Extremely Turbid; UKET TRACE; UBLD 3+ (OVER); UPROT cp 2+; URBC >50; NSE 5-10; MUCUS 4+. 12/01 16:23 Order name: CBC with Diff; Complete Time: 17:02 cp 12 17:39 Interpretation: Normal except: HGB 11.6; HCT 35.0. cp 0512 16:23 Order name: CMP; Complete Time: 17:38 cp 12 17:39 Interpretation: Normal except: CRE 1.07; GFR 56; AST 57; ALT 120. cp 12/01 16:23 Order name: Lipase; Complete Time: 17:38 cp 12 16:23 Order name: PT-INR; Complete Time: 17:02 cp 12 17:04 Order name: CT Stone Protocol; Complete Time: 18:16 cp 12/01 16:23 Order name: IV Saline Lock; Complete Time: 16:40 cp 12/01 16:23 Order name: Labs collected and sent; Complete Time: 16:40 cp Administered Medications: 16:45 Drug: morphine IVP or IV 4 mg IVP once over 4 mins Route: IVP; Infused Over: 4 mins; as6 Site: right antecubital; 16:45 Drug: Ondansetron IVP 4 mg IVP once; over 2 minutes Route: IVP; Site: right antecubital;as6 18:00 Drug: Rocephin IV 1 grams IV at calculated rate once; Given slow IV push per pharmacy as6 instructions Route: IV; Rate: calculated rate; Site: right antecubital; Disposition Summary: 12/02/23 18:30 Discharge Ordered Notes: Location: Home(12/02/23 18:30) sb4 Problem: an ongoing problem(12/02/23 18:30) sb4 Symptoms: have improved(12/02/23 18:30) sb4 Condition: Stable(12/02/23 18:30) sb4 Diagnosis - Acute cystitis with hematuria sb4 Followup: sb4 - With: Enrique Green MD - When: 2 - 3 days - Reason: Further diagnostic work-up, Recheck today's complaints, Re-evaluation by your physician Discharge Instructions: - Discharge Summary Sheet sb4 - Urinary Tract Infection, Adult sb4 Forms: - Antibiotic Education sb4 - Patient Portal Instructions sb4 - Leadership Thank You Letter sb4 Prescriptions: - cefpodoxime 100 mg Oral Tablet - take 1 tablet ORAL route every 12 hours for 10 days take with food; 20 tablet; sb4 Refills: 0, Product Selection Permitted Signatures: Dispatcher [employer] EDMS Noemy Pak, RN RN ss Ward Mitchell PA PA cp Mariano Garcia RN RN as6 Sarai Wright PA-C PA-C sb4 Corrections: (The following items were deleted from the chart) 16:19 16:19 Urinalysis+U.LAB.BRZ ordered. EDMS EDMS 16:23 16:23 CBC+H.LAB.BRZ ordered. EDMS EDMS 16:23 16:23 COMPREHENSIVE METABOLIC PANEL+C.LAB.BRZ ordered. EDMS EDMS 16:23 16:23 LIPASE+C.LAB.BRZ ordered. EDMS EDMS 16:23 16:23 PROTIME (+INR)+COAG.LAB.BRZ ordered. EDMS EDMS 17:47 17:44 Observation cp cp 17:47 17:44 Prince Soha cp cp 17:47 17:44 Telemetry/MedSurg (observation) cp cp 17:47 17:44 Stable cp cp 17:47 17:44 new cp cp 17:47 17:44 have improved cp cp 17:47 17:44 Standard cp cp 17:47 17:44 cp cp 17:47 17:44 Dyspnea cp cp 17:47 17:44 Palpitations cp cp 17:53 05/11 16:30 This 68 yrs old Female presents to ER via Ambulatory with complaints of cp Back Pain, Abdominal Pain. cp 12/01 16:30 The patient presents with pain that is acute, with no known mechanism of cp injury, cp 12/01 16:30 The symptoms are located in the right mid/lower back, cp cp 12/01 16:11/30 16:30 Onset: The symptoms/episode began/occurred 2 hour(s) ago, cp cp 12/01 16:30 The pain radiates to the abdomen, cp cp 12/01 16:30 Associated signs and symptoms: Pertinent positives: abdominal pain, cp Pertinent negatives: chest pain, constipation, dysuria, fever, incontinence, numbness, tingling, weakness, cp 12/01 16:30 Severity of symptoms: in the emergency department the symptoms are cp unchanged, despite home interventions, cp
[2023-12-02] MEDS ORDERED: CEFTRIAXONE 1000 MG/VIAL ONE (17:54)
--- NOTE | 2023-12-02 18:15 | RAD REPORT ---
EXAM DESCRIPTION: CT - Stone Protocol - 12/02/2023 5:28 pm CLINICAL HISTORY: right flank pain, hematuria COMPARISON: Abdomen Pelvis W Contrast dated 11/29/2023; Stone Protocol dated 06/06/2023; Stone Isabela col dated 11/06/2021 TECHNIQUE: Thin cut axial CT imaging of the abdomen and pelvis was performed without IV contrast. Mu ltiplanar reformats were generated and reviewed. All CT scans are performed using dose optimization technique as appropriate and may include automated exposure control or mA/KV adjustment according to patient size. FINDINGS: No suspicious findings in the lung bases. The liver shows a subcapsular fluid density lesion along the inferior right lobe margin measuring 1.6 cm. Spleen, adrenal glands, and pancreas show no suspicious findings. Gallbladder and biliary tree a re also without suspicious finding. Symmetric renal contour, without suspicious parenchymal findings within limits of noncontrast techniq ue. No evidence of radiopaque calculi or hydroureteronephrosis. No dilated bowel loops or bowel wall thickening. Moderate stool burden along the ascending colon. Sig moid diverticulosis. Small inguinal hernias containing fat. No free air, free fluid or inflammatory s tranding. No mass or bulky lymphadenopathy. The urinary bladder is without significant finding. No suspicious bony findings. IMPRESSION: No acute intra-abdominal process. Incidental findings including sigmoid diverticulosis and small inguinal hernias containing fat.
[2023-12-02 19:44] VITALS: BP 121/73; TEMP 97.9; O2SAT 96
== END 2023-12-02 19:18 | disposition home or self-care (01) ==
LOC: ER 15:36
DX: N30.01 Acute cystitis with hematuria (principal); I10 Essential (primary) hypertension; Z79.01 Long term (current) use of anticoagulants; Z95.4 Presence of other heart-valve replacement
CPT/HCPCS: 85025; 81001; 36415; 85610; 83690; 80053; 76377; 74176; 96375; 96374; 99284; J2405; J0696

== ENCOUNTER 2024-07-14 03:02 | Emergency (ER) | payer OTHER, BC ==
[2011-10-28 02:46] VITALS: BP 122/81
[2024-07-14 04:16] LABS: Absolute Eosinophils 0.1 K/uL (0-0.5); Absolute Lymphocytes (CBC) 1.6 K/uL (0.7-4.9); Absolute Monocytes 0.5 K/uL (0.1-1.3); Absolute Neutrophil 1.6 K/uL (1.8-8.0); Basophils % 1.1 % (0-1.3); Eosinophils % 2.7 % (0-4.4); Hematocrit 35.4 % (36.0-45.0); Hemoglobin 11.4 g/dL (12.0-15.0); Lymphocytes % 42.1 % (15.3-44.8); MCH 30.6 pg (27.0-35.0); MCHC 32.2 g/dL (32.0-36.0); MCV 94.9 fL (80-100); MPV 8.2 fL (7.6-11.3); Monocytes % 11.7 % (3.3-12.3); Neutrophils % 42.4 % (41.7-73.7); Platelets 195 thou/uL (152-406); RBC Red Blood Cell Count 3.73 M/uL (3.86-4.86); Red Cell Distribution Width 14.1 % (12.1-15.2)
[2024-07-14 04:19] LABS: PT Prothrombin Time 10.6 SECONDS (9.4-12.5); PTT, Activated Partial Thromb 35.8 SECONDS (24.3-36.9); Protime INR 0.94
[2024-07-14 04:28] LABS: Anion Gap 6.8 mEq/L (5.0-15.0); Potassium 3.8 mEq/L (3.5-5.1)
--- NOTE | 2024-07-14 04:35 | ER ---
Nurse's Notes [facility] Name: Marina Castro Age: 69 yrs Sex: Female : 1955 Arrival Date: 07/14/2024 Time: 03:02 Bed 18 Private MD: Diagnosis: Encounter for change or removal of surgical wound dressing Presentation: 07/14 03:20 Chief complaint: Patient states: BLEEDING FROM SURGICAL SITE ON BREAST, 3 DAYS POST OP. kj2 Coronavirus screen: Client denies travel out of the [place] in the last 14 days. Ebola Screen: No symptoms or risks identified at this time. Initial Sepsis Screen: Does the patient meet any 2 criteria? No. Patient's initial sepsis screen is negative. Does the patient have a suspected source of infection? No. Patient's initial sepsis screen is negative. Risk Assessment: Do you want to hurt yourself or someone else? Patient reports no desire to harm self or others. Onset of symptoms was July 14, 2024. 03:20 Method Of Arrival: Ambulatory kj2 03:20 Acuity: LUIS 4 kj2 Triage Assessment: 03:20 Neuro: Level of Consciousness is awake, alert, obeys commands, Oriented to person, kj2 place, time, situation. Cardiovascular: Patient's skin is warm and dry. Respiratory: Airway is patent Respiratory effort is even, unlabored. 03:37 General: Appears in no apparent distress. Behavior is cooperative. kj2 Historical: - Allergies: 03:39 NKA; kj2 - Home Meds: 03:39 carvedilol Oral [Active]; Celebrex Oral [Active]; Coumadin Oral [Active]; escitalopram kj2 oxalate Oral [Active]; warfarin 10 mg Oral tablet 1 tabs daily [Active]; - PMHx: 03:39 Arthritis; Hypercholesterolemia; Hypertension; mechanical heart valve (Hypertension); kj2 - PSHx: 03:39 Ankle; hand; knee; Mechanical Heart Valve; kj2 - Immunization history:: Adult Immunizations unknown. - Infectious Disease History:: Denies. - Family history:: not pertinent. - Hospitalizations: : No recent hospitalization is reported. - Social history:: Smoking status: unknown. Screenin:20 [facility] ED Fall Risk Assessment (Adult) History of falling in the last 3 months, kj2 including since admission No falls in past 3 months (0 pts) Confusion or Disorientation No (0 pts) Intoxicated or Sedated No (0 pts) Impaired Gait No (0 pts) Mobility Assist Device Used No (0 pt) Altered Elimination No (0 pt) Score/Fall Risk Level 0 - 2 = Low Risk Maintained a safe environment, Hourly rounding (assess needs \T\ fall precautionary measures) done. Abuse screen: Denies threats or abuse. Denies injuries from another. Nutritional screening: No deficits noted. Tuberculosis screening: No symptoms or risk factors identified. Assessment: 03:30 General: SEE TRIAGE ASSESSMENT. kj2 03:35 Pain: Denies pain. GI: Bowel sounds present X 4 quads. Abd is non tender X 4 quads. kj2 04:30 Reassessment: Patient appears in no apparent distress at this time. Patient and/or kj2 family updated on plan of care and expected duration. Pain level reassessed. Patient is alert, oriented x 3, equal unlabored respirations, skin warm/dry/pink. 04:43 Reassessment:. kj2 Vital Signs: 03:20 Weight 74.84 kg; Height 5 ft. 7 in. ; kj2 03:30 BP 132 / 76; Pulse 60; Resp 20; Temp 97.8; Pulse Ox 100% on R/A; kj2 04:30 BP 134 / 76; Pulse 74; Resp 18; Temp 98; Pulse Ox 100% on R/A; kj2 03:20 Body Mass Index 25.84 (74.84 kg, 170.18 cm) kj2 ED Course: 03:08 Patient arrived in ED. gm2 03:12 Tomy Mahoney MD is Attending Physician. rn 03:20 Patient has correct armband on for positive identification. Bed in low position. Call kj2 light in reach. Provided Education on: call light. 03:25 Meredith Mesa, CARMEN is Primary Nurse. kj2 03:32 Triage completed. kj2 03:36 Arm band placed on Patient placed in waiting room. kj2 04:04 Initial lab(s) drawn, by ED staff, sent to lab. vk 04:04 Missed attempt(s): 22 gauge in right antecubital area. vk 04:07 Protime (+inr) Sent. vk 04:07 Ptt, Activated Sent. vk 04:07 Basic Metabolic Panel Sent. vk 04:07 CBC with Diff Sent. vk 04:07 Inserted saline lock: 22 gauge in right antecubital area, using aseptic technique. vk Blood collected. Flushed with 10 mL NS. 04:43 No provider procedures requiring assistance completed. kj2 04:44 IV discontinued, intact, bleeding controlled, No redness/swelling at site. Pressure kj2 dressing applied. Administered Medications: No medications were administered Medication: 03:36 VIS not applicable for this client. kj2 Outcome: 04:34 Discharge ordered by . rn 04:44 Discharged to home ambulatory, kj2 04:44 Condition: stable 04:44 Discharge instructions given to patient, Instructed on discharge instructions, follow up and referral plans. 04:58 Patient left the ED. kj2 Signatures: Tomy Mahoney MD MD rn Mitchell, Ginger 2 Chelsey Ray Krystal RN RN kj2
--- NOTE | 2024-07-14 04:35 | EDPHYS ---
Physician Documentation [facility] Name: Marina Castro Age: 69 yrs Sex: Female : 1955 Arrival Date: 07/14/2024 Time: 03:02 Bed 18 Private MD: ED Physician Tomy Mahoney HPI: 07/14 03:31 This 69 yrs old Female presents to ER via Unassigned with complaints of post surgical nurse bleeding around breast. 03:31 Patient presents to ED for recheck of: Surgical wound. The affected area is on the rn chest. The patient has not experienced similar symptoms in the past. Patient reports had breast augmentation 3 days ago in [place], restarted her Lovenox and Coumadin and noticed blood on her shirt today. Blood noted right axillary region of shirt. Denies shortness of breath or lightheadedness. Takes Coumadin secondary to mechanical heart valve. She has only changed the wound dressing 1 time and had blood.. Historical: - Allergies: 03:39 NKA; kj2 - Home Meds: 03:39 carvedilol Oral [Active]; Celebrex Oral [Active]; Coumadin Oral [Active]; escitalopram kj2 oxalate Oral [Active]; warfarin 10 mg Oral tablet 1 tabs daily [Active]; - PMHx: 03:39 Arthritis; Hypercholesterolemia; Hypertension; mechanical heart valve (Hypertension); kj2 - PSHx: 03:39 Ankle; hand; knee; Mechanical Heart Valve; kj2 - Immunization history:: Adult Immunizations unknown. - Infectious Disease History:: Denies. - Family history:: not pertinent. - Hospitalizations: : No recent hospitalization is reported. - Social history:: Smoking status: unknown. ROS: 03:31 Constitutional: Negative for fever, chills, and weight loss, Cardiovascular: Negative rn for chest pain, palpitations, and edema, Respiratory: Negative for shortness of breath, cough, wheezing, and pleuritic chest pain, Abdomen/GI: Negative for abdominal pain Skin: Positive for bleeding from right lateral surgical wound. Exam: 03:31 Constitutional: This is a well developed, well nourished patient who is awake, alert, rn and in no acute distress. Chest/axilla: Inferior to right breast along lateral side of incision there is small very slow trickle of blood. No clot. Left breast wound appears clean dry and intact. Cardiovascular: Regular rate and rhythm. No pulse deficits. Respiratory: No increased work of breathing, no retractions or nasal flaring. Abdomen/GI: Soft, nondistended, nontender Vital Signs: 03:20 Weight 74.84 kg; Height 5 ft. 7 in. ; kj2 03:30 BP 132 / 76; Pulse 60; Resp 20; Temp 97.8; Pulse Ox 100% on R/A; kj2 04:30 BP 134 / 76; Pulse 74; Resp 18; Temp 98; Pulse Ox 100% on R/A; kj2 03:20 Body Mass Index 25.84 (74.84 kg, 170.18 cm) kj2 MDM: 03:12 Medical Screening Exam initiated rn 04:32 Differential diagnosis: Postoperative bleeding. Data reviewed: vital signs, nurses rn notes, lab test result(s), and as a result, I will discharge patient. Counseling: I had a detailed discussion with the patient and/or guardian regarding the historical points, exam findings, and any diagnostic results supporting the discharge/admit diagnosis, lab results, the need for outpatient follow up, to return to the emergency department if symptoms worsen or persist or if there are any questions or concerns that arise at home. Special discussion: I discussed with the patient/guardian in detail that at this point there is no indication for admission to the hospital. It is understood, however, that if the symptoms persist or worsen the patient needs to return immediately for re-evaluation. Based on the history and exam findings, there is no indication for further emergent testing or inpatient evaluation. I discussed with the patient/guardian the need to see the plastic surgeon for further evaluation of the symptoms. ED course: Hemoglobin 11.4, bleeding has slowed down with Surgicel and redressing. Patient has appointment today at 10 AM with her plastic surgeon. We will send home with return precautions and follow-up at 10 AM.. 07/14 03: Order name: CBC with Diff; Complete Time: 04: rn 07/14 03:27 Order name: Basic Metabolic Panel; Complete Time: 04:32 rn 07/14 03:27 Order name: Protime (+inr); Complete Time: 04: rn 07/14 03: Order name: Ptt, Activated; Complete Time: : rn 07/14 03:27 Order name: IV Start; Complete Time: 04:07 rn 07/14 03:28 Order name: Wound Care; Complete Time: 04:41 rn 07/14 03:28 Order name: Wound dressing; Complete Time: 04:40 rn Administered Medications: No medications were administered Disposition Summary: 07/14/24 04:34 Discharge Ordered Notes: Location: Home rn Problem: new rn Symptoms: have improved rn Condition: Stable rn Diagnosis - Encounter for change or removal of surgical wound dressing rn Followup: rn - With: Private Physician - When: Today - Reason: Recheck today's complaints, Re-evaluation by your physician Discharge Instructions: - Discharge Summary Sheet rn - How to Change Your Wound Dressing rn - Warfarin Coagulopathy rn - Incision Care, Adult rn - Warfarin Information rn Forms: - Medication Reconciliation Form rn - 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
== END 2024-07-14 04:58 | disposition home or self-care (01) ==
LOC: ER 03:02
DX: Z48.01 Encounter for change or removal of surgical wound dressing (principal); Z98.82 Breast implant status
CPT/HCPCS: 36415; 80048; 85025; 85610; 85730; 99284